=== PATIENT | male | born 1960 | race Caucasian/White ===

== ENCOUNTER 2017-01-24 17:46 | Emergency (ER) | payer MEDICARE, OTHER ==
[2017-01-24 17:51] VITALS: BP 146/81; PULSE 72; RESP 18; TEMP 97.9
[2017-01-24] MEDS ORDERED: CYCLOBENZAPRINE 10 MG TAB PO STA (17:56)
--- NOTE | 2017-01-24 18:05 | ED ---
Back Pain HPI - General Chief Complaint: Back Pain/Injury Stated Complaint: Back pain Time Seen by Provider: 01/24/17 17:47 Source: patient, EMS, RN notes reviewed Limitations: no limitations - History of Present Illness Initial Comments: 56-year-old male present emergency department with chief complaint of low back pain. Patient states that he's been having spasms on and off throughout the day. Patient states that he may have done more work than he usually does. Patient states that the pain is in his left low back and radiates down his leg slightly. Patient states he has a history of back pain and has seen Dr. Antonio in the past. Patient has a any bowel, bladder incontinence or retention denies any abdominal pain including nausea, vomiting, diarrhea, dysuria or hematuria. He has increased pain with range of motion better at rest current pain 6/10 pain. - Related Data Home Medications Medication Instructions Recorded Confirmed Albuterol Inhaler [Ventolin Hfa 1 - 2 puff INHALATION Q4-6H PRN 01/13/14 Inhaler] Mirtazapine [Remeron] 45 mg PO HS 01/13/14 04/17/15 Montelukast [Singulair] 10 mg PO HS 01/13/14 04/17/15 Venlafaxine HCl [Effexor XR] 300 mg PO DAILY 01/13/14 04/17/15 Rosuvastatin [Crestor] 10 mg PO HS 06/20/14 04/17/15 Levothyroxine Sodium [Synthroid] 50 mcg PO QAM 11/20/14 04/17/15 QUEtiapine [SEROquel] 50 mg PO HS 11/20/14 04/17/15 Allopurinol [Zyloprim] 100 mg PO 04/17/15 04/17/15 Previous Rx's Medication Instructions Recorded Aspirin EC [Ecotrin] 325 mg PO DAILY tablet. 11/23/14 Metoprolol Tartrate [Lopressor] 25 mg PO BID #60 tab 11/23/14 Nitroglycerin Sl Tabs [Nitrostat] 0.4 mg SUBLINGUAL Q5M PRN #25 tab 11/23/14 HYDROcodone/APAP 5-325MG [[place] 5] 1 each PO Q4HR PRN #20 tab 04/17/15 Naproxen [Naprosyn] 500 mg PO Q12HR PRN #20 tab 04/17/15 Tamsulosin [Flomax] 0.4 mg PO DAILY #5 cap 04/17/15 Acetaminophen-Codeine 300-30mg 1 tab PO Q4H PRN #20 tablet 01/24/17 [Tylenol #3] Cyclobenzaprine [Flexeril] 10 mg PO TID PRN #15 tab 01/24/17 Allergies Allergy/AdvReac Type Severity Reaction Status Date / Time ziprasidone HCl [From Geodon] Allergy Anaphylaxis Verified 04/17/15 02:08 ziprasidone mesylate Allergy Anaphylaxis Verified 04/17/15 02:08 [From Lucina] Review of Systems ROS Statement: Those systems with pertinent positive or pertinent negative responses have been documented in the HPI. ROS Other: All systems not noted in ROS Statement are negative. 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 2010,HX OF FALLS(MAY 2014 BROKE ARM AND CURRENTLY RT FIBULA FX).PT STATED HAD [facility]. History of Any Multi-Drug Resistant Organisms: None Reported Past Surgical History: Adenoidectomy, Orthopedic Surgery, Tonsillectomy Additional Past Surgical History / Comment(s): lithotripsy, bilateral shoulder fusions, right foot reconstruction, NECK FUSION -2013 Past Anesthesia/Blood Transfusion Reactions: No Reported Reaction Past Psychological History: Anxiety, Depression Smoking Status: Never smoker Past Alcohol Use History: Rare Past Drug Use History: None Reported - Past Family History Mother Family Medical History: Cancer Father Family Medical History: CVA/TIA Sister(s) Family Medical History: No Reported History General Exam Limitations: no limitations General appearance: alert, in no apparent distress Respiratory exam: Present: normal lung sounds bilaterally. Absent: respiratory distress, wheezes, rales, rhonchi, stridor Cardiovascular Exam: Present: regular rate, normal rhythm, normal heart sounds. Absent: systolic murmur, diastolic murmur, rubs, gallop, clicks GI/Abdominal exam: Present: soft, normal bowel sounds. Absent: distended, tenderness, guarding, rebound, rigid Extremities exam: Present: other (Lower extremity strength equal bilaterally 5/5 , neurovascular intact equal color Equal warmth) Back exam: Present: normal inspection, full ROM, tenderness (Mild tenderness to left SI joint region), muscle spasm, paraspinal tenderness. Absent: vertebral tenderness Neurological exam: Present: alert, oriented X3, CN II-XII intact, reflexes normal. Absent: motor sensory deficit Skin exam: Present: warm, dry, intact, normal color. Absent: rash Course Vital Signs 01/24/17 17:48 Temperature 97.9 F Pulse Rate 72 Respiratory 18 Rate Blood Pressure 146/81 O2 Sat by Pulse 100 Oximetry Medical Decision Making - Medical Decision Making 56-year-old male present emergency department for low back pain. Patient does have spasms at home. Patient x-ray does not show any acute abnormality. Patient has no neurological deficits or red flag symptoms. Patient be discharged with Flexeril and Tylenol with codeine return parameters were discussed. Disposition Clinical Impression: Lumbar back pain Disposition: HOME SELF-CARE Condition: Stable Instructions: Acute Low Back Pain (ED) Additional Instructions: Please return to the Emergency Department if symptoms worsen or any other concerns. Prescriptions: Acetaminophen-Codeine 300-30mg [Tylenol #3] 1 tab PO Q4H PRN #20 tablet PRN Reason: pain Cyclobenzaprine [Flexeril] 10 mg PO TID PRN #15 tab PRN Reason: Muscle Spasm Referrals: Armani Rendon DO [Primary Care Provider] - 1-2 days Time of Disposition: 18:30
--- NOTE | 2017-01-24 18:13 | XR ---
EXAMINATION TYPE: XR lumbosacral spine min 4V DATE OF EXAM: 01/24/2017 COMPARISON: NONE HISTORY: Back pain TECHNIQUE: 5 views FINDINGS: The vertebra have Fairly normal spacing and alignment. Posterior elements are intact. There is no com pression fracture. Sacroiliac joints are intact. IMPRESSION: Negative lumbar spine exam.
== END 2017-01-24 18:30 | disposition home or self-care (01) ==
LOC: EC 17:46
DX: M54.5 Low back pain (principal); J45.909 Unspecified asthma, uncomplicated; I10 Essential (primary) hypertension; E78.5 Hyperlipidemia, unspecified; E07.9 Disorder of thyroid, unspecified; F41.9 Anxiety disorder, unspecified; F32.9 Major depressive disorder, single episode, unspecified; Z98.1 Arthrodesis status; Z85.72 Personal history of non-Hodgkin lymphomas; Z88.8 Allergy status to other drugs, medicaments and biological substances; Z79.899 Other long term (current) drug therapy
CPT/HCPCS: 72110; 99283

== ENCOUNTER → 2018-04-29 | Outpatient (CLI) | payer MEDICARE, OTHER ==
[2018-04-29 16:48] LABS: Blood Urea Nitrogen 23 mg/dL (9-20)
--- NOTE | 2018-05-02 00:13 | MR ---
EXAMINATION TYPE: MR cervical spine wo/w con DATE OF EXAM: 04/29/2018 COMPARISON: None HISTORY: Neck Pain, Hodgkins, Gadavist 10ml TECHNIQUE: Multiplanar, multisequence images of the cervical spine were acquired utilizing 10 mL intravenous Reuben avist gadolinium contrast. Diffusion weighted imaging was performed. The cervical vertebra have normal alignment. There is metal artifact from anterior fusion surgery at C5-C6 and C7 levels. The cervical spinal cord shows no edema. There is a moderate spur posteriorly of the endplates at C6-7 with slight narrowing of the spinal canal. The canal measures 7 mm. There is n o evidence of compression fracture. Brainstem appears intact. I see no focal bony destructive process . Contrast images show no pathologic enhancement. IMPRESSION: Multilevel fusion surgery. Mild relative spinal stenosis at C6-7 with posterior spurring.
== END | disposition home or self-care (01) ==
LOC: RADMRIMAIN 16:07
PROVIDERS: ATTEND Orthopaedic Surgery Orthopaedic Surgery of the Spine
DX: M48.02 Spinal stenosis, cervical region (principal); Z98.1 Arthrodesis status
CPT/HCPCS: 82565; 84520; 72156; A9585

== ENCOUNTER → 2018-11-21 | Outpatient (CLI) | payer MEDICARE, OTHER ==
[2018-11-21 10:48] LABS: HCT 45.7 % (39.0-53.0); HGB 14.7 gm/dL (13.0-17.5); MCH 29.6 pg (25.0-35.0); MCHC 32.2 g/dL (31.0-37.0); MCV 91.7 fL (80.0-100.0); Mean Platelet Volume 7.9; Platelet Count 196 k/uL (150-450); RBC 4.98 m/uL (4.30-5.90); RDW 14.1 % (11.5-15.5)
[2018-11-21 16:05] LABS: Anion Gap 6.8 mmol/L (4.00-12.00); Calcium 9.3 mg/dL (8.7-10.3); Carbon Dioxide 26.2 mmol/L (21.6-31.8); Potassium 4.3 mmol/L (3.5-5.5)
[2018-11-21 16:14] LABS: T4, Free (Free Thyroxine) 1.3 ng/dL (0.80-1.80)
== END | disposition home or self-care (01) ==
LOC: LABWHC1 10:20
PROVIDERS: ATTEND Internal Medicine Interventional Cardiology
DX: I10 Essential (primary) hypertension (principal); R94.39 Abnormal result of other cardiovascular function study
CPT/HCPCS: 36415; 80048; 84439; 84443; 85027

== ENCOUNTER → 2019-02-03 | Outpatient (CLI) | payer MEDICARE, OTHER | END | disposition home or self-care (01) | LOC: LABWHC1 09:41 | PROVIDERS: ATTEND Orthopaedic Surgery | DX: M79.672 Pain in left foot (principal); M84.375A Stress fracture, left foot, initial encounter for fracture | CPT/HCPCS: 36415; 82306 ==

== ENCOUNTER → 2019-08-12 | Outpatient (CLI) | payer MEDICARE, OTHER ==
--- NOTE | 2019-08-12 17:34 | MR ---
EXAMINATION TYPE: MR lumbar spine wo con DATE OF EXAM: 08/12/2019 COMPARISON: None HISTORY: Low back pain Multiplanar multiecho imaging of the lumbar spine was performed with no contrast. Lumbar vertebra have normal alignment. Disc spaces are fairly normal. There is no compression fractur e. Lumbar nerve roots appear normal. Neural foramina are widely patent. There is no lumbar disc herni ation. Posterior elements are intact. Sacroiliac joints appear intact. There is no lumbar paraspinal mass. There is no spinal stenosis. There is no compression fracture. IMPRESSION: Lumbar spine appears normal for age.
== END | disposition home or self-care (01) ==
LOC: RADMRIMAIN 09:27
PROVIDERS: ATTEND Physical Medicine & Rehabilitation
DX: M54.5 Low back pain (principal); M51.37 Other intervertebral disc degeneration, lumbosacral region; M47.817 Spondylosis without myelopathy or radiculopathy, lumbosacral region; G56.03 Carpal tunnel syndrome, bilateral upper limbs; M50.121 Cervical disc disorder at C4-C5 level with radiculopathy; M47.812 Spondylosis without myelopathy or radiculopathy, cervical region
CPT/HCPCS: 72148

== ENCOUNTER → 2020-05-21 | Outpatient (CLI) | payer MEDICARE, OTHER | END | disposition home or self-care (01) | LOC: LABWHC1 16:18 | PROVIDERS: ATTEND Family Medicine | DX: Z20.828 Contact with and (suspected) exposure to other viral communicable diseases (principal) | CPT/HCPCS: U0003; C9803 ==

== ENCOUNTER → 2020-09-09 | Outpatient (CLI) | payer MEDICARE, OTHER ==
--- NOTE | 2020-09-09 16:24 | MR ---
MRI CERVICAL SPINE: CLINICAL HISTORY: Cervicalgia, muscle weakness, cervical region spondylolisthesis, status post ACDF C 5-C6 and C6-C7 levels August 09, 2013. Headache with neck pain for 20+ years causing pain or weakne ss into bilateral fingers. TECHNIQUE: Multiplanar, multisequence imaging of the cervical spine is performed without and with IV contrast, 10 cc of gadolinium was given intravenously. COMPARISON: MRI cervical spine April 29, 2018 FINDINGS: Coronal images redemonstrate levoconvex scoliosis centered in the upper thoracic spine. Sag ittal images of the cervical spine show the craniocervical junction to remain within normal limits. The cervical and upper thoracic spinal cord remains normal in caliber and signal. Persistent artifact from anterior fusion hardware C5-C7 levels, some ossific fusion C5-C6 level is suspected. The verteb ral body height are normal above and below surgical levels. Slight grade 1 retrolisthesis C2 on C3 an d C3 on C4 with grade 1 anterolisthesis C4 on C5 redemonstrated. Disc space heights fairly well maint ained. Bone marrow signal intensity preserved. No suspicious postcontrast enhancement. Axial images at C2-C3 level shows a central disc protrusion mildly facing anterior thecal sac with un covertebral facet degenerative changes, patent bilateral neural foramina. No significant change from prior. Axial images at C3-C4 level show uncovertebral facet degenerative changes bilaterally along with post erior spur disc complex, there is effacement of the anterior thecal sac along with mild right and mod erate left-sided neural foraminal narrowing. No significant change from prior. Axial images at L4-L5 level show spondylolisthesis with uncovertebral facet spurring, there is broad- based lobulated posterior disc protrusion. There is effacement of the anterior thecal sac with mild b ilateral neural foraminal narrowing. No significant change from prior. Axial images at C5-C6 level show bony ossific fusion with effacement anterior thecal sac due to poste rior bony projection axial image 26, this is similar finding to prior study, slight indentation of th e ventral surface spinal cord redemonstrated. Patent bilateral neural foramina. Axial images at C6 and C6-C7 level show posterior ossific projection right paracentral region effacin g anterior thecal sac, there is right paracentral/foraminal disc protrusion also facing anterolateral thecal sac and causing moderate right-sided neural foraminal narrowing. Patent left-sided neural for augustus. No significant change from prior. Axial images at C7-T1 levels artifact from surgical hardware, there is posterior spur disc complex ef facing the anterior thecal sac, there is asymmetric moderate right-sided neural foraminal narrowing. Patent left-sided neural foramina. No significant change from prior. IMPRESSION: Postsurgical changes C5-C7 level redemonstrated. Multilevel spondylolisthesis and degener ative changes as detailed above. No significant interval degenerative progression from 2018 MRI noted .
== END ==
LOC: RADMRIMAIN 07:42
PROVIDERS: ATTEND Orthopaedic Surgery Orthopaedic Surgery of the Spine
DX: M43.12 Spondylolisthesis, cervical region (principal); M47.812 Spondylosis without myelopathy or radiculopathy, cervical region; M99.71 Connective tissue and disc stenosis of intervertebral foramina of cervical region
CPT/HCPCS: 72156; A9585

== ENCOUNTER → 2020-10-07 | Outpatient (CLI) | payer MEDICARE, OTHER ==
[2020-10-07 10:23] LABS: Basophils # (A) 0.1 k/uL (0-0.2); Basophils % (A) 1 %; Eosinophils # (A) 0.2 k/uL (0-0.7); Eosinophils % (A) 2 %; HCT 45.3 % (39.0-53.0); HGB 14.4 gm/dL (13.0-17.5); Lymphocytes # (A) 1.3 k/uL (1.0-4.8); Lymphocytes % (A) 18 %; MCH 31.1 pg (25.0-35.0); MCHC 31.9 g/dL (31.0-37.0); MCV 97.6 fL (80.0-100.0); Mean Platelet Volume 7.1; Monocytes # (A) 0.4 k/uL (0-1.0); Monocytes % (A) 5 %; Neutrophils # (A) 5.3 k/uL (1.3-7.7); Neutrophils % (A) 70 %; Platelet Count 237 k/uL (150-450); RBC 4.64 m/uL (4.30-5.90); RDW 13.4 % (11.5-15.5); WBC 7.5 k/uL (3.8-10.6)
[2020-10-07 10:27] LABS: Appearance,Urine Clear (Clear); Bilirubin,Urine Negative (Negative); Blood,Urine Trace (Negative); Color,Urine Yellow; Glucose,Urine (UA) Negative (Negative); Hyaline Casts,Urine 1 /lpf (0-2); Ketones,Urine Negative (Negative); Leukocyte Esterase,Urine Negative (Negative); Mucus,Urine Rare /hpf; Nitrite,Urine Negative (Negative); PH, Urine 5.5 (5.0-8.0); Protein,Urine 1+ (Negative); RBC,Urine 1 /hpf (0-5); Urobilinogen,Urine <2.0 mg/dL (<2.0); WBC,Urine 1 /hpf (0-5)
[2020-10-07 10:28] LABS: INR 0.9 (<1.2); Prothrombin Time 9.4 sec (9.0-12.0)
[2020-10-07 10:39] LABS: African American GFR (CKD) >90 (>60 ml/min/1.73 sqM); Anion Gap 10 mmol/L; Blood Urea Nitrogen 18 mg/dL (9-20); Calcium 9.8 mg/dL (8.4-10.2); Carbon Dioxide 23 mmol/L (22-30); Chloride 108 mmol/L (98-107); Glucose 129 mg/dL (74-99); Non-African American GFR(CKD) >90 (>60 ml/min/1.73 sqM); Potassium 4.3 mmol/L (3.5-5.1); Sodium 141 mmol/L (137-145)
--- NOTE | 2020-10-07 12:08 | XR ---
EXAMINATION TYPE: XR chest 2V DATE OF EXAM: 10/07/2020 COMPARISON: Chest CT November 04, 2015. Chest x-ray October 28, 2015 HISTORY: Presurgical study. TECHNIQUE: Frontal and lateral views of the chest are obtained. FINDINGS: There is mild chronic parenchymal changes without suspicious new focal air space opacity, pleural effusion, or pneumothorax seen. The cardiac silhouette size remains within normal limits. Cruz rgical changes from cervical spine is partially imaged. Surgical change bilateral shoulders also part ially imaged similar to prior studies. IMPRESSION: No acute cardiopulmonary process. No significant change from prior studies.
== END | disposition home or self-care (01) ==
LOC: LABWHC1 09:15
PROVIDERS: ATTEND Orthopaedic Surgery Orthopaedic Surgery of the Spine
DX: Z01.818 Encounter for other preprocedural examination (principal); M48.02 Spinal stenosis, cervical region
CPT/HCPCS: 36415; 71046; 80048; 81001; 85025; 85610; 85730; 86850; 86900; 86901

== ENCOUNTER 2020-10-16 10:35 | Day surgery (SDC) | payer MEDICARE, OTHER ==
[2020-10-09 18:05] VITALS: BMI 28.6
[~2020-10-16 10:35] MED LIST: DEXAMETHASONE SOD PHOSPHATE 4 MG/ML 1 ML VIAL IV ONE; HYDROmorphone 0.5 MG/0.5 ML SYRINGE IVP PRN; LACTATED RINGERS 1,000 ML IV SCH; LIDOCAINE 1% (10MG/ML) FOR IV START INTRADERMA PRN; MIDAZOLAM 2 MG/2 ML VIAL IV PRN; ceFAZolin 1,000 MG in SODIUM CHLORIDE 0.9% IRRIGATIO 1,000 ML IRRIGATION PRN
[2020-10-16] MEDS ORDERED: ONDANSETRON 4 MG/2 ML VIAL ONE (11:13)
[2020-10-16 11:39] VITALS: RESP 16
[2020-10-16] MEDS ORDERED: MIDAZOLAM 2 MG/2 ML VIAL ONE (13:53)
[2020-10-16] MEDS ORDERED: fentaNYL (PF) 50 MCG/ML 2 ML AMP ONE (13:53)
[2020-10-16] MEDS ORDERED: SUCCINYLCHOLINE CHLORIDE VIAL 200 MG/10 ML VIAL IV ONE (13:53)
[2020-10-16] MEDS ORDERED: PROPOFOL 10 MG/ML 20 ML VIAL IV ONE (13:53)
[2020-10-16] MEDS ORDERED: ePHEDrine SULFATE/0.9% NACL/PF 50 MG/5 ML SYRINGE IV ONE (13:53)
[2020-10-16] MEDS ORDERED: LIDOCAINE 1% INJ 10MG/ML (20 ML MDV) ONE (13:53)
[2020-10-16] MEDS ORDERED: LIDOCAINE 0.5%-EPI 1:200,000 50 ML VIAL SQ ONE (13:58)
[2020-10-16] MEDS ORDERED: GELATIN SPONGE,ABSORB (LARGE) 1 EACH SPONGE TOPICAL ONE (13:58)
[2020-10-16] MEDS ORDERED: THROMBIN (BOVINE) 5,000 UNIT VIAL TOPICAL ONE (13:58)
--- NOTE | 2020-10-16 15:22 | XR ---
EXAMINATION TYPE: XR cervical spine 1V DATE OF EXAM: 10/16/2020 COMPARISON: Prior intraoperative x-ray August 09, 2013 HISTORY: Neck pain. TECHNIQUE: Single crosstable lateral view of cervical spine is obtained intraoperatively. FINDINGS: Exam is for surgical planning and upper diagnostic purposes. Partial visualization of anter ior fusion plate C5-C7 levels redemonstrated. Metallic pointer localized to C4-C5 disc space level. IMPRESSION: As above.
[2020-10-16] MEDS ORDERED: LACTATED RINGERS 1,000 ML IV ONE (15:26)
--- NOTE | 2020-10-16 15:32 | XR ---
EXAMINATION TYPE: XR cervical spine 1V DATE OF EXAM: 10/16/2020 COMPARISON: Intraoperative Cervical spine x-ray earlier today. HISTORY: Neck pain. Prior surgery. TECHNIQUE: Single crosstable lateral view of cervical spine is obtained intraoperatively. FINDINGS: There is new anterior fusion device and artificial disc material C4-C5 level. Alignment is stable with slight grade 1 anterolisthesis C4 on C5. IMPRESSION: As above.
[2020-10-16] MEDS ORDERED: HYDROmorphone 0.5 MG/0.5 ML SYRINGE IVP PRN (15:35)
[2020-10-16] MEDS ORDERED: MAGNESIUM HYDROXIDE 2,400 MG/10 ML CUP PO PRN (15:35)
[2020-10-16] MEDS ORDERED: HYDROcodone/APAP 5-325MG 1 EACH TAB PO PRN (15:35)
[2020-10-16] MEDS ORDERED: HYDROmorphone 1 MG/ML 1 ML SYRINGE IVP PRN (15:35)
[2020-10-16] MEDS ORDERED: ONDANSETRON 4 MG/2 ML VIAL IVP PRN (15:35)
[2020-10-16] MEDS ORDERED: CYCLOBENZAPRINE 10 MG TAB PO PRN (15:35)
[2020-10-16] MEDS ORDERED: BENZOCAINE/MENTHOL LOZENG 1 EACH LOZENGE MUCOUS MEM PRN (15:35)
[2020-10-16] MEDS ORDERED: ALBUTEROL INHALATION PRN (15:37)
[2020-10-16] MEDS ORDERED: ERGOCALCIFEROL 1,250 MCG (50,000 IU) CAPSULE PO SCH (15:45)
[2020-10-16] MEDS ORDERED: SODIUM CHLORIDE 0.9% 1,000 ML IV SCH (15:45)
--- NOTE | 2020-10-16 15:49 | P.OP ---
Date of Procedure: 10/16/20 Preoperative Diagnosis: Spondylolisthesis C4 5, spinal stenosis C4 5, disc herniation C4 5, neck pain, upper extremity radiculopathy, history of prior anterior cervical fusion C5 6 7, upper extremity chronic weakness, adjacent level degeneration C4 5, Postoperative Diagnosis: Same Anesthesia: GETA Pathology: none sent Condition: stable Disposition: PACU Description of Procedure: BRIEF OPERATIVE NOTE Preoperative Diagnosis:Spondylolisthesis C4 5, spinal stenosis C4 5, disc herniation C4 5, neck pain, upper extremity radiculopathy, history of prior an terior cervical fusion C5 6 7, upper extremity chronic weakness, adjacent level degeneration C4 5, Postoperative Diagnosis:Spondylolisthesis C4 5, spinal stenosis C4 5, disc herniation C4 5, neck pain, upper extremity radiculopathy, history of prior anterior cervical fusion C5 6 7, upper extremity chronic weakness, adjacent level degeneration C4 5, Procedure: Anterior cervical decompression and fusion C4 5 Placement of Peek interbody graft with incorporated anterior titanium cervical plate and screws C4 5 Local autogenous bone grafting Surgeon: Dr. Sim [employer] Outreach Specialist: Ronal Michael is present throughout the entire the case persistence during positioning, dissection, exposure, visualization, and all crucial elements of the case as well as closure. Anesthesia: General anesthesia per Dr. Roblero Estimated blood loss: Approximately 30 mL Complications: None apparent Components implanted: K2M standalone anterior cervical peek cage with incorpora rodolfo plate and screws size 8 at C4 5 with 10 mm screws Disposition: To recovery room in good stable condition. OPERATIVE INDICATIONS The patient has had long-standing issues in their neck and upper extremities. The patient has chronic weakness at his upper extremities. He has been through prior anterior cervical decompression and fusion at C5 6 and C6 7 with fusion and had good results with that. He had good relief of his symptoms. However over the past year he has been having worsening symptoms at his neck and his upper extremities. His found have a adjacent level degeneration at C4 5 above his stable fusion with spondylolisthesis and stenosis at C4 5. His symptoms correlated well with his progressive degeneration at C4 5. The patient has been through conservative treatment. He is not having any prolonged benefit despite aggressive conservative treatment. We discussed various treatment options including surgery, and the patient wishes to proceed with surgery We discussed the risk, patient's alternatives and benefits of surgery including but not limited to, risk of bleeding risk of infection, risk of need for further surgery, risk of decreased, loss of motion, muscle function, malunion nonunion, hardware failure, nerve damage, paralysis, heart attack, and . OPERATIVE SUMMARY After discussing all the risks, patient alternatives and benefits at length, the patient elected to proceed with surgical intervention, signed informed consent, and presented for their procedure. The patient was seen and examined in the preoperative holding area and the surgical site was marked. The patient was given antibiotics and brought to the operating room. The patient was positioned on the operating room table in a supine position being careful to pad any bony prominences and pressure points. The patient was sedated and intubated by anesthesia in standard fashion. Once the airway and C- spine were stabilized the patient's arms were padded and tucked at her side, with her shoulders gently taped. The head was placed in a donut pad with the neck in good neutral alignment and position. We were careful to maintain the patient's cervical spine and good neutral alignment and position throughout. The patient was prepped and draped in a normal standard fashion. An appropriate timeout and keystone protocol performed. We were able to proceed with the surgery. The local wound area was infiltrated with local anesthetic. An incision was made transversely approximately 2-1/2 cm over the appropriate levels above his prior incision at approximately C4 5. Dissection was taken down subcutaneously to the level of the platysma which was split in line with its fibers. Dissection was taken with a carotid approach, with the trachea and esophagus medial and the carotid sheath laterally. We dissected down to the anterior surface of the vertebral bodies. Intraoperative x-ray was taken which showed a marker at the appropriate level of C4 5 above his prior plate at C56 and 7. The plate appeared to be stable without any evidence of loosening. With the appropriate level positively confirmed, we were able to proceed with discectomy at the appropriate levels of C4 5. All of the operative levels were exposed appropriately. The patient had all their twitches back, and there was no evidence of recurrent laryngeal issue. The wound was copiously irrigated and bush ctioned dry as had been done periodically throughout the case. At the appropriate level of C4 5, I established an annulotomy with an 11 blade scalpel. I was able to remove some anterior osteophytes and some bony material which was saved and used later for local autogenous bone graft. A discectomy was performed with a combination of pituitary rongeurs, curettes, a high-speed bur, and Kerrison rongeurs. The posterior longitudinal ligament was taken down as were any posterior osteophytes. This gave good central and bilateral foraminal decompression. There is no evidence of any dural tear or leak. The endplates were prepared with a high-speed bur. With the endplates in good parallel position, I was able to size for the appropriate size interbody graft. The wound was irrigated and suctioned dry the graft was prepared and malleted into position. It had good alignment and position with the anterior surface flush with the anterior surface of the vertebral bodies of C4 5. The cage had been packed with local autogenous bone graft and bio4 graft. With the grafts intact within the cage I was able to measure and position for the appropriate screw placement. The plate is incorporated in the cage itself and I was able to use the guide to establish all holes and then placed screws 1 at C4 and C5. Screws were placed in good alignment good position with excellent bony purchase. They were seated into the plate and had good locking instability. The construct was checked and found to be stable. Intraoperative x-ray was taken which showed good alignment and position of the implants at the appropriate levels at C4 5. There was no evidence of any dural tear or leak. Good hemostasis was maintained. The wound was copiously irrigated and suctioned dry as had been done periodically throughout the case. The platysma was closed with absorbable suture. The subcutaneous tissue was closed. The subcuticular tissue was closed with absorbable suture. The wound was cleaned and dried and dressed appropriately. A soft cervical collar was placed appropriately. The patient was woken up by anesthesia, extubated, transferred back gently to their hospital bed and brought to the recovery room in good stable condition. The patient will be admitted to the hospital for appropriate postoperative care, medical management and monitoring. We will continue to follow them closely a bout the postoperative course.
[2020-10-16 15:50] VITALS: TEMP 97.1
[2020-10-16] MEDS ORDERED: GABAPENTIN 600 MG PO SCH (16:00)
[2020-10-16] MEDS ORDERED: diazePAM 5 MG TAB PO PRN ×2 (16:01→16:03)
[2020-10-16] MEDS ORDERED: HYDROcodone/APAP 5-325MG 1 EACH TAB PO ONE (17:05)
[2020-10-16 18:26] VITALS: BP 157/78; PULSE 68
[2020-10-16] MEDS ORDERED: NON FORMULARY DRUG (Rosuvastatin 10 MG Tablet) PO SCH (21:00)
[2020-10-16] MEDS ORDERED: MONTELUKAST 10 MG TAB PO SCH (21:00)
[2020-10-16] MEDS ORDERED: MIRTAZAPINE 45 MG TABLET PO SCH (21:00)
[2020-10-17] MEDS ORDERED: allopurinoL 100 MG TAB PO SCH (09:00)
[2020-10-17] MEDS ORDERED: ZINC PO SCH (09:00)
[2020-10-17] MEDS ORDERED: LEVOTHYROXINE 50 MCG TAB PO SCH (09:00)
[2020-10-17] MEDS ORDERED: VITC PO SCH (09:00)
[2020-10-17] MEDS ORDERED: VENLAFAXINE HCL ER 150 MG CAP PO SCH (09:00)
[2020-10-17] MEDS ORDERED: LUTEIN PO SCH (09:00)
[2020-10-17] MEDS ORDERED: TAMSULOSIN 0.4 MG CAP.ER.24H PO SCH (09:00)
[2020-10-17] MEDS ORDERED: ZEAX PO SCH (09:00)
[2020-10-17] MEDS ORDERED: METOPROLOL TARTRATE 25 MG TAB PO SCH (09:00)
[2020-10-17] MEDS ORDERED: COPPER PO SCH (09:00)
[2020-10-17] MEDS ORDERED: [UNRECOGNIZED DRUG - OTHER] PO SCH (09:00)
== END 2020-10-16 18:30 | disposition home or self-care (01) ==
LOC: OR 10:35
PROVIDERS: ATTEND Orthopaedic Surgery Orthopaedic Surgery of the Spine
DX: M48.02 Spinal stenosis, cervical region (principal); M50.121 Cervical disc disorder at C4-C5 level with radiculopathy; M43.12 Spondylolisthesis, cervical region; M25.78 Osteophyte, vertebrae; Z98.1 Arthrodesis status; Z20.822 Contact with and (suspected) exposure to COVID-19; I25.10 Atherosclerotic heart disease of native coronary artery without angina pectoris; E03.9 Hypothyroidism, unspecified; F32.9 Major depressive disorder, single episode, unspecified; J45.909 Unspecified asthma, uncomplicated; M19.011 Primary osteoarthritis, right shoulder; E78.5 Hyperlipidemia, unspecified; I10 Essential (primary) hypertension; M19.90 Unspecified osteoarthritis, unspecified site; F41.9 Anxiety disorder, unspecified; Z87.442 Personal history of urinary calculi; Z97.3 Presence of spectacles and contact lenses; Z79.890 Hormone replacement therapy; Z79.891 Long term (current) use of opiate analgesic; Z79.899 Other long term (current) drug therapy; Z98.890 Other specified postprocedural states; Z82.49 Family history of ischemic heart disease and other diseases of the circulatory system; Z85.9 Personal history of malignant neoplasm, unspecified; Z88.8 Allergy status to other drugs, medicaments and biological substances
CPT/HCPCS: 22551; 20938; 87635; 72020; C1713; C1762; J2250; J0330; J0690 ×2; J2405; J2001; J3010; J2704; 86850; 86900; 86901

== ENCOUNTER 2020-12-24 09:32 | Emergency (ER) | payer MEDICARE, OTHER ==
[2020-12-24 09:37] VITALS: RESP 18
[2020-12-24] MEDS ORDERED: SODIUM CHLORIDE 0.9% 1,000 ML IV STA (10:03)
[2020-12-24] MEDS ORDERED: KETOROLAC 15 MG/ML 1 ML VIAL IVP STA ×2 (10:03→11:18)
[2020-12-24 10:29] LABS: Appearance,Urine Clear (Clear); Bilirubin,Urine Negative (Negative); Blood,Urine Negative (Negative); Color,Urine Yellow; Glucose,Urine (UA) Negative (Negative); Ketones,Urine Negative (Negative); Leukocyte Esterase,Urine Negative (Negative); Nitrite,Urine Negative (Negative); Protein,Urine Trace (Negative); Specific Gravity,Urine 1.026 (1.001-1.035); Urobilinogen,Urine <2.0 mg/dL (<2.0)
[2020-12-24 10:30] LABS: Basophils # (A) 0.1 k/uL (0-0.2); Basophils % (A) 2 %; Eosinophils # (A) 0.2 k/uL (0-0.7); Eosinophils % (A) 3 %; HCT 43.4 % (39.0-53.0); HGB 14.5 gm/dL (13.0-17.5); Lymphocytes # (A) 1.1 k/uL (1.0-4.8); Lymphocytes % (A) 17 %; MCH 31.2 pg (25.0-35.0); MCHC 33.4 g/dL (31.0-37.0); MCV 93.6 fL (80.0-100.0); Mean Platelet Volume 7.2; Monocytes # (A) 0.4 k/uL (0-1.0); Monocytes % (A) 5 %; Neutrophils # (A) 4.6 k/uL (1.3-7.7); Neutrophils % (A) 70 %; Platelet Count 264 k/uL (150-450); RBC 4.63 m/uL (4.30-5.90); RDW 13.1 % (11.5-15.5); WBC 6.5 k/uL (3.8-10.6)
[2020-12-24 10:45] LABS: ALT 23 U/L (4-49); AST 33 U/L (17-59); African American GFR (CKD) >90 (>60 ml/min/1.73 sqM); Albumin 4.7 g/dL (3.5-5.0); Alkaline Phosphatase 91 U/L (38-126); Anion Gap 11 mmol/L; Blood Urea Nitrogen 18 mg/dL (9-20); Calcium 10.1 mg/dL (8.4-10.2); Carbon Dioxide 21 mmol/L (22-30); Chloride 110 mmol/L (98-107); Glucose 149 mg/dL (74-99); Non-African American GFR(CKD) >90 (>60 ml/min/1.73 sqM); Potassium 4.6 mmol/L (3.5-5.1); Sodium 142 mmol/L (137-145); Total Bilirubin 0.6 mg/dL (0.2-1.3); Total Protein 7.2 g/dL (6.3-8.2)
--- NOTE | 2020-12-24 10:59 | CT ---
EXAMINATION TYPE: CT abdomen pelvis wo con DATE OF EXAM: 12/24/2020 HISTORY: left flank pain CT DLP: 925.4 mGycm. Automated Exposure Control for Dose Reduction was Utilized. TECHNIQUE: CT scan of the abdomen and pelvis is performed without oral or IV contrast. COMPARISON: NONE FINDINGS: Within the limitations of a non-contrast study, the following observations are made. LUNG BASES: No significant abnormality is appreciated. LIVER/GB: No significant abnormality is appreciated. PANCREAS: Moderate generalized fat replaced atrophy. SPLEEN: No significant abnormality is seen. ADRENALS: There is 1.8 cm left adrenal mass, Hounsfield units average 2-4 consistent with benign lipi d rich adenoma. KIDNEYS: Multiple renal calculi are present bilaterally. Approximately 10-15 calculi in each kidney. Largest calculus upper pole right kidney measures 14 mm long axis axial image 44. Some vague scattere d small hypodense lesions favor benign thin-walled cysts greater in number in the left kidney. No hyd ronephrosis or obstructing ureteral calculi clearly seen bilaterally. No intraluminal calculus in the bladder. BOWEL: Appendix within normal limits for base of cecum. Small bowel feces sign and terminal ileum. No suspicious small or large bowel dilatation. Findings consistent with delayed passage of ingested mat erial to colonic level. GENITAL ORGANS: No gross abnormality seen. LYMPH NODES: No greater than 1cm abdominal or pelvic lymph nodes are appreciated. OSSEOUS STRUCTURES: Spine is straightened. Mild to moderate multilevel anterior and lateral spurring. Some facet arthropathy lower lumbar spine. Deformity to bilateral iliac crest may be product of prio r bone harvesting procedure. OTHER: Mild calcified plaque of the aorta extends into branch vessels. IMPRESSION: Multiple nonobstructing renal calculi bilaterally. No hydronephrosis or obstructing urete ral calculi. No acute findings evident.
[2020-12-24] MEDS ORDERED: ONDANSETRON 4 MG/2 ML VIAL IVP STA (11:18)
--- NOTE | 2020-12-24 12:36 | ED ---
General Adult HPI - General Chief complaint: Back Pain/Injury Stated complaint: Kidney Stones Time Seen by Provider: 12/24/20 09:41 Source: patient Mode of arrival: ambulatory Limitations: no limitations - History of Present Illness Initial comments: Patient is a 60-year-old male presenting to the emergency Department with complaints of left flank pain at an intermittent over the past 1-2 days. He states he has a history of kidney stones, he used to see Dr. Bertrand. He states his last kidney stone was approximately 3 years ago. He denies any fevers or chills. He describes the pain as of left flank, no radiation, no abdominal pain, no nausea or vomiting. He denies any dysuria or hematuria. He denies any falls or trauma to his back. He denies a chest pain or shortness of breath. He has no further complaints at this time. - Related Data Home Medications Medication Instructions Recorded Confirmed Mirtazapine [Remeron] 45 mg PO HS 01/13/14 12/24/20 Montelukast [Singulair] 10 mg PO HS 01/13/14 12/24/20 Venlafaxine HCl [Effexor XR] 150 mg PO BID 01/13/14 12/24/20 allopurinoL [Zyloprim] 100 mg PO DAILY 04/17/15 12/24/20 Ergocalciferol [Vitamin D2 (1250 1,250 mcg PO MO 10/09/20 12/24/20 Mcg = 79735 Iu)] Gabapentin [Neurontin] 600 mg PO TID PRN 10/09/20 12/24/20 Metoprolol Tartrate [Lopressor] 25 mg PO DAILY 10/09/20 12/24/20 Vitc/E/Zinc/Copper/Lutein/Zeax 1 tab PO DAILY 10/09/20 12/24/20 [Icaps Areds2 Tablet] Cetirizine HCl [Zyrtec] 10 mg PO HS 12/24/20 12/24/20 Cyclobenzaprine [Flexeril] 10 mg PO TID PRN 12/24/20 12/24/20 Levothyroxine Sodium [Synthroid] 112 mcg PO DAILY 12/24/20 12/24/20 Rosuvastatin [Crestor] 20 mg PO HS 12/24/20 12/24/20 Previous Rx's Medication Instructions Recorded Tamsulosin [Flomax] 0.4 mg PO DAILY #5 cap 04/17/15 HYDROcodone/APAP 5-325MG [[place] 5] 1 each PO Q6HR PRN #12 tab 12/24/20 Ondansetron Odt [Zofran Odt] 4 mg PO Q8HR PRN #10 tab 12/24/20 Allergies Allergy/AdvReac Type Severity Reaction Status Date / Time ziprasidone HCl [From Geodon] Allergy Anaphylaxis Verified 12/24/20 10:20 ziprasidone mesylate Allergy Anaphylaxis Verified 12/24/20 10:20 [From Lucina] Review of Systems ROS Statement: Those systems with pertinent positive or pertinent negative responses have been documented in the HPI. ROS Other: All systems not noted in ROS Statement are negative. 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 2010,HX OF FALLS(MAY 2014 BROKE ARM AND CURRENTLY RT FIBULA FX).PT STATED HAD TESTING DONE R/T GYNOMASTIA WAIT ON RESULTS. History of Any Multi-Drug Resistant Organisms: None Reported Past Surgical History: Adenoidectomy, Orthopedic Surgery, Tonsillectomy Additional Past Surgical History / Comment(s): lithotripsy, bilateral shoulder fusions, right foot reconstruction, NECK FUSION Past Anesthesia/Blood Transfusion Reactions: No Reported Reaction Past Psychological History: Anxiety, Depression Smoking Status: Former smoker Past Alcohol Use History: Rare Past Drug Use History: None Reported - Past Family History Mother Family Medical History: Cancer Father Family Medical History: CVA/TIA Sister(s) Family Medical History: No Reported History General Exam - General Exam Comments Initial Comments: GENERAL: Patient is well-developed and well-nourished. Patient is nontoxic and in no acute distress. HEAD: Atraumatic, normocephalic. EYES: Pupils equal round and reactive to light, extraocular movements intact, sclera anicteric, conjunctiva are normal. Eyelids were unremarkable. ENT: TMs normal, nares patent, oropharynx clear without exudates. Moist mucous membranes. NECK: Normal range of motion, supple without lymphadenopathy or JVD. LUNGS: Unlabored respirations. Breath sounds clear to auscultation bilaterally and equal. No wheezes rales or rhonchi. HEART: Regular rate and rhythm without murmurs, rubs or gallops. ABDOMEN: Soft, nontender, normoactive bowel sounds. No guarding, no rebound. No masses appreciated. Mild left flank pain. : Deferred MUSCULOSKELETAL: Normal extremities with adequate strength and normal range of motion, no pitting or edema. No clubbing or cyanosis. NEUROLOGICAL: Patient is alert and oriented x 3. Motor and sensory are also intact. Cranial nerves II through XII grossly intact. Symmetrical smile. Normal speech, normal gait. PSYCH: Normal mood, normal affect. SKIN: Warm, Dry, normal turgor, no rashes or lesions noted. Limitations: no limitations Course Vital Signs 12/24/20 09:32 Temperature 97.9 F Pulse Rate 74 Respiratory 18 Rate Blood Pressure 141/89 O2 Sat by Pulse 97 Oximetry Medical Decision Making - Medical Decision Making Patient is a 60-year-old male presenting with left flank pain on and off for the last 1-2 days. No fevers, no nausea or vomiting, no other abdominal pain. He does have long history of multiple kidney stones. He follows with Dr. Bertrand. Patient's labs show normal white count, normal hemoglobin, and kidney function is stable, urine shows no evidence of blood or infection. CT of the abdomen shows multiple nonobstructing renal cockeyed bilaterally, no hydronephrosis or obstructing calculi. No other acute findings. Patient was given fluids, pain control, ice and resting currently in the room. I discussed these findings with him. I will send him home with some pain medicine as well as [place], patient already takes Flomax. I recommend following up with urology. He is in [facility] ent with this plan of care and is stable for discharge. Case discussed with Dr. Carvalho. - Lab Data Result diagrams: 12/24/20 10:08 12/24/20 10:08 Lab Results 12/24/20 12/24/20 12/24/20 Range/Units 10:08 10:08 10:08 WBC 6.5 (3.8-10.6) k/uL RBC 4.63 (4.30-5.90) m/uL Hgb 14.5 (13.0-17.5) gm/dL Hct 43.4 (39.0-53.0) % MCV 93.6 (80.0-100.0) fL MCH 31.2 (25.0-35.0) pg MCHC 33.4 (31.0-37.0) g/dL RDW 13.1 (11.5-15.5) % Plt Count 264 (150-450) k/uL MPV 7.2 Neutrophils % 70 % Lymphocytes % 17 % Monocytes % 5 % Eosinophils % 3 % Basophils % 2 % Neutrophils # 4.6 (1.3-7.7) k/uL Lymphocytes # 1.1 (1.0-4.8) k/uL Monocytes # 0.4 (0-1.0) k/uL Eosinophils # 0.2 (0-0.7) k/uL Basophils # 0.1 (0-0.2) k/uL Sodium 142 (137-145) mmol/L Potassium 4.6 (3.5-5.1) mmol/L Chloride 110 H (98-107) mmol/L Carbon Dioxide 21 L (22-30) mmol/L Anion Gap 11 mmol/L BUN 18 (9-20) mg/dL Creatinine 0.78 (0.66-1.25) mg/dL Est GFR (CKD-EPI)AfAm >90 (>60 ml/min/1.73 sqM) Est GFR (CKD-EPI)NonAf >90 (>60 ml/min/1.73 sqM) Glucose 149 H (74-99) mg/dL Calcium 10.1 (8.4-10.2) mg/dL Total Bilirubin 0.6 (0.2-1.3) mg/dL AST 33 (17-59) U/L ALT 23 (4-49) U/L Alkaline Phosphatase 91 (38-126) U/L Total Protein 7.2 (6.3-8.2) g/dL Albumin 4.7 (3.5-5.0) g/dL Urine Color Yellow Urine Appearance Clear (Clear) Urine pH 5.0 (5.0-8.0) Ur Specific [place] 1.026 (1.001-1.035) Urine Protein Trace H (Negative) Urine Glucose (UA) Negative (Negative) Urine Ketones Negative (Negative) Urine Blood Negative (Negative) Urine Nitrite Negative (Negative) Urine Bilirubin Negative (Negative) Urine Urobilinogen <2.0 (<2.0) mg/dL Ur Leukocyte Esterase Negative (Negative) Disposition Clinical Impression: Kidney stones, Flank pain Disposition: HOME SELF-CARE Condition: Stable Instructions (If sedation given, give patient instructions): Kidney Stones (ED) Additional Instructions: Please return to the Emergency Department if symptoms worsen or any other concerns. Recommend continuing with your already prescribed Flomax, may take [place] for severe pain. Increase your fluid intake, may take Zofran for any nausea. Follow-up with urology as discussed. Prescriptions: HYDROcodone/APAP 5-325MG [[place] 5] 1 each PO Q6HR PRN #12 tab PRN Reason: Pain Ondansetron Odt [Zofran Odt] 4 mg PO Q8HR PRN #10 tab PRN Reason: Nausea Is patient prescribed a controlled substance at d/c from ED?: Yes When asked, does pt state using other controlled substances?: No If prescribed controlled substance>3 days was MAPS reviewed?: Prescribed <3 Days If opioid is for acute pain is fill amount 7 days or less?: Yes If Rx opioid, was Start Talking consent form obtained?: Yes Referrals: Armani Rendon DO [Primary Care Provider] - 1-2 days Aries Bertrand MD [STAFF PHYSICIAN] - 1-2 days Time of Disposition: 12:36
[2020-12-24 12:52] VITALS: BP 120/89; PULSE 67; TEMP 97.2
== END 2020-12-24 12:52 | disposition home or self-care (01) ==
LOC: EC 09:32
DX: N20.0 Calculus of kidney (principal); J45.909 Unspecified asthma, uncomplicated; E78.5 Hyperlipidemia, unspecified; I10 Essential (primary) hypertension; M19.90 Unspecified osteoarthritis, unspecified site; F32.9 Major depressive disorder, single episode, unspecified; Z90.09 Acquired absence of other part of head and neck; Z87.891 Personal history of nicotine dependence
CPT/HCPCS: 36415; 80053; 85025; 81003; 74176; 99284; 96374; 96375 ×2; 96361 ×3; J2405; J1885

== ENCOUNTER → 2021-01-10 | Day surgery (SDC) | payer MEDICARE, OTHER ==
--- NOTE | 2021-01-08 06:16 | P.GSHP ---
History of Present Illness H&P Date: 01/08/21 Chief Complaint: Flank pain The patient is a 60-year-old white male with a history of kidney stones, for which he has undergone endoscopic surgery. He has experienced left flank pain since early December. He also reports mild right flank discomfort. CT scan shows multiple left renal calculi, the largest a 6 mm left lower pole calculus. On the right side there are multiple calculi measuring up to 14 mm. 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 2010,HX OF FALLS(MAY 2014 BROKE ARM AND CURRENTLY RT FIBULA FX).PT STATED HAD TESTING DONE R/T GYNOMASTIA WAITNG ON RESULTS. History of Any Multi-Drug Resistant Organisms: None Reported Past Surgical History: Adenoidectomy, Orthopedic Surgery, Tonsillectomy Additional Past Surgical History / Comment(s): lithotripsy, bilateral shoulder fusions, right foot reconstruction, NECK FUSION Past Anesthesia/Blood Transfusion Reactions: No Reported Reaction Past Psychological History: Anxiety, Depression Smoking Status: Former smoker Past Alcohol Use History: Rare Past Drug Use History: None Reported - Past Family History Mother Family Medical History: Cancer Father Family Medical History: CVA/TIA Sister(s) Family Medical History: No Reported History Medications and Allergies Home Medications Medication Instructions Recorded Confirmed Type Mirtazapine [Remeron] 45 mg PO HS 01/13/14 12/24/20 History Montelukast [Singulair] 10 mg PO HS 01/13/14 12/24/20 History Venlafaxine HCl [Effexor XR] 150 mg PO BID 01/13/14 12/24/20 History Tamsulosin [Flomax] 0.4 mg PO DAILY #5 cap 04/17/15 12/24/20 Rx allopurinoL [Zyloprim] 100 mg PO DAILY 04/17/15 12/24/20 History Ergocalciferol [Vitamin D2 (1250 1,250 mcg PO MO 10/09/20 12/24/20 History Mcg = 94105 Iu)] Gabapentin [Neurontin] 600 mg PO TID PRN 10/09/20 12/24/20 History Metoprolol Tartrate [Lopressor] 25 mg PO DAILY 10/09/20 12/24/20 History Vitc/E/Zinc/Copper/Lutein/Zeax 1 tab PO DAILY 10/09/20 12/24/20 History [Icaps Areds2 Tablet] Cetirizine HCl [Zyrtec] 10 mg PO HS 12/24/20 12/24/20 History Cyclobenzaprine [Flexeril] 10 mg PO TID PRN 12/24/20 12/24/20 History HYDROcodone/APAP 5-325MG [[place] 5] 1 each PO Q6HR PRN #12 tab 12/24/20 Rx Levothyroxine Sodium [Synthroid] 112 mcg PO DAILY 12/24/20 12/24/20 History Ondansetron Odt [Zofran Odt] 4 mg PO Q8HR PRN #10 tab 12/24/20 Rx Rosuvastatin [Crestor] 20 mg PO HS 12/24/20 12/24/20 History Allergies Allergy/AdvReac Type Severity Reaction Status Date / Time ziprasidone HCl [From Geodon] Allergy Anaphylaxis Verified 12/24/20 10:20 ziprasidone mesylate Allergy Anaphylaxis Verified 12/24/20 10:20 [From Vjdon] Surgical - Exam - General well developed, well nourished, no distress - Respiratory normal respiratory effort - Abdomen Abdomen: soft, non tender, no guarding, no rigid, no rebound - Genitourinary normal penis with no external lesions, testicles non-tender - Psychiatric oriented to time, oriented to person, oriented to place, speech is normal, memory intact Results - Imaging CT scan - abdomen: report reviewed, image reviewed Assessment and Plan (1) Kidney stones Status: Acute Code(s): N20.0 - CALCULUS OF KIDNEY SNOMED Code(s): 68858050 Plan: Cystoscopy, bilateral retrograde pyelograms. If a ureteral calculus is not seen on the right side, left ureteroscopy with Holmium laser lithotripsy and stent placement will be performed. Conversely, if there is a right ureteral calculus, the right side will be treated instead. However, the patient has been made aware of the fact that his stone burden on the right is greater than the left and may require 2 procedures. It is my feeling that the right renal calculi would be better treated via a percutaneous nephrolithotomy. The rationale for this approach has been reviewed, along with potential surgical risks which include anesthesia, bleeding, infection, and ureteral injury.
[2021-01-08 15:19] VITALS: BMI 28.0
[~2021-01-10] MED LIST changes: +HYDROmorphone (PF) 1 MG/ML ONE; +IOPAMIDOL-370 50ML BTL MISCELLANE ONE; +KETOROLAC 15 MG/ML 1 ML VIAL IVP ONE; +KETOROLAC 15 MG/ML 1 ML VIAL ONE; +LACTATED RINGERS 1,000 ML IV ONE; +LIDOCAINE 1% (10MG/ML) FOR IV START INTRADERMA ONE; -LIDOCAINE 1% (10MG/ML) FOR IV START INTRADERMA PRN; +LIDOCAINE 1% INJ 10MG/ML (20 ML MDV) ONE; +MIDAZOLAM 2 MG/2 ML VIAL ONE; +ONDANSETRON 4 MG/2 ML VIAL ONE; +PHENYLEPHRINE-0.9% NACL SYG 1,000 MCG/10 ML SYRINGE ONE; +PROPOFOL 10 MG/ML 20 ML VIAL IV ONE; +ROCURONIUM 10 MG/ML (5 ML VIAL) IV ONE; +SCOPOLAMINE 1.5MG/72HR PATCH TRANSDERM ONE; +SUCCINYLCHOLINE CHLORIDE 100 MG/5 ML SYR IV ONE; -ceFAZolin 1,000 MG in SODIUM CHLORIDE 0.9% IRRIGATIO 1,000 ML IRRIGATION PRN; +fentaNYL (PF) 50 MCG/ML 2 ML AMP ONE
--- NOTE | 2021-01-10 10:18 | XR ---
EXAMINATION TYPE: XR KUB DATE OF EXAM: 01/10/2021 COMPARISON: 04/17/2015 HISTORY: Renal stones TECHNIQUE: Supine abdomen FINDINGS: There are multiple bilateral renal stones more evident on the right than left. The largest stone appears to lie at the superior pole right kidney and measures 1.2 cm. Additional smaller renal stones in the range of 0.5 cm and less are present. Organomegaly is not evident. Psoas margins are normal. Normal bowel gas is present. IMPRESSION: 1. Multiple bilateral renal stones, largest at the superior region right kidney.
[2021-01-10 11:21] LABS: Glucose,Whole Blood 130 mg/dL (75-99)
[2021-01-10] MEDS: ONDANSETRON 4 MG/2 ML VIAL IVP ONE ×2 (11:28→17:34)
--- NOTE | 2021-01-10 17:20 | P.OP ---
Date of Procedure: 01/10/21 Preoperative Diagnosis: Bilateral renal calculi Postoperative Diagnosis: Same Procedure(s) Performed: Cystoscopy, bilateral retrograde pyelograms, bilateral ureteroscopy with Holmium laser lithotripsy and stone basketing, bilateral ureteral stent insertion Anesthesia: HESHAM Surgeon: Navdeep Grewal Estimated Blood Loss (ml): 10 IV fluids (ml): 900 Pathology: other (Calculus fragments, sent for chemical analysis) Condition: stable Disposition: PACU Indications for Procedure: The patient is a 60-year-old white male with a history of kidney stones, for which he has undergone endoscopic surgery. He has experienced left flank pain since early December. He also reports mild right flank discomfort. CT scan shows multiple left renal calculi, the largest a 6 mm left lower pole calculus. On the right side there are multiple calculi measuring up to 14 mm. Operative Findings: Bilateral renal calculi, the largest being located within an right upper pole calyx. Bilateral bifid renal pelvis. No ureteral calculi seen. Description of Procedure: The patient was taken to the operating room and placed in the dorsolithotomy position, with legs supported in Yan stirrups. The external genitalia was prepped and draped sterilely. The 30 lens was used to introduce the 21-Cuban Mantilla cystoscopic sheath through the urethra and into the bladder under direct vision. The prostatic urethra showed evidence of mild lateral lobe enlargement. The bladder was examined in its entirety. Both ureteral orifices were normal anatomic location and configuration, and clear urine effluxed from both. No tumors or foreign bodies were seen. Using a 10-Cuban cone-tipped catheter, bilateral retrograde pyelograms were performed. The course of each ureter appeared normal. There were no ureteral calculi. Bifid renal pelvis was noted bilaterally. The largest calculus was seen within a right upper pole calyx. A 0.038 inch Glidewire was passed through the cystoscope. The left ureteral orifice was cannulated, and the Glidewire was advanced up to the renal pelvis. The cystoscope was removed, and an 11/13-Cuban ureteral access catheter was passed over the wire, up to the proximal ureter. The flexible ureteroscope was then passed through the ureteral access catheter sheath, and advanced up to the left renal pelvis under direct vision. Each calyx was examined. Multiple calculi were seen. The 272 micron Holmium laser probe was passed through the ureteroscope, and lithotripsy was performed. The larger fragments were removed using a 1.9-Cuban nitinol basket. The remaining fragments were fragmented to the point that there were no residual calculus fragments exceeding 1 mm. The calculi were dense, likely composed of calcium oxalate monohydrate. The same was repeated on the right side. There was no evidence of ureteral trauma on either side. The cystoscope was replaced into the bladder. The Glidewire was advanced up to the right renal pelvis. A 28 cm, 4.8-Cuban double-J ureteral stent was placed over the wire. Proper stent positioning was verified fluoroscopically and endoscopically. The same was performed on the contralateral side. The bladder was emptied and the cystoscope removed. The patient tolerated the procedure well and was taken to the recovery room in stable condition. [facility] [place] Report: Procedure Acuity: Elective Stone Size and Location: Multiple bilateral renal calculi. The largest was a 14 mm right upper pole calculus. Ureteral Dilation: No Ureteral Access Sheath Used: Yes Stone Sent for Analysis: Yes All Stones/Fragments Were Removed with a Basket: No Complications: No Preoperative Antibiotics Given: Yes Stent Placed: Yes If Stent Placed, Was String Left Attached: No If Stent Placed, When is it to be Removed: 1 week Discharge Medications: Tamsulosin, Toradol
[2021-01-10 17:22] VITALS: TEMP 98.3
[2021-01-10 18:12] VITALS: RESP 17
[2021-01-10 18:26] VITALS: BP 152/89; PULSE 85
--- NOTE | 2021-01-12 09:03 | FL ---
Fluoroscopy History: RENAL CALCULI 1 MIN 22 SEC FLUORO TIME. 5 IMAGES. RENAL CALCULI.
== END | disposition home or self-care (01) ==
LOC: OR 09:53
PROVIDERS: ATTEND Urology
DX: N20.0 Calculus of kidney (principal); J45.909 Unspecified asthma, uncomplicated; E78.5 Hyperlipidemia, unspecified; I10 Essential (primary) hypertension; M19.90 Unspecified osteoarthritis, unspecified site; Z85.79 Personal history of other malignant neoplasms of lymphoid, hematopoietic and related tissues; S82.401D Unspecified fracture of shaft of right fibula, subsequent encounter for closed fracture with routine healing; F41.9 Anxiety disorder, unspecified; F32.9 Major depressive disorder, single episode, unspecified; Z87.891 Personal history of nicotine dependence; Z87.442 Personal history of urinary calculi; Z92.21 Personal history of antineoplastic chemotherapy; Z92.3 Personal history of irradiation; Z87.81 Personal history of (healed) traumatic fracture; Z85.71 Personal history of Hodgkin lymphoma; Z98.1 Arthrodesis status; Z90.89 Acquired absence of other organs; Z98.890 Other specified postprocedural states; Z79.890 Hormone replacement therapy; Z79.899 Other long term (current) drug therapy; Z88.8 Allergy status to other drugs, medicaments and biological substances
CPT/HCPCS: 82365; 74018; 52332; C2625; C1758; C1769; J2250; J1100; J0690; J2405; J2001; J3010; J1170 ×2; J1885; J2370; J0330; J2704; Q9967

== ENCOUNTER → 2021-02-27 | Outpatient (CLI) | payer MEDICARE, OTHER ==
--- NOTE | 2021-02-27 12:04 | XR ---
EXAMINATION TYPE: XR KUB DATE OF EXAM: 02/27/2021 11:50 AM CLINICAL HISTORY: Right-sided kidney stones. TECHNIQUE: Two supine KUB images of the abdomen are obtained. COMPARISON: CT abdomen and pelvis December 24, 2020 and abdominal x-ray January 10, 2021 FINDINGS: Multiple right-sided renal calculi redemonstrated, largest calculus upper pole level right kidney at 12 mm on prior studies has been successfully treated in the interval. There are smaller and less numerous left-sided renal calculi redemonstrated. Overall nonobstructive bowel gas pattern. Chronic deformity right iliac crest. IMPRESSION: As above.
--- NOTE | 2021-02-27 15:52 | US ---
EXAMINATION TYPE: US kidneys/renal and bladder DATE OF EXAM: 02/27/2021 COMPARISON: NONE CLINICAL HISTORY: 60-year-old male N20.0 Calculus of Kidney. No renal stones, lithotripsy this past s ummer, right flank discomfort TECHNIQUE: Multiple sonographic images of the kidneys and bladder are obtained. FINDINGS: EXAM MEASUREMENTS: Right Kidney: 12.4 x 5.5 x 5.7 cm Left Kidney: 11.8 x 5.8 x 5.6 cm Right Kidney: Multiple echogenic areas. Some of this likely relates to parapelvic fat and other likel y relates to stones but it is difficult to differentiate. No evident hydronephrosis. Left Kidney: Numerous punctate echogenic foci, largest appears 6 mm at the lower pole. Bladder: No gross abnormality of the partially distended bladder. IMPRESSION: 1. Multiple areas of echogenicity in the right kidney likely represents a combination of parapelvic f at and calculi. No evidence hydronephrosis. 2. Numerous punctate calculi in the left kidney, largest measuring 6 mm. No evident hydronephrosis.
== END | disposition home or self-care (01) ==
LOC: RADUSWWP 10:58
PROVIDERS: ATTEND Urology
DX: N20.0 Calculus of kidney (principal)
CPT/HCPCS: 74018; 76770

== ENCOUNTER 2022-09-18 07:25 | Emergency (ER) | payer MEDICARE, OTHER ==
[2022-09-18 07:31] VITALS: BP 124/70; PULSE 106; RESP 18; TEMP 98.1
--- NOTE | 2022-09-18 08:00 | ED ---
General Adult HPI - General Chief complaint: Dental/Oral Stated complaint: rt sided ear/jaw pain Time Seen by Provider: 09/18/22 07:31 Source: patient Mode of arrival: ambulatory - History of Present Illness Initial comments: Dictation was produced using [employer] dictation software. please excuse any grammatical, word or spelling errors. Chief Complaint: 62-year-old male presents emergency department for painful right facial swelling History of Present Illness: 62-year-old male states that he is been suffering from right TMJ pain and mass for the last 8 months. The last 10-14 days she states that the mass has been painful. He went to go see his primary care doctor put him on stretcher her clindamycin. He was instructed to the emergency department if felt like the symptoms were not improving. Patient does have history of poor dentition. He does chew tobacco. Denies any fever or chills or constitutional symptoms. The ROS documented in this emergency department record has been reviewed and confirmed by me. Those systems with pertinent positive or negative responses have been documented in the HPI. All other systems are other negative and/or noncontributory. PHYSICAL EXAM: General Impression: Alert and oriented x3, not in acute distress HEENT: Normocephalic atraumatic, extra-ocular movements intact, pupils equal and reactive to light bilaterally, mucous membranes moist, right mandibular swelling. Non-erythematous, nonfluctuant, oral exam does not reveal any focal discharge. There does appear to be several missing teeth. Cardiovascular: Heart regular rate and rhythm Chest: Able to complete full sentences, no retractions, no tachypnea Musculoskeletal: no peripheral edema Motor: no focal deficits noted Neurological: CN II-XII grossly intact, no focal motor or sensory deficits noted Skin: Intact with no visualized rashes Psych: Normal affect and mood ED course: 62-year-old male presents emergency Department with painful swelling of right mandibular area that has been ongoing for the last 4 weeks. He has had several months of right mandibular mass. Vital signs upon arrival except limits. Nursing notes and chart review was performed Was pt. sent in by a medical professional or institution (, DINO, INFORMATION SYSTEMS SECURITY OFFICER, urgent care, hospital, or [place] [facility] [place]...) When possible be specific @ -No Did you speak to anyone other than the patient for history (EMS, parent, family, police, friend...)? What history was obtained from this source @ -No Did you review nursing and triage notes (agree or disagree)? Why? @ -I reviewed and agree with nursing and triage notes Were old charts reviewed (outside hosp., previous admission, EMS record, old EKG, old radiological studies, urgent care reports/EKG's, [place] [facility] [place] records)? Report findings @ -No old charts were reviewed Differential Diagnosis (chest pain, altered mental status, abdominal pain women, abdominal pain men, vaginal bleeding, musculoskeletal, weakness, fever, dyspnea, syncope, headache, dizziness, GI bleed, back pain, seizure, CVA, palpatations, mental health)? @ -Dental infection, Deonte's angina, parotitis, possible myelitis EKG interpreted by me (3pts min.). @ -None done X-rays interpreted by me (1pt min.). @ -None done CT interpreted by me (1pt min.). @ -Near-complete distraction of the right mandible U/S interpreted by me (1pt. min.). @ -None done What testing was considered but not performed or refused? (CT, X-rays, U/S, labs)? Why? @ -None What meds were considered but not given or refused? Why? @ -None Did you discuss the management of the patient with other professionals (professionals i.e. , PA, INFORMATION SYSTEMS SECURITY OFFICER, lab, RT, psych nurse, social media marketing analyst, manager child, teacher, legal officer, case assembler)? Give summary @ -Discussed with Dr. Lobato for ER to ER transfer. An attempt was made to contact oncology and ENT however they did not call back within a reasonable time. Was smoking cessation discussed for >3mins.? @ -No Was critical care preformed (if so, how long)? @ -No Were there social determinants of health that impacted care today? How? (Homelessness, low income, unemployed, alcoholism, drug addiction, transportation, low edu. Level, literacy, decrease access to med. care, [place] [facility], rehab)? @ -No Was there de-escalation of care discussed even if they declined (Discuss DNR or withdrawal of care, Hospice)? DNR status @ -No What co-morbidities impacted this encounter? (DM, HTN, Smoking, COPD, CAD, Cancer, CVA, ARF, Chemo, Hep., AIDS, mental health diagnosis, sleep apnea, morbid obesity)? @ -None Was patient admitted / discharged? Hospital course, mention meds given and route , prescriptions, significant lab abnormalities, going to OR and other pertinent info. @ -To 2-year-old male presents emergency department for acute on chronic right mandibular pain. Computed tomography scan of the soft tissues of the neck shows findings concerning for malignant lesion distracting the right mandible. Patient was notified of the CT findings. Patient is beyond the care that is able to be provided at our facility. Patient transferred to [facility] for further care. There is suspicion of perhaps a superimposed infection. Patient given dose of Zosyn. 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 @ -No Were any procedures done? @ -No Diagnosis/symptom? Acute, or Chronic, or Acute on Chronic? Uncomplicated (without systemic symptoms) or Complicated (systemic symptoms)? @ -1. 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 @ -No Exacerbation, Progression, or Severe Exacerbation? @ -No Poses a threat to life or bodily function? How? (Chest pain, [place], [place], pneumonia, PE, COPD, DKA, ARF, appy, cholecystitis, CVA, Diverticulitis, Homicidal, Suicidal, threat to staff... and all critical care pts) @ -yes - Related Data Home Medications Medication Instructions Recorded Confirmed Mirtazapine [Remeron] 45 mg PO HS 01/13/14 01/10/21 Montelukast [Singulair] 10 mg PO HS 01/13/14 01/10/21 Venlafaxine HCl [Effexor XR] 300 mg PO QAM 01/13/14 01/10/21 allopurinoL [Zyloprim] 100 mg PO DAILY 04/17/15 01/10/21 Ergocalciferol [Vitamin D2 (1250 1,250 mcg PO MO 10/09/20 01/10/21 Mcg = 80286 Iu)] Gabapentin [Neurontin] 600 mg PO TID 10/09/20 01/10/21 Metoprolol Tartrate [Lopressor] 25 mg PO DAILY 10/09/20 01/10/21 Vitc/E/Zinc/Copper/Lutein/Zeax 1 tab PO DAILY 10/09/20 01/08/21 [Icaps Areds2 Tablet] Cetirizine HCl [Zyrtec] 10 mg PO HS 12/24/20 01/10/21 Levothyroxine Sodium [Synthroid] 112 mcg PO DAILY 12/24/20 01/10/21 Rosuvastatin [Crestor] 20 mg PO HS 12/24/20 01/10/21 Acetaminophen [Tylenol Extra 1,000 mg PO DIRECTED PRN 01/08/21 01/10/21 Strength] Albuterol Inhaler [Ventolin Hfa 1 puff INHALATION DIRECTED PRN 01/08/21 01/10/21 Inhaler] Previous Rx's Medication Instructions Recorded Tamsulosin [Flomax] 0.4 mg PO DAILY #5 cap 04/17/15 Ondansetron Odt [Zofran Odt] 4 mg PO Q8HR PRN #10 tab 12/24/20 Ketorolac [Toradol] 10 mg PO Q6HR PRN #10 tab 01/10/21 Allergies Allergy/AdvReac Type Severity Reaction Status Date / Time ziprasidone HCl [From [facility]] Allergy Severe Anaphylaxis Verified 09/18/22 07:31 ziprasidone mesylate Allergy Severe Anaphylaxis Verified 09/18/22 07:31 [From [facility]] Review of Systems ROS Statement: Those systems with pertinent positive or pertinent negative responses have been documented in the HPI. ROS Other: All systems not noted in ROS Statement are negative. 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.RECEIVED RADAITION/CHEMO, hx ULCER, SHINGLES, HX OF FALLS due to dizziness, hx GYNOMASTIA-resolved, diet control diabetic History of Any Multi-Drug Resistant Organisms: None Reported Past Surgical History: Adenoidectomy, Heart Catheterization, Hernia Repair, Orthopedic Surgery, Tonsillectomy Additional Past Surgical History / Comment(s): lithotripsy, bilateral shoulder fusions/later hardware removed from left shoulder, rt foot ORIF, NECK FUSION x 2( 2013,09/2020), cystoscopy Past Anesthesia/Blood Transfusion Reactions: No Reported Reaction Past Psychological History: Depression Smoking Status: Former smoker - Past Family History Mother Family Medical History: Cancer Additional Family Medical History / Comment(s): lung Father Family Medical History: CVA/TIA Sister(s) Family Medical History: No Reported History Course Vital Signs 09/18/22 07:28 Temperature 98.1 F Pulse Rate 106 H Respiratory 18 Rate Blood Pressure 124/70 O2 Sat by Pulse 99 Oximetry Medical Decision Making - Lab Data Result diagrams: 09/18/22 08:10 09/18/22 08:10 Lab Results 09/18/22 09/18/22 Range/Units 08:10 08:10 WBC 9.6 (3.8-10.6) k/uL RBC 3.74 L (4.30-5.90) m/uL Hgb 10.6 L (13.0-17.5) gm/dL Hct 33.7 L (39.0-53.0) % MCV 90.2 (80.0-100.0) fL MCH 28.3 (25.0-35.0) pg MCHC 31.4 (31.0-37.0) g/dL RDW 14.1 (11.5-15.5) % Plt Count 508 H (150-450) k/uL MPV 7.8 Neutrophils % 79 % Lymphocytes % 9 % Monocytes % 5 % Eosinophils % 2 % Basophils % 0 % Neutrophils # 7.6 (1.3-7.7) k/uL Lymphocytes # 0.9 L (1.0-4.8) k/uL Monocytes # 0.5 (0-1.0) k/uL Eosinophils # 0.2 (0-0.7) k/uL Basophils # 0.0 (0-0.2) k/uL Sodium 140 (137-145) mmol/L Potassium 4.4 (3.5-5.1) mmol/L Chloride 107 (98-107) mmol/L Carbon Dioxide 19 L (22-30) mmol/L Anion Gap 14 mmol/L BUN 20 (9-20) mg/dL Creatinine 0.98 (0.66-1.25) mg/dL Est GFR (CKD-EPI)AfAm >90 (>60 ml/min/1.73 sqM) Est GFR (CKD-EPI)NonAf 82 (>60 ml/min/1.73 sqM) Glucose 203 H (74-99) mg/dL Calcium 9.1 (8.4-10.2) mg/dL Disposition Clinical Impression: Cancer of mandible Disposition: OTHER INSTITUTION NOT DEFINED Condition: Serious Referrals: Armani Rendon DO [Primary Care Provider] - 1-2 days Time of Disposition: 09:50 - Out of Hospital Transfer - Req. Specs Out of Hospital Transfer - Requested Specifics: Other Emergency Center ([facility])
[2022-09-18 08:20] LABS: Basophils % (A) 0 %; Eosinophils # (A) 0.2 k/uL (0-0.7); Eosinophils % (A) 2 %; HCT 33.7 % (39.0-53.0); HGB 10.6 gm/dL (13.0-17.5); Lymphocytes # (A) 0.9 k/uL (1.0-4.8); Lymphocytes % (A) 9 %; MCH 28.3 pg (25.0-35.0); MCHC 31.4 g/dL (31.0-37.0); MCV 90.2 fL (80.0-100.0); Mean Platelet Volume 7.8; Monocytes # (A) 0.5 k/uL (0-1.0); Monocytes % (A) 5 %; Neutrophils # (A) 7.6 k/uL (1.3-7.7); Neutrophils % (A) 79 %; Platelet Count 508 k/uL (150-450); RBC 3.74 m/uL (4.30-5.90); RDW 14.1 % (11.5-15.5); WBC 9.6 k/uL (3.8-10.6)
[2022-09-18 08:39] LABS: African American GFR (CKD) >90 (>60 ml/min/1.73 sqM); Anion Gap 14 mmol/L; Blood Urea Nitrogen 20 mg/dL (9-20); Calcium 9.1 mg/dL (8.4-10.2); Carbon Dioxide 19 mmol/L (22-30); Chloride 107 mmol/L (98-107); Glucose 203 mg/dL (74-99); Non-African American GFR(CKD) 82 (>60 ml/min/1.73 sqM); Potassium 4.4 mmol/L (3.5-5.1); Sodium 140 mmol/L (137-145)
--- NOTE | 2022-09-18 09:17 | CT ---
EXAMINATION TYPE: CT soft tissue neck w con DATE OF EXAM: 09/18/2022 HISTORY: right sided lump for 8 months. COMPARISON: NONE CT DLP: 253.6 mGycm. Automated Exposure Control for Dose Reduction was Utilized. TECHNIQUE: CT scan of the neck is performed with IV Contrast, patient injected with 100 mL of Isovue 300, axial images are obtained, coronal and sagittal reformatted images are reviewed. FINDINGS: Airway: Small sized thyroid. Correlate clinically for hypothyroidism. Airway otherwise patent. Parotid/submandibular glands: No gross abnormality seen. Carotid/Vascular Structures: The vertebral arteries are patent to basilar junction. Right vertebral a rtery incidentally noted dominant. Osseous Structures: Anterior fusion plate C4-C7 levels with artificial disc material. Slight grade 1 anterolisthesis C4 on C5. Posterior bony projection is effaced anterior thecal sac at the surgical le vels greatest inferior C6 level sagittal image 40. Other: Corresponding to history there is expansile lytic destructive mass involving significant porti on of the right mandible beginning near the temporomandibular joint extending through the central sym physis. Expansile soft tissue is present at this level difficult to differentiate from the adjacent m asseter muscles. No destruction of the maxillary sinus or right orbital wall or the zygomatic arch. S ome adjacent prominent lymph nodes. Largest is seen inferiorly measuring 1.6 x 0.9 cm axial image 51. Dentition is absent at this level. There is extension to the slight left aspect at the root of the i ncisors and the first canine tooth axial image 49 for reference. IMPRESSION: Expansile destructive lytic mass or neoplasm involving nearly entire right mandible. Diff erential would include osseous metastatic lesion but a primary malignant osseous lesion such as osteo sarcoma would be favored. Advise specialist referral for further workup and/or treatment.
[2022-09-18] MEDS ORDERED: PIPERACILLIN-TAZOBACTAM 3.375 GM in SODIUM CHLORIDE 0.9% 100 ML IVPB STA (09:52)
[2022-09-18] MEDS ORDERED: MORPHINE SULFATE 4 MG/ML SYRINGE IVP STA (10:27)
[2022-09-18] MEDS ORDERED: MORPHINE SULFATE 4 MG/ML SYRINGE IV STA (13:18)
== END 2022-09-18 13:29 | disposition other institution (70) ==
LOC: EC 07:25
DX: C41.1 Malignant neoplasm of mandible (principal); J45.909 Unspecified asthma, uncomplicated; E78.5 Hyperlipidemia, unspecified; I10 Essential (primary) hypertension; M19.90 Unspecified osteoarthritis, unspecified site; E07.9 Disorder of thyroid, unspecified; F32.A Depression, unspecified; Z87.891 Personal history of nicotine dependence; Z88.8 Allergy status to other drugs, medicaments and biological substances; Z79.890 Hormone replacement therapy; Z79.899 Other long term (current) drug therapy
CPT/HCPCS: 36415; 80048; 85025; 70491; 99284; 96365; 96375; 96376; J2543; J2270; Q9967

== ENCOUNTER 2022-12-10 20:31 | Emergency (ER) | payer MEDICARE, OTHER ==
[2022-12-10 21:17] VITALS: RESP 18; TEMP 98.3
--- NOTE | 2022-12-10 22:48 | ED ---
ENT HPI - General Chief complaint: ENT Stated complaint: Feeding Tube Replacement Time Seen by Provider: 12/10/22 21:15 Source: patient Mode of arrival: wheelchair Limitations: no limitations - History of Present Illness Initial comments: 62-year-old male with past medical history of head and neck cancer presents emergency Department with a clotted Dobbhoff. And had extensive facial surgery on the fourth at [facility]. Patient had Dobbhoff placed by surgeon. He is now residing at [facility] in [place]. Daughter states that they are not breaking up the patient's medications and off before flushing them through his Dobbhoff. His tube has gotten clogged several times. Tonight they could not unclog the patient's tube and therefore sent the patient to the hospital. Requesting larger size tube. The patient has no complaints of pain. No other alleviating, measuring machine tender modifying factors - Related Data Home Medications Medication Instructions Recorded Confirmed Mirtazapine [Remeron] 45 mg PO HS 01/13/14 09/24/22 Montelukast [Singulair] 10 mg PO HS 01/13/14 09/24/22 Venlafaxine HCl [Effexor XR] 300 mg PO QAM 01/13/14 09/24/22 allopurinoL [Zyloprim] 100 mg PO DAILY 04/17/15 09/24/22 Ergocalciferol [Vitamin D2 (1250 1,250 mcg PO MO 10/09/20 09/24/22 Mcg = 96469 Iu)] Gabapentin [Neurontin] 600 mg PO TID 10/09/20 09/24/22 Metoprolol Tartrate [Lopressor] 25 mg PO DAILY 10/09/20 09/24/22 Vitc/E/Zinc/Copper/Lutein/Zeax 1 tab PO DAILY 10/09/20 09/24/22 [Icaps Areds2 Tablet] Cetirizine HCl [Zyrtec] 10 mg PO HS 12/24/20 09/24/22 Levothyroxine Sodium [Synthroid] 112 mcg PO DAILY 12/24/20 09/24/22 Rosuvastatin [Crestor] 20 mg PO HS 12/24/20 09/24/22 Acetaminophen [Tylenol Extra 1,000 mg PO DIRECTED PRN 01/08/21 09/24/22 Strength] Albuterol Inhaler [Ventolin Hfa 1 puff INHALATION DIRECTED PRN 01/08/21 09/24/22 Inhaler] Potassium Citrate [Potassium 10 meq PO DAILY 09/24/22 09/24/22 Citrate ER] clindamycin HCL 300 mg PO BID 09/24/22 09/24/22 Previous Rx's Medication Instructions Recorded Tamsulosin [Flomax] 0.4 mg PO DAILY #5 cap 04/17/15 Allergies Allergy/AdvReac Type Severity Reaction Status Date / Time ziprasidone HCl [From [facility]] Allergy Severe Anaphylaxis Verified 12/10/22 21:17 ziprasidone mesylate Allergy Severe Anaphylaxis Verified 12/10/22 21:17 [facility] Review of Systems ROS Statement: Those systems with pertinent positive or pertinent negative responses have been documented in the HPI. ROS Other: All systems not noted in ROS Statement are negative. 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.RECEIVED RADAITION/CHEMO, hx ULCER, SHINGLES, HX OF FALLS due to dizziness, hx GYNOMASTIA-resolved, diet control diabetic History of Any Multi-Drug Resistant Organisms: None Reported Past Surgical History: Adenoidectomy, Heart Catheterization, Hernia Repair, Orthopedic Surgery, Tonsillectomy Additional Past Surgical History / Comment(s): lithotripsy 2020, bilateral shoulder fusions/later hardware removed from left shoulder, rt foot ORIF, NECK FUSION x 2( 2013,09/2020), cystoscopy, biopsy mouth 2022 Past Anesthesia/Blood Transfusion Reactions: No Reported Reaction Past Psychological History: Depression Smoking Status: Former smoker Past Alcohol Use History: Rare Past Drug Use History: None Reported - Past Family History Mother Family Medical History: Cancer Additional Family Medical History / Comment(s): lung Father Family Medical History: CVA/TIA Sister(s) Family Medical History: No Reported History General Exam Limitations: physical limitation General appearance: alert, in no apparent distress Head exam: Present: atraumatic, other (skin flap right face - healing, no drainage or redness) Eye exam: Present: normal appearance, PERRL, EOMI. Absent: scleral icterus, conjunctival injection, periorbital swelling ENT exam: Present: mucous membranes moist, other (significant reconstructive changes to right side of face. dobhoff in place) Neck exam: Present: normal inspection. Absent: tenderness, meningismus, lymphadenopathy Respiratory exam: Present: normal lung sounds bilaterally. Absent: respiratory distress, wheezes, rales, rhonchi, stridor Cardiovascular Exam: Present: regular rate, normal rhythm, normal heart sounds. Absent: systolic murmur, diastolic murmur, rubs, gallop, clicks GI/Abdominal exam: Present: soft, normal bowel sounds. Absent: distended, tenderness, guarding, rebound, rigid Extremities exam: Present: normal inspection, full ROM, normal capillary refill. Absent: tenderness, pedal edema, joint swelling, calf tenderness Back exam: Present: normal inspection Neurological exam: Present: alert, oriented X3, CN II-XII intact Psychiatric exam: Present: normal affect, normal mood Skin exam: Present: warm, dry, intact, normal color. Absent: rash Course Vital Signs 12/10/22 12/10/22 12/10/22 21:14 21:22 23:14 Temperature 98.3 F Pulse Rate 89 90 Respiratory 18 18 Rate Blood Pressure 128/83 138/83 129/74 O2 Sat by Pulse 99 99 97 Oximetry Medical Decision Making - Medical Decision Making Was pt. sent in by a medical professional or institution (DINO Mora, REEL CART OPERATOR, urgent care, hospital, or [facility]...) When possible be specific @ -ECF Did you speak to anyone other than the patient for history (EMS, parent, family, police, friend...)? What history was obtained from this source @ -daughter, e[facility] nurse Did you review nursing and triage notes (agree or disagree)? Why? @ -I reviewed and agree with nursing and triage notes Were old charts reviewed (outside hosp., previous admission, EMS record, old EKG, old radiological studies, urgent care reports/EKG's, [facility] records)? Report findings @ -No old charts were reviewed Differential Diagnosis (chest pain, altered mental status, abdominal pain women, abdominal pain men, vaginal bleeding, weakness, fever, dyspnea, syncope, headache, dizziness, GI bleed, back pain, seizure, CVA, palpatations, mental health, musculoskeletal)? @ -clotted dobhoff, broken dobhoff, bowel obstruction, malpositioned feeding tube EKG interpreted by me (3pts min.). @ -Not done X-rays interpreted by me (1pt min.). @ -Not done CT interpreted by me (1pt min.). @ -not done U/S interpreted by me (1pt. min.). @ -None done What testing was considered but not performed or refused? (CT, X-rays, U/S, labs)? Why? @ -None What meds were considered but not given or refused? Why? @ -None Did you discuss the management of the patient with other professionals (professionals i.e. DrMustapha, PA, REEL CART OPERATOR, lab, RT, psych nurse, social services, orthophotography technician, teacher, electorate officer, onsite case manager)? Give summary @ -yes, dr chaidez and [facility] nurse Was smoking cessation discussed for >3mins.? @ -no Was critical care preformed (if so, how long)? @ -No Were there social determinants of health that impacted care today? How? (Homelessness, low income, unemployed, alcoholism, drug addiction, transportation, low edu. Level, literacy, decrease access to med. care, group home, rehab)? @ -No Was there de-escalation of care discussed even if they declined (Discuss DNR or withdrawal of care, Hospice)? DNR status @ -No What co-morbidities impacted this encounter? (DM, HTN, Smoking, COPD, CAD, Cancer, CVA, ARF, Chemo, Hep., AIDS, mental health diagnosis, sleep apnea, morbi d obesity)? @ -head and neck cancer Was patient admitted / discharged? Hospital course, mention meds given and route, prescriptions, significant lab abnormalities, going to OR and other pertinent info. @ -Upon arrival patient is placed into room 16. Thorough history and physical exam was performed. I do flushed the patient's tube with a copious amount of Pepsi and sterile water. I am able to unclog the tube. I called and spoke with Dr. Dubose in regards to changing out the size of the patient's Dobbhoff. States that this should be performed by his surgeon. This is discussed with the patient and his daughter. They do understand that his surgeon should be making the decision whether he has a larger tube placed. They're to call in the morning to make an appointment. Return for any new or worsening symptoms. Patient discharged in stable condition Undiagnosed new problem with uncertain prognosis? @ -yes Drug Therapy requiring intensive monitoring for toxicity (Heparin, Nitro, Insulin, Cardizem)? @ -No Were any procedures done? @ -No Diagnosis/symptom? @ -acute clogged dobhoff Acute, or Chronic, or Acute on Chronic? @ -acute Uncomplicated (without systemic symptoms) or Complicated (systemic symptoms)? @ -uncomplicated Side effects of treatment? @ -none Exacerbation, Progression, or Severe Exacerbation? @ -no Poses a threat to life or bodily function? How? (Chest pain, [place], [place], pneumonia, PE, COPD, DKA, ARF, appy, cholecystitis, CVA, Diverticulitis, Homicidal, Suicidal, threat to staff... and all critical care pts) @ -No Disposition Clinical Impression: Feeding tube dysfunction Disposition: HOME SELF-CARE Condition: Stable Instructions (If sedation given, give patient instructions): Nasogastric Tube (DC) Additional Instructions: Call your surgeon in the morning and have them evaluate whether you should have a larger feeding tube. Recommend liquid medications only. Return for any new or worsening symptoms Is patient prescribed a controlled substance at d/c from ED?: No Referrals: Armani Rendon DO [Primary Care Provider] - 1-2 days Time of Disposition: 22:48
[2022-12-10 23:15] VITALS: BP 129/74; PULSE 90
== END 2022-12-10 23:15 | disposition home or self-care (01) ==
LOC: EC 20:31
DX: K94.23 Gastrostomy malfunction (principal); J45.909 Unspecified asthma, uncomplicated; E78.5 Hyperlipidemia, unspecified; I10 Essential (primary) hypertension; M19.90 Unspecified osteoarthritis, unspecified site; E07.9 Disorder of thyroid, unspecified; F32.A Depression, unspecified; Z87.891 Personal history of nicotine dependence; Z79.890 Hormone replacement therapy; Z79.1 Long term (current) use of non-steroidal anti-inflammatories (NSAID); Z79.899 Other long term (current) drug therapy; Z88.8 Allergy status to other drugs, medicaments and biological substances
CPT/HCPCS: 99283

== ENCOUNTER 2023-03-24 03:40 | Emergency (ER) | payer MEDICARE, OTHER ==
[2023-03-24 03:53] VITALS: RESP 18; TEMP 98
--- NOTE | 2023-03-24 04:12 | ED ---
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 Patient reports that today he was given that he got lightheaded and tripped this is typical for him. However when he tripped today his toe caught on something and he noticed it was pointing in the wrong direction and bleeding. EMS was called to transport the patient to the hospital for further evaluation. - Related Data Home Medications Medication Instructions Recorded Confirmed Mirtazapine [Remeron] 45 mg PO HS 01/13/14 03/08/23 Montelukast [Singulair] 10 mg PO HS 01/13/14 03/08/23 Venlafaxine HCl [Effexor XR] 300 mg PO QAM 01/13/14 03/08/23 allopurinoL [Zyloprim] 100 mg PO DAILY 04/17/15 03/08/23 Ergocalciferol [Vitamin D2 (1250 1,250 mcg PO MO 10/09/20 03/08/23 Mcg = 29393 Iu)] Gabapentin [Neurontin] 600 mg PO TID 10/09/20 03/08/23 Metoprolol Tartrate [Lopressor] 25 mg PO DAILY 10/09/20 03/08/23 Vitc/E/Zinc/Copper/Lutein/Zeax 1 tab PO DAILY 10/09/20 03/08/23 [Icaps Areds2 Tablet] Cetirizine HCl [Zyrtec] 10 mg PO HS 12/24/20 03/08/23 Levothyroxine Sodium [Synthroid] 112 mcg PO DAILY 12/24/20 03/08/23 Rosuvastatin [Crestor] 20 mg PO HS 12/24/20 03/08/23 Acetaminophen [Tylenol Extra 1,000 mg PO DIRECTED PRN 01/08/21 03/08/23 Strength] Albuterol Inhaler [Ventolin Hfa 1 puff INHALATION DIRECTED PRN 01/08/21 03/08/23 Inhaler] Potassium Citrate [Potassium 10 meq PO DAILY 09/24/22 03/08/23 Citrate ER] clindamycin HCL 300 mg PO BID 09/24/22 03/08/23 OLANZapine [ZyPREXA] 2.5 mg PO DIRECTED PRN 02/01/23 03/08/23 Ondansetron [Zofran] 4 mg PO Q8HR PRN 02/01/23 03/08/23 Ciprofloxacin-Hc Otic Susp [Cipro 4 drops RIGHT EAR BID 03/01/23 03/08/23 Hc Otic Suspension] oxyCODONE HCL [oxyCODONE HCL (IR)] 10 mg PO Q4H PRN 03/08/23 03/08/23 Previous Rx's Medication Instructions Recorded Tamsulosin [Flomax] 0.4 mg PO DAILY #5 cap 04/17/15 Cephalexin [Keflex] 500 mg PO Q6HR 1 Days #4 cap 03/24/23 Allergies Allergy/AdvReac Type Severity Reaction Status Date / Time ziprasidone HCl [From [facility]] Allergy Severe Anaphylaxis Verified 03/08/23 08:36 ziprasidone mesylate Allergy Severe Anaphylaxis Verified 03/08/23 08:36 [From [facility]] Review of Systems ROS Statement: Those systems with pertinent positive or pertinent negative responses have been documented in the HPI. ROS Other: All systems not noted in ROS Statement are negative. 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.RECEIVED RADAITION/CHEMO, hx ULCER, SHINGLES, HX OF FALLS due to dizziness, hx GYNOMASTIA-resolved, diet control diabetic History of Any Multi-Drug Resistant Organisms: None Reported Past Surgical History: Adenoidectomy, Heart Catheterization, Hernia Repair, Orthopedic Surgery, Tonsillectomy Additional Past Surgical History / Comment(s): lithotripsy 2020, bilateral shoulder fusions/later hardware removed from left shoulder, rt foot ORIF, NECK FUSION x 2( 2013,09/2020), cystoscopy, biopsy mouth 2022 JAW BONE REMOVAL WITH RECONSTRUCTION WITH LEFT OUTER LEG BONE - NOVEMBER 2022 Past Anesthesia/Blood Transfusion Reactions: No Reported Reaction Past Psychological History: Depression Smoking Status: Former smoker Past Alcohol Use History: Rare Past Drug Use History: None Reported - Past Family History Mother Family Medical History: Cancer Additional Family Medical History / Comment(s): lung Father Family Medical History: CVA/TIA Sister(s) Family Medical History: No Reported History General Exam Limitations: no limitations Course Vital Signs 03/24/23 03:44 Temperature 98 F Pulse Rate 87 Respiratory 18 Rate Blood Pressure 105/62 O2 Sat by Pulse 96 Oximetry Medical Decision Making - Medical Decision Making Was pt. sent in by a medical professional or institution (DINO Mora, [employer], urgent care, hospital, or long term...) When possible be specific @ -No Did you speak to anyone other than the patient for history (EMS, parent, family, police, friend...)? What history was obtained from this source @ -EMS Did you review nursing and triage notes (agree or disagree)? Why? @ -I reviewed and agree with nursing and triage notes Were old charts reviewed (outside hosp., previous admission, EMS record, old EKG, old radiological studies, urgent care reports/EKG's, long term records)? Report findings @ -Previous labs reviewed Differential Diagnosis (chest pain, altered mental status, abdominal pain women, abdominal pain men, vaginal bleeding, weakness, fever, dyspnea, syncope, headache, dizziness, GI bleed, back pain, seizure, CVA, palpatations, mental health, musculoskeletal)? @ -Fracture, dislocation, open fracture or dislocation EKG interpreted by me (3pts min.). @ -As above X-rays interpreted by me (1pt min.). @ -Obvious dislocation, no obvious fractures CT interpreted by me (1pt min.). @ -None done U/S interpreted by me (1pt. min.). @ -None done What testing was considered but not performed or refused? (CT, X-rays, U/S, labs)? Why? @ -None What meds were considered but not given or refused? Why? @ -None Did you discuss the management of the patient with other professionals (professionals i.e. DINO Mora, HEAT TREATER [employer], lab, RT, psych nurse, social media developer, picker and sorter load and unload, teacher, traffic police officer, behavioral health case manager)? Give summary @ -Discussed with Dr Velasquez who recommends abx, wound dressing, follow up in office today at 8am - possible OR today at surgical center Was smoking cessation discussed for >3mins.? @ -No Was critical care preformed (if so, how long)? @ -No Were there social determinants of health that impacted care today? How? (Homelessness, low income, unemployed, alcoholism, drug addiction, transportation, low edu. Level, literacy, decrease access to med. care, skilled nursing, rehab)? @ -No Was there de-escalation of care discussed even if they declined (Discuss DNR or withdrawal of care, Hospice)? DNR status @ -No What co-morbidities impacted this encounter? (DM, HTN, Smoking, COPD, CAD, Cancer, CVA, ARF, Chemo, Hep., AIDS, mental health diagnosis, sleep apnea, morbid obesity)? @ -None Was patient admitted / discharged? Hospital course, mention meds given and route, prescriptions, significant lab abnormalities, going to OR and other pertinent info. @ -Discharged to out patient follow up Undiagnosed new problem with uncertain prognosis? @ -No Drug Therapy requiring intensive monitoring for toxicity (Heparin, Nitro, Insulin, Cardizem)? @ -No Were any procedures done? @ -No Diagnosis/symptom? @ -Open dislocation of left toe Acute, or Chronic, or Acute on Chronic? @ -default Uncomplicated (without systemic symptoms) or Complicated (systemic symptoms)? @ -default Side effects of treatment? @ -No Exacerbation, Progression, or Severe Exacerbation? @ -No Poses a threat to life or bodily function? How? (Chest pain, [place], [place], pneumonia, PE, COPD, DKA, ARF, appy, cholecystitis, CVA, Diverticulitis, Homicidal, Suicidal, threat to staff... and all critical care pts) @ -No - Lab Data Result diagrams: 03/24/23 04:11 03/24/23 04:11 Lab Results 03/24/23 03/24/23 Range/Units 04:11 04:11 WBC 2.3 L (3.8-10.6) k/uL RBC 3.18 L (4.30-5.90) m/uL Hgb 9.6 L D (13.0-17.5) gm/dL Hct 27.9 L (39.0-53.0) % MCV 87.7 (80.0-100.0) fL MCH 30.2 (25.0-35.0) pg MCHC 34.4 (31.0-37.0) g/dL RDW 20.0 H (11.5-15.5) % Plt Count 136 L (150-450) k/uL MPV 7.5 Anisocytosis Moderate Sodium 136 L (137-145) mmol/L Potassium 4.6 (3.5-5.1) mmol/L Chloride 98 (98-107) mmol/L Carbon Dioxide 26 (22-30) mmol/L Anion Gap 12 mmol/L BUN 30 H (9-20) mg/dL Creatinine 0.77 (0.66-1.25) mg/dL Est GFR (CKD-EPI)AfAm >90 (>60 ml/min/1.73 sqM) Est GFR (CKD-EPI)NonAf >90 (>60 ml/min/1.73 sqM) Glucose 105 H (74-99) mg/dL Calcium 9.1 (8.4-10.2) mg/dL Total Bilirubin 0.2 (0.2-1.3) mg/dL AST 19 (17-59) U/L ALT 12 (4-49) U/L Alkaline Phosphatase 128 H (38-126) U/L Total Protein 6.1 L (6.3-8.2) g/dL Albumin 3.7 (3.5-5.0) g/dL Disposition Clinical Impression: Open dislocation of toe of left foot Disposition: HOME SELF-CARE Condition: Stable Additional Instructions: Call Dr Velasquez's office at 8am today for follow up - do not eat or drink until you are seen by them as you may need surgery Prescriptions: Cephalexin [Keflex] 500 mg PO Q6HR 1 Days #4 cap Is patient prescribed a controlled substance at d/c from ED?: No Referrals: Armani Rendon DO [Primary Care Provider] - 1-2 days Wilberto Velasquez MD [STAFF PHYSICIAN] - 1-2 days
[2023-03-24] MEDS ORDERED: LIDOCAINE 1% INJ 10MG/ML (20 ML MDV) SQ ONE (04:36)
[2023-03-24 04:37] LABS: Anisocytosis Moderate; HCT 27.9 % (39.0-53.0); MCH 30.2 pg (25.0-35.0); MCHC 34.4 g/dL (31.0-37.0); MCV 87.7 fL (80.0-100.0); Mean Platelet Volume 7.5; Platelet Count 136 k/uL (150-450); RBC 3.18 m/uL (4.30-5.90); WBC 2.3 k/uL (3.8-10.6)
[2023-03-24 04:49] LABS: HGB 9.6 gm/dL (13.0-17.5)
[2023-03-24 04:52] LABS: ALT 12 U/L (4-49); AST 19 U/L (17-59); African American GFR (CKD) >90 (>60 ml/min/1.73 sqM); Albumin 3.7 g/dL (3.5-5.0); Alkaline Phosphatase 128 U/L (38-126); Anion Gap 12 mmol/L; Blood Urea Nitrogen 30 mg/dL (9-20); Calcium 9.1 mg/dL (8.4-10.2); Carbon Dioxide 26 mmol/L (22-30); Chloride 98 mmol/L (98-107); Glucose 105 mg/dL (74-99); Non-African American GFR(CKD) >90 (>60 ml/min/1.73 sqM); Potassium 4.6 mmol/L (3.5-5.1); Sodium 136 mmol/L (137-145); Total Bilirubin 0.2 mg/dL (0.2-1.3); Total Protein 6.1 g/dL (6.3-8.2)
[2023-03-24] MEDS ORDERED: MORPHINE SULFATE 4 MG/ML SYRINGE IVP STA (05:12)
[2023-03-24 05:29] VITALS: BP 124/71; PULSE 71
--- NOTE | 2023-03-24 06:46 | XR ---
EXAMINATION TYPE: XR toes LT DATE OF EXAM: 03/24/2023 4:03 AM INDICATION: Patient age:Male; 62 years old; Reason for study: injury; [facility]. COMPARISON: None TECHNIQUE: The fourth digit of the left foot was examined in the AP, oblique, and lateral projections . FINDINGS: No acute fracture. There is a dislocation of the fourth digit at the PIP joint. Mild surrounding soft tissue swelling. No radiopaque foreign body. IMPRESSION: Acute dislocation of the fourth digit at the PIP joint. No acute fracture.
--- NOTE | 2023-03-24 06:48 | XR ---
EXAMINATION TYPE: XR toes LT DATE OF EXAM: 03/24/2023 4:22 AM INDICATION: Patient age:Male; 62 years old; Reason for study: post reduction; [facility]. COMPARISON: Left toe radiograph of the same date TECHNIQUE: The fourth digit of the left foot was examined in frontal projection. FINDINGS/IMPRESSION: No acute fracture. Post reduction of previously seen dislocation of the fourth digit at the PIP joint . There appears to be appropriate alignment however there is only a single frontal projection provide d.
[2023-03-24 06:56] LABS: Anisocytosis (M) Present; Band Neutrophils % 3 %; Eosinophils # (M) 0.05 k/uL (0-0.7); Lymphocytes # (M) 0.62 k/uL (1.0-4.8); Monocytes # (M) 0.14 k/uL (0-1.0); Neutrophils % (M) 62 %; Nucleated Red Blood Cells 0 /100 WBC (0-0); Poikilocytosis (M) Present; Total Cells Counted 100
== END 2023-03-24 05:27 | disposition home or self-care (01) ==
LOC: EC 03:40
DX: S93.105A Unspecified dislocation of left toe(s), initial encounter (principal); E11.9 Type 2 diabetes mellitus without complications; I10 Essential (primary) hypertension; J45.909 Unspecified asthma, uncomplicated; E78.5 Hyperlipidemia, unspecified; M19.90 Unspecified osteoarthritis, unspecified site; E07.9 Disorder of thyroid, unspecified; F32.A Depression, unspecified; Z79.890 Hormone replacement therapy; Z79.899 Other long term (current) drug therapy; Z88.8 Allergy status to other drugs, medicaments and biological substances; Z87.891 Personal history of nicotine dependence; Z85.830 Personal history of malignant neoplasm of bone; W22.8XXA Striking against or struck by other objects, initial encounter
CPT/HCPCS: 36415; 80053; 85025; 73660; 99284; 96374; 96375; J2270; J0690; J2001

== ENCOUNTER 2023-03-25 15:26 | Emergency (ER) | payer MEDICARE, OTHER ==
[2023-03-25 16:01] VITALS: RESP 18
[2023-03-25] MEDS ORDERED: LIDOCAINE 1% INJ 10MG/ML (20 ML MDV) SQ ONE (16:17)
[2023-03-25] MEDS ORDERED: DIPH,PERTUS(ACELL)TETVAC-LF 0.5 ML VIAL IM ONE (16:17)
--- NOTE | 2023-03-25 16:37 | ED ---
General Adult HPI - General Chief complaint: Wound/Laceration Stated complaint: cut on left hand Time Seen by Provider: 03/25/23 16:08 Source: patient, family Mode of arrival: wheelchair Limitations: physical limitation - History of Present Illness Initial comments: 62-year-old male with past medical history significant for cancer of the jaw on chemo and radiation presents to the ED with a chief complaint of laceration. Per patient and family, is normally unsteady on his feet. Patient's family note that they have multiple pieces of furniture scattered around the house that he has available to him to help him catch if he does stumble. Patient states today that he stumbled and while trying to grab something to stabilize himself, states he accidentally grabbed a sharp ruler and now has a laceration to his left hand. Tetanus status unknown. No other injuries at this time. No chest pain or shortness of breath. No other complaints. - Related Data Home Medications Medication Instructions Recorded Confirmed Mirtazapine [Remeron] 45 mg PO HS 01/13/14 03/08/23 Montelukast [Singulair] 10 mg PO HS 01/13/14 03/08/23 Venlafaxine HCl [Effexor XR] 300 mg PO QAM 01/13/14 03/08/23 allopurinoL [Zyloprim] 100 mg PO DAILY 04/17/15 03/08/23 Ergocalciferol [Vitamin D2 (1250 1,250 mcg PO MO 10/09/20 03/08/23 Mcg = 82411 Iu)] Gabapentin [Neurontin] 600 mg PO TID 10/09/20 03/08/23 Metoprolol Tartrate [Lopressor] 25 mg PO DAILY 10/09/20 03/08/23 Vitc/E/Zinc/Copper/Lutein/Zeax 1 tab PO DAILY 10/09/20 03/08/23 [Icaps Areds2 Tablet] Cetirizine HCl [Zyrtec] 10 mg PO HS 12/24/20 03/08/23 Levothyroxine Sodium [Synthroid] 112 mcg PO DAILY 12/24/20 03/08/23 Rosuvastatin [Crestor] 20 mg PO HS 12/24/20 03/08/23 Acetaminophen [Tylenol Extra 1,000 mg PO DIRECTED PRN 01/08/21 03/08/23 Strength] Albuterol Inhaler [Ventolin Hfa 1 puff INHALATION DIRECTED PRN 01/08/21 03/08/23 Inhaler] Potassium Citrate [Potassium 10 meq PO DAILY 09/24/22 03/08/23 Citrate ER] clindamycin HCL 300 mg PO BID 09/24/22 03/08/23 OLANZapine [ZyPREXA] 2.5 mg PO DIRECTED PRN 02/01/23 03/08/23 Ondansetron [Zofran] 4 mg PO Q8HR PRN 02/01/23 03/08/23 Ciprofloxacin-Hc Otic Susp [Cipro 4 drops RIGHT EAR BID 03/01/23 03/08/23 Hc Otic Suspension] oxyCODONE HCL [oxyCODONE HCL (IR)] 10 mg PO Q4H PRN 03/08/23 03/08/23 Previous Rx's Medication Instructions Recorded Tamsulosin [Flomax] 0.4 mg PO DAILY #5 cap 04/17/15 Cephalexin [Keflex] 500 mg PO Q6HR 1 Days #4 cap 03/24/23 Cephalexin [Keflex] 500 mg PO Q6HR 5 Days #20 cap 03/25/23 Allergies Allergy/AdvReac Type Severity Reaction Status Date / Time ziprasidone HCl [From [facility]] Allergy Severe Anaphylaxis Verified 03/25/23 15:51 ziprasidone mesylate Allergy Severe Anaphylaxis Verified 03/25/23 15:51 [facility] Review of Systems ROS Statement: Those systems with pertinent positive or pertinent negative responses have been documented in the HPI. ROS Other: All systems not noted in ROS Statement are negative. 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.RECEIVED RADAITION/CHEMO, hx ULCER, SHINGLES, HX OF FALLS due to dizziness, hx GYNOMASTIA-resolved, diet control diabetic History of Any Multi-Drug Resistant Organisms: None Reported Past Surgical History: Adenoidectomy, Heart Catheterization, Hernia Repair, Orthopedic Surgery, Tonsillectomy Additional Past Surgical History / Comment(s): lithotripsy 2020, bilateral shoulder fusions/later hardware removed from left shoulder, rt foot ORIF, NECK FUSION x 2( 2013,09/2020), cystoscopy, biopsy mouth 2022 JAW BONE REMOVAL WITH RECONSTRUCTION WITH LEFT OUTER LEG BONE - NOVEMBER 2022 Past Anesthesia/Blood Transfusion Reactions: No Reported Reaction Past Psychological History: Depression Smoking Status: Former smoker Past Alcohol Use History: Rare Past Drug Use History: None Reported - Past Family History Mother Family Medical History: Cancer Additional Family Medical History / Comment(s): lung Father Family Medical History: CVA/TIA Sister(s) Family Medical History: No Reported History General Exam Limitations: physical limitation General appearance: alert, in no apparent distress Respiratory exam: Present: normal lung sounds bilaterally Cardiovascular Exam: Present: regular rate, normal rhythm GI/Abdominal exam: Present: soft Extremities exam: Present: other (Strength and sensation equal and symmetric in bilateral upper extremities. Patient does have a semicircular laceration to the palmar surface of the left hand near the first MCP joint.) Neurological exam: Present: alert, oriented X3 Skin exam: Present: warm, dry Course Vital Signs 03/25/23 03/25/23 15:51 17:44 Temperature 97.3 F L 97.6 F Pulse Rate 86 79 Respiratory 18 18 Rate Blood Pressure 95/60 105/72 O2 Sat by Pulse 100 100 Oximetry Procedures - Laceration Laceration #1 Indication: laceration Size (cm): 5 Description: irregular Depth: simple, single layer Sedation/Analgesia: none Anesthetic Used: lidocaine 1%, without epi Anesthesia Technique: local infiltration Amount (mls): 5 Pre-repair: wound explored, irrigated extensively, deep structures intact Type of Sutures: nylon Size of Sutures: 4-0 Number of Sutures: 8 Technique: simple, interrupted Patient Tolerated Procedure: well, no complications Medical Decision Making - Medical Decision Making Was pt. sent in by a medical professional or institution (, PA, DISEASE INTERVENTION SPECIALIST, urgent care, hospital, or senior care...) When possible be specific @ -No Did you speak to anyone other than the patient for history (EMS, parent, family, police, friend...)? What history was obtained from this source @ -No Did you review nursing and triage notes (agree or disagree)? Why? @ -I reviewed and agree with nursing and triage notes Were old charts reviewed (outside hosp., previous admission, EMS record, old EKG, old radiological studies, urgent care reports/EKG's, senior care records)? Report findings @ -No old charts were reviewed Differential Diagnosis (chest pain, altered mental status, abdominal pain women, abdominal pain men, vaginal bleeding, weakness, fever, dyspnea, syncope, headache, dizziness, GI bleed, back pain, seizure, CVA, palpatations, mental health, musculoskeletal)? @ -Differential Musculoskeletal Muscular strain, contusion, ligament sprain, fracture, arthritis, septic arthritis, bursitis, cellulitis, muscle spasm, nerve compression, DVT, arterial occlusion, herpes zoster, electrolyte abnormality, tumor.... This is not meant to be in all inclusive list EKG interpreted by me (3pts min.). @ -As above X-rays interpreted by me (1pt min.). @ -None done CT interpreted by me (1pt min.). @ -None done U/S interpreted by me (1pt. min.). @ -None done What testing was considered but not performed or refused? (CT, X-rays, U/S, labs)? Why? @ -None What meds were considered but not given or refused? Why? @ -None Did you discuss the management of the patient with other professionals (professionals i.e. , PA, DISEASE INTERVENTION SPECIALIST, lab, RT, psych nurse, social service coordinator, furniture cleaner, teacher, parachute officer, adult protective caseworker)? Give summary @ -No Was smoking cessation discussed for >3mins.? @ -No Was critical care preformed (if so, how long)? @ -No Were there social determinants of health that impacted care today? How? (Homelessness, low income, unemployed, alcoholism, drug addiction, transportation, low edu. Level, literacy, decrease access to med. care, group home, rehab)? @ -No Was there de-escalation of care discussed even if they declined (Discuss DNR or withdrawal of care, Hospice)? DNR status @ -No What co-morbidities impacted this encounter? (DM, HTN, Smoking, COPD, CAD, Cancer, CVA, ARF, Chemo, Hep., AIDS, mental health diagnosis, sleep apnea, morbid obesity)? @ -None Was patient admitted / discharged? Hospital course, mention meds given and route , prescriptions, significant lab abnormalities, going to OR and other pertinent info. @ -Discharge 62-year-old male who is normally unsteady on his feet presenting today with a la ceration to his left hand that occurred after he became unsteady today and actually grabbed the sharp part of a ruler for support. No other injuries. At this time. Laceration repaired. Further details please see procedure note. Bacitracin applied. Discharged home in stable condition. Due to high risk infection. Patient on chemo/radiation patient provided prescription for Keflex. Discussed return precautions with patient and family who verbalizes agreement. Undiagnosed new problem with uncertain prognosis? @ -No Drug Therapy requiring intensive monitoring for toxicity (Heparin, Nitro, Insulin, Cardizem)? @ -No Were any procedures done? @ -No Diagnosis/symptom? @ -Laceration, left hand Acute, or Chronic, or Acute on Chronic? @ -Acute Uncomplicated (without systemic symptoms) or Complicated (systemic symptoms)? @ -Uncomplicated Side effects of treatment? @ -No Exacerbation, Progression, or Severe Exacerbation? @ -No Poses a threat to life or bodily function? How? (Chest pain, [place], [place], pneumonia, PE, COPD, DKA, ARF, appy, cholecystitis, CVA, Diverticulitis, Homicidal, Suicidal, threat to staff... and all critical care pts) @ -No Disposition Clinical Impression: Laceration Disposition: HOME SELF-CARE Condition: Good Instructions (If sedation given, give patient instructions): Care For Your Stitches (ED) Additional Instructions: Please return to the Emergency Department if symptoms worsen or any other concerns. Please return in 10-14 days for suture removal. Monitor for signs of infection. Prescriptions: Cephalexin [Keflex] 500 mg PO Q6HR 5 Days #20 cap Is patient prescribed a controlled substance at d/c from ED?: No Referrals: Armani Rendon DO [Primary Care Provider] - 1-2 days Time of Disposition: 17:47
[2023-03-25] MEDS ORDERED: BACITRACIN OINT 1 EACH PACKET TOPICAL ONE (17:48)
[2023-03-25 17:52] VITALS: BP 105/72; PULSE 79; TEMP 97.6
== END 2023-03-25 18:17 | disposition home or self-care (01) ==
LOC: EC 15:26
DX: S61.412A Laceration without foreign body of left hand, initial encounter (principal); J45.909 Unspecified asthma, uncomplicated; E11.9 Type 2 diabetes mellitus without complications; E78.5 Hyperlipidemia, unspecified; E07.9 Disorder of thyroid, unspecified; F32.A Depression, unspecified; I10 Essential (primary) hypertension; Z79.890 Hormone replacement therapy; Z79.899 Other long term (current) drug therapy; Z23 Encounter for immunization; Z87.891 Personal history of nicotine dependence; W26.8XXA Contact with other sharp object(s), not elsewhere classified, initial encounter; Z88.8 Allergy status to other drugs, medicaments and biological substances
CPT/HCPCS: 90715; 12002; 99282; 90471; J2001

== ENCOUNTER → 2023-06-11 | Outpatient (CLI) | payer MEDICARE, OTHER ==
[2023-06-11 11:12] LABS: African American GFR (CKD) >90 (>60 ml/min/1.73 sqM); Blood Urea Nitrogen 36 mg/dL (9-20); Non-African American GFR(CKD) >90 (>60 ml/min/1.73 sqM)
--- NOTE | 2023-06-15 08:21 | CT ---
EXAMINATION TYPE: CT facial bones wo/w con, CT soft tissue neck wo/w con CT DLP: 1242.4 (accession [id number]), 805.2 (accession [id number]) mGycm, Automated exposure control for dose reduction was used. DATE OF EXAM: 06/11/2023 12:10 PM COMPARISON: Pet/CT 10/21/2022, MRI Neck 10/21/2022.. CLINICAL INDICATION:Male, 63 years old with history of C03.9, F17.220 nicotine dependence;, h/o Hodgk in's lymphoma, right jaw reconstruction, follow up TECHNIQUE: Multiple unenhanced axial CT images were obtained of the facial bones soft tissue and bone windows. Coronal, axial and sagittal reformatted images were also provided in soft tissue and bone windows and submitted for interpretation. Additional 3-D reformatted images were obtained on a [employer] workstation. . Contrast used:100 mL of Isovue 300 with IV Contrast, (none if empty) Oral contrast used: (none if empty) FINDINGS: Interval postsurgical changes to the mandible predominantly on the right with metallic hardware in pl naomi. There is partial osseous fusion/calculus formation of the right and left mandibles anteriorly ne ar the bone grafts. The angle of the mandible on the right demonstrates no significant osseous fusion . The hardware involving the mandible appears intact. There is multiple surgical clips in the surgica l bed with extensive subcutaneous changes edema worse on the right. The remainder of the mandible is without evidence of fracture. The remainder of the osseous structures appear grossly unremarkable. Th ere is absence of the teeth in the maxilla and remainder of the mandible. No enlarged lymph nodes gissel ntified. The globes and orbits appear symmetrical. Visualized portions of the intracranial structures are unremarkable. The right mastoid air cells demonstrate opacification. No lymphadenopathy identifi ed. IMPRESSION: 1. Postsurgical changes with mandible reconstructive surgery. Scattered surgical bed subcutaneous ch anges edema. Partial calcification of the reconstructive bone joints. Hardware appears intact. 2. No enlarged lymph nodes are identified surveillance with PET/CTs recommended to evaluate metaboli c activity. 3. Right mastoid air cell effusion.
== END | disposition home or self-care (01) ==
LOC: RADCTMAIN 10:22
PROVIDERS: ATTEND Radiology Radiation Oncology
DX: C03.9 Malignant neoplasm of gum, unspecified (principal); H74.8X1 Other specified disorders of right middle ear and mastoid; R60.0 Localized edema; F17.220 Nicotine dependence, chewing tobacco, uncomplicated; Z98.890 Other specified postprocedural states
CPT/HCPCS: 82565; 84520; 70488; 70492; 36415; Q9967

== ENCOUNTER 2023-07-08 15:05 | Emergency (ER) | payer MEDICARE, OTHER ==
[2023-07-08 15:26] VITALS: TEMP 98.9
[2023-07-08] MEDS ORDERED: VANCOMYCIN IV PER PHARMACY 1 EACH MISC MISCELLANE PRN (15:45)
[2023-07-08] MEDS ORDERED: SODIUM CHLORIDE 0.9% 1,000 ML IV ONE (15:45)
[2023-07-08] MEDS ORDERED: HYDROmorphone 0.5 MG/0.5 ML SYRINGE IVP STA (15:45)
[2023-07-08] MEDS ORDERED: VANCOMYCIN 1,500 MG in SODIUM CHLORIDE 0.9% 500 ML 500 ML IVPB STA (15:48)
--- NOTE | 2023-07-08 15:54 | ED ---
General Adult HPI - General Chief complaint: Head Injury Stated complaint: fall Time Seen by Provider: 07/08/23 15:36 Source: patient, RN notes reviewed, old records reviewed Mode of arrival: EMS Limitations: no limitations - History of Present Illness Initial comments: 53-year-old male presenting for evaluation of fall with head trauma. Patient states he felt dizzy and fell striking the left side of his head. He has history of head and neck cancer status post reconstructive surgery. He states over the past several weeks he's had pain and swelling in the face and right ear and was placed on initially Augmentin followed by clindamycin. He said purulent drainage from his right ear. He does have increasing pain at the site. No reported fever. - Related Data Home Medications Medication Instructions Recorded Confirmed Mirtazapine [Remeron] 45 mg PO HS 01/13/14 03/08/23 Montelukast [Singulair] 10 mg PO HS 01/13/14 03/08/23 Venlafaxine HCl [Effexor XR] 300 mg PO QAM 01/13/14 03/08/23 allopurinoL [Zyloprim] 100 mg PO DAILY 04/17/15 03/08/23 Ergocalciferol [Vitamin D2 (1250 1,250 mcg PO MO 10/09/20 03/08/23 Mcg = 47155 Iu)] Gabapentin [Neurontin] 600 mg PO TID 10/09/20 03/08/23 Metoprolol Tartrate [Lopressor] 25 mg PO DAILY 10/09/20 03/08/23 Vitc/E/Zinc/Copper/Lutein/Zeax 1 tab PO DAILY 10/09/20 03/08/23 [Icaps Areds2 Tablet] Cetirizine HCl [Zyrtec] 10 mg PO HS 12/24/20 03/08/23 Levothyroxine Sodium [Synthroid] 112 mcg PO DAILY 12/24/20 03/08/23 Rosuvastatin [Crestor] 20 mg PO HS 12/24/20 03/08/23 Acetaminophen [Tylenol Extra 1,000 mg PO DIRECTED PRN 01/08/21 03/08/23 Strength] Albuterol Inhaler [Ventolin Hfa 1 puff INHALATION DIRECTED PRN 01/08/21 Inhaler] Potassium Citrate [Potassium 10 meq PO DAILY 09/24/22 03/08/23 Citrate ER] clindamycin HCL 300 mg PO BID 09/24/22 03/08/23 OLANZapine [ZyPREXA] 2.5 mg PO DIRECTED PRN 02/01/23 03/08/23 Ondansetron [Zofran] 4 mg PO Q8HR PRN 02/01/23 03/08/23 Ciprofloxacin-Hc Otic Susp [Cipro 4 drops RIGHT EAR BID 03/01/23 03/08/23 Hc Otic Suspension] oxyCODONE HCL [oxyCODONE HCL (IR)] 10 mg PO Q4H PRN 03/08/23 03/08/23 Previous Rx's Medication Instructions Recorded Tamsulosin [Flomax] 0.4 mg PO DAILY #5 cap 04/17/15 Cephalexin [Keflex] 500 mg PO Q6HR 1 Days #4 cap 03/24/23 Cephalexin [Keflex] 500 mg PO Q6HR 5 Days #20 cap 03/25/23 Allergies Allergy/AdvReac Type Severity Reaction Status Date / Time ziprasidone HCl [From Geodon] Allergy Severe Anaphylaxis Verified 03/25/23 15:51 ziprasidone mesylate Allergy Severe Anaphylaxis Verified 03/25/23 15:51 [From [employer] Energy[employer]] Review of Systems ROS Statement: Those systems with pertinent positive or pertinent negative responses have been documented in the HPI. ROS Other: All systems not noted in ROS Statement are negative. 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.RECEIVED RADAITION/CHEMO, hx ULCER, SHINGLES, HX OF FALLS due to dizziness, hx GYNOMASTIA-resolved, diet control diabetic History of Any Multi-Drug Resistant Organisms: None Reported Past Surgical History: Adenoidectomy, Heart Catheterization, Hernia Repair, Orth opedic Surgery, Tonsillectomy Additional Past Surgical History / Comment(s): lithotripsy 2020, bilateral shoulder fusions/later hardware removed from left shoulder, rt foot ORIF, NECK FUSION x 2( 2013,09/2020), cystoscopy, biopsy mouth 2022 JAW BONE REMOVAL WITH RECONSTRUCTION WITH LEFT OUTER LEG BONE - NOVEMBER 2022 Past Anesthesia/Blood Transfusion Reactions: No Reported Reaction Past Psychological History: Depression Smoking Status: Former smoker Past Alcohol Use History: Rare Past Drug Use History: None Reported - Past Family History Mother Family Medical History: Cancer Additional Family Medical History / Comment(s): lung Father Family Medical History: CVA/TIA Sister(s) Family Medical History: No Reported History General Exam Limitations: no limitations General appearance: alert, in no apparent distress Head exam: Present: other (2 cm laceration right orbital ridge, swelling and erythema to the right face and right neck with purulent drainage from the right ear) Neck exam: Absent: tenderness, meningismus Respiratory exam: Present: normal lung sounds bilaterally, respiratory distress Cardiovascular Exam: Present: regular rate, normal rhythm GI/Abdominal exam: Absent: distended, tenderness Course Vital Signs 07/08/23 07/08/23 07/08/23 15:13 16:04 17:00 Temperature 98.9 F Pulse Rate 8 L 72 73 Respiratory 20 20 16 Rate Blood Pressure 107/72 103/59 112/69 O2 Sat by Pulse 99 98 98 Oximetry Medical Decision Making - Medical Decision Making Was pt. sent in by a medical professional or institution (, PA, DIRECTOR OF PUBLIC HEALTH, urgent care, hospital, or half-way...) When possible be specific @ -No Did you speak to anyone other than the patient for history (EMS, parent, family, police, friend...)? What history was obtained from this source @ -No Did you review nursing and triage notes (agree or disagree)? Why? @ -I reviewed and agree with nursing and triage notes Were old charts reviewed (outside hosp., previous admission, EMS record, old EKG, old radiological studies, urgent care reports/EKG's, half-way records)? Report findings @ -No old charts were reviewed Differential Diagnosis (chest pain, altered mental status, abdominal pain women, abdominal pain men, vaginal bleeding, weakness, fever, dyspnea, syncope, headache, dizziness, GI bleed, back pain, seizure, CVA, palpatations, mental health, musculoskeletal)? @ -Differential Syncope: Valvular disease, hypertrophic cardiomyopathy, pulmonary embolism, tamponade, tachycardia, bradycardia, CA, hypovolemia, hemorrhage, dissection, anemia, intracranial hemorrhage, seizure, hypoglycemia, carbon monoxide poisoning, this is not meant to be an all-inclusive list. EKG interpreted by me (3pts min.). @ -EKG: Sinus rhythm rate of 78, MS interval 153, QRS duration 86, QTC 398, no ST segment elevation. X-rays interpreted by me (1pt min.). @ -None done CT interpreted by me (1pt min.). @CT brain negative for intracranial hemorrhage, CT facial bones with contrast negative for fluid collection or drainable abscess, CT cervical spine negative for fracture subluxation. U/S interpreted by me (1pt. min.). @ -None done What testing was considered but not performed or refused? (CT, X-rays, U/S, labs)? Why? @ -None What meds were considered but not given or refused? Why? @ -None Did you discuss the management of the patient with other professionals (professionals i.e. , PA, DIRECTOR OF PUBLIC HEALTH, lab, RT, psych nurse, social media sr strategy manager, vamp strap ironer, teacher, anti air warfare operations officer, heel caser)? Give summary @ -No Was smoking cessation discussed for >3mins.? @ -No Was critical care preformed (if so, how long)? @ -No Were there social determinants of health that impacted care today? How? (Homel essness, low income, unemployed, alcoholism, drug addiction, transportation, low edu. Level, literacy, decrease access to med. care, correction, rehab)? @ -No Was there de-escalation of care discussed even if they declined (Discuss DNR or withdrawal of care, Hospice)? DNR status @ -No What co-morbidities impacted this encounter? (DM, HTN, Smoking, COPD, CAD, Cancer, CVA, ARF, Chemo, Hep., AIDS, mental health diagnosis, sleep apnea, morbid obesity)? @ -Previous head and neck cancer, cellulitis of the face Was patient admitted / discharged? Hospital course, mention meds given and route, prescriptions, significant lab abnormalities, going to OR and other pertinent info. @ -[63-year-old male with fall, head trauma. Patient had 2 cm laceration above the left eye which was repaired with skin adhesive. Patient had significant skin changes to the right side of his face from previous head neck cancer status post reconstruction. He states that he was seen by his surgeon yesterday and was prescribed clindamycin which is been taking for 24 hours. His brother who i s at bedside states that overall his face does look significantly improved from baseline. He is also on ciprofloxacin eardrops. Patient afebrile. He is in sinus rhythm. He has a normal white blood cell count. Normal laboratory testing per patient eager for discharge. He was given a dose of IV antibiotics and pain medication the emergency department. Undiagnosed new problem with uncertain prognosis? @ -No Drug Therapy requiring intensive monitoring for toxicity (Heparin, Nitro, Insulin, Cardizem)? @ -No Were any procedures done? @Yes, laceration repaired with skin adhesive Diagnosis/symptom? @ -[Fall, concussion, facial laceration Acute, or Chronic, or Acute on Chronic? @ -Acute Uncomplicated (without systemic symptoms) or Complicated (systemic symptoms)? @ -default Side effects of treatment? @ -No Exacerbation, Progression, or Severe Exacerbation? @ -No Poses a threat to life or bodily function? How? (Chest pain, USA, CA, pneumonia, PE, COPD, DKA, ARF, appy, cholecystitis, CVA, Diverticulitis, Homicidal, Suicidal, threat to staff... and all critical care pts) @ -[Moderate risk at this time - Lab Data Result diagrams: 07/08/23 15:45 07/08/23 15:45 Lab Results 07/08/23 07/08/23 07/08/23 Range/Units 15:45 15:45 15:45 WBC 5.8 (3.8-10.6) k/uL RBC 3.51 L (4.30-5.90) m/uL Hgb 10.4 L (13.0-17.5) gm/dL Hct 31.9 L (39.0-53.0) % MCV 90.9 (80.0-100.0) fL MCH 29.7 (25.0-35.0) pg MCHC 32.7 (31.0-37.0) g/dL RDW 14.6 (11.5-15.5) % Plt Count 157 (150-450) k/uL MPV 9.4 Neutrophils % 77 % Lymphocytes % 12 % Monocytes % 6 % Eosinophils % 2 % Basophils % 0 % Neutrophils # 4.5 (1.3-7.7) k/uL Lymphocytes # 0.7 L (1.0-4.8) k/uL Monocytes # 0.3 (0-1.0) k/uL Eosinophils # 0.1 (0-0.7) k/uL Basophils # 0.0 (0-0.2) k/uL PT 10.1 (10.0-12.5) sec INR 0.9 (<1.2) APTT 24.9 (22.0-30.0) sec Sodium 137 (137-145) mmol/L Potassium 3.9 (3.5-5.1) mmol/L Chloride 99 (98-107) mmol/L Carbon Dioxide 30 (22-30) mmol/L Anion Gap 8 mmol/L BUN 25 H (9-20) mg/dL Creatinine 0.72 (0.66-1.25) mg/dL Est GFR (CKD-EPI)AfAm >90 (>60 ml/min/1.73 sqM) Est GFR (CKD-EPI)NonAf >90 (>60 ml/min/1.73 sqM) Glucose 103 H (74-99) mg/dL Plasma Lactic Acid Abdias (0.7-2.0) mmol/L Calcium 9.7 (8.4-10.2) mg/dL Magnesium 2.0 (1.6-2.3) mg/dL Total Bilirubin 0.4 (0.2-1.3) mg/dL AST 23 (17-59) U/L ALT 22 (4-49) U/L Alkaline Phosphatase 124 (38-126) U/L Total Protein 7.0 (6.3-8.2) g/dL Albumin 4.0 (3.5-5.0) g/dL 07/08/23 Range/Units 15:45 WBC (3.8-10.6) k/uL RBC (4.30-5.90) m/uL Hgb (13.0-17.5) gm/dL Hct (39.0-53.0) % MCV (80.0-100.0) fL MCH (25.0-35.0) pg MCHC (31.0-37.0) g/dL RDW (11.5-15.5) % Plt Count (150-450) k/uL MPV Neutrophils % % Lymphocytes % % Monocytes % % Eosinophils % % Basophils % % Neutrophils # (1.3-7.7) k/uL Lymphocytes # (1.0-4.8) k/uL Monocytes # (0-1.0) k/uL Eosinophils # (0-0.7) k/uL Basophils # (0-0.2) k/uL PT (10.0-12.5) sec INR (<1.2) APTT (22.0-30.0) sec Sodium (137-145) mmol/L Potassium (3.5-5.1) mmol/L Chloride (98-107) mmol/L Carbon Dioxide (22-30) mmol/L Anion Gap mmol/L BUN (9-20) mg/dL Creatinine (0.66-1.25) mg/dL Est GFR (CKD-EPI)AfAm (>60 ml/min/1.73 sqM) Est GFR (CKD-EPI)NonAf (>60 ml/min/1.73 sqM) Glucose (74-99) mg/dL Plasma Lactic Acid Abdias 1.1 (0.7-2.0) mmol/L Calcium (8.4-10.2) mg/dL Magnesium (1.6-2.3) mg/dL Total Bilirubin (0.2-1.3) mg/dL AST (17-59) U/L ALT (4-49) U/L Alkaline Phosphatase (38-126) U/L Total Protein (6.3-8.2) g/dL Albumin (3.5-5.0) g/dL Disposition Clinical Impression: Concussion without loss of consciousness Disposition: HOME SELF-CARE Condition: Fair Instructions (If sedation given, give patient instructions): Concussion (ED) Is patient prescribed a controlled substance at d/c from ED?: No Referrals: Armani Rendon DO [Primary Care Provider] - 1-2 days Time of Disposition: 18:12
[2023-07-08 16:23] LABS: Basophils % (A) 0 %; Eosinophils # (A) 0.1 k/uL (0-0.7); Eosinophils % (A) 2 %; HCT 31.9 % (39.0-53.0); HGB 10.4 gm/dL (13.0-17.5); Lymphocytes # (A) 0.7 k/uL (1.0-4.8); Lymphocytes % (A) 12 %; MCH 29.7 pg (25.0-35.0); MCHC 32.7 g/dL (31.0-37.0); MCV 90.9 fL (80.0-100.0); Mean Platelet Volume 9.4; Monocytes # (A) 0.3 k/uL (0-1.0); Monocytes % (A) 6 %; Neutrophils # (A) 4.5 k/uL (1.3-7.7); Neutrophils % (A) 77 %; Platelet Count 157 k/uL (150-450); RBC 3.51 m/uL (4.30-5.90); RDW 14.6 % (11.5-15.5); WBC 5.8 k/uL (3.8-10.6)
[2023-07-08 16:32] LABS: INR 0.9 (<1.2); Partial Thromboplastin Time 24.9 sec (22.0-30.0); Prothrombin Time 10.1 sec (10.0-12.5)
[2023-07-08 16:43] LABS: ALT 22 U/L (4-49); AST 23 U/L (17-59); African American GFR (CKD) >90 (>60 ml/min/1.73 sqM); Alkaline Phosphatase 124 U/L (38-126); Anion Gap 8 mmol/L; Blood Urea Nitrogen 25 mg/dL (9-20); Calcium 9.7 mg/dL (8.4-10.2); Carbon Dioxide 30 mmol/L (22-30); Chloride 99 mmol/L (98-107); Glucose 103 mg/dL (74-99); Non-African American GFR(CKD) >90 (>60 ml/min/1.73 sqM); Potassium 3.9 mmol/L (3.5-5.1); Sodium 137 mmol/L (137-145); Total Bilirubin 0.4 mg/dL (0.2-1.3)
--- NOTE | 2023-07-08 17:38 | CT ---
EXAMINATION TYPE: CT brain di horan con DATE OF EXAM: 07/08/2023 COMPARISON: 06/20/2014 HISTORY: fall CT DLP: 1391.6 mGycm Automated exposure control for dose reduction was used. TECHNIQUE: CT scan of the head and cervical spine are performed without contrast. FINDINGS Head CT: Ventricles, basal cisterns and sulci over the convexities within normal limits and there is no mass e ffect or shift of midline structures. No abnormal density is seen throughout the brain parenchyma and there is no acute intra or extra-axia l hemorrhage. The posterior fossa including the brainstem, fourth ventricle and cerebellar pontine angles appear gr ossly normal. Intraorbital contents appear normal and symmetric. Paranasal sinuses are well aerated. There is marked fluid in the right mastoid air cells and middle e ar cavities. The left mastoid air cells are well aerated. CT cervical spine: The craniovertebral junction relationships and prevertebral soft tissues are normal. There is anterior cervical fusion from C3 through C7. C2-3 and C3-4 disc spaces are well-maintained. There is no malalignment of the cervical vertebral segments. There is no bony encroachment on the cervical canal. There is severe bony neural foraminal encroachme nt at C3-4 on the left. Impression 1. No acute bleed or mass effect intracranially. Marked fluid in the right mastoid air cells and midd le ear cavity. 2. Calvarium intact. 3. Anterior cervical fusion C3-C7. 4. No acute cervical spine trauma.
[2023-07-08 17:42] VITALS: RESP 16
--- NOTE | 2023-07-08 17:46 | CT ---
EXAMINATION TYPE: CT facial bones w con DATE OF EXAM: 07/08/2023 COMPARISON: 06/11/2023 HISTORY: infection CT DLP: 509.8 mGycm Automated exposure control for dose reduction was used. CONTRAST: CT scan of the facial bones is performed with IV Contrast, patient injected with 100ml mL of Isovue 3 00. TECHNIQUE: CT scan of the sinuses is performed without contrast, axial images are obtained, coronal r eformatted images are also reviewed. FINDINGS: There is been fixation of an extensive mandibular fracture with metallic plate and screws. There is m arked deformity of the right temporal mandibular joint is likely chronic. The paranasal sinuses are well aerated. The intraorbital contents appear normal and symmetric. There is marked fluid within the right mastoid air cells and middle ear cavity. The left mastoid air cells are well aerated. IMPRESSION: 1. No acute facial bone fracture. 2. Extensive postsurgical changes of fixation of a prior extensive mandibular fracture with metallic plate and screws of the right mandible and mid mandible. 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 3. Marked fluid within the right mastoid air cells and middle ear cavity.
[2023-07-08] MEDS ORDERED: TOPICAL SKIN ADHESIVE 1 EACH AMP TOPICAL ONE (18:11)
[2023-07-08 18:46] VITALS: BP 135/78; PULSE 78
[2023-07-09] MEDS ORDERED: VANCOMYCIN 1,500 MG in SODIUM CHLORIDE 0.9% 500 ML 500 ML IVPB SCH ×2
== END 2023-07-08 18:43 | disposition home or self-care (01) ==
LOC: EC 15:05
DX: S06.0X0A Concussion without loss of consciousness, initial encounter (principal); S05.41XA Penetrating wound of orbit with or without foreign body, right eye, initial encounter; H60.11 Cellulitis of right external ear; E11.9 Type 2 diabetes mellitus without complications; I10 Essential (primary) hypertension; J45.909 Unspecified asthma, uncomplicated; E78.5 Hyperlipidemia, unspecified; M19.90 Unspecified osteoarthritis, unspecified site; F32.A Depression, unspecified; E07.9 Disorder of thyroid, unspecified; Z79.890 Hormone replacement therapy; Z79.899 Other long term (current) drug therapy; Z88.8 Allergy status to other drugs, medicaments and biological substances; Z87.891 Personal history of nicotine dependence; W18.30XA Fall on same level, unspecified, initial encounter
CPT/HCPCS: 36415; 93005; 80053; 83605; 83735; 85025; 85610; 85730; 87040; 72125; 70487; 70450; 12011; 99284; 96365; 96366 ×2; 96375; J3370; J1170; Q9967

== ENCOUNTER → 2023-07-08 | Outpatient (CLI) | payer MEDICARE, OTHER ==
--- NOTE | 2023-07-08 12:38 | FL ---
COMPARISON: NONE DATE OF EXAM: 07/08/2023 HISTORY: Dysphagia A number of thin and thick substances were ingested under the care of the department of speech pathol ogy. There is no evidence of aspiration. There is transient penetration upon ingestion of large volu me of thin liquid. There is no evidence of obstruction. IMPRESSION: 1. No evidence of aspiration.
== END | disposition home or self-care (01) ==
LOC: RADFLMAIN 10:48
PROVIDERS: ATTEND Radiology Radiation Oncology
DX: C41.1 Malignant neoplasm of mandible (principal); R13.10 Dysphagia, unspecified; F17.220 Nicotine dependence, chewing tobacco, uncomplicated
CPT/HCPCS: 74230

== ENCOUNTER 2023-08-02 05:33 | Inpatient (IN) | payer MEDICARE, OTHER ==
--- NOTE | 2023-08-02 06:31 | ED ---
Dizziness HPI - General Chief Complaint: Dizziness Stated Complaint: Fall,Dizziness Time Seen by Provider: 08/02/23 05:58 Source: patient, EMS, RN notes reviewed Mode of arrival: EMS Limitations: no limitations - History of Present Illness Initial Comments: This is a 63-year-old male who presents to the emergency department for dizziness and frequent falls. Patient reports problems with dizziness and frequent falls, which have been worsening recently. Patient does live alone. He was evaluated here about a month ago for a fall related to the dizziness. Unsure if he would describe this as a room spinning sensation or if this is positional in nature. States that last night he fell 4 times. One of these times he felt his right ankle pop. He has minor pain associated with this. He did not hit his head or lose consciousness, however he did hit his head during a fall a couple of days ago. Not taking any blood thinners. Patient is noted to be t witching in the examination room. States that this has been going on for the last 1-2 months and these sometimes trigger the falls as well. He also notes that his blood pressure has been in the 90s systolically over the last week. He denies any chest pain but does report shortness of breath. He has a hx of head and neck cancer, but states that he is inbetween treatment stages right now. MD Complaint: dizziness - Related Data Home Medications Medication Instructions Recorded Confirmed Mirtazapine [Remeron] 45 mg PO HS 01/13/14 08/02/23 Montelukast [Singulair] 10 mg PO HS 01/13/14 08/02/23 Venlafaxine HCl [Effexor XR] 300 mg PO DAILY 01/13/14 08/02/23 allopurinoL [Zyloprim] 100 mg PO DAILY 04/17/15 08/02/23 Ergocalciferol [Vitamin D2 (1250 1,250 mcg PO MO 10/09/20 08/02/23 Mcg = 78125 Iu)] Gabapentin [Neurontin] 600 mg PO TID 10/09/20 08/02/23 Rosuvastatin [Crestor] 20 mg PO HS 12/24/20 08/02/23 Albuterol Inhaler [Ventolin Hfa 1 puff INHALATION RT-QID PRN 01/08/21 08/02/23 Inhaler] Potassium Citrate [Potassium 10 meq PO TID 09/24/22 08/02/23 Citrate ER] oxyCODONE HCL [oxyCODONE HCL (IR)] 10 mg PO Q4H PRN 03/08/23 08/02/23 Acetaminophen [Tylenol 8 Hour] 650 mg PO TID 08/02/23 08/02/23 Artificial Tears-Hypromellose 1 drops BOTH EYES TID PRN 08/02/23 08/02/23 [Artificial Tear Drops] Cevimeline [Evoxac] 30 mg PO TID 08/02/23 08/02/23 Chlorhexidine Gluconate [Peridex] 15 ml PO TID PRN 08/02/23 08/02/23 Cyclobenzaprine [Flexeril] 10 mg PO TID PRN 08/02/23 08/02/23 HYDROcodone/APAP 10-325MG [[place] 1 tab PO Q6HR PRN 08/02/23 08/02/23 10-325] Ibuprofen [Motrin] 800 mg PO Q8H PRN 08/02/23 08/02/23 Levothyroxine Sodium [Synthroid] 125 mcg PO DAILY 08/02/23 08/02/23 Mv-Mn/Om3/Dha/Epa/Fish/Lut/[place] 1 cap PO DAILY 08/02/23 08/02/23 [Ocuvite Adult 50 Plus Softgel] Previous Rx's Medication Instructions Recorded Tamsulosin [Flomax] 0.4 mg PO DAILY #5 cap 04/17/15 Cephalexin [Keflex] 500 mg PO Q6HR 1 Days #4 cap 03/24/23 Allergies Allergy/AdvReac Type Severity Reaction Status Date / Time ziprasidone HCl [From Geodon] Allergy Severe Anaphylaxis Verified 08/02/23 12:21 ziprasidone mesylate Allergy Severe Anaphylaxis Verified 08/02/23 12:21 [From Geodon] Review of Systems ROS Statement: Those systems with pertinent positive or pertinent negative responses have been documented in the HPI. ROS Other: All systems not noted in ROS Statement are negative. 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.RECEIVED RADAITION/CHEMO, hx ULCER, SHINGLES, HX OF FALLS due to dizziness, hx GYNOMASTIA-resolved, diet control diabetic History of Any Multi-Drug Resistant Organisms: None Reported Past Surgical History: Adenoidectomy, Heart Catheterization, Hernia Repair, Orthopedic Surgery, Tonsillectomy Additional Past Surgical History / Comment(s): lithotripsy 2020, bilateral shoulder fusions/later hardware removed from left shoulder, rt foot ORIF, NECK FUSION x 2( 2013,09/2020), cystoscopy, biopsy mouth 2022 JAW BONE REMOVAL WITH RECONSTRUCTION WITH LEFT OUTER LEG BONE - NOVEMBER 2022 Past Anesthesia/Blood Transfusion Reactions: No Reported Reaction Past Psychological History: Depression Smoking Status: Former smoker Past Alcohol Use History: Rare Past Drug Use History: None Reported - Past Family History Mother Family Medical History: Cancer Additional Family Medical History / Comment(s): lung Father Family Medical History: CVA/TIA Sister(s) Family Medical History: No Reported History General Exam Limitations: no limitations General appearance: alert, in no apparent distress Eye exam: Present: normal appearance, PERRL, EOMI. Absent: scleral icterus, conjunctival injection, periorbital swelling Respiratory exam: Present: normal lung sounds bilaterally. Absent: respiratory distress, wheezes, rales, rhonchi, stridor Cardiovascular Exam: Present: regular rate, normal rhythm, normal heart sounds. Absent: systolic murmur, diastolic murmur, rubs, gallop, clicks Neurological exam: Present: alert, oriented X3, CN II-XII intact Psychiatric exam: Present: normal affect, normal mood Course Vital Signs 08/02/23 08/02/23 08/02/23 05:38 09:22 09:25 Temperature 98.4 F 98.7 F Pulse Rate 98 93 85 Pulse Rate [ [employer] ] Respiratory 18 14 14 Rate Blood Pressure 103/58 116/68 116/68 Blood Pressure [Right Arm] O2 Sat by Pulse 96 94 L 94 L Oximetry 08/02/23 08/02/23 08/02/23 10:00 10:28 10:30 Temperature Pulse Rate 81 76 76 Pulse Rate [ [employer] ] Respiratory 14 18 14 Rate Blood Pressure 97/52 80/46 92/58 Blood Pressure [Right Arm] O2 Sat by Pulse 93 L 96 97 Oximetry 08/02/23 08/02/23 08/02/23 10:45 11:00 11:15 Temperature Pulse Rate 84 89 92 Pulse Rate [ [employer] ] Respiratory 14 14 14 Rate Blood Pressure 103/59 113/64 128/85 Blood Pressure [Right Arm] O2 Sat by Pulse 98 97 100 Oximetry 08/02/23 08/02/23 08/02/23 11:19 12:00 14:00 Temperature Pulse Rate 105 H 80 Pulse Rate [ [employer] ] Respiratory 16 16 16 Rate Blood Pressure 124/73 108/63 Blood Pressure [Right Arm] O2 Sat by Pulse 97 97 Oximetry 08/02/23 08/02/23 08/02/23 15:00 16:00 17:00 Temperature Pulse Rate 83 82 76 Pulse Rate [ [employer] ] Respiratory 16 16 16 Rate Blood Pressure 109/56 113/75 117/63 Blood Pressure [Right Arm] O2 Sat by Pulse 98 97 98 Oximetry 08/02/23 08/02/23 08/02/23 18:00 20:08 22:04 Temperature 98.6 F Pulse Rate 83 92 82 Pulse Rate [ [employer] ] Respiratory 16 16 17 Rate Blood Pressure 117/75 120/73 134/71 Blood Pressure [Right Arm] O2 Sat by Pulse 98 100 98 Oximetry 08/02/23 08/03/23 08/03/23 23:55 01:23 03:31 Temperature Pulse Rate 81 80 76 Pulse Rate [ [employer] ] Respiratory 17 17 17 Rate Blood Pressure 92/52 106/74 130/75 Blood Pressure [Right Arm] O2 Sat by Pulse 95 100 Oximetry 08/03/23 08/03/23 08/03/23 04:44 06:31 08:00 Temperature Pulse Rate 81 87 Pulse Rate [ 91 [employer] ] Respiratory 17 18 18 Rate Blood Pressure 112/74 145/91 Blood Pressure 138/91 [Right Arm] O2 Sat by Pulse 100 99 Oximetry 08/03/23 08:38 Temperature Pulse Rate Pulse Rate [ [employer] ] Respiratory Rate Blood Pressure Blood Pressure [Right Arm] O2 Sat by Pulse 100 Oximetry Medical Decision Making - Medical Decision Making This is a 63 year old male who presents to the emergency department for dizziness. Was pt. sent in by a medical professional or institution? @ -No Did you speak to anyone other than the patient for history? @ -No Did you review nursing and triage notes? @ -Yes, and I agree, it is accurate with regards to the patient's symptoms. Were old charts reviewed? @ -No Differential Diagnosis? @ -Differential Dizziness: Benign paroxysmal positional Vertigo, Menieres disease, otitis media, acoustic neuroma, vertebrobasilar insufficiency, cerebellar stroke, encephalitis, hypovolemic, arrhythmia, coronary artery syndrome, anemia, this is not meant to be an all-inclusive list EKG interpreted by me (3pts min.)? @ -EKG interpreted by me demonstrating the following: Sinus rhythm. Ventricular rate 77 bpm, WV interval 157 ms, QRS duration 95 ms, QTC 431 ms. X-rays interpreted by me (1pt min.)? @ -X-ray of the right foot and ankle obtained. My interpretation identifies a distal phalanx and distal fibula fracture. Chest x-ray obtained. My interpretation identifies possible right lower lobe opacity. CT interpreted by me (1pt min.)? @ -Computed tomography scan of the brain, facial bones, and c-spine obtained. My interpretation identifies no evidence of an acute intracranial hemorrhage, skull fracture, facial fracture, or cervical spine fracture. CTA of the chest obtained. My interpretation identifies no evidence of a pulmonary embolus. U/S interpreted by me (1pt. min.)? @ -Not obtained What testing was considered but not performed? (CT, X-rays, U/S, labs)? Why? @ -None What meds were considered but not given? Why? @ -None Did you discuss the management of the patient with other professionals? @ -Yes, Dr. Hagen, who accepts the patient for admission. Did you reconcile home meds? @ -No Was smoking cessation discussed for >3mins.? @ -No Was critical care preformed (if so, how long)? @ -No Were there social determinants of health that impacted care today? How? (Homelessness, low income, unemployed, alcoholism, drug addiction, transportation, low edu. Level, literacy, decrease access to med. care, long-term, rehab)? @ -No Was there de-escalation of care discussed even if they declined? (Discuss DNR or withdrawal of care, Hospice)? @ -No What co-morbidities impacted this encounter? (DM, HTN, Smoking, COPD, CAD, Cancer, CVA, Hep., AIDS, mental health diagnosis, sleep apnea, morbid obesity)? @ -Asthma, cancer, HLD, HTN Was patient admitted / discharged? @ -Admitted. Lab work obtained demonstrating an elevated lactic acid of 2.1 and elevated troponin of 0.146. Patient expresses shortness of breath but denies any chest pain. X-ray of the right foot and ankle obtained demonstrating a refracture of the distal metaphyseal fibula and an oblique fracture of the proximal portion of the distal phalanx with intra-articular extension. Chest x- ray was limited by patient's positioning, but did identify patchy atelectasis versus airspace disease at the right lower lung. CT scan of the brain/c-spine and facial bones obtained demonstrating no acute process. CTA of the chest obtained as well demonstrating mild scattered areas of pneumonitis change in the infiltrates bilaterally greater on the right. No evidence of a pulmonary embolus was identified. Patient did have several episodes of hypotension in the emergency department, with BPs dropping as low as 80/46. He did seem to respond well to IV fluids. He also had several episodes of oxygen desaturation when his oxygen would drop into the low 80s. He was put on a nasal cannula at 3L and seemed to improve. Patient admitted to medicine for dizziness, hypotension, hypoxia, and fibular fracture. Consult placed for orthopedics. Consult placed for cardiology and pulmonology as well per the admitting team's request due to elevated troponin and pneumonitis vs atypical pneumonia. Procalcitonin and CRP ordered with results pending at the time of admission. Will start the patient on antibiotics per the pneumonia protocol for possible atypical pneumonia. Blood cultures obtained as well. Undiagnosed new problem with uncertain prognosis? @ -None Drug Therapy requiring intensive monitoring for toxicity (Heparin, Nitro, Insulin, Cardizem)? @ -None Were any procedures done? @ -None Diagnosis/symptom? @ -Dizziness, hypotension, hypoxia, fibular fracture Acute, or Chronic, or Acute on Chronic? @ -Acute Uncomplicated (without systemic symptoms) or Complicated (systemic symptoms)? @ -Complicated Side effects of treatment? @ -None Exacerbation, Progression, or Severe Exacerbation] @ -Not applicable Poses a threat to life or bodily function? @ -Yes This case was discussed in detail with the attending ED physician, Dr. Melara. Presentation, findings, and treatment plan discussed in detail as well. - Lab Data Result diagrams: 08/03/23 07:49 08/03/23 07:49 Lab Results 08/02/23 08/02/23 08/02/23 Range/Units 06:40 06:40 06:40 WBC 8.4 (3.8-10.6) k/uL RBC 3.15 L (4.30-5.90) m/uL Hgb 9.3 L (13.0-17.5) gm/dL Hct 28.8 L (39.0-53.0) % MCV 91.3 (80.0-100.0) fL MCH 29.5 (25.0-35.0) pg MCHC 32.3 (31.0-37.0) g/dL RDW 15.5 (11.5-15.5) % Plt Count 114 L (150-450) k/uL MPV 8.5 Neutrophils % 90 % Lymphocytes % 3 % Monocytes % 5 % Eosinophils % 1 % Basophils % 0 % Neutrophils # 7.6 (1.3-7.7) k/uL Lymphocytes # 0.3 L (1.0-4.8) k/uL Monocytes # 0.4 (0-1.0) k/uL Eosinophils # 0.0 (0-0.7) k/uL Basophils # 0.0 (0-0.2) k/uL PT 10.1 (10.0-12.5) sec INR 0.9 (<1.2) Sodium 137 (137-145) mmol/L Potassium 4.1 (3.5-5.1) mmol/L Chloride 101 (98-107) mmol/L Carbon Dioxide 30 (22-30) mmol/L Anion Gap 6 mmol/L BUN 28 H (9-20) mg/dL Creatinine 0.90 (0.66-1.25) mg/dL Est GFR (CKD-EPI)AfAm >90 (>60 ml/min/1.73 sqM) Est GFR (CKD-EPI)NonAf 89 (>60 ml/min/1.73 sqM) Glucose 144 H (74-99) mg/dL Lactic Ac Sepsis Rflx Plasma Lactic Acid Abdias (0.7-2.0) mmol/L Calcium 9.1 (8.4-10.2) mg/dL Magnesium 1.9 (1.6-2.3) mg/dL Total Bilirubin 0.5 (0.2-1.3) mg/dL AST 22 (17-59) U/L ALT 15 (4-49) U/L Alkaline Phosphatase 104 (38-126) U/L Troponin I (0.000-0.034) ng/mL C-Reactive Protein (<1.0) mg/dL Total Protein 6.2 L (6.3-8.2) g/dL Albumin 3.5 (3.5-5.0) g/dL Procalcitonin (0.02-0.09) ng/mL Urine Color Urine Appearance (Clear) Urine pH (5.0-8.0) Ur Specific [place] (1.001-1.035) Urine Protein (Negative) Urine Glucose (UA) (Negative) Urine Ketones (Negative) Urine Blood (Negative) Urine Nitrite (Negative) Urine Bilirubin (Negative) Urine Urobilinogen (<2.0) mg/dL Ur Leukocyte Esterase (Negative) Influenza Type A (PCR) (Not Detectd) Influenza Type B (PCR) (Not Detectd) RSV (PCR) (Not Detectd) SARS-CoV-2 (PCR) (Not Detectd) 08/02/23 08/02/23 08/02/23 Range/Units 06:40 06:40 06:40 WBC (3.8-10.6) k/uL RBC (4.30-5.90) m/uL Hgb (13.0-17.5) gm/dL Hct (39.0-53.0) % MCV (80.0-100.0) fL MCH (25.0-35.0) pg MCHC (31.0-37.0) g/dL RDW (11.5-15.5) % Plt Count (150-450) k/uL MPV Neutrophils % % Lymphocytes % % Monocytes % % Eosinophils % % Basophils % % Neutrophils # (1.3-7.7) k/uL Lymphocytes # (1.0-4.8) k/uL Monocytes # (0-1.0) k/uL Eosinophils # (0-0.7) k/uL Basophils # (0-0.2) k/uL PT (10.0-12.5) sec INR (<1.2) Sodium (137-145) mmol/L Potassium (3.5-5.1) mmol/L Chloride (98-107) mmol/L Carbon Dioxide (22-30) mmol/L Anion Gap mmol/L BUN (9-20) mg/dL Creatinine (0.66-1.25) mg/dL Est GFR (CKD-EPI)AfAm (>60 ml/min/1.73 sqM) Est GFR (CKD-EPI)NonAf (>60 ml/min/1.73 sqM) Glucose (74-99) mg/dL Lactic Ac Sepsis Rflx Plasma Lactic Acid Abdias 2.1 H* (0.7-2.0) mmol/L Calcium (8.4-10.2) mg/dL Magnesium (1.6-2.3) mg/dL Total Bilirubin (0.2-1.3) mg/dL AST (17-59) U/L ALT (4-49) U/L Alkaline Phosphatase (38-126) U/L Troponin I 0.146 H* (0.000-0.034) ng/mL C-Reactive Protein 6.0 H (<1.0) mg/dL Total Protein (6.3-8.2) g/dL Albumin (3.5-5.0) g/dL Procalcitonin (0.02-0.09) ng/mL Urine Color Urine Appearance (Clear) Urine pH (5.0-8.0) Ur Specific [place] (1.001-1.035) Urine Protein (Negative) Urine Glucose (UA) (Negative) Urine Ketones (Negative) Urine Blood (Negative) Urine Nitrite (Negative) Urine Bilirubin (Negative) Urine Urobilinogen (<2.0) mg/dL Ur Leukocyte Esterase (Negative) Influenza Type A (PCR) (Not Detectd) Influenza Type B (PCR) (Not Detectd) RSV (PCR) (Not Detectd) SARS-CoV-2 (PCR) (Not Detectd) 08/02/23 08/02/23 08/02/23 Range/Units 06:40 07:13 09:13 WBC (3.8-10.6) k/uL RBC (4.30-5.90) m/uL Hgb (13.0-17.5) gm/dL Hct (39.0-53.0) % MCV (80.0-100.0) fL MCH (25.0-35.0) pg MCHC (31.0-37.0) g/dL RDW (11.5-15.5) % Plt Count (150-450) k/uL MPV Neutrophils % % Lymphocytes % % Monocytes % % Eosinophils % % Basophils % % Neutrophils # (1.3-7.7) k/uL Lymphocytes # (1.0-4.8) k/uL Monocytes # (0-1.0) k/uL Eosinophils # (0-0.7) k/uL Basophils # (0-0.2) k/uL PT (10.0-12.5) sec INR (<1.2) Sodium (137-145) mmol/L Potassium (3.5-5.1) mmol/L Chloride (98-107) mmol/L Carbon Dioxide (22-30) mmol/L Anion Gap mmol/L BUN (9-20) mg/dL Creatinine (0.66-1.25) mg/dL Est GFR (CKD-EPI)AfAm (>60 ml/min/1.73 sqM) Est GFR (CKD-EPI)NonAf (>60 ml/min/1.73 sqM) Glucose (74-99) mg/dL Lactic Ac Sepsis Rflx Y Plasma Lactic Acid Abdias (0.7-2.0) mmol/L Calcium (8.4-10.2) mg/dL Magnesium (1.6-2.3) mg/dL Total Bilirubin (0.2-1.3) mg/dL AST (17-59) U/L ALT (4-49) U/L Alkaline Phosphatase (38-126) U/L Troponin I (0.000-0.034) ng/mL C-Reactive Protein (<1.0) mg/dL Total Protein (6.3-8.2) g/dL Albumin (3.5-5.0) g/dL Procalcitonin 0.49 H (0.02-0.09) ng/mL Urine Color Colorless Urine Appearance Clear (Clear) Urine pH 6.0 (5.0-8.0) Ur Specific [place] 1.009 (1.001-1.035) Urine Protein Negative (Negative) Urine Glucose (UA) Negative (Negative) Urine Ketones Negative (Negative) Urine Blood Negative (Negative) Urine Nitrite Negative (Negative) Urine Bilirubin Negative (Negative) Urine Urobilinogen <2.0 (<2.0) mg/dL Ur Leukocyte Esterase Negative (Negative) Influenza Type A (PCR) (Not Detectd) Influenza Type B (PCR) (Not Detectd) RSV (PCR) (Not Detectd) SARS-CoV-2 (PCR) (Not Detectd) 08/02/23 08/02/23 08/02/23 Range/Units 09:29 09:29 10:36 WBC (3.8-10.6) k/uL RBC (4.30-5.90) m/uL Hgb (13.0-17.5) gm/dL Hct (39.0-53.0) % MCV (80.0-100.0) fL MCH (25.0-35.0) pg MCHC (31.0-37.0) g/dL RDW (11.5-15.5) % Plt Count (150-450) k/uL MPV Neutrophils % % Lymphocytes % % Monocytes % % Eosinophils % % Basophils % % Neutrophils # (1.3-7.7) k/uL Lymphocytes # (1.0-4.8) k/uL Monocytes # (0-1.0) k/uL Eosinophils # (0-0.7) k/uL Basophils # (0-0.2) k/uL PT (10.0-12.5) sec INR (<1.2) Sodium (137-145) mmol/L Potassium (3.5-5.1) mmol/L Chloride (98-107) mmol/L Carbon Dioxide (22-30) mmol/L Anion Gap mmol/L BUN (9-20) mg/dL Creatinine (0.66-1.25) mg/dL Est GFR (CKD-EPI)AfAm (>60 ml/min/1.73 sqM) Est GFR (CKD-EPI)NonAf (>60 ml/min/1.73 sqM) Glucose (74-99) mg/dL Lactic Ac Sepsis Rflx Plasma Lactic Acid Abdias 1.3 (0.7-2.0) mmol/L Calcium (8.4-10.2) mg/dL Magnesium (1.6-2.3) mg/dL Total Bilirubin (0.2-1.3) mg/dL AST (17-59) U/L ALT (4-49) U/L Alkaline Phosphatase (38-126) U/L Troponin I 0.108 H* (0.000-0.034) ng/mL C-Reactive Protein (<1.0) mg/dL Total Protein (6.3-8.2) g/dL Albumin (3.5-5.0) g/dL Procalcitonin (0.02-0.09) ng/mL Urine Color Urine Appearance (Clear) Urine pH (5.0-8.0) Ur Specific [place] (1.001-1.035) Urine Protein (Negative) Urine Glucose (UA) (Negative) Urine Ketones (Negative) Urine Blood (Negative) Urine Nitrite (Negative) Urine Bilirubin (Negative) Urine Urobilinogen (<2.0) mg/dL Ur Leukocyte Esterase (Negative) Influenza Type A (PCR) Not Detected (Not Detectd) Influenza Type B (PCR) Not Detected (Not Detectd) RSV (PCR) Not Detected (Not Detectd) SARS-CoV-2 (PCR) Not Detected (Not Detectd) - Radiology Data Radiology results: report reviewed, image reviewed Disposition Clinical Impression: Dizziness, Hypotension, Atypical pneumonia, Fibula fracture Disposition: ADMITTED IP TO THIS [facility] Time of Disposition: 12:44
[2023-08-02 06:46] LABS: Basophils % (A) 0 %; Eosinophils % (A) 1 %; HCT 28.8 % (39.0-53.0); HGB 9.3 gm/dL (13.0-17.5); Lymphocytes # (A) 0.3 k/uL (1.0-4.8); Lymphocytes % (A) 3 %; MCH 29.5 pg (25.0-35.0); MCHC 32.3 g/dL (31.0-37.0); MCV 91.3 fL (80.0-100.0); Mean Platelet Volume 8.5; Monocytes # (A) 0.4 k/uL (0-1.0); Monocytes % (A) 5 %; Neutrophils # (A) 7.6 k/uL (1.3-7.7); Neutrophils % (A) 90 %; Platelet Count 114 k/uL (150-450); RBC 3.15 m/uL (4.30-5.90); RDW 15.5 % (11.5-15.5); WBC 8.4 k/uL (3.8-10.6)
[2023-08-02 06:59] LABS: INR 0.9 (<1.2); Prothrombin Time 10.1 sec (10.0-12.5)
[2023-08-02 07:12] LABS: ALT 15 U/L (4-49); AST 22 U/L (17-59); African American GFR (CKD) >90 (>60 ml/min/1.73 sqM); Albumin 3.5 g/dL (3.5-5.0); Alkaline Phosphatase 104 U/L (38-126); Anion Gap 6 mmol/L; Blood Urea Nitrogen 28 mg/dL (9-20); Calcium 9.1 mg/dL (8.4-10.2); Carbon Dioxide 30 mmol/L (22-30); Chloride 101 mmol/L (98-107); Glucose 144 mg/dL (74-99); Magnesium 1.9 mg/dL (1.6-2.3); Non-African American GFR(CKD) 89 (>60 ml/min/1.73 sqM); Potassium 4.1 mmol/L (3.5-5.1); Sodium 137 mmol/L (137-145); Total Bilirubin 0.5 mg/dL (0.2-1.3); Total Protein 6.2 g/dL (6.3-8.2)
[2023-08-02] MEDS: SODIUM CHLORIDE 0.9% 1,000 ML IV STA ×3 (07:12→11:22)
--- NOTE | 2023-08-02 08:02 | XR ---
EXAMINATION TYPE: XR chest 2V DATE OF EXAM: 08/02/2023 COMPARISON: None HISTORY: 63-year-old male with dizziness TECHNIQUE: AP and lateral views FINDINGS: Partially visualized ACDF hardware. Surgical damián and fixation screws at both shoulders redemonstr ated. Rightward patient rotation alters the normal cardiomediastinal contours. Heart appears borderli ne in size. There is patchy opacity within the right lower lung. No pleural effusion seen. IMPRESSION: Limited by patient positioning. Borderline heart size. Patchy atelectasis versus airspace disease at the right lower lung.
--- NOTE | 2023-08-02 08:09 | XR ---
EXAMINATION TYPE: XR ankle complete RT DATE OF EXAM: 08/02/2023 COMPARISON: 11/20/2014 HISTORY: Pain following fall TECHNIQUE: 3 view right ankle FINDINGS: Calcaneal heel spurs are present. Joint spaces are preserved. There is an old fracture of the distal fibula. On the lateral projection Lucencies appear to be present extending to the cortex. Refracture of the distal metaphyseal fibula s hould be suspected. Correlate with location of patient's pain Mild soft tissue swelling is over the lateral malleolus. Ankle mortise appears intact IMPRESSION: 1. Suspected refracture of the distal metaphyseal fibula with mild overlying soft tissue swelling.
--- NOTE | 2023-08-02 08:11 | XR ---
EXAMINATION TYPE: XR foot complete RT DATE OF EXAM: 08/02/2023 COMPARISON: None HISTORY: Fall, pain TECHNIQUE: 3 view right foot FINDINGS: There is an oblique fracture of the proximal portion distal phalanx first digit. No additio nal fractures within the [id number] are evident. There is a fractured screw fragment within the fi rst cuneiform. This appears old. IMPRESSION: 1. Oblique fracture of the proximal portion distal phalanx with intra-articular extension
--- NOTE | 2023-08-02 08:52 | CT ---
EXAMINATION TYPE: CT brain [place] wo con DATE OF EXAM: 08/02/2023 COMPARISON: 07/08/2023 HISTORY: Fall, Dizziness, head injury CT DLP: 1076 mGycm, Automated exposure control for dose reduction was used. CONTRAST: Patient injected with 0 mL of Isovue 300. CT of the brain is performed utilizing 3 mm thick sections through the posterior fossa and 3 mm thick sections through the remaining calvarium. Study is performed within 24 hours of arrival to the hospital. No abnormal hyperdensity is present to suggest an acute intracranial hemorrhage. No mass lesion is evident. No acute infarcts are evident. Ventricles and sulci are appropriate for the patient age. There is some mild prominence of the extra -axial spaces greater along the frontal lobes. Paranasal sinuses within the [id number] are clear. Fluid remains within the right mastoid air cell s. Left mastoid air cells clear. IMPRESSIONS: 1. Mild atrophy, stable from comparison. 2. No acute intracranial process. Follow up MRI can be performed as clinically indicated. CT cervical spine. COMPARISON: None CT of the cervical spine is performed in the axial plane at 2 mm thick sections. Reconstructed image s in the coronal, and sagittal plane are reviewed on the computer. There is an anterior cervical fusion C4-C7. Prevertebral space is unremarkable. No acute fractures are evident. Vertebral body alignment is normal. There is narrowing of the disc heights through the fusion levels. C7-T1 disc space is narrowed Vertebral body heights are preserved. No spinal canal stenosis is evident. Foraminal narrowing is present greatest at C3-4. IMPRESSION: 1. Mild to moderate foraminal narrowing throughout the cervical spine. 2. No acute osseous abnormality. 3. Follow-up can be performed as clinically indicated.
--- NOTE | 2023-08-02 09:03 | CT ---
EXAMINATION TYPE: CT facial bones wo con DATE OF EXAM: 08/02/2023 COMPARISON: 07/08/2023 HISTORY: Frequent falls, Dizziness, Head injury CT DLP: 1076 mGycm CONTRAST: 0 mL of Isovue 300 The paranasal sinuses are examined in the axial plane at 2 mm thick sections. Reconstructed images i n the coronal plane were obtained. The prior mandibular surgery and repair. No acute fractures are evident. Maxillary spine is intact. The maxillary sinuses are clear. The ethmoid air cells are clear. The sphenoid sinuses are clear. The frontal sinuses are clear. The septum is evaluated. There is septal deviation to the right. The ostiomeatal units are patent. IMPRESSION: 1. No acute posttraumatic change is identified. Follow-up can be performed as clinically indicated.
[2023-08-02 09:21] LABS: Appearance,Urine Clear (Clear); Bilirubin,Urine Negative (Negative); Blood,Urine Negative (Negative); Color,Urine Colorless; Glucose,Urine (UA) Negative (Negative); Ketones,Urine Negative (Negative); Leukocyte Esterase,Urine Negative (Negative); Nitrite,Urine Negative (Negative); Protein,Urine Negative (Negative); Specific Gravity,Urine 1.009 (1.001-1.035); Urobilinogen,Urine <2.0 mg/dL (<2.0)
[2023-08-02] MEDS: KETOROLAC 15 MG/ML 1 ML VIAL IVP STA (10:21)
--- NOTE | 2023-08-02 10:21 | CT ---
CTA CHEST EXAMINATION TYPE: CT chest angio for PE DATE OF EXAM: 08/02/2023 INDICATION: hypoxia CT DLP: 397.4 mGycm, Automated exposure control for dose reduction was used. CONTRAST: Patient injected with 100 ml mL of Isovue 300. COMPARISON: CT soft tissue neck 06/11/2023 TECHNIQUE: CT of the chest is performed on a spiral scan at 2 mm thick sections. Study is performed with intravenous contrast timed for evaluation for pulmonary embolism. This will limit additional po rtions of the evaluation. 3-D MIP images reconstructed by the technologist are reviewed on the compu ter in the coronal and sagittal planes. FINDINGS: No persistent filling defects are evident to suggest an acute pulmonary embolism. There is a 1.0 cm right suprahilar lymph node. Additional enlarged lymphadenopathy is not identified. The ascending aorta diameter at the level of the main pulmonary artery is 3.4 cm. The main pulmonary artery diameter at the bifurcation is 3.0 cm. Right there is some minimal infiltrate at the left lung base, example image series 406 image 122. Son e infiltrate or thickening may be along the right middle lobe. Example on Series 406 image 108. Addit ional nonspecific increased lung opacities are present, example series 406 image 89, 406 image 76, 40 6 image 62. Findings are nonspecific. Infectious etiology should be considered. Other may be a small spiculated nodule within the right upper lung field measuring 0.8 cm. Series 406 image 54. Neoplasm is not excluded. Limited CT sections were through the upper abdomen. Upper abdomen appears unremarkable. COMPARISON: The limited lung apices included on the soft tissue neck study some mild infiltrate may h ave been present previously. Findings appear to be worsening within the [id number]. Nodule may be new. IMPRESSION: 1. Scattered mild areas of pneumonitis change in infiltrates bilaterally greater on the right. There may be a small spiculated nodule in the right upper lung field. Differential diagnoses would include infectious etiologies or neoplasm. Consider atypical pneumonia within the differential. Follow-up is recommended.
[2023-08-02] MEDS: NALOXONE 0.4 MG/ML 1 ML VIAL IVP STA (11:19)
[2023-08-02] MEDS ORDERED: PNEUMONIA PROTOCOL UTILIZED 1 EACH MISC PO PRN (12:28)
[2023-08-02] MEDS ORDERED: CYCLOBENZAPRINE 10 MG TAB PO PRN (12:37)
[2023-08-02] MEDS ORDERED: ALBUTEROL NEBULIZED 2.5 MG/3 ML INHALATION PRN (12:37)
[2023-08-02] MEDS ORDERED: NALOXONE 0.4 MG/ML 1 ML VIAL IV PRN (12:42)
[2023-08-02] MEDS ORDERED: ACETAMINOPHEN TAB 325 MG TAB PO PRN (12:42)
[2023-08-02] MEDS ORDERED: ONDANSETRON 4 MG/2 ML VIAL IVP PRN (12:42)
[2023-08-02] MEDS ORDERED: guaiFENesin-Coden 100-10MG/5ML 10 ML CUP PO PRN (12:43)
[2023-08-02] MEDS ORDERED: IPRATROPIUM-ALBUTEROL 3 ML NEB INHALATION PRN (12:43)
[2023-08-02] MEDS ORDERED: BENZONATATE 100 MG CAP PO PRN (12:43)
[2023-08-02] MEDS ORDERED: MECLIZINE 25 MG TAB PO PRN (12:45)
--- NOTE | 2023-08-02 13:12 | P.HPIM ---
History of Present Illness H&P Date: 08/02/23 Chief Complaint: Recurrent falls dizziness * 63-year-old patient with past medical history significant for hyperlipidemia, osteoarthritis, hypertension, history of Hodgkin lymphoma 1983 s/p chemo and radiation, history of dizziness and recurrent falls, history of asthma, thyr oid disorder degenerative disease of spine, per patient hx of oral cancer presents to the emergency department after episode of dizziness and recurrent falls. Patient states he has been living by herself and for the last 4 weeks has been having multiple episodes of dizziness. * patient unable to differentiate between the room spinning around or dizziness once this changes exposure. Patient states that 1 day prior he fell about 4 times. Patient states he felt as if the right ankle popped. He has been complaining of pain as well he denies hitting his head. * At the time of presentation in ER patient was noted to be hypotensive with elevated lactate levels, serum chemistry obtained showed WBC 8.4 hemoglobin 9.8 platelet 240 * INR obtained within normal limits, serum chemistry sodium 137 potassium 4.1 BUN 28 creatinine 0.9 lactate of 2.1, patient given fluid bolus follow-up lactate 1.3 * Patient was noted to have troponin of 0.146, followed by 0.10 with, CRP of 6 * Workup in the ER included CT head, cervical spine CT face CT angio chest * CT head and cervical spine negative for acute intracranial process, CT cervical spine does show anterior cervical fusion C4-C7, disc space narrowing noted at C7-T1 * CT chest does show scattered pneumonitis changes more on the right as compared to left multiple small spiculated nodule noted atypical infection suspected * CT of the face negative for posttraumatic changes, no fracture noted * Urinalysis negative, patient tested negative for influenza RSV and COVID REVIEW OF SYSTEMS: Dizziness, recurrent falls, right ankle pain CONSTITUTIONAL: No fever, no malaise, no fatigue. HEENT: No recent visual problems or hearing problems. Denied any sore throat. CARDIOVASCULAR: No chest pain, orthopnea, PND, no palpitations, no syncope. PULMONARY: No shortness of breath, no cough, no hemoptysis. GASTROINTESTINAL: No diarrhea, no nausea, no vomiting, no abdominal pain. NEUROLOGICAL: No headaches, no weakness, no numbness. HEMATOLOGICAL: Denies any bleeding or petechiae. GENITOURINARY: Denies any burning micturition, frequency, or urgency. MUSCULOSKELETAL/RHEUMATOLOGICAL: Denies any joint pain, swelling, or any muscle pain. ENDOCRINE: Denies any polyuria or polydipsia. PHYSICAL EXAMINATION: GENERAL: The patient is alert and oriented x3, nasal cannula in place HEENT: Pupils are round and equally reacting to light stitches noted right periauricular area, abrasion noted on chin CARDIOVASCULAR: S1 and S2 present. No murmurs, rubs, or gallops. PULMONARY: Decreased breath sounds bilaterally ABDOMEN: Soft, nontender, nondistended, normoactive bowel sounds. No palpable organomegaly. MUSCULOSKELETAL: Point tenderness right lower extremity EXTREMITIES: No cyanosis, clubbing, or pedal edema. NEUROLOGICAL: Gross neurological examination did not reveal any focal deficits. 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.RECEIVED RADAITION/CHEMO, hx ULCER, SHINGLES, HX OF FALLS due to dizziness, hx GYNOMASTIA-resolved, diet control diabetic History of Any Multi-Drug Resistant Organisms: None Reported Past Surgical History: Adenoidectomy, Heart Catheterization, Hernia Repair, Orthopedic Surgery, Tonsillectomy Additional Past Surgical History / Comment(s): lithotripsy 2020, bilateral shoulder fusions/later hardware removed from left shoulder, rt foot ORIF, NECK FUSION x 2( 2013,09/2020), cystoscopy, biopsy mouth 2022 JAW BONE REMOVAL WITH RECONSTRUCTION WITH LEFT OUTER LEG BONE - NOVEMBER 2022 Past Anesthesia/Blood Transfusion Reactions: No Reported Reaction Past Psychological History: Depression Smoking Status: Former smoker Past Alcohol Use History: Rare Past Drug Use History: None Reported - Past Family History Mother Family Medical History: Cancer Additional Family Medical History / Comment(s): lung Father Family Medical History: CVA/TIA Sister(s) Family Medical History: No Reported History Medications and Allergies Home Medications Medication Instructions Recorded Confirmed Type Mirtazapine [Remeron] 45 mg PO HS 01/13/14 08/02/23 History Montelukast [Singulair] 10 mg PO HS 01/13/14 08/02/23 History Venlafaxine HCl [Effexor XR] 300 mg PO DAILY 01/13/14 08/02/23 History Tamsulosin [Flomax] 0.4 mg PO DAILY #5 cap 04/17/15 08/02/23 Rx allopurinoL [Zyloprim] 100 mg PO DAILY 04/17/15 08/02/23 History Ergocalciferol [Vitamin D2 (1250 1,250 mcg PO MO 10/09/20 08/02/23 History Mcg = 87024 Iu)] Gabapentin [Neurontin] 600 mg PO TID 10/09/20 08/02/23 History Rosuvastatin [Crestor] 20 mg PO HS 12/24/20 08/02/23 History Albuterol Inhaler [Ventolin Hfa 1 puff INHALATION RT-QID PRN 01/08/21 08/02/23 History Inhaler] Potassium Citrate [Potassium 10 meq PO TID 09/24/22 08/02/23 History Citrate ER] oxyCODONE HCL [oxyCODONE HCL (IR)] 10 mg PO Q4H PRN 03/08/23 08/02/23 History Cephalexin [Keflex] 500 mg PO Q6HR 1 Days #4 cap 03/24/23 08/02/23 Rx Acetaminophen [Tylenol 8 Hour] 650 mg PO TID 08/02/23 08/02/23 History Artificial Tears-Hypromellose 1 drops BOTH EYES TID PRN 08/02/23 08/02/23 History [Artificial Tear Drops] Cevimeline [Evoxac] 30 mg PO TID 08/02/23 08/02/23 History Chlorhexidine Gluconate [Peridex] 15 ml PO TID PRN 08/02/23 08/02/23 History Cyclobenzaprine [Flexeril] 10 mg PO TID PRN 08/02/23 08/02/23 History HYDROcodone/APAP 10-325MG [[place] 1 tab PO Q6HR PRN 08/02/23 08/02/23 History 10-325] Ibuprofen [Motrin] 800 mg PO Q8H PRN 08/02/23 08/02/23 History Levothyroxine Sodium [Synthroid] 125 mcg PO DAILY 08/02/23 08/02/23 History Mv-Mn/Om3/Dha/Epa/Fish/Lut/[place] 1 cap PO DAILY 08/02/23 08/02/23 History [Ocuvite Adult 50 Plus Softgel] Allergies Allergy/AdvReac Type Severity Reaction Status Date / Time ziprasidone HCl [From [facility]] Allergy Severe Anaphylaxis Verified 08/02/23 12:21 ziprasidone mesylate Allergy Severe Anaphylaxis Verified 08/02/23 12:21 [From [facility]] Physical Exam Vitals: Vital Signs Temp Pulse Resp BP Pulse Ox 08/02/23 11:19 16 08/02/23 11:15 92 14 128/85 100 08/02/23 11:00 89 14 113/64 97 08/02/23 10:45 84 14 103/59 98 08/02/23 10:30 76 14 92/58 97 08/02/23 10:28 76 18 80/46 96 08/02/23 10:00 81 14 97/52 93 L 08/02/23 09:25 85 14 116/68 94 L 08/02/23 09:22 98.7 F 93 14 116/68 94 L 08/02/23 05:38 98.4 F 98 18 103/58 96 Intake and Output 08/01/23 08/02/23 08/02/23 22:59 06:59 14:59 Other: Weight 79.379 kg Results CBC & Chem 7: 08/02/23 06:40 08/02/23 06:40 Labs: Abnormal Lab Results - Last 24 Hours (Table) 08/02/23 08/02/23 08/02/23 Range/Units 06:40 06:40 06:40 RBC 3.15 L (4.30-5.90) m/uL Hgb 9.3 L (13.0-17.5) gm/dL Hct 28.8 L (39.0-53.0) % Plt Count 114 L (150-450) k/uL Lymphocytes # 0.3 L (1.0-4.8) k/uL BUN 28 H (9-20) mg/dL Glucose 144 H (74-99) mg/dL Plasma Lactic Acid Abdias 2.1 H* (0.7-2.0) mmol/L Troponin I (0.000-0.034) ng/mL C-Reactive Protein (<1.0) mg/dL Total Protein 6.2 L (6.3-8.2) g/dL 08/02/23 08/02/23 08/02/23 Range/Units 06:40 06:40 09:29 RBC (4.30-5.90) m/uL Hgb (13.0-17.5) gm/dL Hct (39.0-53.0) % Plt Count (150-450) k/uL Lymphocytes # (1.0-4.8) k/uL BUN (9-20) mg/dL Glucose (74-99) mg/dL Plasma Lactic Acid Abdias (0.7-2.0) mmol/L Troponin I 0.146 H* 0.108 H* (0.000-0.034) ng/mL C-Reactive Protein 6.0 H (<1.0) mg/dL Total Protein (6.3-8.2) g/dL Assessment and Plan Assessment: Assessment and plan * Acute hypoxic respiratory failure with asthma exacerbation * Multifocal pneumonia * Sepsis secondary to underlying pneumonia * Elevated troponin rule out ACS * Dizziness with recurrent falls, history of recurrent syncope and orthostatic hypotension * Acute right distal fibula fracture * Oblique fracture of distal phalanx proximal first digit * Hypothyroid * Major depressive disorder * In regards to acute hypoxia, CTA chest negative for pulm embolism, multifocal pneumonia noted. In regards to asthma exacerbation continue patient on breathing treatment, IV Solu-Medrol, pulmonary medicine consulted * In regards to elevated troponin, cardiology consulted, serial troponins ordered, * Regards to sepsis continue patient on fluid resuscitation lactate levels normalized, blood cultures ordered * In regards to dizziness as needed meclizine ordered orthostatic vitals ordered * In regards to oblique fracture of the distal phalanx and fibula fracture Ortho consulted * CODE STATUS is full code * Physical therapy Occupational Therapy consulted
[2023-08-02] MEDS: methylPREDNISolone SOD SUCCI 125 MG/2 ML VIAL IV SCH (14:05)
[2023-08-02] MEDS: AZITHROMYCIN 500 MG in SODIUM CHLORIDE 0.9% 250 ML IVPB STA (14:09)
[2023-08-02 14:28] LABS: VBG PH 7.34 (7.31-7.41)
--- NOTE | 2023-08-02 16:29 | P.CNPUL ---
History of Present Illness Consult date: 08/02/23 Requesting physician: Harini Hagen Reason for consult: abnormal CXR/CT Chief complaint: Dizziness, frequent falls History of present illness: This is a pleasant 63-year-old male patient with a known history of Hodgkin's lymphoma treated back in 1982, hyperlipidemia, hypertension, hypothyroidism, former smoker and previous chewing tobacco. In November of last year he was diagnosed with oral cancer. He had gone on to have radical surgery requiring bone grafting from his left tibial/fibula, chemotherapy and radiation therapy completed in February 2023. He had some reconstruction last week around his right ear from the previous grafting. The past several days he has been having increased dizziness and lightheadedness and has been falling down. He is also finding himself with jerking motions prior to the falls. He denies any history of seizures. He does have a PEG tube in place for feedings. Denies any aspiration. Chest x-ray revealed patchy atelectasis versus airspace disease in the right lower lung. CT scanning of the chest revealed scattered mild areas of pneumonitis and infiltrates bilaterally greater on the right. There may be a small spiculated nodule in the right upper lung field. He was found to have an oblique fracture of the proximal portion of the distal flanks with intra articular extension of the right foot which he hurt during his fall. CT scan of the brain and C-spine revealed no acute intracranial process. No cervical spine fractures. Face CT revealed no acute posttraumatic changes. Evidence of prior mandibular surgery and repair. He is seen today in consultation in the emergency department. He is awake and alert in no acute distress. He has no pulmonary complaints. No shortness of breath, cough or congestion. No fever or chills. He is maintaining O2 saturations up to 100% on 3 L/min per nasal cannula. White count 8.4. Hemoglobin 9.3. Platelets 114. Sodium 137. Potassium 4.7. Bicarb 30. BUN 28. Creatinine 0.90. Glucose 144. Troponin 0.066. Procalcitonin 0.49. C-reactive protein 6.0. Urinalysis clean. Viral screen negative. Review of Systems REVIEW OF SYSTEMS: CONSTITUTIONAL: Positive for dizziness, lightheadedness, falls. Denies any recent significant weight loss or weight gain. EYES: Denies change in vision. EARS, NOSE, MOUTH, THROAT: Recent surgery from reconstruction near right ear. Denies headaches, denies sore throat. CARDIOVASCULAR: Denies chest pain, palpitations or syncopal episodes. RESPIRATORY: Denies shortness of breath, cough, congestion or hemoptysis. GASTROINTESTINAL: Denies change in appetite, denies abdominal pain GENITOURINARY: Denies hematuria, denies infections. MUSKULOSKELETAL: Denies pain, denies swelling. INTEGUMENTARY: Denies rash, denies eczema. NEUROLOGICAL: Denies recent memory loss, no recent seizure activity. PSYCHIATRIC: Denies anxiety, denies depression. HEMATOLOGIC/LYMPHATIC: Denies anemia, denies enlarged lymph nodes. 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.RECEIVED RADAITION/CHEMO, hx ULCER, SHINGLES, HX OF FALLS due to dizziness, hx GYNOMASTIA-resolved, diet control diabetic History of Any Multi-Drug Resistant Organisms: None Reported Past Surgical History: Adenoidectomy, Heart Catheterization, Hernia Repair, Orthopedic Surgery, Tonsillectomy Additional Past Surgical History / Comment(s): lithotripsy 2020, bilateral shoulder fusions/later hardware removed from left shoulder, rt foot ORIF, NECK FUSION x 2( 2013,09/2020), cystoscopy, biopsy mouth 2022 JAW BONE REMOVAL WITH RECONSTRUCTION WITH LEFT OUTER LEG BONE - NOVEMBER 2022 Past Anesthesia/Blood Transfusion Reactions: No Reported Reaction Past Psychological History: Depression Smoking Status: Former smoker Past Alcohol Use History: Rare Past Drug Use History: None Reported - Past Family History Mother Family Medical History: Cancer Additional Family Medical History / Comment(s): lung Father Family Medical History: CVA/TIA Sister(s) Family Medical History: No Reported History Medications and Allergies Home Medications Medication Instructions Recorded Confirmed Type Mirtazapine [Remeron] 45 mg PO HS 01/13/14 08/02/23 History Montelukast [Singulair] 10 mg PO HS 01/13/14 08/02/23 History Venlafaxine HCl [Effexor XR] 300 mg PO DAILY 01/13/14 08/02/23 History Tamsulosin [Flomax] 0.4 mg PO DAILY #5 cap 04/17/15 08/02/23 Rx allopurinoL [Zyloprim] 100 mg PO DAILY 04/17/15 08/02/23 History Ergocalciferol [Vitamin D2 (1250 1,250 mcg PO MO 10/09/20 08/02/23 History Mcg = 52948 Iu)] Gabapentin [Neurontin] 600 mg PO TID 10/09/20 08/02/23 History Rosuvastatin [Crestor] 20 mg PO HS 12/24/20 08/02/23 History Albuterol Inhaler [Ventolin Hfa 1 puff INHALATION RT-QID PRN 01/08/21 08/02/23 History Inhaler] Potassium Citrate [Potassium 10 meq PO TID 09/24/22 08/02/23 History Citrate ER] oxyCODONE HCL [oxyCODONE HCL (IR)] 10 mg PO Q4H PRN 03/08/23 08/02/23 History Cephalexin [Keflex] 500 mg PO Q6HR 1 Days #4 cap 03/24/23 08/02/23 Rx Acetaminophen [Tylenol 8 Hour] 650 mg PO TID 08/02/23 08/02/23 History Artificial Tears-Hypromellose 1 drops BOTH EYES TID PRN 08/02/23 08/02/23 History [Artificial Tear Drops] Cevimeline [Evoxac] 30 mg PO TID 08/02/23 08/02/23 History Chlorhexidine Gluconate [Peridex] 15 ml PO TID PRN 08/02/23 08/02/23 History Cyclobenzaprine [Flexeril] 10 mg PO TID PRN 08/02/23 08/02/23 History HYDROcodone/APAP 10-325MG [[place] 1 tab PO Q6HR PRN 08/02/23 08/02/23 History 10-325] Ibuprofen [Motrin] 800 mg PO Q8H PRN 08/02/23 08/02/23 History Levothyroxine Sodium [Synthroid] 125 mcg PO DAILY 08/02/23 08/02/23 History Mv-Mn/Om3/Dha/Epa/Fish/Lut/[place] 1 cap PO DAILY 08/02/23 08/02/23 History [Ocuvite Adult 50 Plus Softgel] Allergies Allergy/AdvReac Type Severity Reaction Status Date / Time ziprasidone HCl [[facility]] Allergy Severe Anaphylaxis Verified 08/02/23 12:21 ziprasidone mesylate Allergy Severe Anaphylaxis Verified 08/02/23 12:21 [From [facility]] Physical Exam Vitals: Vital Signs Temp Pulse Resp BP Pulse Ox 08/02/23 11:19 16 08/02/23 11:15 92 14 128/85 100 08/02/23 11:00 89 14 113/64 97 08/02/23 10:45 84 14 103/59 98 08/02/23 10:30 76 14 92/58 97 08/02/23 10:28 76 18 80/46 96 08/02/23 10:00 81 14 97/52 93 L 08/02/23 09:25 85 14 116/68 94 L 08/02/23 09:22 98.7 F 93 14 116/68 94 L 08/02/23 05:38 98.4 F 98 18 103/58 96 Intake and Output 08/02/23 08/02/23 08/02/23 06:59 14:59 22:59 Other: Weight 79.379 kg GENERAL EXAM: Alert, pleasant 63-year-old male, on 3 L nasal cannula, comfortable in no apparent distress. HEAD: Changes of reconstructed mandible and right ear reconstruction. EYES: Normal reaction of pupils, equal size. NOSE: Clear with pink turbinates. THROAT: No erythema or exudates. NECK: No masses, no JVD. CHEST: No chest wall deformity. LUNGS: Equal air entry with no crackles, wheeze, rhonchi or dullness. CVS: S1 and S2 normal with no audible murmur, regular rhythm. ABDOMEN: No hepatosplenomegaly, normal bowel sounds, no guarding or rigidity. SPINE: No scoliosis or deformity SKIN: No rashes CENTRAL NERVOUS SYSTEM: No focal deficits, tone is normal in all 4 extremities. EXTREMITIES: Long scar up the left leg from previous surgery. There is no peripheral edema. Peripheral pulses are intact. Results - Laboratory Findings CBC and BMP: 08/02/23 06:40 08/02/23 06:40 PT/INR, D-dimer PT 10.1 sec (10.0-12.5) 08/02/23 06:40 INR 0.9 (<1.2) 08/02/23 06:40 Abnormal lab findings: Abnormal Labs 08/02/23 08/02/23 08/02/23 06:40 06:40 06:40 RBC 3.15 L Hgb 9.3 L Hct 28.8 L Plt Count 114 L Lymphocytes # 0.3 L VBG pCO2 BUN 28 H Glucose 144 H Plasma Lactic Acid Abdias 2.1 H* Troponin I C-Reactive Protein Total Protein 6.2 L Procalcitonin 08/02/23 08/02/23 08/02/23 06:40 06:40 06:40 RBC Hgb Hct Plt Count Lymphocytes # VBG pCO2 BUN Glucose Plasma Lactic Acid Abdias Troponin I 0.146 H* C-Reactive Protein 6.0 H Total Protein Procalcitonin 0.49 H 08/02/23 08/02/23 09:29 14:21 RBC Hgb Hct Plt Count Lymphocytes # VBG pCO2 53 H BUN Glucose Plasma Lactic Acid Abdias Troponin I 0.108 H* C-Reactive Protein Total Protein Procalcitonin - Diagnostic Findings Chest x-ray: image reviewed CT scan - chest: image reviewed Assessment and Plan Assessment: Acute falls with trauma to the right ankle secondary to dizziness, lightheadedness. CT scan of the head revealed no acute intracranial process. 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 Doubt pneumonia Acute hypoxic respiratory failure secondary to above Acute right distal fibula fracture secondary to falls Hyperlipidemia Chronic obstructive pulmonary disease Plan: The patient was seen and evaluated Multiple x-rays, CT scans, labs and medications reviewed Doubt pneumonia Continue antibiotics for now Titrate down the FiO2 as tolerated Consult neurology regarding dizziness and falls We will continue to follow and make further recommendations based on his clinical status I have personally seen and examined the patient, performed the documentation and the assessment and plan as written. Number of minutes spent on the visit: 20.
[2023-08-02] MEDS: LEVOTHYROXINE 125 MCG TAB PO SCH (17:31)
[2023-08-02] MEDS: allopurinoL 100 MG TAB PO SCH (17:49)
[2023-08-02] MEDS: VENLAFAXINE HCL ER 150 MG CAP PO SCH (17:50)
[2023-08-02] MEDS: GABAPENTIN 300 MG CAP PO SCH (18:23)
[2023-08-02] MEDS: ACETAMINOPHEN TAB 325 MG TAB PO SCH (18:23)
[2023-08-02] MEDS: ATORVASTATIN 40 MG TAB PO SCH (21:42)
[2023-08-02] MEDS: MONTELUKAST 10 MG TAB PO SCH (21:43)
[2023-08-02] MEDS: MIRTAZAPINE 45 MG TABLET PO SCH (21:44)
[2023-08-03 08:09] LABS: HCT 28.8 % (39.0-53.0); HGB 9.4 gm/dL (13.0-17.5); Hypochromasia Slight; MCH 30.2 pg (25.0-35.0); MCHC 32.7 g/dL (31.0-37.0); MCV 92.3 fL (80.0-100.0); Mean Platelet Volume 9.6; Platelet Count 130 k/uL (150-450); RBC 3.12 m/uL (4.30-5.90); RDW 15.6 % (11.5-15.5); WBC 10.4 k/uL (3.8-10.6)
[2023-08-03] MEDS: AZITHROMYCIN 500 MG TAB PO SCH (08:18)
[2023-08-03] MEDS: TAMSULOSIN 0.4 MG CAP.ER.24H PO SCH (08:18)
[2023-08-03] MEDS: MORPHINE SULFATE 4 MG/ML SYRINGE IV PRN (08:19)
[2023-08-03] MEDS: ENOXAPARIN 40 MG/0.4 ML SYRINGE SQ SCH (08:19)
--- NOTE | 2023-08-03 08:56 | P.CONS ---
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 and recently did have a treatment to the right lower jaw in the right ear patient has been brought into the hospital with the patient having dizziness and frequent falls and did have a fall and apparently the patient was complaining of pain to the right ankle area did not hit his head or any loss of consciousness patient on presentation to the hospital was afebrile and no fever has been called subsequently patient was not tachycardic hypotensive mildly hypoxic currently on 2 L nasal cannula oxygen patient did have white count of 10.4 creatinine was 0.90 electrolytes are normal liver enzymes are normal urine was negative influenza RSV COVID testing was negative patient did have a chest x-ray patchy atelectasis versus airspace disease right lower lung CT angiogram of the chest scattered areas of pneumonitis changes in the bilateral bases right more than the left side concerning for pneumonia patient has been admitted to the hospital he was started on Rocephin and Zithromax infectious disease was consulted for further management of antibiotic therapy patient be complaining of mostly feeling weak and dizziness denies any headache or URI symptoms no chest pain shortness with occasional cough no sputum production no nausea vomiting no choking on food no abdominal pain or any diarrhea 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.RECEIVED RADAITION/CHEMO, hx ULCER, SHINGLES, HX OF FALLS due to dizziness, hx GYNOMASTIA-resolved, diet control diabetic History of Any Multi-Drug Resistant Organisms: None Reported Past Surgical History: Adenoidectomy, Heart Catheterization, Hernia Repair, Orthopedic Surgery, Tonsillectomy Additional Past Surgical History / Comment(s): lithotripsy 2020, bilateral shoulder fusions/later hardware removed from left shoulder, rt foot ORIF, NECK FUSION x 2( 2013,09/2020), cystoscopy, biopsy mouth 2022 JAW BONE REMOVAL WITH RECONSTRUCTION WITH LEFT OUTER LEG BONE - NOVEMBER 2022 Past Anesthesia/Blood Transfusion Reactions: No Reported Reaction Past Psychological History: Depression Smoking Status: Former smoker Past Alcohol Use History: Rare Past Drug Use History: None Reported - Past Family History Mother Family Medical History: Cancer Additional Family Medical History / Comment(s): lung Father Family Medical History: CVA/TIA Sister(s) Family Medical History: No Reported History Medications and Allergies Home Medications Medication Instructions Recorded Confirmed Type Mirtazapine [Remeron] 45 mg PO HS 01/13/14 08/02/23 History Montelukast [Singulair] 10 mg PO HS 01/13/14 08/02/23 History Venlafaxine HCl [Effexor XR] 300 mg PO DAILY 01/13/14 08/02/23 History Tamsulosin [Flomax] 0.4 mg PO DAILY #5 cap 04/17/15 08/02/23 Rx allopurinoL [Zyloprim] 100 mg PO DAILY 04/17/15 08/02/23 History Ergocalciferol [Vitamin D2 (1250 1,250 mcg PO MO 10/09/20 08/02/23 History Mcg = 46128 Iu)] Gabapentin [Neurontin] 600 mg PO TID 10/09/20 08/02/23 History Rosuvastatin [Crestor] 20 mg PO HS 12/24/20 08/02/23 History Albuterol Inhaler [Ventolin Hfa 1 puff INHALATION RT-QID PRN 01/08/21 08/02/23 History Inhaler] Potassium Citrate [Potassium 10 meq PO TID 09/24/22 08/02/23 History Citrate ER] oxyCODONE HCL [oxyCODONE HCL (IR)] 10 mg PO Q4H PRN 03/08/23 08/02/23 History Cephalexin [Keflex] 500 mg PO Q6HR 1 Days #4 cap 03/24/23 08/02/23 Rx Acetaminophen [Tylenol 8 Hour] 650 mg PO TID 08/02/23 08/02/23 History Artificial Tears-Hypromellose 1 drops BOTH EYES TID PRN 08/02/23 08/02/23 History [Artificial Tear Drops] Cevimeline [Evoxac] 30 mg PO TID 08/02/23 08/02/23 History Chlorhexidine Gluconate [Peridex] 15 ml PO TID PRN 08/02/23 08/02/23 History Cyclobenzaprine [Flexeril] 10 mg PO TID PRN 08/02/23 08/02/23 History HYDROcodone/APAP 10-325MG [[place] 1 tab PO Q6HR PRN 08/02/23 08/02/23 History 10-325] Ibuprofen [Motrin] 800 mg PO Q8H PRN 08/02/23 08/02/23 History Levothyroxine Sodium [Synthroid] 125 mcg PO DAILY 08/02/23 08/02/23 History Mv-Mn/Om3/Dha/Epa/Fish/Lut/[place] 1 cap PO DAILY 08/02/23 08/02/23 History [Ocuvite Adult 50 Plus Softgel] Allergies Allergy/AdvReac Type Severity Reaction Status Date / Time ziprasidone HCl [From [employer]] Allergy Severe Anaphylaxis Verified 08/02/23 12:21 ziprasidone mesylate Allergy Severe Anaphylaxis Verified 08/02/23 12:21 [[facility]] Physical Exam Vitals: Vital Signs Temp Pulse Resp BP Pulse Ox 08/02/23 11:19 16 08/02/23 11:15 92 14 128/85 100 08/02/23 11:00 89 14 113/64 97 08/02/23 10:45 84 14 103/59 98 08/02/23 10:30 76 14 92/58 97 08/02/23 10:28 76 18 80/46 96 08/02/23 10:00 81 14 97/52 93 L 08/02/23 09:25 85 14 116/68 94 L 08/02/23 09:22 98.7 F 93 14 116/68 94 L 08/02/23 05:38 98.4 F 98 18 103/58 96 Intake and Output 08/02/23 08/02/23 08/02/23 06:59 14:59 22:59 Other: Weight 79.379 kg Results CBC & Chem 7: 08/03/23 07:49 08/02/23 06:40 Labs: Abnormal Lab Results - Last 24 Hours (Table) 08/02/23 08/02/23 08/02/23 Range/Units 06:40 06:40 06:40 RBC 3.15 L (4.30-5.90) m/uL Hgb 9.3 L (13.0-17.5) gm/dL Hct 28.8 L (39.0-53.0) % Plt Count 114 L (150-450) k/uL Lymphocytes # 0.3 L (1.0-4.8) k/uL VBG pCO2 (37-51) mmHg BUN 28 H (9-20) mg/dL Glucose 144 H (74-99) mg/dL Plasma Lactic Acid Abdias 2.1 H* (0.7-2.0) mmol/L Troponin I (0.000-0.034) ng/mL C-Reactive Protein (<1.0) mg/dL Total Protein 6.2 L (6.3-8.2) g/dL Procalcitonin (0.02-0.09) ng/mL 08/02/23 08/02/23 08/02/23 Range/Units 06:40 06:40 06:40 RBC (4.30-5.90) m/uL Hgb (13.0-17.5) gm/dL Hct (39.0-53.0) % Plt Count (150-450) k/uL Lymphocytes # (1.0-4.8) k/uL VBG pCO2 (37-51) mmHg BUN (9-20) mg/dL Glucose (74-99) mg/dL Plasma Lactic Acid Abdias (0.7-2.0) mmol/L Troponin I 0.146 H* (0.000-0.034) ng/mL C-Reactive Protein 6.0 H (<1.0) mg/dL Total Protein (6.3-8.2) g/dL Procalcitonin 0.49 H (0.02-0.09) ng/mL 08/02/23 08/02/23 08/02/23 Range/Units 09:29 14:21 14:58 RBC (4.30-5.90) m/uL Hgb (13.0-17.5) gm/dL Hct (39.0-53.0) % Plt Count (150-450) k/uL Lymphocytes # (1.0-4.8) k/uL VBG pCO2 53 H (37-51) mmHg BUN (9-20) mg/dL Glucose (74-99) mg/dL Plasma Lactic Acid Abdias (0.7-2.0) mmol/L Troponin I 0.108 H* 0.066 H* (0.000-0.034) ng/mL C-Reactive Protein (<1.0) mg/dL Total Protein (6.3-8.2) g/dL Procalcitonin (0.02-0.09) ng/mL Assessment and Plan Plan: 1patient presented to hospital with dizziness weakness and did have a fall leading to the right ankle fracture patient also have some patient continued on the chest x-ray and confirmed on the CT angiogram of the chest concerning for pneumonia patient did have mild hypoxemia 2-we will wait for the CRP procalcitonin finalize try to obtain a sputum for Gram stain and culture 3-continue with the Rocephin and Zithromax We will follow on clinical condition and cultures to further adjust medication if needed Thank you for this consultation we will follow the patient along with you Dictation was produced using 20:20 Mobile dictation software. please excuse any gra mmatical, word or spelling errors. Time with Patient: Greater than 30
[2023-08-03 10:19] LABS: Potassium 4.3 mmol/L (3.5-5.1)
[2023-08-03 10:23] LABS: African American GFR (CKD) >90 (>60 ml/min/1.73 sqM); Anion Gap 6 mmol/L; Blood Urea Nitrogen 21 mg/dL (9-20); Calcium 8.8 mg/dL (8.4-10.2); Carbon Dioxide 27 mmol/L (22-30); Chloride 108 mmol/L (98-107); Glucose 145 mg/dL (74-99); Non-African American GFR(CKD) >90 (>60 ml/min/1.73 sqM); Sodium 141 mmol/L (137-145)
[2023-08-03 10:37] LABS: C Reactive Protein 23.1 mg/dL (<1.0)
--- NOTE | 2023-08-03 10:47 | P.CRDCN ---
History of Present Illness Consult date: 08/03/23 Reason for Consult (text): ELEVATED TROPONINS, DIZZINESS History of present illness: History of present illness: This is a 63-year-old male patient of Dr. 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 Patient states that he has an done in May that revealed no cancer in his neck scheduled scan is in December. We have been asked to evaluate the patient for elevated troponins and dizziness. Patient states that he had a fall at home and then experienced excruciating pain to the right ankle. He denies having any chest pain or short ness of breath. He states he had some dizziness but no loss of consciousness. Patient states that he has had a weight loss of 40 pounds over the past year from his cancer. He does have a PEG tube for feedings. Patient seen today in the emergency center waiting for a bed on the cardiac stepdown unit. He is status post 2 L of IV fluid and has been started on IV Solu-Medrol and IV antibiotics. EKG sinus rhythm at ventricular rate of 77 bpm, #2 sinus rhythm ventricular rate of 101. Chest x-ray: Limited by patient positioning. Borderline heart size. Patchy atelectasis versus airspace disease at the right lower lung. CTA of the chest revealed scattered mild areas of pneumonitis bilaterally greater on the right. Small spiculated nodule in the right upper lung field. Differentiate diagnosis would include infectious etiologies or neoplasm. Consider atypical pneumonia within the differential. WBC 10.4, hemoglobin 9.4, platelet count 130. Sodium 141, potassium 4.3, chloride 108, CO2 27, BUN 21 and creatinine 0.62. Blood sugar 145. Troponins 0.146, 0.108, 0.066. Procalcitonin 0.49. Urinalysis negative. Influenza A, influenza B, RSV, COVID-19 not detected. Home cardiac medications: Potassium citrate 10 mill equivalents 3 times daily, Crestor 20 mg at bedtime. Cardiac catheterization history 11/2018. Left dominant system. Elevated filling pressures initially responded to intraventricular nitroglycerin. No gradient across the aortic valve. No significant CAD. Echocardiogram 09/2020 performed in the office revealed EF of 55%, moderate left- ventricular hypertrophy. Mild mitral digitation, mild tricuspid regurgitation. Pulmonary artery systolic pressure of 27 mmHg. Review Of Systems: At the time of my exam: CONSTITUTIONAL: Denies fever or chills. HEENT: Denies blurred vision, vision changes, or eye pain. Denies hemoptysis CARDIOVASCULAR: Denies chest pain. Denies orthopnea. Denies PND. Denies palpitations RESPIRATORY: Denies shortness of breath. GASTROINTESTINAL: Denies abdominal pain. Denies nausea or vomiting. Reports weight loss. HEMATOLOGIC: Denies bleeding disorders. GENITOURINARY: Denies any blood in urine. SKIN: Denies pruitis. Denies rash. Physical examination: Gen: This is a cachectic appearing 63-year-old male resting flat in bed and appears to be in no acute respiratory distress VS: reviewed heart rate 87, blood pressure 145/91, pulse ox 100% on 2 L nasal cannula. HEENT: Head is atraumatic, normocephalic. Pupils equal, round. Sclerae is anicteric. NECK: Supple. No JVD. LUNGS: Clear to auscultation. No wheezes or rhonchi. No intercostal retractions. HEART: Regular rate and rhythm. No murmur. ABDOMEN: Soft No tenderness. EXTREMITIES: No pedal edema. No calf tenderness. NEUROLOGICAL: Patient is awake, alert and oriented x3. Assessment: Recurrent falls most likely due to orthostatic hypotension Elevated troponin of unclear significance, ACS ruled out Right ankle distal fibular fracture Possible pneumonia Recent right ear surgery Squamous cell carcinoma of the lung Hypertension Hyperlipidemia Hypothyroidism COPD Remote history of tobacco chewing Plan: Resume patient's home cardiac medications Obtain 2-D echocardiogram and Doppler study to assess cardiac structure and function Further recommendations to follow based upon clinical course Thank you kindly for this consultation. Nurse practitioner note has been reviewed, I agree with documented findings and plan of care. Patient was seen and examined. 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.RECEIVED RADAITION/CHEMO, hx ULCER, SHINGLES, HX OF FALLS due to dizziness, hx GYNOMASTIA-resolved, diet control diabetic History of Any Multi-Drug Resistant Organisms: None Reported Past Surgical History: Adenoidectomy, Heart Catheterization, Hernia Repair, Orthopedic Surgery, Tonsillectomy Additional Past Surgical History / Comment(s): lithotripsy 2020, bilateral shoulder fusions/later hardware removed from left shoulder, rt foot ORIF, NECK FUSION x 2( 2013,09/2020), cystoscopy, biopsy mouth 2022 JAW BONE REMOVAL WITH RECONSTRUCTION WITH LEFT OUTER LEG BONE - NOVEMBER 2022 Past Anesthesia/Blood Transfusion Reactions: No Reported Reaction Past Psychological History: Depression Smoking Status: Former smoker Past Alcohol Use History: Rare Past Drug Use History: None Reported - Past Family History Mother Family Medical History: Cancer Additional Family Medical History / Comment(s): lung Father Family Medical History: CVA/TIA Sister(s) Family Medical History: No Reported History Medications and Allergies Home Medications Medication Instructions Recorded Confirmed Type Mirtazapine [Remeron] 45 mg PO HS 01/13/14 08/02/23 History Montelukast [Singulair] 10 mg PO HS 01/13/14 08/02/23 History Venlafaxine HCl [Effexor XR] 300 mg PO DAILY 01/13/14 08/02/23 History Tamsulosin [Flomax] 0.4 mg PO DAILY #5 cap 04/17/15 08/02/23 Rx allopurinoL [Zyloprim] 100 mg PO DAILY 04/17/15 08/02/23 History Ergocalciferol [Vitamin D2 (1250 1,250 mcg PO MO 10/09/20 08/02/23 History Mcg = 56802 Iu)] Gabapentin [Neurontin] 600 mg PO TID 10/09/20 08/02/23 History Rosuvastatin [Crestor] 20 mg PO HS 12/24/20 08/02/23 History Albuterol Inhaler [Ventolin Hfa 1 puff INHALATION RT-QID PRN 01/08/21 08/02/23 History Inhaler] Potassium Citrate [Potassium 10 meq PO TID 09/24/22 08/02/23 History Citrate ER] oxyCODONE HCL [oxyCODONE HCL (IR)] 10 mg PO Q4H PRN 03/08/23 08/02/23 History Cephalexin [Keflex] 500 mg PO Q6HR 1 Days #4 cap 03/24/23 08/02/23 Rx Acetaminophen [Tylenol 8 Hour] 650 mg PO TID 08/02/23 08/02/23 History Artificial Tears-Hypromellose 1 drops BOTH EYES TID PRN 08/02/23 08/02/23 History [Artificial Tear Drops] Cevimeline [Evoxac] 30 mg PO TID 08/02/23 08/02/23 History Chlorhexidine Gluconate [Peridex] 15 ml PO TID PRN 08/02/23 08/02/23 History Cyclobenzaprine [Flexeril] 10 mg PO TID PRN 08/02/23 08/02/23 History HYDROcodone/APAP 10-325MG [[place] 1 tab PO Q6HR PRN 08/02/23 08/02/23 History 10-325] Ibuprofen [Motrin] 800 mg PO Q8H PRN 08/02/23 08/02/23 History Levothyroxine Sodium [Synthroid] 125 mcg PO DAILY 08/02/23 08/02/23 History Mv-Mn/Om3/Dha/Epa/Fish/Lut/[place] 1 cap PO DAILY 08/02/23 08/02/23 History [Ocuvite Adult 50 Plus Softgel] Allergies Allergy/AdvReac Type Severity Reaction Status Date / Time ziprasidone HCl [[facility]] Allergy Severe Anaphylaxis Verified 08/02/23 12:21 ziprasidone mesylate Allergy Severe Anaphylaxis Verified 08/02/23 12:21 [From [facility]] Physical Exam Vitals: Vital Signs Temp Pulse Resp BP Pulse Ox 08/03/23 06:31 87 18 145/91 100 08/03/23 04:44 81 17 112/74 08/03/23 03:31 76 17 130/75 100 08/03/23 01:23 80 17 106/74 95 08/02/23 23:55 81 17 92/52 08/02/23 22:04 82 17 134/71 98 08/02/23 20:08 98.6 F 92 16 120/73 100 08/02/23 18:00 83 16 117/75 98 08/02/23 17:00 76 16 117/63 98 08/02/23 16:00 82 16 113/75 97 08/02/23 15:00 83 16 109/56 98 08/02/23 14:00 80 16 108/63 97 08/02/23 12:00 105 H 16 124/73 97 08/02/23 11:19 16 08/02/23 11:15 92 14 128/85 100 08/02/23 11:00 89 14 113/64 97 08/02/23 10:45 84 14 103/59 98 08/02/23 10:30 76 14 92/58 97 08/02/23 10:28 76 18 80/46 96 08/02/23 10:00 81 14 97/52 93 L 08/02/23 09:25 85 14 116/68 94 L 08/02/23 09:22 98.7 F 93 14 116/68 94 L Results 08/03/23 07:49 08/02/23 06:40 Cardiac Enzymes 08/02/23 08/02/23 Range/Units 09:29 14:58 Troponin I 0.108 H* 0.066 H* (0.000-0.034) ng/mL Current Medications Generic Name Dose Route Start Last Admin Trade Name Freq PRN Reason Stop Dose Admin Acetaminophen 650 mg 08/02/23 16:00 08/02/23 21:44 Acetaminophen Tab 325 Mg Tab PO 650 mg TID LASHONDA Administration Acetaminophen 650 mg 08/02/23 12:42 Acetaminophen Tab 325 Mg Tab PO Q6HR PRN Mild Pain or Fever > 100.5 Albuterol Sulfate 2.5 mg 08/02/23 12:37 Albuterol Nebulized 2.5 Mg/3 Ml INHALATION RT-QID PRN Shortness Of Breath Albuterol/Ipratropium 3 ml 08/02/23 12:43 Ipratropium-Albuterol 3 Ml Neb INHALATION RT-Q2H PRN Shortness Of Breath Or Wheezing Allopurinol 100 mg 08/02/23 12:45 08/02/23 17:49 Allopurinol 100 Mg Tab PO Not Given DAILY [facility] Atorvastatin Calcium 40 mg 08/02/23 21:00 08/02/23 21:42 Atorvastatin 40 Mg Tab PO 40 mg HS LASHONDA Administration Azithromycin 500 mg 08/03/23 09:00 Azithromycin 500 Mg Tab PO 08/04/23 09:01 DAILY [facility] Protocol Benzonatate 100 mg 08/02/23 12:43 Benzonatate 100 Mg Cap PO TID PRN Cough Cyclobenzaprine HCl 10 mg 08/02/23 12:37 Cyclobenzaprine 10 Mg Tab PO TID PRN Muscle Spasm Enoxaparin Sodium 40 mg 08/03/23 09:00 Enoxaparin 40 Mg/0.4 Ml Syringe SQ DAILY LASHONDA Gabapentin 600 mg 08/02/23 16:00 08/02/23 21:40 Gabapentin 300 Mg Cap PO 600 mg TID LASHONDA Administration Guaifenesin/Codeine Phosphate 10 ml 08/02/23 12:43 Guaifenesin-Coden 100-10mg/5ml 10 Ml Cup PO Q6H PRN Cough Ceftriaxone Sodium 2 gm/ 50 mls @ 100 mls/hr 08/03/23 09:00 Sodium Chloride IVPB 08/06/23 09:29 Q24HR [facility] Protocol Ketorolac Tromethamine 15 mg 08/02/23 12:42 Ketorolac 15 Mg/Ml 1 Ml Vial IVP 08/05/23 12:43 Q6HR PRN Moderate Pain (Scale 4 to 6) Levothyroxine Sodium 125 mcg 08/02/23 12:45 08/03/23 06:31 Levothyroxine 125 Mcg Tab PO 125 mcg 0630 LASHONDA Administration Meclizine HCl 25 mg 08/02/23 12:45 Meclizine 25 Mg Tab PO TID PRN Vertigo Methylprednisolone Sodium Succinate 60 mg 08/02/23 12:45 08/03/23 06:28 Methylprednisolone Sod Succi 125 Mg/2 Ml Vial IV 60 mg Q6HR LASHONDA Administration Mirtazapine 45 mg 08/02/23 21:00 08/02/23 21:44 Mirtazapine 45 Mg Tablet PO 45 mg HS LASHONDA Administration Miscellaneous Information 1 each 08/02/23 12:28 Pneumonia Protocol Utilized 1 Each Misc PO ONCE PRN Per Protocol Montelukast Sodium 10 mg 08/02/23 21:00 08/02/23 21:43 Montelukast 10 Mg Tab PO 10 mg HS LASHONDA Administration Morphine Sulfate 4 mg 08/02/23 12:42 Morphine Sulfate 4 Mg/Ml Syringe IV Q4HR PRN Severe Pain (Scale 7 to 10) Naloxone HCl 0.2 mg 08/02/23 12:42 Naloxone 0.4 Mg/Ml 1 Ml Vial IV Q2M PRN Opioid Reversal Ondansetron HCl 4 mg 08/02/23 12:42 Ondansetron 4 Mg/2 Ml Vial IVP Q8HR PRN Nausea And Vomiting Oxycodone HCl 5 mg 08/02/23 13:12 08/02/23 21:41 Oxycodone Hcl 5 Mg Tab PO 5 mg Q6HR PRN Administration Pain Tamsulosin HCl 0.4 mg 08/03/23 09:00 Tamsulosin 0.4 Mg Cap.Er.24h PO DAILY [facility] Venlafaxine HCl 300 mg 08/02/23 14:00 08/02/23 17:50 Venlafaxine Hcl Er 150 Mg Cap PO Not Given DAILY [facility] 08/02/23 06:40 08/02/23 06:40
--- NOTE | 2023-08-03 11:57 | P.PN ---
Subjective Progress Note Date: 08/03/23 * 63-year-old patient with past medical history significant for hyperlipidemia, osteoarthritis, hypertension, history of Hodgkin lymphoma 1983 s/p chemo and radiation, history of dizziness and recurrent falls, history of asthma, thyroid disorder degenerative disease of spine, per patient hx of oral cancer presents to the emergency department after episode of dizziness and recurrent falls. Patient states he has been living by herself and for the last 4 weeks has been having multiple episodes of dizziness. * patient unable to differentiate between the room spinning around or dizziness once this changes exposure. Patient states that 1 day prior he fell about 4 times. Patient states he felt as if the right ankle popped. He has been complaining of pain as well he denies hitting his head. * At the time of presentation in ER patient was noted to be hypotensive with elevated lactate levels, serum chemistry obtained showed WBC 8.4 hemoglobin 9.8 platelet 240 * INR obtained within normal limits, serum chemistry sodium 137 potassium 4.1 BUN 28 creatinine 0.9 lactate of 2.1, patient given fluid bolus follow-up lactate 1.3 * Patient was noted to have troponin of 0.146, followed by 0.10 with, CRP of 6 * Workup in the ER included CT head, cervical spine CT face CT angio chest * CT head and cervical spine negative for acute intracranial process, CT cervical spine does show anterior cervical fusion C4-C7, disc space narrowing noted at C7-T1 * CT chest does show scattered pneumonitis changes more on the right as compared to left multiple small spiculated nodule noted atypical infection suspected * CT of the face negative for posttraumatic changes, no fracture noted * Urinalysis negative, patient tested negative for influenza RSV and COVID * 08/03/2023: Patient seen and evaluated at bedside, patient in emergency department room 24, patient blood work reviewed hemoglobin 9.4 platelet 130. Venous blood gas shows CO2 of 53. Serum chemistry showed creatinine of 0.62, CRP of 23. Nutrition to be started dietitian consulted REVIEW OF SYSTEMS: Dizziness, recurrent falls, right ankle pain improved CONSTITUTIONAL: No fever, no malaise, no fatigue. HEENT: No recent visual problems or hearing problems. Denied any sore throat. CARDIOVASCULAR: No chest pain, orthopnea, PND, no palpitations, no syncope. PULMONARY: No shortness of breath, no cough, no hemoptysis. GASTROINTESTINAL: No diarrhea, no nausea, no vomiting, no abdominal pain. NEUROLOGICAL: No headaches, no weakness, no numbness. HEMATOLOGICAL: Denies any bleeding or petechiae. GENITOURINARY: Denies any burning micturition, frequency, or urgency. MUSCULOSKELETAL/RHEUMATOLOGICAL: Denies any joint pain, swelling, or any muscle pain. ENDOCRINE: Denies any polyuria or polydipsia. PHYSICAL EXAMINATION: GENERAL: The patient is alert and oriented x3, nasal cannula in place HEENT: Pupils are round and equally reacting to light stitches noted right periauricular area, abrasion noted on chin CARDIOVASCULAR: S1 and S2 present. No murmurs, rubs, or gallops. PULMONARY: Decreased breath sounds bilaterally ABDOMEN: Soft, nontender, nondistended, normoactive bowel sounds. Tube in place MUSCULOSKELETAL: Point tenderness right lower extremity EXTREMITIES: No cyanosis, clubbing, or pedal edema. NEUROLOGICAL: Gross neurological examination did not reveal any focal deficits. Objective - Vital Signs Vital signs: Vital Signs Temp 98.6 F 08/02/23 20:08 Pulse 91 08/03/23 08:00 Resp 18 08/03/23 08:00 BP 138/91 08/03/23 08:00 Pulse Ox 100 08/03/23 08:38 FiO2 - Labs CBC & Chem 7: 08/03/23 07:49 08/03/23 07:49 Labs: Abnormal Lab Results - Last 24 Hours (Table) 08/02/23 08/02/23 08/02/23 Range/Units 06:40 14:21 14:58 RBC (4.30-5.90) m/uL Hgb (13.0-17.5) gm/dL Hct (39.0-53.0) % RDW (11.5-15.5) % Plt Count (150-450) k/uL VBG pCO2 53 H (37-51) mmHg Chloride (98-107) mmol/L BUN (9-20) mg/dL Creatinine (0.66-1.25) mg/dL Glucose (74-99) mg/dL Troponin I 0.066 H* (0.000-0.034) ng/mL C-Reactive Protein (<1.0) mg/dL Procalcitonin 0.49 H (0.02-0.09) ng/mL 08/03/23 08/03/23 Range/Units 07:49 07:49 RBC 3.12 L (4.30-5.90) m/uL Hgb 9.4 L (13.0-17.5) gm/dL Hct 28.8 L (39.0-53.0) % RDW 15.6 H (11.5-15.5) % Plt Count 130 L (150-450) k/uL VBG pCO2 (37-51) mmHg Chloride 108 H (98-107) mmol/L BUN 21 H (9-20) mg/dL Creatinine 0.62 L (0.66-1.25) mg/dL Glucose 145 H (74-99) mg/dL Troponin I (0.000-0.034) ng/mL C-Reactive Protein 23.1 H (<1.0) mg/dL Procalcitonin (0.02-0.09) ng/mL Assessment and Plan Assessment: Assessment and plan * Acute hypoxic respiratory failure with asthma exacerbation * Multifocal pneumonia * Sepsis secondary to underlying pneumonia * 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 In regards to asthma exacerbation continue patient on breathing treatment,pulmonary medicine consulted * In regards to elevated troponin, cardiology consulted, serial troponins elevated, cardiology recommendations appreciated * Regards to sepsis continue patient on fluid resuscitation lactate levels normalized, blood cultures no growth, continue Rocephin azithromycin * In regards to dizziness as needed meclizine ordered orthostatic vitals ordered neurology consulted * In regards to oblique fracture of the distal phalanx and fibula fracture Ortho consulted * In regards to oropharyngeal dysphagia continue nutrition to tube feeds * CODE STATUS is full code * Physical therapy Occupational Therapy consulted Time with Patient: Greater than 30
--- NOTE | 2023-08-03 12:26 | P.PN ---
Subjective Progress Note Date: 08/03/23 Principal diagnosis: Reason for follow-up is possible pneumonia Patient is a 63-year-old male with a past medical history significant for hypertension hyperlipidemia osteoarthritis asthma and this patient who did have a history of the right lower jaw cancer status post resection and recently did have a treatment to the right lower jaw in the right ear patient has been brought into the hospital with the patient having dizziness and frequent falls, patient did have a fracture to the right ankle area patient also have chest x- ray and CT angiogram of the chest concerning for possible pneumonitis and bilateral basal area. On today's evaluation that is 08/03/2023, Patient is afebrile , patient is currently on 2 L nasal cannula oxygen, the patient denies having any shortness of breath, the patient denies any chest pain or cough, the patient denies any nausea vomiting did not have any abdominal pain and no diarrhea complaining of pain to the right ankle area but no worsening. Patient did have white count of 10.4, CRP 23.1 procalcitonin 0.49 Objective - Vital Signs Vital signs: Vital Signs Temp 98.6 F 08/02/23 20:08 Pulse 87 08/03/23 06:31 Resp 18 08/03/23 06:31 BP 145/91 08/03/23 06:31 Pulse Ox 100 08/03/23 08:38 FiO2 - Exam GENERAL DESCRIPTION: An elderly male lying in bed in no distress RESPIRATORY SYSTEM: Unlabored breathing , decreased breath sounds at bases HEART: S1 S2 regular rate and rhythm , ABDOMEN: Soft , no tenderness EXTREMITIES: No edema feet - Labs CBC & Chem 7: 08/03/23 07:49 08/03/23 07:49 Labs: Abnormal Lab Results - Last 24 Hours (Table) 08/02/23 08/02/23 08/02/23 Range/Units 06:40 06:40 09:29 RBC (4.30-5.90) m/uL Hgb (13.0-17.5) gm/dL Hct (39.0-53.0) % RDW (11.5-15.5) % Plt Count (150-450) k/uL VBG pCO2 (37-51) mmHg Troponin I 0.108 H* (0.000-0.034) ng/mL C-Reactive Protein 6.0 H (<1.0) mg/dL Procalcitonin 0.49 H (0.02-0.09) ng/mL 08/02/23 08/02/23 08/03/23 Range/Units 14:21 14:58 07:49 RBC 3.12 L (4.30-5.90) m/uL Hgb 9.4 L (13.0-17.5) gm/dL Hct 28.8 L (39.0-53.0) % RDW 15.6 H (11.5-15.5) % Plt Count 130 L (150-450) k/uL VBG pCO2 53 H (37-51) mmHg Troponin I 0.066 H* (0.000-0.034) ng/mL C-Reactive Protein (<1.0) mg/dL Procalcitonin (0.02-0.09) ng/mL Assessment and Plan (1) Atypical pneumonia Current Visit: Yes Status: Acute Code(s): J18.9 - PNEUMONIA, UNSPECIFIED ORGANISM SNOMED Code(s): 152448500 Plan: 1patient presented to hospital with dizziness weakness and did have a fall leading to the right ankle fracture patient also have some patient did have infiltrate on the chest x-ray and confirmed on the CT angiogram of the chest concerning for pneumonia patient did have mild hypoxemia 2-patient did have elevated CRP procalcitonin, try to obtain a sputum for Gram stain and culture 3-patient to continue with the Rocephin and Zithromax and monitor clinical course closely Dictation was produced using [employer] dictation software. please excuse any grammatical, word or spelling errors. Time with Patient: Less than 30
[2023-08-03 12:36] VITALS: BMI 22.4
--- NOTE | 2023-08-03 13:17 | P.CNNES ---
History of Present Illness Consult date: 08/03/23 Requesting physician: Maria R Kirkpatrick Reason for Consult: dizziness and falls History of Present Illness: This is a 63-year-old gentleman presents emergency department because of dizziness and recurrent falls. Some of the history is obtained from the patient's [id number] was at bedside as well as medical record that. This seems the patient has history of Hodgkin's lymphoma is seems she was diagnosed in 1982 status post chemoradiation 71 as well as resection of the right jaw. According to patient he was diagnosed with cancer on the right jaw and neck and he thinks it's been a year but according to the medical record it seems in 1982 but he had resection of the right jaw and it appears according to the patient in the November 2022. He's been having recurrent falls he feels since at least 10 years with shaking and tremor. This happens usually when he stands up he'll have shaken tremor that he cannot stop but he does not look lose consciousness, urinary or bowel incontinence no drooling and as a result he falls. Prior to episode he feels lightheaded. Again he feels been going on for last 10 years but becoming more frequent. He had some episodes while resting he'll have uncontrollable tremor jerking. He states that he follows up with Dr. Joe a neurologist as an outpatient for neck and pain issues and he is pending to have a pain pump according to the patient's. Upon asking him if he had these a ddressed by his neurologist he stated no and never addressed them to him. He denies any diagnosis of seizures. He he lives by himself and he falls and he has bruises over the right side of face. Completed his chemoradiation therapy in 2022 refills was in February. Of note patient states he has history of cervical fusion. Some of the workup during his hospital visit consisted of: Sodium is 137, creatinine is 0.90, calcium is 9.1, magnesium is 1.9, troponin is 0.146. Plasma lactic acid venous 2.1 CT of the head is reported as mild atrophy, stable from comparison. No acute intracranial processes. Follow-up MRI can be performed as clinically indicated. I personally reviewed the CT head and I agree there is no acute or subacute ischemia. There is no bleed. CT cervical spine is reported as mild to moderate for maternal narrowing throughout the cervical spine. No acute osseous abnormality. Follow-up can be performed as clinically indicated. EKG is reported as sinus rhythm. TSH is 6.080 and free T4 is 1.24 in February 2023 Review of Systems Review of system: The positive and negative as per HPI. 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.RECEIVED RADAITION/CHEMO, hx ULCER, SHINGLES, HX OF FALLS due to dizziness, hx GYNOMASTIA-resolved, diet control diabetic History of Any Multi-Drug Resistant Organisms: None Reported Past Surgical History: Adenoidectomy, Heart Catheterization, Hernia Repair, Orthopedic Surgery, Tonsillectomy Additional Past Surgical History / Comment(s): lithotripsy 2020, bilateral shoulder fusions/later hardware removed from left shoulder, rt foot ORIF, NECK FUSION x 2( 2013,09/2020), cystoscopy, biopsy mouth 2022 JAW BONE REMOVAL WITH RECONSTRUCTION WITH LEFT OUTER LEG BONE - NOVEMBER 2022 Past Anesthesia/Blood Transfusion Reactions: No Reported Reaction Past Psychological History: Depression Smoking Status: Former smoker Past Alcohol Use History: Rare Past Drug Use History: None Reported - Past Family History Mother Family Medical History: Cancer Additional Family Medical History / Comment(s): lung Father Family Medical History: CVA/TIA Sister(s) Family Medical History: No Reported History Medications and Allergies Home Medications Medication Instructions Recorded Confirmed Type Mirtazapine [Remeron] 45 mg PO HS 01/13/14 08/02/23 History Montelukast [Singulair] 10 mg PO HS 01/13/14 08/02/23 History Venlafaxine HCl [Effexor XR] 300 mg PO DAILY 01/13/14 08/02/23 History Tamsulosin [Flomax] 0.4 mg PO DAILY #5 cap 04/17/15 08/02/23 Rx allopurinoL [Zyloprim] 100 mg PO DAILY 04/17/15 08/02/23 History Ergocalciferol [Vitamin D2 (1250 1,250 mcg PO MO 10/09/20 08/02/23 History Mcg = 82664 Iu)] Gabapentin [Neurontin] 600 mg PO TID 10/09/20 08/02/23 History Rosuvastatin [Crestor] 20 mg PO HS 12/24/20 08/02/23 History Albuterol Inhaler [Ventolin Hfa 1 puff INHALATION RT-QID PRN 01/08/21 08/02/23 History Inhaler] Potassium Citrate [Potassium 10 meq PO TID 09/24/22 08/02/23 History Citrate ER] oxyCODONE HCL [oxyCODONE HCL (IR)] 10 mg PO Q4H PRN 03/08/23 08/02/23 History Cephalexin [Keflex] 500 mg PO Q6HR 1 Days #4 cap 03/24/23 08/02/23 Rx Acetaminophen [Tylenol 8 Hour] 650 mg PO TID 08/02/23 08/02/23 History Artificial Tears-Hypromellose 1 drops BOTH EYES TID PRN 08/02/23 08/02/23 History [Artificial Tear Drops] Cevimeline [Evoxac] 30 mg PO TID 08/02/23 08/02/23 History Chlorhexidine Gluconate [Peridex] 15 ml PO TID PRN 08/02/23 08/02/23 History Cyclobenzaprine [Flexeril] 10 mg PO TID PRN 08/02/23 08/02/23 History HYDROcodone/APAP 10-325MG [[place] 1 tab PO Q6HR PRN 08/02/23 08/02/23 History 10-325] Ibuprofen [Motrin] 800 mg PO Q8H PRN 08/02/23 08/02/23 History Levothyroxine Sodium [Synthroid] 125 mcg PO DAILY 08/02/23 08/02/23 History Mv-Mn/Om3/Dha/Epa/Fish/Lut/[place] 1 cap PO DAILY 08/02/23 08/02/23 History [Ocuvite Adult 50 Plus Softgel] Allergies Allergy/AdvReac Type Severity Reaction Status Date / Time ziprasidone HCl [From Geodon] Allergy Severe Anaphylaxis Verified 08/02/23 12:21 ziprasidone mesylate Allergy Severe Anaphylaxis Verified 08/02/23 12:21 [From Geodon] Physical Examination - Vital Signs Vital Signs: Vital Signs Temp Pulse Pulse Resp BP BP Pulse Ox 08/03/23 08:38 100 08/03/23 08:00 91 18 138/91 99 08/03/23 06:31 87 18 145/91 100 08/03/23 04:44 81 17 112/74 08/03/23 03:31 76 17 130/75 100 08/03/23 01:23 80 17 106/74 95 08/02/23 23:55 81 17 92/52 08/02/23 22:04 82 17 134/71 98 08/02/23 20:08 98.6 F 92 16 120/73 100 08/02/23 18:00 83 16 117/75 98 08/02/23 17:00 76 16 117/63 98 08/02/23 16:00 82 16 113/75 97 08/02/23 15:00 83 16 109/56 98 08/02/23 14:00 80 16 108/63 97 Intake and Output 08/02/23 08/03/23 08/03/23 22:59 06:59 14:59 Other: Weight 79.379 kg GENERAL: The patient is lying in bed and is not in acute distress. HENT: Has bruise over the right side of face and has old scar over the right jaw/neck region. NEUROLOGICAL: Higher mental function: The patient is awake, alert, oriented to self, place and time. Patient is following commands. No aphasia and no neglect. Cranial nerves: The pupils are round, equal and reactive to light and accommodation. Visual rice are full to confrontation throughout. Extraocular movement is intact no nystagmus is noted. Facial sensation is normal to touch throughout. The facial strength: Has right lower and upper facial weakness (patient stated has his nerve affected from cancer/surgery). Hearing is normal bilaterally to hand rub. Tongue is midline and moved [id number] without any difficulty. No dysarthria is noted. Shoulder shrug is normal bilaterally. Motor: Gait: Got up very fast and walking and felt slight wide based. The strength is 5 over 5 throughout. Slight atrophy in hypothenar region bilaterally. Normal tone and bulk. Cerebellum: Normal finger to nose bilaterally. Sensation: Sensation is normal to touch throughout. Reflexes (right/left): 2+ uppers while lowers are 1+. Plantars are mute bilaterally. Results - Laboratory Findings CBC and BMP: 08/03/23 07:49 08/03/23 07:49 Abnormal Lab Findings: Abnormal Labs 08/02/23 08/02/23 08/02/23 06:40 06:40 06:40 RBC 3.15 L Hgb 9.3 L Hct 28.8 L RDW Plt Count 114 L Lymphocytes # 0.3 L VBG pCO2 Chloride BUN 28 H Creatinine Glucose 144 H Plasma Lactic Acid Abdias 2.1 H* Troponin I C-Reactive Protein Total Protein 6.2 L Procalcitonin 08/02/23 08/02/23 08/02/23 06:40 06:40 06:40 RBC Hgb Hct RDW Plt Count Lymphocytes # VBG pCO2 Chloride BUN Creatinine Glucose Plasma Lactic Acid Abdias Troponin I 0.146 H* C-Reactive Protein 6.0 H Total Protein Procalcitonin 0.49 H 08/02/23 08/02/23 08/02/23 09:29 14:21 14:58 RBC Hgb Hct RDW Plt Count Lymphocytes # VBG pCO2 53 H Chloride BUN Creatinine Glucose Plasma Lactic Acid Abdias Troponin I 0.108 H* 0.066 H* C-Reactive Protein Total Protein Procalcitonin 08/03/23 08/03/23 07:49 07:49 RBC 3.12 L Hgb 9.4 L Hct 28.8 L RDW 15.6 H Plt Count 130 L Lymphocytes # VBG pCO2 Chloride 108 H BUN 21 H Creatinine 0.62 L Glucose 145 H Plasma Lactic Acid Abdias Troponin I C-Reactive Protein 23.1 H Total Protein Procalcitonin Assessment and Plan Assessment: This is a 63-year-old gentleman with history of Hodgkin lymphoma status post resection with residual right facial palsy, chemotherapy and radiation therapy who was having recurrent dizziness with falls for the last 10 year progressively getting worse. He notes that happens predominantly when he tries to get up and walk around and he feels he is having abnormal shaking tremors but does not lose consciousness. At times when he is resting or have abnormal tremor or jerks. No official diagnosis of seizure in the past. Recurrent dizziness with falls with abnormal body tremor and jerks: One of the ventral as seizure. Also cannot rule outs the recurrent falls and dizziness is due to dysfunction of the carotids baroreceptor result from history of cancer status post resection with chemoradiation therapy History of Hodgkins lymphoma status post resection with residual right facial palsy she had history of chemotherapy and radiation therapy Plan: I ordered MRI of the brain with and without to rule out any brain metastases. I ordered a routine EEG I agree with orthostatic vitals. Started the patient prophylactically on Keppra 750 mg twice a day for concern of possible seizures. I notified the patient and his [id number] about the side effects of the Keppra about behavioral/mood. Cardiology is consulted I recommend the patient to continue follow-up with his oncologist as outpatient I notified the patient that I would recommend him not to reside by himself especially with recurrent episode of falls. He follows up with Dr. Joe for his pain/neck issues and the eye notified them that too also to dress these tremors body jerks as well as an outpatient. We'll defer the rest of the medical management to the primary and other specialists The plan discussed with the patient his [id number] was at bedside and his nurse Thank you consultation Time with Patient: Greater than 30
--- NOTE | 2023-08-03 14:20 | P.PN ---
Subjective Progress Note Date: 08/03/23 Principal diagnosis: Acute fall with trauma to right ankle secondary to dizziness and lightheadedness, possible pneumonia This is a pleasant 63-year-old male patient with a known history of Hodgkin's lymphoma treated back in 1982, hyperlipidemia, hypertension, hypothyroidism, fo rmer smoker and previous chewing tobacco. In November of last year he was diagnosed with oral cancer. He had gone on to have radical surgery requiring bone grafting from his left tibial/fibula, chemotherapy and radiation therapy completed in February 2023. He had some reconstruction last week around his right ear from the previous grafting. The past several days he has been having increased dizziness and lightheadedness and has been falling down. He is also finding himself with jerking motions prior to the falls. He denies any history of seizures. He does have a PEG tube in place for feedings. Denies any aspiration. Chest x-ray revealed patchy atelectasis versus airspace disease in the right lower lung. CT scanning of the chest revealed scattered mild areas of pneumonitis and infiltrates bilaterally greater on the right. There may be a small spiculated nodule in the right upper lung field. He was found to have an oblique fracture of the proximal portion of the distal flanks with intra articular extension of the right foot which he hurt during his fall. CT scan of the brain and C-spine revealed no acute intracranial process. No cervical spine fractures. Face CT revealed no acute posttraumatic changes. Evidence of prior mandibular surgery and repair. He is seen today in consultation in the emergency department. He is awake and alert in no acute distress. He has no pulmonary complaints. No shortness of breath, cough or congestion. No fever or chills. He is maintaining O2 saturations up to 100% on 3 L/min per nasal cannula. White count 8.4. Hemoglobin 9.3. Platelets 114. Sodium 137. Potassium 4.7. Bicarb 30. BUN 28. Creatinine 0.90. Glucose 144. Troponin 0.066. Procalcitonin 0.49. C-reactive protein 6.0. Urinalysis clean. Viral screen negative. Patient was evaluated today on 08/03/23, patient was admitted with mostly symptoms of falling, lightheadedness and dizziness, and his chest x-ray showed questionable pneumonia in the right lower lobe, procalcitonin level is elevated, patient was empirically placed on antibiotics, although his presentation was not a pulmonary presentation by any means, and he had no symptoms of pneumonia clinically upon his presentation. The findings on the CT of the chest and chest x-ray are nonspecific, but considering his procalcitonin level is elevated, I am recommending we continue antibiotics for now. The patient is basically about the same, again he has no active pulmonary symptoms but he has mostly symptoms of lightheadedness dizziness which are chronic symptoms. Patient had previous history of head and neck cancer, he had extensive radical surgery of the head and neck, chemotherapy and radiation completed in February 20, 2002 3. Labs today are basically unremarkable WBC count is normal hemoglobin is 9.4 basic metabolic profile is normal C-reactive protein is elevated at 23, procalcitonin is 0.49 Objective - Vital Signs Vital signs: Vital Signs Temp 98.6 F 08/02/23 20:08 Pulse 90 08/03/23 12:00 Resp 18 08/03/23 12:00 BP 113/67 08/03/23 12:00 Pulse Ox 100 08/03/23 08:38 FiO2 Intake & Output 08/02/23 08/03/23 08/03/23 18:59 06:59 18:59 Weight 79.379 kg - Exam GENERAL EXAM: Alert, pleasant 63-year-old male, on 3 L nasal cannula, comfort able in no apparent distress. HEAD: Changes of reconstructed mandible and right ear reconstruction. EYES: Normal reaction of pupils, equal size. NOSE: Clear with pink turbinates. THROAT: No erythema or exudates. NECK: No masses, no JVD. CHEST: No chest wall deformity. LUNGS: Equal air entry with no crackles, wheeze, rhonchi or dullness. CVS: S1 and S2 normal with no audible murmur, regular rhythm. ABDOMEN: No hepatosplenomegaly, normal bowel sounds, no guarding or rigidity. SPINE: No scoliosis or deformity SKIN: No rashes CENTRAL NERVOUS SYSTEM: No focal deficits, tone is normal in all 4 extremities. EXTREMITIES: Long scar up the left leg from previous surgery. There is no peripheral edema. Peripheral pulses are intact. - Labs CBC & Chem 7: 08/03/23 07:49 08/03/23 07:49 Labs: Abnormal Lab Results - Last 24 Hours (Table) 08/02/23 08/02/23 08/02/23 Range/Units 06:40 14:21 14:58 RBC (4.30-5.90) m/uL Hgb (13.0-17.5) gm/dL Hct (39.0-53.0) % RDW (11.5-15.5) % Plt Count (150-450) k/uL VBG pCO2 53 H (37-51) mmHg Chloride (98-107) mmol/L BUN (9-20) mg/dL Creatinine (0.66-1.25) mg/dL Glucose (74-99) mg/dL Troponin I 0.066 H* (0.000-0.034) ng/mL C-Reactive Protein (<1.0) mg/dL Procalcitonin 0.49 H (0.02-0.09) ng/mL 08/03/23 08/03/23 Range/Units 07:49 07:49 RBC 3.12 L (4.30-5.90) m/uL Hgb 9.4 L (13.0-17.5) gm/dL Hct 28.8 L (39.0-53.0) % RDW 15.6 H (11.5-15.5) % Plt Count 130 L (150-450) k/uL VBG pCO2 (37-51) mmHg Chloride 108 H (98-107) mmol/L BUN 21 H (9-20) mg/dL Creatinine 0.62 L (0.66-1.25) mg/dL Glucose 145 H (74-99) mg/dL Troponin I (0.000-0.034) ng/mL C-Reactive Protein 23.1 H (<1.0) mg/dL Procalcitonin (0.02-0.09) ng/mL Assessment and Plan Assessment: Impression: Atypical, possible aspiration pneumonia Acute falls with trauma to the right ankle secondary to dizziness, l ightheadedness. CT scan of the head revealed no acute intracranial process. Symptoms of lightheadedness and dizziness are chronic. 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 requiring extensive radical surgery of the head and neck, chemotherapy and radiation therapy completed in February 2023 History of chewing tobacco Former smoker Abnormal CT of the chest and chest x-ray, questioning pneumonitis in the right lung, patient is an excellent set up for aspiration however he does have a PEG tube in place Acute hypoxic respiratory failure secondary to above Acute right distal fibula fracture secondary to falls Hyperlipidemia Chronic obstructive pulmonary disease Recommendation: Continue present course of treatment Continue antibiotics Patient continues to have no active pulmonary symptoms Eventually consider transitioning to oral antibiotics for 1 week We will continue to Time with Patient: Less than 30
--- NOTE | 2023-08-03 16:35 | P.CNOR ---
History of Present Illness - HPI Consult date: 08/03/23 History of present illness: This is a 63-year-old male who is admitted after a fall secondary to dizziness. Patient is always being treated for possible pneumonia. Orthopedics is consulted due to right ankle injury. Patient is seen and evaluated at bedside today. Patient states that he has mild pain in the right ankle. Patient states that he sometimes uses a walker to ambulate. Patient's past medical history is significant for Hodgkin's lymphoma, hyperlipidemia, hypertension, hypothyroidism and oral cancer. Patient denies any fever/chills, chest pain, numbness, weakness or tingling. Review of Systems See HPI. 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.RECEIVED RADAITION/CHEMO, hx ULCER, SHINGLES, HX OF FALLS due to dizziness, hx GYNOMASTIA-resolved, diet control diabetic History of Any Multi-Drug Resistant Organisms: None Reported Past Surgical History: Adenoidectomy, Heart Catheterization, Hernia Repair, Orthopedic Surgery, Tonsillectomy Additional Past Surgical History / Comment(s): lithotripsy 2020, bilateral shoulder fusions/later hardware removed from left shoulder, rt foot ORIF, NECK FUSION x 2( 2013,09/2020), cystoscopy, biopsy mouth 2022 JAW BONE REMOVAL WITH RECONSTRUCTION WITH LEFT OUTER LEG BONE - NOVEMBER 2022 Past Anesthesia/Blood Transfusion Reactions: No Reported Reaction Past Psychological History: Depression Smoking Status: Former smoker Past Alcohol Use History: Rare Past Drug Use History: None Reported - Past Family History Mother Family Medical History: Cancer Additional Family Medical History / Comment(s): lung Father Family Medical History: CVA/TIA Sister(s) Family Medical History: No Reported History Medications and Allergies Home Medications Medication Instructions Recorded Confirmed Type Mirtazapine [Remeron] 45 mg PO HS 01/13/14 08/02/23 History Montelukast [Singulair] 10 mg PO HS 01/13/14 08/02/23 History Venlafaxine HCl [Effexor XR] 300 mg PO DAILY 01/13/14 08/02/23 History Tamsulosin [Flomax] 0.4 mg PO DAILY #5 cap 04/17/15 08/02/23 Rx allopurinoL [Zyloprim] 100 mg PO DAILY 04/17/15 08/02/23 History Ergocalciferol [Vitamin D2 (1250 1,250 mcg PO MO 10/09/20 08/02/23 History Mcg = 10928 Iu)] Gabapentin [Neurontin] 600 mg PO TID 10/09/20 08/02/23 History Rosuvastatin [Crestor] 20 mg PO HS 12/24/20 08/02/23 History Albuterol Inhaler [Ventolin Hfa 1 puff INHALATION RT-QID PRN 01/08/21 08/02/23 History Inhaler] Potassium Citrate [Potassium 10 meq PO TID 09/24/22 08/02/23 History Citrate ER] oxyCODONE HCL [oxyCODONE HCL (IR)] 10 mg PO Q4H PRN 03/08/23 08/02/23 History Cephalexin [Keflex] 500 mg PO Q6HR 1 Days #4 cap 03/24/23 08/02/23 Rx Acetaminophen [Tylenol 8 Hour] 650 mg PO TID 08/02/23 08/02/23 History Artificial Tears-Hypromellose 1 drops BOTH EYES TID PRN 08/02/23 08/02/23 History [Artificial Tear Drops] Cevimeline [Evoxac] 30 mg PO TID 08/02/23 08/02/23 History Chlorhexidine Gluconate [Peridex] 15 ml PO TID PRN 08/02/23 08/02/23 History Cyclobenzaprine [Flexeril] 10 mg PO TID PRN 08/02/23 08/02/23 History HYDROcodone/APAP 10-325MG [[place] 1 tab PO Q6HR PRN 08/02/23 08/02/23 History 10-325] Ibuprofen [Motrin] 800 mg PO Q8H PRN 08/02/23 08/02/23 History Levothyroxine Sodium [Synthroid] 125 mcg PO DAILY 08/02/23 08/02/23 History Mv-Mn/Om3/Dha/Epa/Fish/Lut/Etelvina 1 cap PO DAILY 08/02/23 08/02/23 History [Ocuvite Adult 50 Plus Softgel] Allergies Allergy/AdvReac Type Severity Reaction Status Date / Time ziprasidone HCl [From [employer]] Allergy Severe Anaphylaxis Verified 08/02/23 12:21 ziprasidone mesylate Allergy Severe Anaphylaxis Verified 08/02/23 12:21 [From Comutodon] Physical Examination Vital signs are stable. Patient is in no acute distress and is alert and oriented 3. There is mild tenderness to palpation over the lateral aspect of the right ankle and over the great toe. There is minimal swelling. Skin is intact. Patient has good range of motion of the right ankle with some disco mfort. Calf is soft and nontender to palpation. Sensation intact. Neurovascular status and circulatory status are intact. Results X-rays of the right ankle reveal nondisplaced distal fibula fracture. Mortise intact. X-rays of the right foot reveal nondisplaced distal phalanx fracture of the right great toe. - Labs Labs: Abnormal Lab Results - Last 24 Hours (Table) 08/03/23 08/03/23 Range/Units 07:49 07:49 RBC 3.12 L (4.30-5.90) m/uL Hgb 9.4 L (13.0-17.5) gm/dL Hct 28.8 L (39.0-53.0) % RDW 15.6 H (11.5-15.5) % Plt Count 130 L (150-450) k/uL Chloride 108 H (98-107) mmol/L BUN 21 H (9-20) mg/dL Creatinine 0.62 L (0.66-1.25) mg/dL Glucose 145 H (74-99) mg/dL C-Reactive Protein 23.1 H (<1.0) mg/dL H & H 08/02/23 08/03/23 Range/Units 06:40 07:49 Hgb 9.3 L 9.4 L (13.0-17.5) gm/dL Hct 28.8 L 28.8 L (39.0-53.0) % Coagulation 08/02/23 Range/Units 06:40 INR 0.9 (<1.2) Result Diagrams: 08/03/23 07:49 08/03/23 07:49 Assessment and Plan (1) Fracture of distal end of right fibula Current Visit: Yes Status: Acute Code(s): S82.831A - [facility] FRACTURE OF UPPER AND LOWER END OF RIGHT FIBULA, INIT SNOMED Code(s): 054228238 (2) Fracture of right great toe Current Visit: Yes Status: Acute Code(s): S92.401A - DISPLACED UNSP FRACTURE OF RIGHT GREAT TOE, INIT FOR CLOS FX SNOMED Code(s): 827819554 (3) Fall Current Visit: Yes Status: Acute Code(s): W19.XXXA - UNSPECIFIED FALL, INITIAL ENCOUNTER SNOMED Code(s): 0842815 (4) Dizziness Current Visit: Yes Status: Acute Code(s): R42 - DIZZINESS AND GIDDINESS SNOMED Code(s): 950696720 Plan: 1. Recommend premium equalizer boot to the right lower extremity. Patient is to protect his weightbearing with a walker. 2. There is no surgical intervention planned. Patient may follow-up on an outpatient basis.
[2023-08-03 19:35] LABS: Glucose,Whole Blood 197 mg/dL (70-110)
--- NOTE | 2023-08-04 00:28 | EEG ---
ELECTROENCEPHALOGRAM REPORT CLINICAL HISTORY: This is a 63-year-old gentleman with recurrent falls and abnormal body jerks. The video EEG is obtained to evaluate for seizure epileptiform activity. RELEVANT MEDICATION: Keppra. EEG TYPE: A routine 21-channel EEG with video EEG using the 10/20 electrode placement system. DESCRIPTION: Wakefulness is only obtained. During awake state, background consists of low-to- moderate voltage of 7 hertz activity. There is no physiological stage 2 sleep architecture. There is no focal slowing. Interictal and ictal is none. ACTIVATION PROCEDURE: Photic stimulation did not evoke a posterior driving response. There is no abnormality during photic stimulation. Hyperventilation is not performed. CLINICAL INTERPRETATION: This is an abnormal routine EEG. The background slowing is suggestive of mild encephalopathy. Otherwise, there is no focal slowing, epileptiform discharge, or seizure on the EEG. Clinical correlation is recommended. CLAUDIA / FERMIN: [id number] /
[2023-08-04 06:10] LABS: Glucose,Whole Blood 161 mg/dL (70-110)
[2023-08-04] MEDS: KETOROLAC 15 MG/ML 1 ML VIAL IVP PRN (08:15)
[2023-08-04 08:38] LABS: HCT 25.9 % (39.0-53.0); HGB 8.3 gm/dL (13.0-17.5); Hypochromasia Slight; MCH 29.5 pg (25.0-35.0); MCV 92.3 fL (80.0-100.0); Mean Platelet Volume 8.4; Platelet Count 134 k/uL (150-450); RDW 15.7 % (11.5-15.5); WBC 7.6 k/uL (3.8-10.6)
[2023-08-04 09:11] LABS: African American GFR (CKD) >90 (>60 ml/min/1.73 sqM); Anion Gap 6 mmol/L; Blood Urea Nitrogen 28 mg/dL (9-20); Calcium 8.7 mg/dL (8.4-10.2); Carbon Dioxide 29 mmol/L (22-30); Chloride 108 mmol/L (98-107); Glucose 126 mg/dL (74-99); Non-African American GFR(CKD) >90 (>60 ml/min/1.73 sqM); Potassium 3.6 mmol/L (3.5-5.1); Sodium 143 mmol/L (137-145)
[2023-08-04] MEDS: MIDODRINE 5 MG TAB PO SCH (11:04)
--- NOTE | 2023-08-04 11:17 | P.PN ---
Subjective Progress Note Date: 08/04/23 Principal diagnosis: Reason for follow-up is possible pneumonia Patient is a 63-year-old male with a past medical history significant for hypertension hyperlipidemia osteoarthritis asthma and this patient who did have a history of the right lower jaw cancer status post resection and recently did have a treatment to the right lower jaw in the right ear patient has been brought into the hospital with the patient having dizziness and frequent falls, patient did have a fracture to the right ankle area patient also have chest x- ray and CT angiogram of the chest concerning for possible pneumonitis and bilateral basal area. On today's evaluation that is 08/04/2023,the patient denies any fever or any chills, patient is breathing comfortably on room air, the patient denies chest pain shortness of breath and occasional cough, patient denies abdominal pain, no nausea vomiting or diarrhea. Patient white count is 7.6, creatinine 0.72 blood cultures are pending Objective - Vital Signs Vital signs: Vital Signs Temp 97.5 F L 08/04/23 08:00 Pulse 69 08/04/23 08:00 Resp 17 08/04/23 08:00 BP 103/58 08/04/23 08:00 Pulse Ox 98 08/04/23 08:00 FiO2 Intake & Output 08/03/23 08/04/23 08/04/23 18:59 06:59 18:59 Intake Total 120 240 Output Total 300 Balance 120 -60 Weight 79.379 kg Intake: Oral 120 240 Output: Urine 300 Other: Voiding Method Urinal Urinal - Exam GENERAL DESCRIPTION: An elderly male lying in bed in no distress RESPIRATORY SYSTEM: Unlabored breathing , decreased breath sounds at bases HEART: S1 S2 regular rate and rhythm , ABDOMEN: Soft , no tenderness EXTREMITIES: No edema feet - Labs CBC & Chem 7: 08/04/23 07:48 08/04/23 07:48 Labs: Abnormal Lab Results - Last 24 Hours (Table) 08/03/23 08/03/23 08/04/23 Range/Units 07:49 19:33 06:09 RBC (4.30-5.90) m/uL Hgb (13.0-17.5) gm/dL Hct (39.0-53.0) % RDW (11.5-15.5) % Plt Count (150-450) k/uL Chloride 108 H (98-107) mmol/L BUN 21 H (9-20) mg/dL Creatinine 0.62 L (0.66-1.25) mg/dL Glucose 145 H (74-99) mg/dL POC Glucose (mg/dL) 197 H 161 H (70-110) mg/dL C-Reactive Protein 23.1 H (<1.0) mg/dL 08/04/23 08/04/23 Range/Units 07:48 07:48 RBC 2.80 L (4.30-5.90) m/uL Hgb 8.3 L (13.0-17.5) gm/dL Hct 25.9 L (39.0-53.0) % RDW 15.7 H (11.5-15.5) % Plt Count 134 L (150-450) k/uL Chloride 108 H (98-107) mmol/L BUN 28 H (9-20) mg/dL Creatinine (0.66-1.25) mg/dL Glucose 126 H (74-99) mg/dL POC Glucose (mg/dL) (70-110) mg/dL C-Reactive Protein (<1.0) mg/dL Microbiology - Last 24 Hours (Table) 08/02/23 14:05 Blood Culture - Preliminary Blood 08/02/23 14:05 Blood Culture - Preliminary Blood Assessment and Plan (1) Atypical pneumonia Current Visit: Yes Status: Acute Code(s): J18.9 - PNEUMONIA, UNSPECIFIED ORGANISM SNOMED Code(s): 342637745 Plan: 1patient presented to hospital with dizziness weakness and did have a fall leading to the right ankle fracture patient also have some patient did have infiltrate on the chest x-ray and confirmed on the CT angiogram of the chest concerning for pneumonia patient did have mild hypoxemia 2-patient did have elevated CRP procalcitonin, try to obtain a sputum for Gram stain and culture 3-patient did have some clinical improvement and continue with the Rocephin and Zithromax and monitor clinical course closely Dictation was produced using [employer] software. please excuse any grammatical, word or spelling errors. Time with Patient: Less than 30
[2023-08-04 11:57] LABS: Glucose,Whole Blood 141 mg/dL (70-110)
--- NOTE | 2023-08-04 12:11 | P.PN ---
Subjective Progress Note Date: 08/04/23 * 63-year-old patient with past medical history significant for hyperlipidemia, osteoarthritis, hypertension, history of Hodgkin lymphoma 1983 s/p chemo and radiation, history of dizziness and recurrent falls, history of asthma, thyroid disorder degenerative disease of spine, per patient hx of oral cancer presents to the emergency department after episode of dizziness and recurrent falls. Patient states he has been living by herself and for the last 4 weeks has been having multiple episodes of dizziness. * patient unable to differentiate between the room spinning around or dizziness once this changes exposure. Patient states that 1 day prior he fell about 4 times. Patient states he felt as if the right ankle popped. He has been complaining of pain as well he denies hitting his head. * At the time of presentation in ER patient was noted to be hypotensive with elevated lactate levels, serum chemistry obtained showed WBC 8.4 hemoglobin 9.8 platelet 240 * INR obtained within normal limits, serum chemistry sodium 137 potassium 4.1 BUN 28 creatinine 0.9 lactate of 2.1, patient given fluid bolus follow-up lactate 1.3 * Patient was noted to have troponin of 0.146, followed by 0.10 with, CRP of 6 * Workup in the ER included CT head, cervical spine CT face CT angio chest * CT head and cervical spine negative for acute intracranial process, CT cervical spine does show anterior cervical fusion C4-C7, disc space narrowing noted at C7-T1 * CT chest does show scattered pneumonitis changes more on the right as compared to left multiple small spiculated nodule noted atypical infection suspected * CT of the face negative for posttraumatic changes, no fracture noted * Urinalysis negative, patient tested negative for influenza RSV and COVID * 08/03/2023: Patient seen and evaluated at bedside, patient in emergency department room 24, patient blood work reviewed hemoglobin 9.4 platelet 130. Venous blood gas shows CO2 of 53. Serum chemistry showed creatinine of 0.62, CRP of 23. Nutrition to be started dietitian consulted * 08/04/2023: Patient seen and evaluated bedside, patient states he is feeling better. Patient started on tube feeds. Blood work reviewed patient on room air, CBC WBC within normal limits hemoglobin 8.3 platelet 134. Serum chemistry sodium 143 potassium 3.6 glucose 141 CRP 23 will follow-up REVIEW OF SYSTEMS: Dizziness, recurrent falls, right ankle pain improved CONSTITUTIONAL: No fever, no malaise, no fatigue. HEENT: No recent visual problems or hearing problems. Denied any sore throat. CARDIOVASCULAR: No chest pain, orthopnea, PND, no palpitations, no syncope. PULMONARY: No shortness of breath, no cough, no hemoptysis. GASTROINTESTINAL: No diarrhea, no nausea, no vomiting, no abdominal pain. NEUROLOGICAL: No headaches, no weakness, no numbness. HEMATOLOGICAL: Denies any bleeding or petechiae. GENITOURINARY: Denies any burning micturition, frequency, or urgency. MUSCULOSKELETAL/RHEUMATOLOGICAL: Denies any joint pain, swelling, or any muscle pain. ENDOCRINE: Denies any polyuria or polydipsia. PHYSICAL EXAMINATION: GENERAL: The patient is alert and oriented x3, nasal cannula in place HEENT: Pupils are round and equally reacting to light stitches noted right periauricular area, abrasion noted on chin CARDIOVASCULAR: S1 and S2 present. No murmurs, rubs, or gallops. PULMONARY: Decreased breath sounds bilaterally ABDOMEN: Soft, nontender, nondistended, normoactive bowel sounds. Tube in place MUSCULOSKELETAL: Point tenderness right lower extremity EXTREMITIES: No cyanosis, clubbing, or pedal edema. NEUROLOGICAL: Gross neurological examination did not reveal any focal deficits. Objective - Vital Signs Vital signs: Vital Signs Temp 97.5 F L 08/04/23 08:00 Pulse 70 08/04/23 11:10 Resp 16 08/04/23 11:10 BP 109/65 08/04/23 11:10 Pulse Ox 94 L 08/04/23 11:10 FiO2 Intake & Output 08/03/23 08/04/23 08/04/23 18:59 06:59 18:59 Intake Total 120 240 120 Output Total 300 Balance 120 -60 120 Weight 79.379 kg Intake: Oral 120 240 120 Output: Urine 300 Other: Voiding Method Urinal Urinal Urinal - Labs CBC & Chem 7: 08/04/23 07:48 08/04/23 07:48 Labs: Abnormal Lab Results - Last 24 Hours (Table) 08/03/23 08/04/23 08/04/23 Range/Units 19:33 06:09 07:48 RBC 2.80 L (4.30-5.90) m/uL Hgb 8.3 L (13.0-17.5) gm/dL Hct 25.9 L (39.0-53.0) % RDW 15.7 H (11.5-15.5) % Plt Count 134 L (150-450) k/uL Chloride (98-107) mmol/L BUN (9-20) mg/dL Glucose (74-99) mg/dL POC Glucose (mg/dL) 197 H 161 H (70-110) mg/dL 08/04/23 08/04/23 Range/Units 07:48 11:56 RBC (4.30-5.90) m/uL Hgb (13.0-17.5) gm/dL Hct (39.0-53.0) % RDW (11.5-15.5) % Plt Count (150-450) k/uL Chloride 108 H (98-107) mmol/L BUN 28 H (9-20) mg/dL Glucose 126 H (74-99) mg/dL POC Glucose (mg/dL) 141 H (70-110) mg/dL Microbiology - Last 24 Hours (Table) 08/02/23 14:05 Blood Culture - Preliminary Blood 08/02/23 14:05 Blood Culture - Preliminary Blood Assessment and Plan Assessment: Assessment and plan * Acute hypoxic respiratory failure with asthma exacerbation * Multifocal pneumonia * Sepsis secondary to underlying pneumonia * 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 In regards to asthma exacerbation continue patient on breathing treatment,pulmonary medicine consulted * In regards to elevated troponin, cardiology consulted, serial troponins elevated, cardiology recommendations appreciated * Regards to sepsis continue patient on fluid resuscitation lactate levels normalized, blood cultures no growth, continue Rocephin, azithromycin pleated * In regards to dizziness as needed meclizine , neurology consulted, MRI brain ordered, EEG negative for seizure * In regards to oblique fracture of the distal phalanx and fibula fracture Ortho consulted, recommend conservative management brace ordered * In regards to oropharyngeal dysphagia continue nutrition to tube feeds * CODE STATUS is full code * Physical therapy Occupational Therapy consulted
--- NOTE | 2023-08-04 12:26 | CA ---
Transthoracic Echo Report Name: Daniel Velazquez Age: 63 Gender: M : 1960 Exam Date: 08/04/2023 10:58 Exam Location: [facility] Ht (in): 74 Wt (lb): 175 Ordering Physician: Aparna Epps Attending/Referring Phys: [id number], [place] [employer] Operator Dom Boss RDCS Procedure CPT: Indications: LVF Cardiac Hx: Technical Quality: Fair Contrast 1: Total Dose (mL): Contrast 2: Total Dose (mL): MEASUREMENTS (Male / Female) Normal Values 2D ECHO LV Diastolic Diameter PLAX 5.9 cm 4.2 - 5.9 / 3.9 - 5.3 cm LV Systolic Diameter PLAX 4.2 cm IVS Diastolic Thickness 0.7 cm 0.6 - 1.0 / 0.6 - 0.9 cm LVPW Diastolic Thickness 0.9 cm 0.6 - 1.0 / 0.6 - 0.9 cm LV Relative Wall Thickness 0.3 RV Internal Dim ED PLAX 3.3 cm LVOT Diameter 2.5 cm Aortic Root Diameter 3.4 cm LA Systolic Diameter LX 2.2 cm 3.0 - 4.0 / 2.7 - 3.8 cm LV Diastolic Volume MOD BP 53.3 cm??? 67 - 155 / 56 - 104 cm??? LV Systolic Volume MOD BP 23.8 cm??? 22 - 58 / 19 - 49 cm??? LV Ejection Fraction MOD BP 55.3 % >= 55 % LV Cardiac Index MOD BP 958.2 cm???/min???m??? LV Diastolic Volume MOD 4C 49.2 cm??? LV Systolic Volume MOD 4C 19.9 cm??? LV Ejection Fraction MOD 4C 59.6 % LV Cardiac Index MOD 4C 952.3 cm???/min???m??? LV Diastolic Length 4C 6.6 cm LV Systolic Length 4C 5.3 cm LV Diastolic Volume MOD 2C 50.5 cm??? LV Systolic Volume MOD 2C 28.8 cm??? LV Ejection Fraction MOD 2C 43.0 % LV Cardiac Index MOD 2C 705.4 cm???/min???m??? LV Diastolic Length 2C 5.7 cm LV Systolic Length 2C 5.2 cm LA Volume 44.2 cm??? 18 - 58 / 22 - 52 cm??? LA Volume Index 21.8 cm???/m??? 16 - 28 cm???/m??? DOPPLER AV Peak Velocity 114.2 cm/s AV Peak Gradient 5.2 mmHg AV Mean Velocity 83.5 cm/s AV Mean Gradient 3.2 mmHg AV Velocity Time Integral 26.2 cm LVOT Peak Velocity 98.0 cm/s LVOT Peak Gradient 3.8 mmHg LVOT Velocity Time Integral 22.5 cm LVOT Stroke Volume 111.9 cm??? LVOT Stroke Volume Index 54.5 ml/m??? LVOT Cardiac Index 3634.3 cm???/min???m??? AV Area Cont Eq vti 4.3 cm??? AV Area Cont Eq pk 4.3 cm??? MV Peak Velocity 128.5 cm/s MV Peak Gradient 6.6 mmHg MV Mean Velocity 52.6 cm/s MV Mean Gradient 1.5 mmHg MV Velocity Time Integral 41.5 cm MR Peak Velocity 416.1 cm/s MR Peak Gradient 69.3 mmHg Mitral E Point Velocity 114.5 cm/s Mitral A Point Velocity 46.5 cm/s Mitral E to A Ratio 2.5 MV Deceleration Time 181.6 ms TR Peak Velocity 272.6 cm/s TR Peak Gradient 29.7 mmHg Right Ventricular Systolic Press 34.7 mmHg FINDINGS Left Ventricle Mild LV dilitation. Normal wall thickness. Left ventricular ejection fraction is estimated at 55-60 %. Right Ventricle Normal right ventricular size. RVSP= 35mmHg Right Atrium Normal right atrial size. Left Atrium Normal left atrial size. Mitral Valve Structurally normal mitral valve. Mild to moderate MR. Aortic Valve Trileaflet aortic valve. No aortic valve stenosis or regurgitation. Tricuspid Valve Structurally normal tricuspid valve. Mild to moderate TR. Pulmonic Valve Pulmonic valve not well visualized. No pulmonic regurgitation. Pericardium Normal pericardium. Aorta Normal size aortic root. CONCLUSIONS Left ventricular ejection fraction 55-60% Mild left ventricular dilation RVSP 35 Mild to moderate mitral regurgitation Mild to moderate tricuspid regurgitation Previewed by: Dr. Mikel Christie DO (Electronically Signed) Final Date: 04 August 2023 12:26
--- NOTE | 2023-08-04 12:59 | P.PN ---
Subjective Progress Note Date: 08/04/23 Principal diagnosis: Acute fall with trauma to right ankle secondary to dizziness and lightheadedness, possible pneumonia This is a pleasant 63-year-old male patient with a known history of Hodgkin's lymphoma treated back in 1982, hyperlipidemia, hypertension, hypothyroidism, fo rmer smoker and previous chewing tobacco. In November of last year he was diagnosed with oral cancer. He had gone on to have radical surgery requiring bone grafting from his left tibial/fibula, chemotherapy and radiation therapy completed in February 2023. He had some reconstruction last week around his right ear from the previous grafting. The past several days he has been having increased dizziness and lightheadedness and has been falling down. He is also finding himself with jerking motions prior to the falls. He denies any history of seizures. He does have a PEG tube in place for feedings. Denies any aspiration. Chest x-ray revealed patchy atelectasis versus airspace disease in the right lower lung. CT scanning of the chest revealed scattered mild areas of pneumonitis and infiltrates bilaterally greater on the right. There may be a small spiculated nodule in the right upper lung field. He was found to have an oblique fracture of the proximal portion of the distal flanks with intra articular extension of the right foot which he hurt during his fall. CT scan of the brain and C-spine revealed no acute intracranial process. No cervical spine fractures. Face CT revealed no acute posttraumatic changes. Evidence of prior mandibular surgery and repair. He is seen today in consultation in the emergency department. He is awake and alert in no acute distress. He has no pulmonary complaints. No shortness of breath, cough or congestion. No fever or chills. He is maintaining O2 saturations up to 100% on 3 L/min per nasal cannula. White count 8.4. Hemoglobin 9.3. Platelets 114. Sodium 137. Potassium 4.7. Bicarb 30. BUN 28. Creatinine 0.90. Glucose 144. Troponin 0.066. Procalcitonin 0.49. C-reactive protein 6.0. Urinalysis clean. Viral screen negative. Patient was evaluated today on 08/03/23, patient was admitted with mostly symptoms of falling, lightheadedness and dizziness, and his chest x-ray showed questionable pneumonia in the right lower lobe, procalcitonin level is elevated, patient was empirically placed on antibiotics, although his presentation was not a pulmonary presentation by any means, and he had no symptoms of pneumonia clinically upon his presentation. The findings on the CT of the chest and chest x-ray are nonspecific, but considering his procalcitonin level is elevated, I am recommending we continue antibiotics for now. The patient is basically about the same, again he has no active pulmonary symptoms but he has mostly symptoms of lightheadedness dizziness which are chronic symptoms. Patient had previous history of head and neck cancer, he had extensive radical surgery of the head and neck, chemotherapy and radiation completed in February 20, 2002 3. Labs today are basically unremarkable WBC count is normal hemoglobin is 9.4 basic metabolic profile is normal C-reactive protein is elevated at 23, procalcitonin is 0.49 Patient was reevaluated today on 08/04/2023, patient is doing great, relatively asymptomatic, sitting at the bedside chair, in no distress he denies any active pulmonary symptoms. No cough no wheezing no shortness of breath no fever no chills no hemoptysis and no chest pain. Patient is on room air, O2 sats is 94%, he is hemodynamically stable. CBC showed WBC count of 7.6 hemoglobin 8.3 basic metabolic profile is normal renal profile is normal his CRP was elevated and his procalcitonin level on admission was a bit elevated. Patient remains on antibiotics in the form of Rocephin. Again the patient does not have any symptoms of pneumonia at this point Objective - Vital Signs Vital signs: Vital Signs Temp 97.5 F L 08/04/23 08:00 Pulse 70 08/04/23 11:10 Resp 16 08/04/23 11:10 BP 109/65 08/04/23 11:10 Pulse Ox 94 L 08/04/23 11:10 FiO2 Intake & Output 08/03/23 08/04/23 08/04/23 18:59 06:59 18:59 Intake Total 120 240 120 Output Total 300 Balance 120 -60 120 Weight 79.379 kg Intake: Oral 120 240 120 Output: Urine 300 Other: Voiding Method Urinal Urinal Urinal - Exam GENERAL EXAM: Alert, pleasant 63-year-old male, on room air, not in any distress. HEAD: Changes of reconstructed mandible and right ear reconstruction. EYES: Normal reaction of pupils, equal size. NOSE: Clear with pink turbinates. THROAT: No erythema or exudates. NECK: No masses, no JVD. CHEST: No chest wall deformity. LUNGS: Equal air entry with no crackles, wheeze, rhonchi or dullness. CVS: S1 and S2 normal with no audible murmur, regular rhythm. ABDOMEN: No hepatosplenomegaly, normal bowel sounds, no guarding or rigidity. SPINE: No scoliosis or deformity SKIN: No rashes CENTRAL NERVOUS SYSTEM: No focal deficits, tone is normal in all 4 extremities. EXTREMITIES: Long scar up the left leg from previous surgery. There is no peripheral edema. Peripheral pulses are intact. - Labs CBC & Chem 7: 08/04/23 07:48 08/04/23 07:48 Labs: Abnormal Lab Results - Last 24 Hours (Table) 08/03/23 08/04/23 08/04/23 Range/Units 19:33 06:09 07:48 RBC 2.80 L (4.30-5.90) m/uL Hgb 8.3 L (13.0-17.5) gm/dL Hct 25.9 L (39.0-53.0) % RDW 15.7 H (11.5-15.5) % Plt Count 134 L (150-450) k/uL Chloride (98-107) mmol/L BUN (9-20) mg/dL Glucose (74-99) mg/dL POC Glucose (mg/dL) 197 H 161 H (70-110) mg/dL 08/04/23 08/04/23 Range/Units 07:48 11:56 RBC (4.30-5.90) m/uL Hgb (13.0-17.5) gm/dL Hct (39.0-53.0) % RDW (11.5-15.5) % Plt Count (150-450) k/uL Chloride 108 H (98-107) mmol/L BUN 28 H (9-20) mg/dL Glucose 126 H (74-99) mg/dL POC Glucose (mg/dL) 141 H (70-110) mg/dL Microbiology - Last 24 Hours (Table) 08/02/23 14:05 Blood Culture - Preliminary Blood 08/02/23 14:05 Blood Culture - Preliminary Blood Assessment and Plan Assessment: Impression: Atypical, possible aspiration pneumonia Acute falls with trauma to the right ankle secondary to dizziness, lightheadedness. CT scan of the head revealed no acute intracranial process. Symptoms of lightheadedness and dizziness are chronic. 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 requiring extensive radical surgery of the head and neck, chemotherapy and radiation therapy completed in February 2023 History of chewing tobacco Former smoker Abnormal CT of the chest and chest x-ray, questioning pneumonitis in the right lung, patient is an excellent set up for aspiration however he does have a PEG tube in place Acute hypoxic respiratory failure secondary to above Acute right distal fibula fracture secondary to falls Hyperlipidemia Chronic obstructive pulmonary disease Recommendation: Continue present course of treatment Continue antibiotics, pulmonary rutledge the patient is doing great, he has no active pulmonary symptoms. Eventually consider transitioning to oral antibiotics for 5 days total We will continue to follow Consider discharge planning if cleared by other consultants Time with Patient: Less than 30
--- NOTE | 2023-08-04 13:29 | P.PN ---
Subjective Progress Note Date: 08/04/23 ELEVATED TROPONINS, DIZZINESS History of present illness: History of present illness: This is a 63-year-old male patient of Dr. 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 Patient states that he has an done in May that revealed no cancer in his neck scheduled scan is in December. We have been asked to evaluate the patient for elevated troponins and dizziness. Patient states that he had a fall at home and then experienced excruciating pain to the right ankle. He denies having any chest pain or shortness of breath. He states he had some dizziness but no loss of consciousness. Patient states that he has had a weight loss of 40 pounds over the past year from his cancer. He does have a PEG tube for feedings. Patient seen today in the emergency center waiting for a bed on the cardiac stepdown unit. He is status post 2 L of IV fluid and has been started on IV Solu-Medrol and IV antibiotics. EKG sinus rhythm at ventricular rate of 77 bpm, #2 sinus rhythm ventricular rate of 101. Chest x-ray: Limited by patient positioning. Borderline heart size. Patchy atelectasis versus airspace disease at the right lower lung. CTA of the chest revealed scattered mild areas of pneumonitis bilaterally greater on the right. Small spiculated nodule in the right upper lung field. Differentiate diagnosis would include infectious etiologies or neoplasm. Consider atypical pneumonia within the differential. WBC 10.4, hemoglobin 9.4, platelet count 130. Sodium 141, potassium 4.3, chloride 108, CO2 27, BUN 21 and creatinine 0.62. Blood sugar 145. Troponins 0.146, 0.108, 0.066. Procalcitonin 0.49. Urinalysis negative. Influenza A, influenza B, RSV, COVID-19 not detected. Home cardiac medications: Potassium citrate 10 mill equivalents 3 times daily, Crestor 20 mg at bedtime. Cardiac catheterization history 11/2018. Left dominant system. Elevated filling pressures initially responded to intraventricular nitroglycerin. No gradient across the aortic valve. No significant CAD. Echocardiogram 09/2020 performed in the office revealed EF of 55%, moderate left- ventricular hypertrophy. Mild mitral digitation, mild tricuspid regurgitation. Pulmonary artery systolic pressure of 27 mmHg. 08/04 Patient is seen in follow-up today on the cardiac stepdown unit. He is complaining of feeling dizzy when he gets up and also shaking of his arms. Patient has been instructed to use a walker when he gets up and move. He denies having any chest pain. Blood pressure 109/65, heart rate in the 70s, pulse ox 94% on room air. Repeat blood work reveals hemoglobin of 8.3. Sodium 143, potassium 3.6, BUN 20 creatinine 0.72. Echocardiogram reveals EF of 55 to 60%, mild left ventricular dilation, RVSP 35, mild to moderate mitral regurgitation and mild to moderate tricuspid regurgitation. Echocardiogram results have been reviewed with the patient. Physical examination: Gen: This is a cachectic appearing 63-year-old male resting flat in bed and appears to be in no acute respiratory distress VS: reviewed heart rate 87, blood pressure 145/91, pulse ox 100% on 2 L nasal cannula. HEENT: Head is atraumatic, normocephalic. Pupils equal, round. Sclerae is ani cteric. NECK: Supple. No JVD. LUNGS: Clear to auscultation. No wheezes or rhonchi. No intercostal retractions. HEART: Regular rate and rhythm. No murmur. ABDOMEN: Soft No tenderness. EXTREMITIES: No pedal edema. No calf tenderness. NEUROLOGICAL: Patient is awake, alert and oriented x3. Assessment: Recurrent falls most likely due to orthostatic hypotension Elevated troponin of unclear significance, ACS ruled out Right ankle distal fibular fracture Possible pneumonia Recent right ear surgery Squamous cell carcinoma of the head and neck Hypertension Hyperlipidemia Hypothyroidism COPD Remote history of tobacco chewing Plan: Resume patient's home cardiac medications Further recommendations to follow based upon clinical course Nurse practitioner note has been reviewed, I agree with documented findings and plan of care. Patient was seen and examined. Objective - Vital Signs Vital signs: Vital Signs Temp 97.5 F L 08/04/23 08:00 Pulse 69 08/04/23 08:00 Resp 17 08/04/23 08:00 BP 103/58 08/04/23 08:00 Pulse Ox 98 08/04/23 08:00 FiO2 Intake & Output 08/03/23 08/04/23 08/04/23 18:59 06:59 18:59 Intake Total 120 240 Output Total 300 Balance 120 -60 Weight 79.379 kg Intake: Oral 120 240 Output: Urine 300 Other: Voiding Method Urinal Urinal - Labs CBC & Chem 7: 08/04/23 07:48 08/04/23 07:48 Labs: Abnormal Lab Results - Last 24 Hours (Table) 08/03/23 08/03/23 08/04/23 Range/Units 07:49 19:33 06:09 RBC (4.30-5.90) m/uL Hgb (13.0-17.5) gm/dL Hct (39.0-53.0) % RDW (11.5-15.5) % Plt Count (150-450) k/uL Chloride 108 H (98-107) mmol/L BUN 21 H (9-20) mg/dL Creatinine 0.62 L (0.66-1.25) mg/dL Glucose 145 H (74-99) mg/dL POC Glucose (mg/dL) 197 H 161 H (70-110) mg/dL C-Reactive Protein 23.1 H (<1.0) mg/dL 08/04/23 Range/Units 07:48 RBC 2.80 L (4.30-5.90) m/uL Hgb 8.3 L (13.0-17.5) gm/dL Hct 25.9 L (39.0-53.0) % RDW 15.7 H (11.5-15.5) % Plt Count 134 L (150-450) k/uL Chloride (98-107) mmol/L BUN (9-20) mg/dL Creatinine (0.66-1.25) mg/dL Glucose (74-99) mg/dL POC Glucose (mg/dL) (70-110) mg/dL C-Reactive Protein (<1.0) mg/dL Microbiology - Last 24 Hours (Table) 08/02/23 14:05 Blood Culture - Preliminary Blood 08/02/23 14:05 Blood Culture - Preliminary Blood
--- NOTE | 2023-08-04 14:50 | P.PN ---
Subjective Progress Note Date: 08/04/23 I am following-up with patient and he feels about the same. Objective - Vital Signs Vital signs: Vital Signs Temp 97.5 F L 08/04/23 08:00 Pulse 70 08/04/23 11:10 Resp 16 08/04/23 11:10 BP 109/65 08/04/23 11:10 Pulse Ox 94 L 08/04/23 11:10 FiO2 Intake & Output 08/03/23 08/04/23 08/04/23 18:59 06:59 18:59 Intake Total 120 240 120 Output Total 300 Balance 120 -60 120 Weight 79.379 kg Intake: Oral 120 240 120 Output: Urine 300 Other: Voiding Method Urinal Urinal Urinal - Exam GENERAL: The patient is lying in bed and is not in acute distress. HENT: Has bruise over the right side of face and has old scar over the right jaw/neck region. NEUROLOGICAL: Higher mental function: The patient is awake, alert, oriented to self, place and time. Patient is following commands. No aphasia and no neglect. Cranial nerves: The pupils are round, equal and reactive to light and accommodation. Visual rice are full to confrontation throughout. Extraocular movement is intact no nystagmus is noted. Facial sensation is normal to touch throughout. The facial strength: Has right lower and upper facial weakness (patient stated has his nerve affected from cancer/surgery). Hearing is normal bilaterally to hand rub. Tongue is midline and moved [id number] without any difficulty. No dysarthria is noted. Shoulder shrug is normal bilaterally. Motor: The strength is 5 over 5 throughout. Slight atrophy in hypothenar region bilaterally. Normal tone and bulk. Cerebellum: Normal finger to nose bilaterally. Sensation: Sensation is normal to touch throughout. Reflexes (right/left): 2+ uppers while lowers are 1+. Plantars are mute bilaterally. Some of the workup during his hospital visit consisted of: Sodium is 137, creatinine is 0.90, calcium is 9.1, magnesium is 1.9, troponin is 0.146. Plasma lactic acid venous 2.1 CT of the head is reported as mild atrophy, stable from comparison. No acute intracranial processes. Follow-up MRI can be performed as clinically indicated. I personally reviewed the CT head and I agree there is no acute or subacute ischemia. There is no bleed. CT cervical spine is reported as mild to moderate for maternal narrowing throughout the cervical spine. No acute osseous abnormality. Follow-up can be performed as clinically indicated. EKG is reported as sinus rhythm. TSH is 6.080 and free T4 is 1.24 in February 2023 Routine EEG: The background slowing is suggestive of mild encephalopathy. Otherwise, there is no focal slowing, epileptiform discharge or seizure on the EEG. - Labs CBC & Chem 7: 08/04/23 07:48 08/04/23 07:48 Labs: Abnormal Lab Results - Last 24 Hours (Table) 08/03/23 08/04/23 08/04/23 Range/Units 19:33 06:09 07:48 RBC 2.80 L (4.30-5.90) m/uL Hgb 8.3 L (13.0-17.5) gm/dL Hct 25.9 L (39.0-53.0) % RDW 15.7 H (11.5-15.5) % Plt Count 134 L (150-450) k/uL Chloride (98-107) mmol/L BUN (9-20) mg/dL Glucose (74-99) mg/dL POC Glucose (mg/dL) 197 H 161 H (70-110) mg/dL 08/04/23 08/04/23 Range/Units 07:48 11:56 RBC (4.30-5.90) m/uL Hgb (13.0-17.5) gm/dL Hct (39.0-53.0) % RDW (11.5-15.5) % Plt Count (150-450) k/uL Chloride 108 H (98-107) mmol/L BUN 28 H (9-20) mg/dL Glucose 126 H (74-99) mg/dL POC Glucose (mg/dL) 141 H (70-110) mg/dL Microbiology - Last 24 Hours (Table) 08/02/23 14:05 Blood Culture - Preliminary Blood 08/02/23 14:05 Blood Culture - Preliminary Blood Assessment and Plan Assessment: This is a 63-year-old gentleman with history of Hodgkin lymphoma status post resection with residual right facial palsy, chemotherapy and radiation therapy who was having recurrent dizziness with falls for the last 10 year progressively getting worse. He notes that happens predominantly when he tries to get up and walk around and he feels he is having abnormal shaking tremors but does not lose consciousness. At times when he is resting or have abnormal tremor or jerks. No official diagnosis of seizure in the past. Recurrent dizziness with falls with abnormal body tremor and jerks: One of the ventral as seizure. Also cannot rule outs the recurrent falls and dizziness is due to dysfunction of the carotids baroreceptor result from history of cancer status post resection with chemoradiation therapy. EEG is no seizure or discharges. History of Hodgkins lymphoma status post resection with residual right facial palsy she had history of chemotherapy and radiation therapy Plan: pending MRI of the brain with and without to rule out any brain metastases. I agree with orthostatic vitals. Started the patient prophylactically on Keppra 750 mg twice a day for concern of possible seizures. I notified the patient and his [id number] about the side effects of the Keppra about behavioral/mood. Cardiology is consulted I recommend the patient to continue follow-up with his oncologist as outpatient I notified the patient that I would recommend him not to reside by himself especially with recurrent episode of falls. He follows up with Dr. Joe for his pain/neck issues and the eye notified them that too also to dress these tremors body jerks as well as an outpatient. We'll defer the rest of the medical management to the primary and other specialists The plan is discussed with patient and his nurse. Time with Patient: Less than 30
[2023-08-04 16:32] LABS: Glucose,Whole Blood 132 mg/dL (70-110)
[2023-08-04 20:26] LABS: Glucose,Whole Blood 107 mg/dL (70-110)
[2023-08-05 05:41] LABS: Glucose,Whole Blood 162 mg/dL (70-110)
--- NOTE | 2023-08-05 09:40 | CDI ---
Documentation Clarification Form Date: 08/05/2023 08:40:21 AM From: Leandra Chung RN CCDS Phone: [phone] Admit Date: 08/02/2023 01:20:00 PM Patient Name: Daniel Velazquez Visit Number: [id number] Discharge Date: ATTENTION: The Clinical Documentation Specialists (CDI) and [facility] Coding Staff appreciate your assistance in clarifying documentation. Please respond to the clarification below the line at the bottom and electronically sign. The CDI & [facility] Coding staff will review the response and follow-up if needed. Please note: Queries are made part of the Legal Health Record. If you have any questions, please contact the author of this message via ITS. Dr. Harini Hagen Sepsis is documented 08/02, H&P and 08/03 08/04 Medicine Notes which may lack sufficient clinical evidence/support in the medical record. Additional clarification is requested. History/Risk Factors: 63-year-old Male presents to the ED for dizziness and falls. Patient presented with hypotension and elevated lactate levels. Medical History: Asthma, HTN, OA, Pneumonia and Hodgkins Lymphoma. 08/02, H&P. Clinical Indicators: Admitting Diagnosis: Acute hypoxic respiratory failure with asthma exacerbation. Multifocal pneumonia, Sepsis seconday to underlying pneumonia. 08/02, H&P. VSS, 08/02: B/P 103/58, HR 98, Temp 98.4 F Axillary, RR 18, SpO2 96% room air Labs, 08/02: Wbc 8.4, Hgb 9.3, Plt Count 114, Lymphocyte 0.3, Lactic Acid 2.1, CRP 6.0, Procalcitonin 0.49. Blood Culture, 08/04: No growth after 48 hours CXR, 08/02: Borderline Heart size. Patchy atelectasis vs airspace disease at the right lower lung. CTA Chest, 08/02: Scattered mild areas of pneumonitis change in infiltrates bilaterally greater on the right. There maybe a small speculated nodule in the right upper lung filed. Pulmonary consult, 08/02: We are seeing him for questionable pneumonia, the procalcitonin level is 0.49, clinically however the patient does not have the classic symptoms of pneumonia continue antibiotics for the time being. ID consult, 08/02: Chest xray and confirmed on the CT angiogram of the chest concerning for pneumonia patient did have mild hypoxemia. Treatment: 08/02 0.9NS 1L IV Bolus, 08/02 Tylenol 650mg PO TID LASHONDA, 08/02 Azithromycin 500mg IVPB x 1, 08/03 Zithromax 500mg PO Daily x 2 doses, 08/02 Ceftriaxone IVP x 1, 08/03 Ceftriaxone 2gm IVPB Q24H LASHONDA x 4 bags, After work up and study, please clarify which diagnosis is most appropriate? [ ] Sepsis ruled out [ y ] Sepsis is a valid diagnosis as evidence by the following: (Please add rationale): [ ] Other, please specify [ ] Unable to determine SIRS Criteria: 2 or more of the following may indicate SIRS Temperature < 96.8F (36C) or > 101.0F (38.3C) Heart Rate > 90 bpm Respiratory Rate > 20 breaths/min or PaCO2 < 32 mmHg White Blood Cell Count > 12,000 or < 4,000 cells/mm3 or > 10% bands (Template Last Revised: August 2020) MTDD
--- NOTE | 2023-08-05 10:03 | CDI ---
Documentation Clarification Form Date: 08/05/2023 09:41:14 AM From: Leandra Chung RN CCDS Phone: [phone] Admit Date: 08/02/2023 01:20:00 PM Patient Name: Daniel Velazquez Visit Number: [id number] Discharge Date: ATTENTION: The Clinical Documentation Specialists (CDI) and [facility] Coding Staff appreciate your assistance in clarifying documentation. Please respond to the clarification below the line at the bottom and electronically sign. The CDI & [facility] Coding staff will review the response and follow-up if needed. Please note: Queries are made part of the Legal Health Record. If you have any questions, please contact the author of this message via ITS. Dr. Harini Hagen The Registered Dietitian assessment on 08/03 indicates this patient meets criteria for [insert malnutrition dx & severity]. Based on this information and the findings below, is there an additional diagnosis that is clinically appropriate for this patient? History/Risk Factors: 63-year-old Male presents to the ED for dizziness and falls. Patient presented with hypotension and elevated lactate levels. Medical History: Asthma, HTN, OA, Pneumonia, Tube feeding and Hodgkins Lymphoma. 08/02, H&P Clinical Indicators: RD Consult Assessment: Current BMI: 22.5kg Wgt 86.183kg Hgt 6ft 2inch Nutritional Assessment: Intake Poor, percent consumed 0-25%, Heart healthy diet. Concerns: Teeth extraction, no dentures. Poor appetite. Estimated Nutritional Needs: Estimated Energy in Kcal [id number], Energy Formula 30-35 Kcals/kg CHO: 490grams Estimated Protein Needs: Protein range 1.3 grams/kg. Protein needs 112 grams/day Estimated Fluid Needs: Fluid formula 1ml/kcal, Estimated fluid needs 2584 mls/day Less than optimal enteral nutrition composition or modality. Related to: Catabolic illness, likely impaired chewing and swallowing. EN on hold for hospitalization. Treatment: Monitoring PO Intake, Monitoring TPN and goal. Education on Nutrition TPN: Jevity 1.5 at 75mls/hr. Start at 40ml/hr and increase by 10-20ml/hr every 8 hours as tolerated. Is there an additional diagnosis that is clinically appropriate for this patient? [ ] Mild Protein-Calorie Malnutrition [ ] Moderate Protein-Calorie Malnutrition [y ] Severe Protein-Calorie Malnutrition [ ] No additional diagnosis/Not clinically significant [ ] Other condition, please specify [ ] Unable to Determine In responding to this query, please exercise your independent professional judgment. The [facility] Coding Staff and Clinical Documentation Specialists appreciate your assistance in clarifying documentation, maintaining compliance with coding guidelines, accurately documenting patients condition and capturing severity of illness. The fact that a question is asked does not imply that any particular answer is desired or expected. Communication forms are a method of clarifying documentation and are made part of the Legal Health Record. Thank you in advance for your clarification. Last Reviewed December 2022 Reference: Using the ASPEN Guidelines, Undernutrition (Malnutrition) is characterized by at least two of the following six findings. The severity can be determined based on the criteria listed below. Malnutrition Characteristics for Moderate and Severe Malnutrition Type of Malnutrition Acute Illness or Injury Chronic Illness Degree of Malnutrition Non-severe (moderate) Malnutrition Severe Malnutrition Non-severe (moderate) Malnutrition Severe Malnutrition Energy Intake <75% for >7 days = 50% for = 5 days <75% for = 1 month =75% for = 1 month Weight Loss 1-2% in one week, 5% in 1 month, 7.5% in 3 months 2% in one week, >5% in 1 month, >7.5% in 3 months 5% in one month, 7.5% in 3 months, 10% in 6 months, 20% in 1 year >5% in one month, >7.5% in 3 months, >10% in 6 months, >20% in 1 year Body Fat Wasting Mild Moderate Mild Severe Muscle Wasting Mild Moderate Mild Severe Presence of Edema Mild Moderate to Severe Mild 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 Consensus statement: Academy of Nutrition and Dietetics and [place] Society for Parenteral and Enteral Nutrition: characteristics recommended for the identification and documentation of adult malnutrition (undernutrition).JPEN J Parenter Enteral Nutr. 2012;36(3):275-283. (Template Last Revised: December 2022) MTDD
[2023-08-05 11:03] LABS: African American GFR (CKD) >90 (>60 ml/min/1.73 sqM); Anion Gap 4 mmol/L; Blood Urea Nitrogen 35 mg/dL (9-20); Calcium 8.6 mg/dL (8.4-10.2); Carbon Dioxide 29 mmol/L (22-30); Chloride 109 mmol/L (98-107); Glucose 89 mg/dL (74-99); Non-African American GFR(CKD) >90 (>60 ml/min/1.73 sqM); Sodium 142 mmol/L (137-145)
[2023-08-05 11:13] LABS: Potassium 5.2 mmol/L (3.5-5.1)
--- NOTE | 2023-08-05 11:20 | MR ---
EXAMINATION TYPE: MR brain wo/w con DATE OF EXAM: 08/05/2023 9:30 AM CLINICAL INDICATION:Male, 63 years old with history of seizure; COMPARISON: CT 08/02/2023, 07/08/2023. TECHNIQUE: Multi planar, multi sequence imaging was performed through the brain including: T1, T2, In version recovery, susceptibility weighted imaging and gradient echo imaging and Diffusion weighted im aging. The patient was then given intravenous contrast and multi planar, T1 fat-saturation images wer e obtained. IV Contrast: 8 cc Gadavist FINDINGS: The vale-white junctions, ventricular system, basal cisterns appear unremarkable. Diffusion-weighted imaging shows no evidence of restricted diffusion to suggest acute/subacute infarct. Intracranial ar terial flow voids are maintained. Midline structures show no abnormality. Scattered foci of high T2 s ignal intensity are seen within the periventricular white matter. The susceptibility weighted images do not reveal any evidence for micro-hemorrhage. After administration of gadolinium, no intra-axial/i ntracranial abnormal enhancement is seen. The bone marrow signal is within normal limits. Paranasal sinuses and mastoid air cells: High T2 signal within the right mastoid air cell and right m iddle ear as seen on prior CT. Postsurgical changes to the right mandible. Subcutaneous gas is presen t in the surgical bed of the right fixation hardware on the CT 08/02/2023. Streaky edema is high T2 si gnal is seen throughout the right contract lead space and around the right eye. Visualized orbits: Orbital contents are intact. IMPRESSION: 1. No evidence of intracranial mass, acute/subacute infarct, or abnormal enhancement. 2. Findings for infection around the right mandible with subcutaneous gas seen on 08/02/2023 CT. There is phlegmonous change present. Additionally there is right middle ear effusion and right mastoid air cell effusion concerning for otomastoiditis. 3. Nonspecific white matter changes, likely related to small vessel ischemic disease.
[2023-08-05 11:24] LABS: C Reactive Protein 5.1 mg/dL (<1.0)
[2023-08-05 11:44] LABS: Glucose,Whole Blood 135 mg/dL (70-110)
--- NOTE | 2023-08-05 11:58 | P.PN ---
Subjective Progress Note Date: 08/05/23 * 63-year-old patient with past medical history significant for hyperlipidemia, osteoarthritis, hypertension, history of Hodgkin lymphoma 1983 s/p chemo and radiation, history of dizziness and recurrent falls, history of asthma, thyroid disorder degenerative disease of spine, per patient hx of oral cancer presents to the emergency department after episode of dizziness and recurrent falls. Patient states he has been living by herself and for the last 4 weeks has been having multiple episodes of dizziness. * patient unable to differentiate between the room spinning around or dizziness once this changes exposure. Patient states that 1 day prior he fell about 4 times. Patient states he felt as if the right ankle popped. He has been complaining of pain as well he denies hitting his head. * At the time of presentation in ER patient was noted to be hypotensive with elevated lactate levels, serum chemistry obtained showed WBC 8.4 hemoglobin 9.8 platelet 240 * INR obtained within normal limits, serum chemistry sodium 137 potassium 4.1 BUN 28 creatinine 0.9 lactate of 2.1, patient given fluid bolus follow-up lactate 1.3 * Patient was noted to have troponin of 0.146, followed by 0.10 with, CRP of 6 * Workup in the ER included CT head, cervical spine CT face CT angio chest * CT head and cervical spine negative for acute intracranial process, CT cervical spine does show anterior cervical fusion C4-C7, disc space narrowing noted at C7-T1 * CT chest does show scattered pneumonitis changes more on the right as compared to left multiple small spiculated nodule noted atypical infection suspected * CT of the face negative for posttraumatic changes, no fracture noted * Urinalysis negative, patient tested negative for influenza RSV and COVID * 08/03/2023: Patient seen and evaluated at bedside, patient in emergency department room 24, patient blood work reviewed hemoglobin 9.4 platelet 130. Venous blood gas shows CO2 of 53. Serum chemistry showed creatinine of 0.62, CRP of 23. Nutrition to be started dietitian consulted * 08/04/2023: Patient seen and evaluated bedside, patient states he is feeling better. Patient started on tube feeds. Blood work reviewed patient on room air, CBC WBC within normal limits hemoglobin 8.3 platelet 134. Serum chemistry sodium 143 potassium 3.6 glucose 141 CRP 23 will follow-up * 08/05/2023: Patient seen and evaluated bedside, during my evaluation patient states her breathing has improved, dizziness has resolved, MRI brain completed negative for intracranial mass infarct, findings for infection around the right mandible with subcutaneous gas, right middle ear effusion noted as well concern for otomastoiditis. We will consult oral surgery while inpatient patient already has an appointment with his surgeon next week will discuss this with infectious disease. At this time clinically patient has improved REVIEW OF SYSTEMS: Dizziness, recurrent falls, right ankle pain improved CONSTITUTIONAL: No fever, no malaise, no fatigue. HEENT: No recent visual problems or hearing problems. Denied any sore throat. CARDIOVASCULAR: No chest pain, orthopnea, PND, no palpitations, no syncope. PULMONARY: No shortness of breath, no cough, no hemoptysis. GASTROINTESTINAL: No diarrhea, no nausea, no vomiting, no abdominal pain. NEUROLOGICAL: No headaches, no weakness, no numbness. HEMATOLOGICAL: Denies any bleeding or petechiae. GENITOURINARY: Denies any burning micturition, frequency, or urgency. MUSCULOSKELETAL/RHEUMATOLOGICAL: Denies any joint pain, swelling, or any muscle pain. ENDOCRINE: Denies any polyuria or polydipsia. PHYSICAL EXAMINATION: GENERAL: The patient is alert and oriented x3, nasal cannula in place HEENT: Pupils are round and equally reacting to light stitches noted right periauricular area, abrasion noted on chin, CARDIOVASCULAR: S1 and S2 present. No murmurs, rubs, or gallops. PULMONARY: Decreased breath sounds bilaterally ABDOMEN: Soft, nontender, nondistended, normoactive bowel sounds. Tube in place MUSCULOSKELETAL: Point tenderness right lower extremity EXTREMITIES: No cyanosis, clubbing, or pedal edema. NEUROLOGICAL: Appears at baseline, right-sided facial palsy chronically present noted Objective - Vital Signs Vital signs: Vital Signs Temp 97.9 F 08/05/23 07:30 Pulse 60 08/05/23 08:20 Resp 16 08/05/23 08:20 BP 100/44 08/05/23 07:30 Pulse Ox 96 08/05/23 07:30 FiO2 Intake & Output 08/04/23 08/05/23 08/05/23 18:59 06:59 18:59 Intake Total 120 240 Output Total 100 Balance 120 140 Intake: Oral 120 240 Output: Urine 100 Other: Voiding Method Urinal Urinal Urinal - Labs CBC & Chem 7: 08/04/23 07:48 08/05/23 10:12 Labs: Abnormal Lab Results - Last 24 Hours (Table) 08/04/23 08/04/23 08/05/23 Range/Units 11:56 16:30 05:40 Potassium (3.5-5.1) mmol/L Chloride (98-107) mmol/L BUN (9-20) mg/dL Creatinine (0.66-1.25) mg/dL POC Glucose (mg/dL) 141 H 132 H 162 H (70-110) mg/dL C-Reactive Protein (<1.0) mg/dL 08/05/23 08/05/23 Range/Units 10:12 11:43 Potassium 5.2 H (3.5-5.1) mmol/L Chloride 109 H (98-107) mmol/L BUN 35 H (9-20) mg/dL Creatinine 0.61 L (0.66-1.25) mg/dL POC Glucose (mg/dL) 135 H (70-110) mg/dL C-Reactive Protein 5.1 H (<1.0) mg/dL Microbiology - Last 24 Hours (Table) 08/02/23 14:05 Blood Culture - Preliminary Blood 08/02/23 14:05 Blood Culture - Preliminary Blood Assessment and Plan Assessment: Assessment and plan * Acute hypoxic respiratory failure with asthma exacerbation * Multifocal pneumonia * Sepsis secondary to underlying pneumonia * 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 In regards to asthma exacerbation continue patient on breathing treatment,pulmonary medicine consulted * In regards to elevated troponin, cardiology consulted, serial troponins elevated, cardiology recommendations appreciated * Regards to sepsis continue patient on fluid resuscitation lactate levels normalized, blood cultures no growth, continue Rocephin day 3, azithromycin completed * In regards to dizziness as needed meclizine , neurology consulted, MRI brain negative for stroke, right otomastoiditis noted, changes postoperatively noted, EEG negative for seizure * In regards to oblique fracture of the distal phalanx and fibula fracture Ortho consulted, recommend conservative management brace ordered * In regards to oropharyngeal dysphagia continue nutrition to tube feeds * CODE STATUS is full code * Physical therapy Occupational Therapy consulted Time with Patient: Greater than 30
[2023-08-05] MEDS: FLUDROCORTISONE 0.1 MG TAB PO SCH (12:17)
[2023-08-05] MEDS: SODIUM ZIRCONIUM CYCLOSILICATE 10 GM PACKET PO ONE (12:17)
--- NOTE | 2023-08-05 12:48 | P.PN ---
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 On today's evaluation that is 08/05/2023,the patient remains to be afebrile, patient is on room air not requiring supplemental oxygen and denies any shortness of breath no chest pain or cough.Patient denies having any nausea or vomiting, no abdominal pain and no diarrhea has been reported, feeling better no new symptoms. Patient did have a creatinine 0.61 blood culture has been negative Objective - Vital Signs Vital signs: Vital Signs Temp 97.4 F L 08/05/23 11:58 Pulse 63 08/05/23 11:58 Resp 16 08/05/23 11:58 BP 103/65 08/05/23 11:58 Pulse Ox 98 08/05/23 12:31 FiO2 Intake & Output 08/04/23 08/05/23 08/05/23 18:59 06:59 18:59 Intake Total 120 240 Output Total 100 Balance 120 140 Intake: Oral 120 240 Output: Urine 100 Other: Voiding Method Urinal Urinal Urinal - Exam GENERAL DESCRIPTION: An elderly male lying in bed in no distress RESPIRATORY SYSTEM: Unlabored breathing , decreased breath sounds at bases HEART: S1 S2 regular rate and rhythm , ABDOMEN: Soft , no tenderness EXTREMITIES: No edema feet - Labs CBC & Chem 7: 08/04/23 07:48 08/05/23 10:12 Labs: Abnormal Lab Results - Last 24 Hours (Table) 08/04/23 08/05/23 08/05/23 Range/Units 16:30 05:40 10:12 Potassium 5.2 H (3.5-5.1) mmol/L Chloride 109 H (98-107) mmol/L BUN 35 H (9-20) mg/dL Creatinine 0.61 L (0.66-1.25) mg/dL POC Glucose (mg/dL) 132 H 162 H (70-110) mg/dL C-Reactive Protein 5.1 H (<1.0) mg/dL 08/05/23 Range/Units 11:43 Potassium (3.5-5.1) mmol/L Chloride (98-107) mmol/L BUN (9-20) mg/dL Creatinine (0.66-1.25) mg/dL POC Glucose (mg/dL) 135 H (70-110) mg/dL C-Reactive Protein (<1.0) mg/dL Microbiology - Last 24 Hours (Table) 08/02/23 14:05 Blood Culture - Preliminary Blood 08/02/23 14:05 Blood Culture - Preliminary Blood Assessment and Plan (1) Atypical pneumonia Current Visit: Yes Status: Acute Code(s): J18.9 - PNEUMONIA, UNSPECIFIED ORGANISM SNOMED Code(s): 851933891 Plan: 1patient presented to hospital with dizziness weakness and did have a fall leading to the right ankle fracture patient also have some patient did have infiltrate on the chest x-ray and confirmed on the CT angiogram of the chest concerning for pneumonia patient did have mild hypoxemia 2-patient did have elevated CRP procalcitonin, blood cultures were negative 3-patient did have some clinical improvement patient to with the Rocephin and Zithromax and hopefully finish therapy with oral antibiotics Dictation was produced using [employer] dictation software. please excuse any grammatical, word or spelling errors. Time with Patient: Less than 30
[2023-08-05 13:20] LABS: HCT 25.9 % (39.0-53.0); HGB 8.5 gm/dL (13.0-17.5); Hypochromasia Slight; MCH 30.4 pg (25.0-35.0); MCHC 32.9 g/dL (31.0-37.0); MCV 92.3 fL (80.0-100.0); Mean Platelet Volume 8.5; Platelet Count 125 k/uL (150-450); RBC 2.81 m/uL (4.30-5.90); RDW 15.6 % (11.5-15.5); WBC 7.1 k/uL (3.8-10.6)
--- NOTE | 2023-08-05 13:28 | P.PN ---
Subjective Progress Note Date: 08/05/23 ELEVATED TROPONINS, DIZZINESS History of present illness: History of present illness: This is a 63-year-old male patient of Dr. 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 Patient states that he has an done in May that revealed no cancer in his neck scheduled scan is in December. We have been asked to evaluate the patient for elevated troponins and dizziness. Patient states that he had a fall at home and then experienced excruciating pain to the right ankle. He denies having any chest pain or shortness of breath. He states he had some dizziness but no loss of consciousness. Patient states that he has had a weight loss of 40 pounds over the past year from his cancer. He does have a PEG tube for feedings. Patient seen today in the emergency center waiting for a bed on the cardiac stepdown unit. He is status post 2 L of IV fluid and has been started on IV Solu-Medrol and IV antibiotics. EKG sinus rhythm at ventricular rate of 77 bpm, #2 sinus rhythm ventricular rate of 101. Chest x-ray: Limited by patient positioning. Borderline heart size. Patchy atelectasis versus airspace disease at the right lower lung. CTA of the chest revealed scattered mild areas of pneumonitis bilaterally greater on the right. Small spiculated nodule in the right upper lung field. Differentiate diagnosis would include infectious etiologies or neoplasm. Consider atypical pneumonia within the differential. WBC 10.4, hemoglobin 9.4, platelet count 130. Sodium 141, potassium 4.3, chloride 108, CO2 27, BUN 21 and creatinine 0.62. Blood sugar 145. Troponins 0.146, 0.108, 0.066. Procalcitonin 0.49. Urinalysis negative. Influenza A, influenza B, RSV, COVID-19 not detected. Home cardiac medications: Potassium citrate 10 mill equivalents 3 times daily, Crestor 20 mg at bedtime. Cardiac catheterization history 11/2018. Left dominant system. Elevated filling pressures initially responded to intraventricular nitroglycerin. No gradient across the aortic valve. No significant CAD. Echocardiogram 09/2020 performed in the office revealed EF of 55%, moderate left- ventricular hypertrophy. Mild mitral digitation, mild tricuspid regurgitation. Pulmonary artery systolic pressure of 27 mmHg. 08/04 Patient is seen in follow-up today on the cardiac stepdown unit. He is complaining of feeling dizzy when he gets up and also shaking of his arms. Patient has been instructed to use a walker when he gets up and move. He denies having any chest pain. Blood pressure 109/65, heart rate in the 70s, pulse ox 94% on room air. Repeat blood work reveals hemoglobin of 8.3. Sodium 143, potassium 3.6, BUN 20 creatinine 0.72. Echocardiogram reveals EF of 55 to 60%, mild left ventricular dilation, RVSP 35, mild to moderate mitral regurgitation and mild to moderate tricuspid regurgitation. Echocardiogram results have been reviewed with the patient. 08/05 Patient denies any new concerns. His blood pressure remains on the lower side 103/65, heart rate 60s, pulse ox 98 % on room air. Repeat blood work reveals WBC 7.1, hemoglobin 8.5, platelet count 125. Potassium 5.2, chloride 109, sodium 142. BUN 35 creatinine 0.61. Physical examination: Gen: This is a cachectic appearing 63-year-old male resting flat in bed and appears to be in no acute respiratory distress VS: reviewed HEENT: Head is atraumatic, normocephalic. Pupils equal, round. Sclerae is a nicteric. NECK: Supple. No JVD. LUNGS: Clear to auscultation. No wheezes or rhonchi. No intercostal retractions. HEART: Regular rate and rhythm. No murmur. ABDOMEN: Soft No tenderness. EXTREMITIES: No pedal edema. No calf tenderness. NEUROLOGICAL: Patient is awake, alert and oriented x3. Assessment: Recurrent falls most likely due to orthostatic hypotension Elevated troponin of unclear significance, ACS ruled out Right ankle distal fibular fracture Possible pneumonia Recent right ear surgery Squamous cell carcinoma of the head and neck Hypertension Hyperlipidemia Hypothyroidism COPD Remote history of tobacco chewing Plan: Continue current cardiac medications Add Florinef 0.1 mg daily Patient is cleared for discharge from cardiology and may follow-up with Dr. SHAYY Garcia in 1 to 2 weeks. Nurse practitioner note has been reviewed, I agree with documented findings and plan of care. Patient was seen and examined. Objective - Vital Signs Vital signs: Vital Signs Temp 97.9 F 08/05/23 07:30 Pulse 60 08/05/23 07:30 Resp 16 08/05/23 07:30 BP 100/44 08/05/23 07:30 Pulse Ox 96 08/05/23 07:30 FiO2 Intake & Output 08/04/23 08/05/23 08/05/23 18:59 06:59 18:59 Intake Total 120 240 Output Total 100 Balance 120 140 Intake: Oral 120 240 Output: Urine 100 Other: Voiding Method Urinal Urinal Urinal - Labs CBC & Chem 7: 08/05/23 12:52 08/05/23 10:12 Labs: Abnormal Lab Results - Last 24 Hours (Table) 08/04/23 08/04/23 08/05/23 Range/Units 11:56 16:30 05:40 POC Glucose (mg/dL) 141 H 132 H 162 H (70-110) mg/dL Microbiology - Last 24 Hours (Table) 08/02/23 14:05 Blood Culture - Preliminary Blood 08/02/23 14:05 Blood Culture - Preliminary Blood
--- NOTE | 2023-08-05 14:02 | P.PN ---
Subjective Progress Note Date: 08/05/23 Principal diagnosis: Acute fall with trauma to right ankle secondary to dizziness and lightheadedness, possible pneumonia This is a pleasant 63-year-old male patient with a known history of Hodgkin's lymphoma treated back in 1982, hyperlipidemia, hypertension, hypothyroidism, fo rmer smoker and previous chewing tobacco. In November of last year he was diagnosed with oral cancer. He had gone on to have radical surgery requiring bone grafting from his left tibial/fibula, chemotherapy and radiation therapy completed in February 2023. He had some reconstruction last week around his right ear from the previous grafting. The past several days he has been having increased dizziness and lightheadedness and has been falling down. He is also finding himself with jerking motions prior to the falls. He denies any history of seizures. He does have a PEG tube in place for feedings. Denies any aspiration. Chest x-ray revealed patchy atelectasis versus airspace disease in the right lower lung. CT scanning of the chest revealed scattered mild areas of pneumonitis and infiltrates bilaterally greater on the right. There may be a small spiculated nodule in the right upper lung field. He was found to have an oblique fracture of the proximal portion of the distal flanks with intra articular extension of the right foot which he hurt during his fall. CT scan of the brain and C-spine revealed no acute intracranial process. No cervical spine fractures. Face CT revealed no acute posttraumatic changes. Evidence of prior mandibular surgery and repair. He is seen today in consultation in the emergency department. He is awake and alert in no acute distress. He has no pulmonary complaints. No shortness of breath, cough or congestion. No fever or chills. He is maintaining O2 saturations up to 100% on 3 L/min per nasal cannula. White count 8.4. Hemoglobin 9.3. Platelets 114. Sodium 137. Potassium 4.7. Bicarb 30. BUN 28. Creatinine 0.90. Glucose 144. Troponin 0.066. Procalcitonin 0.49. C-reactive protein 6.0. Urinalysis clean. Viral screen negative. Patient was evaluated today on 08/03/23, patient was admitted with mostly symptoms of falling, lightheadedness and dizziness, and his chest x-ray showed questionable pneumonia in the right lower lobe, procalcitonin level is elevated, patient was empirically placed on antibiotics, although his presentation was not a pulmonary presentation by any means, and he had no symptoms of pneumonia clinically upon his presentation. The findings on the CT of the chest and chest x-ray are nonspecific, but considering his procalcitonin level is elevated, I am recommending we continue antibiotics for now. The patient is basically about the same, again he has no active pulmonary symptoms but he has mostly symptoms of lightheadedness dizziness which are chronic symptoms. Patient had previous history of head and neck cancer, he had extensive radical surgery of the head and neck, chemotherapy and radiation completed in February 20, 2002 3. Labs today are basically unremarkable WBC count is normal hemoglobin is 9.4 basic metabolic profile is normal C-reactive protein is elevated at 23, procalcitonin is 0.49 Patient was reevaluated today on 08/04/2023, patient is doing great, relatively asymptomatic, sitting at the bedside chair, in no distress he denies any active pulmonary symptoms. No cough no wheezing no shortness of breath no fever no chills no hemoptysis and no chest pain. Patient is on room air, O2 sats is 94%, he is hemodynamically stable. CBC showed WBC count of 7.6 hemoglobin 8.3 basic metabolic profile is normal renal profile is normal his CRP was elevated and his procalcitonin level on admission was a bit elevated. Patient remains on antibiotics in the form of Rocephin. Again the patient does not have any symptoms of pneumonia at this point Reevaluate today on 08/05/2023, patient continues to do well from the pulmonary perspective, remains on antibiotics, mostly because he had slightly elevated procalcitonin level, clinically does not have symptoms to suggest pneumonia but the CT of the chest is showing possible pneumonitis. Patient had a brain MRI today, results of which are pending. Objective - Vital Signs Vital signs: Vital Signs Temp 97.4 F L 08/05/23 11:58 Pulse 63 08/05/23 11:58 Resp 16 08/05/23 11:58 BP 103/65 08/05/23 11:58 Pulse Ox 98 08/05/23 12:31 FiO2 Intake & Output 08/04/23 08/05/23 08/05/23 18:59 06:59 18:59 Intake Total 120 240 Output Total 100 Balance 120 140 Intake: Oral 120 240 Output: Urine 100 Other: Voiding Method Urinal Urinal Urinal - Exam GENERAL EXAM: Alert, pleasant 63-year-old male, on room air, not in any distress. HEAD: Changes of reconstructed mandible and right ear reconstruction. EYES: Normal reaction of pupils, equal size. NOSE: Clear with pink turbinates. THROAT: No erythema or exudates. NECK: No masses, no JVD. CHEST: No chest wall deformity. LUNGS: Equal air entry with no crackles, wheeze, rhonchi or dullness. CVS: S1 and S2 normal with no audible murmur, regular rhythm. ABDOMEN: No hepatosplenomegaly, normal bowel sounds, no guarding or rigidity. SPINE: No scoliosis or deformity SKIN: No rashes CENTRAL NERVOUS SYSTEM: No focal deficits, tone is normal in all 4 extremities. EXTREMITIES: Long scar up the left leg from previous surgery. There is no peripheral edema. Peripheral pulses are intact. - Labs CBC & Chem 7: 08/05/23 12:52 08/05/23 10:12 Labs: Abnormal Lab Results - Last 24 Hours (Table) 08/04/23 08/05/23 08/05/23 Range/Units 16:30 05:40 10:12 RBC (4.30-5.90) m/uL Hgb (13.0-17.5) gm/dL Hct (39.0-53.0) % RDW (11.5-15.5) % Plt Count (150-450) k/uL Potassium 5.2 H (3.5-5.1) mmol/L Chloride 109 H (98-107) mmol/L BUN 35 H (9-20) mg/dL Creatinine 0.61 L (0.66-1.25) mg/dL POC Glucose (mg/dL) 132 H 162 H (70-110) mg/dL C-Reactive Protein 5.1 H (<1.0) mg/dL 08/05/23 08/05/23 Range/Units 11:43 12:52 RBC 2.81 L (4.30-5.90) m/uL Hgb 8.5 L (13.0-17.5) gm/dL Hct 25.9 L (39.0-53.0) % RDW 15.6 H (11.5-15.5) % Plt Count 125 L (150-450) k/uL Potassium (3.5-5.1) mmol/L Chloride (98-107) mmol/L BUN (9-20) mg/dL Creatinine (0.66-1.25) mg/dL POC Glucose (mg/dL) 135 H (70-110) mg/dL C-Reactive Protein (<1.0) mg/dL Microbiology - Last 24 Hours (Table) 08/02/23 14:05 Blood Culture - Preliminary Blood 08/02/23 14:05 Blood Culture - Preliminary Blood Assessment and Plan Assessment: Impression: Atypical, possible aspiration pneumonia Acute falls with trauma to the right ankle secondary to dizziness, l ightheadedness. CT scan of the head revealed no acute intracranial process. Symptoms of lightheadedness and dizziness are chronic. 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 requiring extensive radical surgery of the head and neck, chemotherapy and radiation therapy completed in February 2023 History of chewing tobacco Former smoker Abnormal CT of the chest and chest x-ray, questioning pneumonitis in the right lung, patient is an excellent set up for aspiration however he does have a PEG tube in place Acute hypoxic respiratory failure secondary to above Acute right distal fibula fracture secondary to falls Hyperlipidemia Chronic obstructive pulmonary disease Recommendation: Continue present course of treatment Continue antibiotics, If discharged, few days of antibiotics will be enough to We will continue to follow Time with Patient: Less than 30
--- NOTE | 2023-08-05 14:28 | P.PN ---
Subjective Progress Note Date: 08/05/23 I am following-up with patient and he feels about the same. Objective - Vital Signs Vital signs: Vital Signs Temp 97.4 F L 08/05/23 11:58 Pulse 63 08/05/23 11:58 Resp 16 08/05/23 11:58 BP 103/65 08/05/23 11:58 Pulse Ox 98 08/05/23 12:31 FiO2 Intake & Output 08/04/23 08/05/23 08/05/23 18:59 06:59 18:59 Intake Total 120 240 Output Total 100 Balance 120 140 Intake: Oral 120 240 Output: Urine 100 Other: Voiding Method Urinal Urinal Urinal - Exam GENERAL: The patient is lying in bed and is not in acute distress. HENT: Has bruise over the right side of face and has old scar over the right jaw/neck region. NEUROLOGICAL: Higher mental function: The patient is awake, alert, oriented to self, place and time. Patient is following commands. No aphasia and no neglect. Cranial nerves: The pupils are round, equal and reactive to light and accommodation. Visual rice are full to confrontation throughout. Extraocular movement is intact no nystagmus is noted. Facial sensation is normal to touch throughout. The facial strength: Has right lower and upper facial weakness (patient stated has his nerve affected from cancer/surgery). Hearing is normal bilaterally to hand rub. Tongue is midline and moved [id number] without any difficulty. No dysarthria is noted. Shoulder shrug is normal bilaterally. Motor: The strength is 5 over 5 throughout. Slight atrophy in hypothenar region bilaterally. Normal tone and bulk. Cerebellum: Normal finger to nose bilaterally. Sensation: Sensation is normal to touch throughout. Reflexes (right/left): 2+ uppers while lowers are 1+. Plantars are mute bilaterally. Some of the workup during his hospital visit consisted of: Sodium is 137, creatinine is 0.90, calcium is 9.1, magnesium is 1.9, troponin is 0.146. Plasma lactic acid venous 2.1 CT of the head is reported as mild atrophy, stable from comparison. No acute intracranial processes. Follow-up MRI can be performed as clinically indicated. I personally reviewed the CT head and I agree there is no acute or subacute ischemia. There is no bleed. CT cervical spine is reported as mild to moderate for maternal narrowing throughout the cervical spine. No acute osseous abnormality. Follow-up can be performed as clinically indicated. EKG is reported as sinus rhythm. TSH is 6.080 and free T4 is 1.24 in February 2023 Routine EEG: The background slowing is suggestive of mild encephalopathy. Otherwise, there is no focal slowing, epileptiform discharge or seizure on the EEG. MRI Brain: No evidence of intracranial mass, acute/subacute infarct, or abnormal enhancement. Findings for infection around the right mandible with subcutaneous gas seen on 08/02/2023 CT. There is phlegmonous change present. Additionally these is right middle ear effusion concerning for otomastoiditis. Nonspecific white matter changes, likely related to small vessel ischemic disease. 2D echo: left ventricular ejection fraction 55-60%. Mild left ventricular dilation. Mild to moderate tricuspid regurgitation. - Labs CBC & Chem 7: 08/05/23 12:52 08/05/23 10:12 Labs: Abnormal Lab Results - Last 24 Hours (Table) 08/04/23 08/05/23 08/05/23 Range/Units 16:30 05:40 10:12 RBC (4.30-5.90) m/uL Hgb (13.0-17.5) gm/dL Hct (39.0-53.0) % RDW (11.5-15.5) % Plt Count (150-450) k/uL Potassium 5.2 H (3.5-5.1) mmol/L Chloride 109 H (98-107) mmol/L BUN 35 H (9-20) mg/dL Creatinine 0.61 L (0.66-1.25) mg/dL POC Glucose (mg/dL) 132 H 162 H (70-110) mg/dL C-Reactive Protein 5.1 H (<1.0) mg/dL 08/05/23 08/05/23 Range/Units 11:43 12:52 RBC 2.81 L (4.30-5.90) m/uL Hgb 8.5 L (13.0-17.5) gm/dL Hct 25.9 L (39.0-53.0) % RDW 15.6 H (11.5-15.5) % Plt Count 125 L (150-450) k/uL Potassium (3.5-5.1) mmol/L Chloride (98-107) mmol/L BUN (9-20) mg/dL Creatinine (0.66-1.25) mg/dL POC Glucose (mg/dL) 135 H (70-110) mg/dL C-Reactive Protein (<1.0) mg/dL Microbiology - Last 24 Hours (Table) 08/02/23 14:05 Blood Culture - Preliminary Blood 08/02/23 14:05 Blood Culture - Preliminary Blood Assessment and Plan Assessment: This is a 63-year-old gentleman with history of Hodgkin lymphoma status post resection with residual right facial palsy, chemotherapy and radiation therapy who was having recurrent dizziness with falls for the last 10 year progressively getting worse. He notes that happens predominantly when he tries to get up and walk around and he feels he is having abnormal shaking tremors but does not lose consciousness. At times when he is resting or have abnormal tremor or jerks. No official diagnosis of seizure in the past. Recurrent dizziness with falls with abnormal body tremor and jerks: One of the ventral as seizure. Also cannot rule outs the recurrent falls and dizziness is due to dysfunction of the carotids baroreceptor result from history of cancer status post resection with chemoradiation therapy. EEG is no seizure or discharges. MRI Brain is negative for stroke or brain mets. Concerning for otomastoiditis on MRI. History of Hodgkins lymphoma status post resection with residual right facial palsy she had history of chemotherapy and radiation therapy Plan: Pending orthostatic vitals. Concerning for otomastoiditis on MRI. I.D. is on board. Started the patient prophylactically on Keppra 750 mg twice a day for concern of possible seizures. I notified the patient and his [id number] about the side effects of the Keppra about behavioral/mood. Cardiology is consulted I recommend the patient to continue follow-up with his oncologist as outpatient I notified the patient that I would recommend him not to reside by himself especially with recurrent episode of falls. He follows up with Dr. Joe for his pain/neck issues and the eye notified them that too also to dress these tremors body jerks as well as an outpatient. We'll defer the rest of the medical management to the primary and other specialists The plan is discussed with patient and his nurse. Time with Patient: Less than 30
[2023-08-05 16:58] LABS: Glucose,Whole Blood 105 mg/dL (70-110)
[2023-08-05 20:01] LABS: Glucose,Whole Blood 154 mg/dL (70-110)
[2023-08-06 06:04] LABS: Glucose,Whole Blood 132 mg/dL (70-110)
[2023-08-06 09:17] LABS: HCT 27.9 % (39.0-53.0); HGB 8.9 gm/dL (13.0-17.5); MCH 29.2 pg (25.0-35.0); MCHC 32.1 g/dL (31.0-37.0); MCV 90.9 fL (80.0-100.0); Platelet Count 121 k/uL (150-450); RBC 3.06 m/uL (4.30-5.90); RDW 15.7 % (11.5-15.5); WBC 6.6 k/uL (3.8-10.6)
[2023-08-06 09:48] LABS: African American GFR (CKD) >90 (>60 ml/min/1.73 sqM); Anion Gap 6 mmol/L; Blood Urea Nitrogen 23 mg/dL (9-20); Calcium 8.6 mg/dL (8.4-10.2); Carbon Dioxide 28 mmol/L (22-30); Chloride 106 mmol/L (98-107); Glucose 111 mg/dL (74-99); Non-African American GFR(CKD) >90 (>60 ml/min/1.73 sqM); Sodium 140 mmol/L (137-145)
--- NOTE | 2023-08-06 12:27 | P.PN ---
Subjective Progress Note Date: 08/06/23 I'll follow-up with the patient and he feels about the same. Denies any new neurological issues. He stated that he has known history of right jaw infection and that's not new. Objective - Vital Signs Vital signs: Vital Signs Temp 98.1 F 08/06/23 09:26 Pulse 63 08/06/23 09:26 Resp 16 08/06/23 09:26 BP 123/75 08/06/23 09:26 Pulse Ox 96 08/06/23 09:26 FiO2 Intake & Output 08/05/23 08/06/23 08/06/23 18:59 06:59 18:59 Intake Total 118 840 420 Output Total 1200 Balance 118 -360 420 Intake: Oral 118 Tube Feeding 600 300 Other 240 120 Output: Urine 1200 Other: Voiding Method Urinal Urinal Urinal # Voids 2 - Exam GENERAL: The patient is lying in bed and is not in acute distress. HENT: Has bruise over the right side of face and has old scar over the right jaw/neck region. NEUROLOGICAL: Higher mental function: The patient is awake, alert, oriented to self, place and time. Patient is following commands. No aphasia and no neglect. Cranial nerves: The pupils are round, equal and reactive to light and accommodation. Visual rice are full to confrontation throughout. Extraocular movement is intact no nystagmus is noted. Facial sensation is normal to touch throughout. The facial strength: Has right lower and upper facial weakness (patient stated has his nerve affected from cancer/surgery). Hearing is normal bilaterally to hand rub. Tongue is midline and moved [id number] without any difficulty. No dysarthria is noted. Shoulder shrug is normal bilaterally. Motor: The strength is 5 over 5 throughout. Slight atrophy in hypothenar region bilaterally. Normal tone and bulk. Cerebellum: Normal finger to nose bilaterally. Sensation: Sensation is normal to touch throughout. Reflexes (right/left): 2+ uppers while lowers are 1+. Plantars are mute bilaterally. Some of the workup during his hospital visit consisted of: Sodium is 137, creatinine is 0.90, calcium is 9.1, magnesium is 1.9, troponin is 0.146. Plasma lactic acid venous 2.1 CT of the head is reported as mild atrophy, stable from comparison. No acute intracranial processes. Follow-up MRI can be performed as clinically indicated. I personally reviewed the CT head and I agree there is no acute or subacute ischemia. There is no bleed. CT cervical spine is reported as mild to moderate for maternal narrowing throughout the cervical spine. No acute osseous abnormality. Follow-up can be performed as clinically indicated. EKG is reported as sinus rhythm. TSH is 6.080 and free T4 is 1.24 in February 2023 Routine EEG: The background slowing is suggestive of mild encephalopathy. Otherwise, there is no focal slowing, epileptiform discharge or seizure on the EEG. MRI Brain: No evidence of intracranial mass, acute/subacute infarct, or abnormal enhancement. Findings for infection around the right mandible with subcutaneous gas seen on 08/02/2023 CT. There is phlegmonous change present. Additionally these is right middle ear effusion concerning for otomastoiditis. Nonspecific white matter changes, likely related to small vessel ischemic disease. 2D echo: left ventricular ejection fraction 55-60%. Mild left ventricular dilation. Mild to moderate tricuspid regurgitation. - Labs CBC & Chem 7: 08/06/23 08:21 08/06/23 08:21 Labs: Abnormal Lab Results - Last 24 Hours (Table) 08/05/23 08/05/23 08/06/23 Range/Units 12:52 19:59 06:00 RBC 2.81 L (4.30-5.90) m/uL Hgb 8.5 L (13.0-17.5) gm/dL Hct 25.9 L (39.0-53.0) % RDW 15.6 H (11.5-15.5) % Plt Count 125 L (150-450) k/uL BUN (9-20) mg/dL Creatinine (0.66-1.25) mg/dL Glucose (74-99) mg/dL POC Glucose (mg/dL) 154 H 132 H (70-110) mg/dL 08/06/23 08/06/23 Range/Units 08:21 08:21 RBC 3.06 L (4.30-5.90) m/uL Hgb 8.9 L (13.0-17.5) gm/dL Hct 27.9 L (39.0-53.0) % RDW 15.7 H (11.5-15.5) % Plt Count 121 L (150-450) k/uL BUN 23 H (9-20) mg/dL Creatinine 0.60 L (0.66-1.25) mg/dL Glucose 111 H (74-99) mg/dL POC Glucose (mg/dL) (70-110) mg/dL Microbiology - Last 24 Hours (Table) 08/02/23 14:05 Blood Culture - Preliminary Blood 08/02/23 14:05 Blood Culture - Preliminary Blood Assessment and Plan Assessment: This is a 63-year-old gentleman with history of Hodgkin lymphoma status post resection with residual right facial palsy, chemotherapy and radiation therapy who was having recurrent dizziness with falls for the last 10 year progressively getting worse. He notes that happens predominantly when he tries to get up and walk around and he feels he is having abnormal shaking tremors but does not lose consciousness. At times when he is resting or have abnormal tremor or jerks. No official diagnosis of seizure in the past. Recurrent dizziness with falls with abnormal body tremor and jerks: One of the ventral as seizure. Also cannot rule outs the recurrent falls and dizziness is due to dysfunction of the carotids baroreceptor result from history of cancer status post resection with chemoradiation therapy. EEG is no seizure or discharges. MRI Brain is negative for stroke or brain mets. Concerning for otomastoiditis on MRI. History of Hodgkins lymphoma status post resection with residual right facial palsy she had history of chemotherapy and radiation therapy Plan: Pending orthostatic vitals. Concerning for otomastoiditis on MRI. I.D. is on board. It seems patient has known history of infection according to him. Started the patient prophylactically on Keppra 750 mg twice a day for concern of possible seizures. I notified the patient and his [id number] about the side effects of the Keppra about behavioral/mood. Cardiology is consulted I recommend the patient to continue follow-up with his oncologist as outpatient I notified the patient that I would recommend him not to reside by himself especially with recurrent episode of falls. He follows up with Dr. Joe for his pain/neck issues and the eye notified them that too also to dress these tremors body jerks as well as an outpatient. We'll defer the rest of the medical management to the primary and other specialists The plan is discussed with patient and his nurse. If Orthostatic are negative, then no further neurological work-up. Time with Patient: Less than 30
--- NOTE | 2023-08-06 12:48 | P.PN ---
Subjective Progress Note Date: 08/06/23 Principal diagnosis: Reason for follow-up is possible pneumonia Patient is a 63-year-old male with a past medical history significant for hypertension hyperlipidemia osteoarthritis asthma and this patient who did have a history of the right lower jaw cancer status post resection and recently did have a treatment to the right lower jaw in the right ear patient has been brought into the hospital with the patient having dizziness and frequent falls, patient did have a fracture to the right ankle area patient also have chest x- ray and CT angiogram of the chest concerning for possible pneumonitis and bilateral basal area. On today's evaluation that is 08/06/2023, the patient continues to be afebrile, the patient is on room air and breathing comfortably, the Pt denies having any chest pain or cough, the patient denies having any abdominal pain no vomiting or any diarrhea has been reported by the nursing staff Patient did have white count 6.6, creatinine 0.60 blood culture negative Objective - Vital Signs Vital signs: Vital Signs Temp 98.1 F 08/06/23 09:26 Pulse 63 08/06/23 09:26 Resp 16 08/06/23 09:26 BP 123/75 08/06/23 09:26 Pulse Ox 96 08/06/23 09:26 FiO2 Intake & Output 08/05/23 08/06/23 08/06/23 18:59 06:59 18:59 Intake Total 118 840 420 Output Total 1200 Balance 118 -360 420 Intake: Oral 118 Tube Feeding 600 300 Other 240 120 Output: Urine 1200 Other: Voiding Method Urinal Urinal Urinal # Voids 2 - Exam GENERAL DESCRIPTION: An elderly male lying in bed in no distress RESPIRATORY SYSTEM: Unlabored breathing , decreased breath sounds at bases HEART: S1 S2 regular rate and rhythm , ABDOMEN: Soft , no tenderness EXTREMITIES: No edema feet - Labs CBC & Chem 7: 08/06/23 08:21 08/06/23 08:21 Labs: Abnormal Lab Results - Last 24 Hours (Table) 08/05/23 08/05/23 08/06/23 Range/Units 12:52 19:59 06:00 RBC 2.81 L (4.30-5.90) m/uL Hgb 8.5 L (13.0-17.5) gm/dL Hct 25.9 L (39.0-53.0) % RDW 15.6 H (11.5-15.5) % Plt Count 125 L (150-450) k/uL BUN (9-20) mg/dL Creatinine (0.66-1.25) mg/dL Glucose (74-99) mg/dL POC Glucose (mg/dL) 154 H 132 H (70-110) mg/dL 08/06/23 08/06/23 Range/Units 08:21 08:21 RBC 3.06 L (4.30-5.90) m/uL Hgb 8.9 L (13.0-17.5) gm/dL Hct 27.9 L (39.0-53.0) % RDW 15.7 H (11.5-15.5) % Plt Count 121 L (150-450) k/uL BUN 23 H (9-20) mg/dL Creatinine 0.60 L (0.66-1.25) mg/dL Glucose 111 H (74-99) mg/dL POC Glucose (mg/dL) (70-110) mg/dL Microbiology - Last 24 Hours (Table) 08/02/23 14:05 Blood Culture - Preliminary Blood 08/02/23 14:05 Blood Culture - Preliminary Blood Assessment and Plan (1) Atypical pneumonia Current Visit: Yes Status: Acute Code(s): J18.9 - PNEUMONIA, UNSPECIFIED ORGANISM SNOMED Code(s): 452559931 Plan: 1patient presented to hospital with dizziness weakness and did have a fall leading to the right ankle fracture patient also have some patient did have infiltrate on the chest x-ray and confirmed on the CT angiogram of the chest concerning for pneumonia patient did have mild hypoxemia 2-patient did have elevated CRP procalcitonin, blood cultures were negative 3-patient did have some clinical improvement patient is afebrile culture has been negative for resistant pathogen on Rocephin short course of Ceftin on discharge Dictation was produced using [employer] software. please excuse any grammatical, word or spelling errors. Time with Patient: Less than 30
--- NOTE | 2023-08-06 12:59 | P.PN ---
Subjective Progress Note Date: 08/06/23 ELEVATED TROPONINS, DIZZINESS History of present illness: History of present illness: This is a 63-year-old male patient of Dr. 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 Patient states that he has an done in May that revealed no cancer in his neck scheduled scan is in December. We have been asked to evaluate the patient for elevated troponins and dizziness. Patient states that he had a fall at home and then experienced excruciating pain to the right ankle. He denies having any chest pain or shortness of breath. He states he had some dizziness but no loss of consciousness. Patient states that he has had a weight loss of 40 pounds over the past year from his cancer. He does have a PEG tube for feedings. Patient seen today in the emergency center waiting for a bed on the cardiac stepdown unit. He is status post 2 L of IV fluid and has been started on IV Solu-Medrol and IV antibiotics. EKG sinus rhythm at ventricular rate of 77 bpm, #2 sinus rhythm ventricular rate of 101. Chest x-ray: Limited by patient positioning. Borderline heart size. Patchy atelectasis versus airspace disease at the right lower lung. CTA of the chest revealed scattered mild areas of pneumonitis bilaterally greater on the right. Small spiculated nodule in the right upper lung field. Differentiate diagnosis would include infectious etiologies or neoplasm. Consider atypical pneumonia within the differential. WBC 10.4, hemoglobin 9.4, platelet count 130. Sodium 141, potassium 4.3, chloride 108, CO2 27, BUN 21 and creatinine 0.62. Blood sugar 145. Troponins 0.146, 0.108, 0.066. Procalcitonin 0.49. Urinalysis negative. Influenza A, influenza B, RSV, COVID-19 not detected. Home cardiac medications: Potassium citrate 10 mill equivalents 3 times daily, Crestor 20 mg at bedtime. Cardiac catheterization history 11/2018. Left dominant system. Elevated filling pressures initially responded to intraventricular nitroglycerin. No gradient across the aortic valve. No significant CAD. Echocardiogram 09/2020 performed in the office revealed EF of 55%, moderate left- ventricular hypertrophy. Mild mitral digitation, mild tricuspid regurgitation. Pulmonary artery systolic pressure of 27 mmHg. 08/04 Patient is seen in follow-up today on the cardiac stepdown unit. He is complaining of feeling dizzy when he gets up and also shaking of his arms. Patient has been instructed to use a walker when he gets up and move. He denies having any chest pain. Blood pressure 109/65, heart rate in the 70s, pulse ox 94% on room air. Repeat blood work reveals hemoglobin of 8.3. Sodium 143, potassium 3.6, BUN 20 creatinine 0.72. Echocardiogram reveals EF of 55 to 60%, mild left ventricular dilation, RVSP 35, mild to moderate mitral regurgitation and mild to moderate tricuspid regurgitation. Echocardiogram results have been reviewed with the patient. 08/05 Patient denies any new concerns. His blood pressure remains on the lower side 103/65, heart rate 60s, pulse ox 98 % on room air. Repeat blood work reveals WBC 7.1, hemoglobin 8.5, platelet count 125. Potassium 5.2, chloride 109, sodium 142. BUN 35 creatinine 0.61. 08/06 Patient denies any new concerns. He was started on Florinef yesterday and blood pressure is 123/75, heart rate 63, pulse ox 96% on room air. Repeat blood work reveals hemoglobin 8.9, BUN 23 creatinine 0.6. Physical examination: Gen: This is a cachectic appearing 63-year-old male resting flat in bed and appears to be in no acute respiratory distress VS: reviewed HEENT: Head is atraumatic, normocephalic. Pupils equal, round. Sclerae is anicteric. LUNGS: Clear to auscultation. No wheezes or rhonchi. No intercostal retrac tions. HEART: Regular rate and rhythm. No murmur. ABDOMEN: Soft No tenderness. EXTREMITIES: No pedal edema. No calf tenderness. NEUROLOGICAL: Patient is awake, alert and oriented x3. Assessment: Recurrent falls most likely due to orthostatic hypotension Elevated troponin of unclear significance, ACS ruled out Right ankle distal fibular fracture Possible pneumonia Recent right ear surgery Squamous cell carcinoma of the head and neck Hypertension Hyperlipidemia Hypothyroidism COPD Remote history of tobacco chewing Plan: Continue current cardiac medications Continue with the addition of midodrine and Florinef 0.1 mg daily Patient is cleared for discharge from cardiology and may follow-up with Dr. SHAYY Garcia in 1 to 2 weeks. Nurse practitioner note has been reviewed, I agree with documented findings and plan of care. Patient was seen and examined. Objective - Vital Signs Vital signs: Vital Signs Temp 98.1 F 08/06/23 09:26 Pulse 63 08/06/23 09:26 Resp 16 08/06/23 09:26 BP 123/75 08/06/23 09:26 Pulse Ox 96 08/06/23 09:26 FiO2 Intake & Output 08/05/23 08/06/23 08/06/23 18:59 06:59 18:59 Intake Total 118 840 420 Output Total 1200 Balance 118 -360 420 Intake: Oral 118 Tube Feeding 600 300 Other 240 120 Output: Urine 1200 Other: Voiding Method Urinal Urinal Urinal # Voids 2 - Labs CBC & Chem 7: 08/06/23 08:21 08/06/23 08:21 Labs: Abnormal Lab Results - Last 24 Hours (Table) 08/05/23 08/05/23 08/05/23 Range/Units 10:12 11:43 12:52 RBC 2.81 L (4.30-5.90) m/uL Hgb 8.5 L (13.0-17.5) gm/dL Hct 25.9 L (39.0-53.0) % RDW 15.6 H (11.5-15.5) % Plt Count 125 L (150-450) k/uL Potassium 5.2 H (3.5-5.1) mmol/L Chloride 109 H (98-107) mmol/L BUN 35 H (9-20) mg/dL Creatinine 0.61 L (0.66-1.25) mg/dL Glucose (74-99) mg/dL POC Glucose (mg/dL) 135 H (70-110) mg/dL C-Reactive Protein 5.1 H (<1.0) mg/dL 08/05/23 08/06/23 08/06/23 Range/Units 19:59 06:00 08:21 RBC 3.06 L (4.30-5.90) m/uL Hgb 8.9 L (13.0-17.5) gm/dL Hct 27.9 L (39.0-53.0) % RDW 15.7 H (11.5-15.5) % Plt Count 121 L (150-450) k/uL Potassium (3.5-5.1) mmol/L Chloride (98-107) mmol/L BUN (9-20) mg/dL Creatinine (0.66-1.25) mg/dL Glucose (74-99) mg/dL POC Glucose (mg/dL) 154 H 132 H (70-110) mg/dL C-Reactive Protein (<1.0) mg/dL 08/06/23 Range/Units 08:21 RBC (4.30-5.90) m/uL Hgb (13.0-17.5) gm/dL Hct (39.0-53.0) % RDW (11.5-15.5) % Plt Count (150-450) k/uL Potassium (3.5-5.1) mmol/L Chloride (98-107) mmol/L BUN 23 H (9-20) mg/dL Creatinine 0.60 L (0.66-1.25) mg/dL Glucose 111 H (74-99) mg/dL POC Glucose (mg/dL) (70-110) mg/dL C-Reactive Protein (<1.0) mg/dL Microbiology - Last 24 Hours (Table) 08/02/23 14:05 Blood Culture - Preliminary Blood 08/02/23 14:05 Blood Culture - Preliminary Blood
--- NOTE | 2023-08-06 14:39 | P.PN ---
Subjective Progress Note Date: 08/06/23 Principal diagnosis: Acute fall with trauma to right ankle secondary to dizziness and lightheadedness, possible pneumonia This is a pleasant 63-year-old male patient with a known history of Hodgkin's lymphoma treated back in 1982, hyperlipidemia, hypertension, hypothyroidism, fo rmer smoker and previous chewing tobacco. In November of last year he was diagnosed with oral cancer. He had gone on to have radical surgery requiring bone grafting from his left tibial/fibula, chemotherapy and radiation therapy completed in February 2023. He had some reconstruction last week around his right ear from the previous grafting. The past several days he has been having increased dizziness and lightheadedness and has been falling down. He is also finding himself with jerking motions prior to the falls. He denies any history of seizures. He does have a PEG tube in place for feedings. Denies any aspiration. Chest x-ray revealed patchy atelectasis versus airspace disease in the right lower lung. CT scanning of the chest revealed scattered mild areas of pneumonitis and infiltrates bilaterally greater on the right. There may be a small spiculated nodule in the right upper lung field. He was found to have an oblique fracture of the proximal portion of the distal flanks with intra articular extension of the right foot which he hurt during his fall. CT scan of the brain and C-spine revealed no acute intracranial process. No cervical spine fractures. Face CT revealed no acute posttraumatic changes. Evidence of prior mandibular surgery and repair. He is seen today in consultation in the emergency department. He is awake and alert in no acute distress. He has no pulmonary complaints. No shortness of breath, cough or congestion. No fever or chills. He is maintaining O2 saturations up to 100% on 3 L/min per nasal cannula. White count 8.4. Hemoglobin 9.3. Platelets 114. Sodium 137. Potassium 4.7. Bicarb 30. BUN 28. Creatinine 0.90. Glucose 144. Troponin 0.066. Procalcitonin 0.49. C-reactive protein 6.0. Urinalysis clean. Viral screen negative. Patient was evaluated today on 08/03/23, patient was admitted with mostly symptoms of falling, lightheadedness and dizziness, and his chest x-ray showed questionable pneumonia in the right lower lobe, procalcitonin level is elevated, patient was empirically placed on antibiotics, although his presentation was not a pulmonary presentation by any means, and he had no symptoms of pneumonia clinically upon his presentation. The findings on the CT of the chest and chest x-ray are nonspecific, but considering his procalcitonin level is elevated, I am recommending we continue antibiotics for now. The patient is basically about the same, again he has no active pulmonary symptoms but he has mostly symptoms of lightheadedness dizziness which are chronic symptoms. Patient had previous history of head and neck cancer, he had extensive radical surgery of the head and neck, chemotherapy and radiation completed in February 20, 2002 3. Labs today are basically unremarkable WBC count is normal hemoglobin is 9.4 basic metabolic profile is normal C-reactive protein is elevated at 23, procalcitonin is 0.49 Patient was reevaluated today on 08/04/2023, patient is doing great, relatively asymptomatic, sitting at the bedside chair, in no distress he denies any active pulmonary symptoms. No cough no wheezing no shortness of breath no fever no chills no hemoptysis and no chest pain. Patient is on room air, O2 sats is 94%, he is hemodynamically stable. CBC showed WBC count of 7.6 hemoglobin 8.3 basic metabolic profile is normal renal profile is normal his CRP was elevated and his procalcitonin level on admission was a bit elevated. Patient remains on antibiotics in the form of Rocephin. Again the patient does not have any symptoms of pneumonia at this point Reevaluate today on 08/05/2023, patient continues to do well from the pulmonary perspective, remains on antibiotics, mostly because he had slightly elevated procalcitonin level, clinically does not have symptoms to suggest pneumonia but the CT of the chest is showing possible pneumonitis. Patient had a brain MRI today, results of which are pending. Reevaluate today on 08/06/2023, continues to do great from the pulmonary p erspective, no active pulmonary issues whatsoever. No cough no wheezing no shortness of breath. Patient is on Rocephin, and could be transition to Ceftin upon discharge. His MRI showed some findings related to his recent surgery and some fluid in the middle ear, it also showed some questionable infection at the site of his recent surgery. Nonetheless patient is being followed by infectious disease, and he will continue to follow-up with ENT physician. Again from the pulmonary perspective the patient is doing well, and I agree with transitioning the patient to Ceftin upon discharge patient should have follow-up with his ENT physician who performed the surgery on his ear and his mandible Objective - Vital Signs Vital signs: Vital Signs Temp 98.5 F 08/06/23 11:50 Pulse 64 08/06/23 11:50 Resp 16 08/06/23 11:50 BP 107/54 08/06/23 11:50 Pulse Ox 96 08/06/23 11:50 FiO2 Intake & Output 08/05/23 08/06/23 08/06/23 18:59 06:59 18:59 Intake Total 118 840 420 Output Total 1200 Balance 118 -360 420 Weight 79.379 kg Intake: Oral 118 Tube Feeding 600 300 Other 240 120 Output: Urine 1200 Other: Voiding Method Urinal Urinal Urinal # Voids 2 1 # Bowel Movements 1 - Exam GENERAL EXAM: Alert, pleasant 63-year-old male, on room air, in no distress HEAD: Changes of reconstructed mandible and right ear reconstruction. EYES: Normal reaction of pupils, equal size. NOSE: Clear with pink turbinates. THROAT: No erythema or exudates. NECK: No masses, no JVD. CHEST: No chest wall deformity. LUNGS: Equal air entry with no crackles, wheeze, rhonchi or dullness. CVS: S1 and S2 normal with no audible murmur, regular rhythm. ABDOMEN: No hepatosplenomegaly, normal bowel sounds, no guarding or rigidity. SPINE: No scoliosis or deformity SKIN: No rashes CENTRAL NERVOUS SYSTEM: No focal deficits, tone is normal in all 4 extremities. EXTREMITIES: Long scar up the left leg from previous surgery. There is no peripheral edema. Peripheral pulses are intact. - Labs CBC & Chem 7: 08/06/23 08:21 08/06/23 08:21 Labs: Abnormal Lab Results - Last 24 Hours (Table) 08/05/23 08/06/23 08/06/23 Range/Units 19:59 06:00 08:21 RBC 3.06 L (4.30-5.90) m/uL Hgb 8.9 L (13.0-17.5) gm/dL Hct 27.9 L (39.0-53.0) % RDW 15.7 H (11.5-15.5) % Plt Count 121 L (150-450) k/uL BUN (9-20) mg/dL Creatinine (0.66-1.25) mg/dL Glucose (74-99) mg/dL POC Glucose (mg/dL) 154 H 132 H (70-110) mg/dL 08/06/23 Range/Units 08:21 RBC (4.30-5.90) m/uL Hgb (13.0-17.5) gm/dL Hct (39.0-53.0) % RDW (11.5-15.5) % Plt Count (150-450) k/uL BUN 23 H (9-20) mg/dL Creatinine 0.60 L (0.66-1.25) mg/dL Glucose 111 H (74-99) mg/dL POC Glucose (mg/dL) (70-110) mg/dL Microbiology - Last 24 Hours (Table) 08/02/23 14:05 Blood Culture - Preliminary Blood 08/02/23 14:05 Blood Culture - Preliminary Blood Assessment and Plan Assessment: Impression: Atypical, pneumonia Acute falls with trauma to the right ankle secondary to dizziness, lightheadedness. CT scan of the head revealed no acute intracranial process. Symptoms of lightheadedness and dizziness are chronic. 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 requiring extensive radical surgery of the head and neck, chemotherapy and radiation t herapy completed in February 2023 History of chewing tobacco Former smoker Abnormal CT of the chest and chest x-ray, questioning pneumonitis in the right lung, patient is an excellent set up for aspiration however he does have a PEG tube in place Acute hypoxic respiratory failure secondary to above Acute right distal fibula fracture secondary to falls Hyperlipidemia Chronic obstructive pulmonary disease Recommendation: Continue present course of treatment Continue antibiotics, could transition to Ceftin to replace ceftriaxone upon discharge. I am clearing the patient for discharge if cleared by other consultants Time with Patient: Less than 30
[2023-08-06 16:54] LABS: Glucose,Whole Blood 116 mg/dL (70-110)
--- NOTE | 2023-08-06 18:44 | P.PN ---
Subjective Progress Note Date: 08/06/23 63-year-old patient with past medical history significant for hyperlipidemia, osteoarthritis, hypertension, history of Hodgkin lymphoma 1983 s/p chemo and radiation, history of dizziness and recurrent falls, history of asthma, thyroid disorder degenerative disease of spine, per patient hx of oral cancer presents to the emergency department after episode of dizziness and recurrent falls. Patient states he has been living by herself and for the last 4 weeks has been having multiple episodes of dizziness. patient unable to differentiate between the room spinning around or dizziness once this changes exposure. Patient states that 1 day prior he fell about 4 times. Patient states he felt as if the right ankle popped. He has been complaining of pain as well he denies hitting his head. At the time of presentation in ER patient was noted to be hypotensive with elevated lactate levels, serum chemistry obtained showed WBC 8.4 hemoglobin 9.8 platelet 240 INR obtained within normal limits, serum chemistry sodium 137 potassium 4.1 BUN 28 creatinine 0.9 lactate of 2.1, patient given fluid bolus follow-up lactate 1.3 Patient was noted to have troponin of 0.146, followed by 0.10 with, CRP of 6 Workup in the ER included CT head, cervical spine CT face CT angio chest CT head and cervical spine negative for acute intracranial process, CT cervical spine does show anterior cervical fusion C4-C7, disc space narrowing noted at C7-T1 CT chest does show scattered pneumonitis changes more on the right as compared to left multiple small spiculated nodule noted atypical infection suspected CT of the face negative for posttraumatic changes, no fracture noted Urinalysis negative, patient tested negative for influenza RSV and COVID Objective - Vital Signs Vital signs: Vital Signs Temp 98.1 F 08/06/23 09:26 Pulse 63 08/06/23 09:26 Resp 16 08/06/23 09:26 BP 123/75 08/06/23 09:26 Pulse Ox 96 08/06/23 09:26 FiO2 Intake & Output 08/05/23 08/06/23 08/06/23 18:59 06:59 18:59 Intake Total 118 840 420 Output Total 1200 Balance 118 -360 420 Intake: Oral 118 Tube Feeding 600 300 Other 240 120 Output: Urine 1200 Other: Voiding Method Urinal Urinal Urinal # Voids 2 - Exam GENERAL: The patient is alert and oriented x3, nasal cannula in place HEENT: Pupils are round and equally reacting to light stitches noted right periauricular area, abrasion noted on chin, CARDIOVASCULAR: S1 and S2 present. No murmurs, rubs, or gallops. PULMONARY: Decreased breath sounds bilaterally ABDOMEN: Soft, nontender, nondistended, normoactive bowel sounds. Tube in place MUSCULOSKELETAL: Point tenderness right lower extremity EXTREMITIES: No cyanosis, clubbing, or pedal edema. NEUROLOGICAL: Appears at baseline, right-sided facial palsy chronically present noted - Labs CBC & Chem 7: 08/06/23 08:21 08/06/23 08:21 Labs: Abnormal Lab Results - Last 24 Hours (Table) 08/05/23 08/05/23 08/06/23 Range/Units 12:52 19:59 06:00 RBC 2.81 L (4.30-5.90) m/uL Hgb 8.5 L (13.0-17.5) gm/dL Hct 25.9 L (39.0-53.0) % RDW 15.6 H (11.5-15.5) % Plt Count 125 L (150-450) k/uL BUN (9-20) mg/dL Creatinine (0.66-1.25) mg/dL Glucose (74-99) mg/dL POC Glucose (mg/dL) 154 H 132 H (70-110) mg/dL 08/06/23 08/06/23 Range/Units 08:21 08:21 RBC 3.06 L (4.30-5.90) m/uL Hgb 8.9 L (13.0-17.5) gm/dL Hct 27.9 L (39.0-53.0) % RDW 15.7 H (11.5-15.5) % Plt Count 121 L (150-450) k/uL BUN 23 H (9-20) mg/dL Creatinine 0.60 L (0.66-1.25) mg/dL Glucose 111 H (74-99) mg/dL POC Glucose (mg/dL) (70-110) mg/dL Microbiology - Last 24 Hours (Table) 08/02/23 14:05 Blood Culture - Preliminary Blood 08/02/23 14:05 Blood Culture - Preliminary Blood Assessment and Plan Assessment: * Acute hypoxic respiratory failure with asthma exacerbation * Multifocal pneumonia * Sepsis secondary to underlying pneumonia * 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 In regards to asthma exacer bation continue patient on breathing treatment,pulmonary medicine consulted * In regards to elevated troponin, cardiology consulted, serial troponins elevated, cardiology recommendations appreciated * Regards to sepsis continue patient on fluid resuscitation lactate levels normalized, blood cultures no growth, continue Rocephin day 3, azithromycin completed * In regards to dizziness as needed meclizine , neurology consulted, MRI brain negative for stroke, right otomastoiditis noted, changes postoperatively noted, EEG negative for seizure * In regards to oblique fracture of the distal phalanx and fibula fracture Ortho consulted, recommend conservative management brace ordered * In regards to oropharyngeal dysphagia continue nutrition to tube feeds * CODE STATUS is full code * Physical therapy Occupational Therapy consulted
[2023-08-06 20:12] LABS: Glucose,Whole Blood 127 mg/dL (70-110)
[2023-08-07 05:26] LABS: Glucose,Whole Blood 163 mg/dL (70-110)
--- NOTE | 2023-08-07 09:14 | P.PN ---
Subjective Progress Note Date: 08/07/23 ELEVATED TROPONINS, DIZZINESS History of present illness: History of present illness: This is a 63-year-old male patient of Dr. 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 Patient states that he has an done in May that revealed no cancer in his neck scheduled scan is in December. We have been asked to evaluate the patient for elevated troponins and dizziness. Patient states that he had a fall at home and then experienced excruciating pain to the right ankle. He denies having any chest pain or shortness of breath. He states he had some dizziness but no loss of consciousness. Patient states that he has had a weight loss of 40 pounds over the past year from his cancer. He does have a PEG tube for feedings. Patient seen today in the emergency center waiting for a bed on the cardiac stepdown unit. He is status post 2 L of IV fluid and has been started on IV Solu-Medrol and IV antibiotics. EKG sinus rhythm at ventricular rate of 77 bpm, #2 sinus rhythm ventricular rate of 101. Chest x-ray: Limited by patient positioning. Borderline heart size. Patchy atelectasis versus airspace disease at the right lower lung. CTA of the chest revealed scattered mild areas of pneumonitis bilaterally greater on the right. Small spiculated nodule in the right upper lung field. Differentiate diagnosis would include infectious etiologies or neoplasm. Consider atypical pneumonia within the differential. WBC 10.4, hemoglobin 9.4, platelet count 130. Sodium 141, potassium 4.3, chloride 108, CO2 27, BUN 21 and creatinine 0.62. Blood sugar 145. Troponins 0.146, 0.108, 0.066. Procalcitonin 0.49. Urinalysis negative. Influenza A, influenza B, RSV, COVID-19 not detected. Home cardiac medications: Potassium citrate 10 mill equivalents 3 times daily, Crestor 20 mg at bedtime. Cardiac catheterization history 11/2018. Left dominant system. Elevated filling pressures initially responded to intraventricular nitroglycerin. No gradient across the aortic valve. No significant CAD. Echocardiogram 09/2020 performed in the office revealed EF of 55%, moderate left- ventricular hypertrophy. Mild mitral digitation, mild tricuspid regurgitation. Pulmonary artery systolic pressure of 27 mmHg. 08/04 Patient is seen in follow-up today on the cardiac stepdown unit. He is complaining of feeling dizzy when he gets up and also shaking of his arms. Patient has been instructed to use a walker when he gets up and move. He denies having any chest pain. Blood pressure 109/65, heart rate in the 70s, pulse ox 94% on room air. Repeat blood work reveals hemoglobin of 8.3. Sodium 143, potassium 3.6, BUN 20 creatinine 0.72. Echocardiogram reveals EF of 55 to 60%, mild left ventricular dilation, RVSP 35, mild to moderate mitral regurgitation and mild to moderate tricuspid regurgitation. Echocardiogram results have been reviewed with the patient. 08/05 Patient denies any new concerns. His blood pressure remains on the lower side 103/65, heart rate 60s, pulse ox 98 % on room air. Repeat blood work reveals WBC 7.1, hemoglobin 8.5, platelet count 125. Potassium 5.2, chloride 109, sodium 142. BUN 35 creatinine 0.61. 08/06 Patient denies any new concerns. He was started on Florinef yesterday and blood pressure is 123/75, heart rate 63, pulse ox 96% on room air. Repeat blood work reveals hemoglobin 8.9, BUN 23 creatinine 0.6. 08/07 Patient states that he has been up and walking in the hallway and doing well with this. On no weakness lightheadedness or dizziness. Patient denies having any chest pain. Blood pressures are improved with the addition of midodrine and Florinef. This morning blood pressure 112/69, heart rate 69, pulse ox 92% on room air. Physical examination: Gen: This is a cachectic appearing 63-year-old male in no acute respiratory distress VS: reviewed HEENT: Head is atraumatic, normocephalic. Pupils equal, round. Sclerae is anicteric. LUNGS: Clear to auscultation. No wheezes or rhonchi. No intercostal retractions. HEART: Regular rate and rhythm. No murmur. ABDOMEN: Soft No tenderness. EXTREMITIES: No pedal edema. No calf tenderness. NEUROLOGICAL: Patient is awake, alert and oriented x3. Assessment: Recurrent falls most likely due to orthostatic hypotension Elevated troponin of unclear significance, ACS ruled out Right ankle distal fibular fracture Possible pneumonia Recent right ear surgery Squamous cell carcinoma of the head and neck Hypertension Hyperlipidemia Hypothyroidism COPD Remote history of tobacco chewing Plan: Continue current cardiac medications Continue with the addition of midodrine and Florinef 0.1 mg daily Patient is cleared for discharge from cardiology and may follow-up with Dr. SHAYY Garcia in 1 to 2 weeks. Nurse practitioner note has been reviewed, I agree with documented findings and plan of care. Patient was seen and examined. Objective - Vital Signs Vital signs: Vital Signs Temp 98.2 F 08/07/23 00:00 Pulse 69 08/07/23 04:00 Resp 18 08/07/23 04:00 BP 112/69 08/07/23 04:00 Pulse Ox 92 L 08/07/23 04:00 FiO2 Intake & Output 08/06/23 08/07/23 08/07/23 18:59 06:59 18:59 Intake Total 420 Output Total 400 Balance 420 -400 Weight 79.379 kg 79.4 kg Intake: Tube Feeding 300 Other 120 Output: Urine 400 Other: Voiding Method Urinal Urinal # Voids 1 # Bowel Movements 1 - Labs CBC & Chem 7: 08/06/23 08:21 08/06/23 08:21 Labs: Abnormal Lab Results - Last 24 Hours (Table) 08/06/23 08/06/23 08/06/23 Range/Units 08:21 08:21 16:50 RBC 3.06 L (4.30-5.90) m/uL Hgb 8.9 L (13.0-17.5) gm/dL Hct 27.9 L (39.0-53.0) % RDW 15.7 H (11.5-15.5) % Plt Count 121 L (150-450) k/uL BUN 23 H (9-20) mg/dL Creatinine 0.60 L (0.66-1.25) mg/dL Glucose 111 H (74-99) mg/dL POC Glucose (mg/dL) 116 H (70-110) mg/dL 08/06/23 08/07/23 Range/Units 20:10 05:25 RBC (4.30-5.90) m/uL Hgb (13.0-17.5) gm/dL Hct (39.0-53.0) % RDW (11.5-15.5) % Plt Count (150-450) k/uL BUN (9-20) mg/dL Creatinine (0.66-1.25) mg/dL Glucose (74-99) mg/dL POC Glucose (mg/dL) 127 H 163 H (70-110) mg/dL
[2023-08-07 11:19] LABS: Glucose,Whole Blood 153 mg/dL (70-110)
--- NOTE | 2023-08-07 11:45 | P.PN ---
Subjective Progress Note Date: 08/07/23 Principal diagnosis: Reason for follow-up is possible pneumonia Patient is a 63-year-old male with a past medical history significant for hypertension hyperlipidemia osteoarthritis asthma and this patient who did have a history of the right lower jaw cancer status post resection and recently did have a treatment to the right lower jaw in the right ear patient has been brought into the hospital with the patient having dizziness and frequent falls, patient did have a fracture to the right ankle area patient also have chest x- ray and CT angiogram of the chest concerning for possible pneumonitis and bilateral basal area. On today's evaluation that is 08/07/2023, Patient is afebrile patient is currently on room air and denies having any shortness of breath, the patient denies any chest pain or cough, the patient denies any nausea vomiting did not have any abdominal pain and no diarrhea, the patient did have minimal discomfort to the right lower jaw area and did have minimal drainage no new labs in the system today blood cultures so far negative Objective - Vital Signs Vital signs: Vital Signs Temp 98.3 F 08/07/23 09:47 Pulse 65 08/07/23 09:47 Resp 15 08/07/23 09:47 BP 118/64 08/07/23 09:47 Pulse Ox 97 08/07/23 09:47 FiO2 Intake & Output 08/06/23 08/07/23 08/07/23 18:59 06:59 18:59 Intake Total 420 Output Total 400 500 Balance 420 -400 -500 Weight 79.379 kg 79.4 kg Intake: Tube Feeding 300 Other 120 Output: Urine 400 500 Other: Voiding Method Urinal Urinal Urinal # Voids 1 # Bowel Movements 1 - Exam GENERAL DESCRIPTION: An elderly male lying in bed in no distress RESPIRATORY SYSTEM: Unlabored breathing , decreased breath sounds at bases HEART: S1 S2 regular rate and rhythm , ABDOMEN: Soft , no tenderness EXTREMITIES: No edema feet - Labs CBC & Chem 7: 08/06/23 08:21 08/06/23 08:21 Labs: Abnormal Lab Results - Last 24 Hours (Table) 08/06/23 08/06/23 08/07/23 Range/Units 16:50 20:10 05:25 POC Glucose (mg/dL) 116 H 127 H 163 H (70-110) mg/dL 08/07/23 Range/Units 11:18 POC Glucose (mg/dL) 153 H (70-110) mg/dL Assessment and Plan (1) Atypical pneumonia Current Visit: Yes Status: Acute Code(s): J18.9 - PNEUMONIA, UNSPECIFIED O RGANISM SNOMED Code(s): 147166645 (2) Cellulitis of jaw, right Current Visit: Yes Status: Acute Code(s): L03.211 - CELLULITIS OF FACE SNOMED Code(s): 986130374 Plan: 1patient presented to hospital with dizziness weakness and did have a fall leading to the right ankle fracture patient also have some patient did have infiltrate on the chest x-ray and confirmed on the CT angiogram of the chest concerning for pneumonia patient did have mild hypoxemia 2-patient did have elevated CRP procalcitonin, blood cultures were negative 3-patient did have some clinical improvement patient is afebrile culture has been negative for resistant pathogen 4patient also noticed to have some drainage from the right lower jaw concerning for possible wound infection and cellulitis keeping in mind patient responding to Rocephin to continue and will finish therapy with oral Ceftin Dictation was produced using [employer] dictation software. please excuse any grammatical, word or spelling errors. Time with Patient: Less than 30
--- NOTE | 2023-08-07 15:03 | P.PN ---
Subjective Progress Note Date: 08/07/23 Principal diagnosis: Acute fall with trauma to right ankle secondary to dizziness and lightheadedness, possible pneumonia This is a pleasant 63-year-old male patient with a known history of Hodgkin's lymphoma treated back in 1982, hyperlipidemia, hypertension, hypothyroidism, fo rmer smoker and previous chewing tobacco. In November of last year he was diagnosed with oral cancer. He had gone on to have radical surgery requiring bone grafting from his left tibial/fibula, chemotherapy and radiation therapy completed in February 2023. He had some reconstruction last week around his right ear from the previous grafting. The past several days he has been having increased dizziness and lightheadedness and has been falling down. He is also finding himself with jerking motions prior to the falls. He denies any history of seizures. He does have a PEG tube in place for feedings. Denies any aspiration. Chest x-ray revealed patchy atelectasis versus airspace disease in the right lower lung. CT scanning of the chest revealed scattered mild areas of pneumonitis and infiltrates bilaterally greater on the right. There may be a small spiculated nodule in the right upper lung field. He was found to have an oblique fracture of the proximal portion of the distal flanks with intra articular extension of the right foot which he hurt during his fall. CT scan of the brain and C-spine revealed no acute intracranial process. No cervical spine fractures. Face CT revealed no acute posttraumatic changes. Evidence of prior mandibular surgery and repair. He is seen today in consultation in the emergency department. He is awake and alert in no acute distress. He has no pulmonary complaints. No shortness of breath, cough or congestion. No fever or chills. He is maintaining O2 saturations up to 100% on 3 L/min per nasal cannula. White count 8.4. Hemoglobin 9.3. Platelets 114. Sodium 137. Potassium 4.7. Bicarb 30. BUN 28. Creatinine 0.90. Glucose 144. Troponin 0.066. Procalcitonin 0.49. C-reactive protein 6.0. Urinalysis clean. Viral screen negative. Patient was evaluated today on 08/03/23, patient was admitted with mostly symptoms of falling, lightheadedness and dizziness, and his chest x-ray showed questionable pneumonia in the right lower lobe, procalcitonin level is elevated, patient was empirically placed on antibiotics, although his presentation was not a pulmonary presentation by any means, and he had no symptoms of pneumonia clinically upon his presentation. The findings on the CT of the chest and chest x-ray are nonspecific, but considering his procalcitonin level is elevated, I am recommending we continue antibiotics for now. The patient is basically about the same, again he has no active pulmonary symptoms but he has mostly symptoms of lightheadedness dizziness which are chronic symptoms. Patient had previous history of head and neck cancer, he had extensive radical surgery of the head and neck, chemotherapy and radiation completed in February 20, 2002 3. Labs today are basically unremarkable WBC count is normal hemoglobin is 9.4 basic metabolic profile is normal C-reactive protein is elevated at 23, procalcitonin is 0.49 Patient was reevaluated today on 08/04/2023, patient is doing great, relatively asymptomatic, sitting at the bedside chair, in no distress he denies any active pulmonary symptoms. No cough no wheezing no shortness of breath no fever no chills no hemoptysis and no chest pain. Patient is on room air, O2 sats is 94%, he is hemodynamically stable. CBC showed WBC count of 7.6 hemoglobin 8.3 basic metabolic profile is normal renal profile is normal his CRP was elevated and his procalcitonin level on admission was a bit elevated. Patient remains on antibiotics in the form of Rocephin. Again the patient does not have any symptoms of pneumonia at this point Reevaluate today on 08/05/2023, patient continues to do well from the pulmonary perspective, remains on antibiotics, mostly because he had slightly elevated procalcitonin level, clinically does not have symptoms to suggest pneumonia but the CT of the chest is showing possible pneumonitis. Patient had a brain MRI today, results of which are pending. Reevaluate today on 08/06/2023, continues to do great from the pulmonary p erspective, no active pulmonary issues whatsoever. No cough no wheezing no shortness of breath. Patient is on Rocephin, and could be transition to Ceftin upon discharge. His MRI showed some findings related to his recent surgery and some fluid in the middle ear, it also showed some questionable infection at the site of his recent surgery. Nonetheless patient is being followed by infectious disease, and he will continue to follow-up with ENT physician. Again from the pulmonary perspective the patient is doing well, and I agree with transitioning the patient to Ceftin upon discharge patient should have follow-up with his ENT physician who performed the surgery on his ear and his mandible Reevaluate today on 08/07/2023, patient continues to do relatively well from the pulmonary perspective and he has no specific pulmonary symptoms. No shortness of breath, no cough no fever no chills no hemoptysis no chest pain. I have actually cleared the patient for discharge if cleared by other consultants. Blood cultures remain negative. Patient had minimal drainage from the right lower jaw area, and that being addressed by infectious disease on the case. Objective - Vital Signs Vital signs: Vital Signs Temp 98.3 F 08/07/23 09:47 Pulse 67 08/07/23 12:32 Resp 14 08/07/23 12:32 BP 102/51 08/07/23 12:32 Pulse Ox 97 08/07/23 12:32 FiO2 Intake & Output 08/06/23 08/07/23 08/07/23 18:59 06:59 18:59 Intake Total 420 Output Total 400 500 Balance 420 -400 -500 Weight 79.379 kg 79.4 kg Intake: Tube Feeding 300 Other 120 Output: Urine 400 500 Other: Voiding Method Urinal Urinal Urinal # Voids 1 # Bowel Movements 1 - Exam GENERAL EXAM: Alert, pleasant 63-year-old male, on room air, in no distress O2 sat is 97% on room air HEAD: Changes of reconstructed mandible and right ear reconstruction. EYES: Normal reaction of pupils, equal size. NOSE: Clear with pink turbinates. THROAT: No erythema or exudates. NECK: No masses, no JVD. CHEST: No chest wall deformity. LUNGS: Equal air entry with no crackles, wheeze, rhonchi or dullness. CVS: S1 and S2 normal with no audible murmur, regular rhythm. ABDOMEN: No hepatosplenomegaly, normal bowel sounds, no guarding or rigidity. SPINE: No scoliosis or deformity SKIN: No rashes CENTRAL NERVOUS SYSTEM: No focal deficits, tone is normal in all 4 extremities. EXTREMITIES: Long scar up the left leg from previous surgery. There is no peripheral edema. Peripheral pulses are intact. - Labs CBC & Chem 7: 08/06/23 08:21 08/06/23 08:21 Labs: Abnormal Lab Results - Last 24 Hours (Table) 08/06/23 08/06/23 08/07/23 Range/Units 16:50 20:10 05:25 POC Glucose (mg/dL) 116 H 127 H 163 H (70-110) mg/dL 08/07/23 Range/Units 11:18 POC Glucose (mg/dL) 153 H (70-110) mg/dL Assessment and Plan Assessment: Impression: Atypical, pneumonia Acute falls with trauma to the right ankle secondary to dizziness, lightheade dness. CT scan of the head revealed no acute intracranial process. Symptoms of lightheadedness and dizziness are chronic. 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 requiring extensive radical surgery of the head and neck, chemotherapy and radiation therapy completed in February 2023 History of chewing tobacco Former smoker Abnormal CT of the chest and chest x-ray, questioning pneumonitis in the right lung, patient is an excellent set up for aspiration however he does have a PEG tube in place Acute hypoxic respiratory failure secondary to above Acute right distal fibula fracture secondary to falls Hyperlipidemia Chronic obstructive pulmonary disease Recommendation: Continue present course of treatment Continue antibiotics, could transition to Ceftin to replace ceftriaxone upon discharge. I am clearing the patient for discharge if cleared by other consultants Time with Patient: Less than 30
[2023-08-07 17:15] LABS: Glucose,Whole Blood 145 mg/dL (70-110)
--- NOTE | 2023-08-07 19:32 | P.PN ---
Subjective Progress Note Date: 08/07/23 63-year-old patient with past medical history significant for hyperlipidemia, osteoarthritis, hypertension, history of Hodgkin lymphoma 1983 s/p chemo and radiation, history of dizziness and recurrent falls, history of asthma, thyroid disorder degenerative disease of spine, per patient hx of oral cancer presents to the emergency department after episode of dizziness and recurrent falls. Patient states he has been living by herself and for the last 4 weeks has been having multiple episodes of dizziness. patient unable to differentiate between the room spinning around or dizziness once this changes exposure. Patient states that 1 day prior he fell about 4 times. Patient states he felt as if the right ankle popped. He has been complaining of pain as well he denies hitting his head. At the time of presentation in ER patient was noted to be hypotensive with elevated lactate levels, serum chemistry obtained showed WBC 8.4 hemoglobin 9.8 platelet 240 INR obtained within normal limits, serum chemistry sodium 137 potassium 4.1 BUN 28 creatinine 0.9 lactate of 2.1, patient given fluid bolus follow-up lactate 1.3 Patient was noted to have troponin of 0.146, followed by 0.10 with, CRP of 6 Workup in the ER included CT head, cervical spine CT face CT angio chest CT head and cervical spine negative for acute intracranial process, CT cervical spine does show anterior cervical fusion C4-C7, disc space narrowing noted at C7-T1 CT chest does show scattered pneumonitis changes more on the right as compared to left multiple small spiculated nodule noted atypical infection suspected CT of the face negative for posttraumatic changes, no fracture noted Urinalysis negative, patient tested negative for influenza RSV and COVID 08/07/2023 --patient is seen and evaluated in room at bedside; continues to do relatively well from the pulmonary perspective and he has no specific pulmonary symptoms. No shortness of breath, no cough no fever no chills no hemoptysis no chest pain. Patient has been cleared for discharge by pulmonary service. Blood cultures remain negative. Patient had minimal drainage from the right lower jaw area, and that being addressed by infectious disease on the case. patient presented to hospital with dizziness weakness and did have a fall jayson ding to the right ankle fracture patient also have some patient did have infiltrate on the chest x-ray and confirmed on the CT angiogram of the chest concerning for pneumonia patient did have mild hypoxemia -patient did have elevated CRP procalcitonin, blood cultures were negative -patient did have some clinical improvement patient is afebrile culture has been negative for resistant pathogen patient also noticed to have some drainage from the right lower jaw concerning for possible wound infection and cellulitis keeping in mind patient responding to Rocephin to continue and will finish therapy with oral Ceftin Objective - Vital Signs Vital signs: Vital Signs Temp 98.3 F 08/07/23 09:47 Pulse 67 08/07/23 12:32 Resp 14 08/07/23 12:32 BP 102/51 08/07/23 12:32 Pulse Ox 97 08/07/23 12:32 FiO2 Intake & Output 08/06/23 08/07/23 08/07/23 18:59 06:59 18:59 Intake Total 420 Output Total 400 500 Balance 420 -400 -500 Weight 79.379 kg 79.4 kg Intake: Tube Feeding 300 Other 120 Output: Urine 400 500 Other: Voiding Method Urinal Urinal Urinal # Voids 1 # Bowel Movements 1 - Exam GENERAL: The patient is alert and oriented x3, nasal cannula in place HEENT: Pupils are round and equally reacting to light stitches noted right periauricular area, abrasion noted on chin, CARDIOVASCULAR: S1 and S2 present. No murmurs, rubs, or gallops. PULMONARY: Decreased breath sounds bilaterally ABDOMEN: Soft, nontender, nondistended, normoactive bowel sounds. Tube in place MUSCULOSKELETAL: Point tenderness right lower extremity EXTREMITIES: No cyanosis, clubbing, or pedal edema. 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 In regards to asthma exacerbation continue patient on breathing treatment,pulmonary medicine consulted * In regards to elevated troponin, cardiology consulted, serial troponins elevated, cardiology recommendations appreciated * Regards to sepsis continue patient on fluid resuscitation lactate levels normalized, blood cultures no growth, continue Rocephin day 3, azithromycin completed * In regards to dizziness as needed meclizine , neurology consulted, MRI brain negative for stroke, right otomastoiditis noted, changes postoperatively noted, EEG negative for seizure * In regards to oblique fracture of the distal phalanx and fibula fracture Ortho consulted, recommend conservative management brace ordered * In regards to oropharyngeal dysphagia continue nutrition to tube feeds * CODE STATUS is full code * Physical therapy Occupational Therapy consulted
[2023-08-07 20:22] LABS: Glucose,Whole Blood 142 mg/dL (70-110)
[2023-08-08 06:13] LABS: Glucose,Whole Blood 150 mg/dL (70-110)
[2023-08-08 08:43] LABS: Basophils # (A) 0.1 k/uL (0-0.2); Basophils % (A) 1 %; Eosinophils # (A) 0.4 k/uL (0-0.7); Eosinophils % (A) 6 %; HCT 31.7 % (39.0-53.0); Hypochromasia Slight; Lymphocytes # (A) 0.7 k/uL (1.0-4.8); Lymphocytes % (A) 12 %; MCH 29.1 pg (25.0-35.0); MCHC 31.7 g/dL (31.0-37.0); MCV 91.8 fL (80.0-100.0); Mean Platelet Volume 8.8; Monocytes # (A) 0.4 k/uL (0-1.0); Monocytes % (A) 6 %; Neutrophils # (A) 4.4 k/uL (1.3-7.7); Neutrophils % (A) 72 %; Platelet Count 143 k/uL (150-450); RBC 3.45 m/uL (4.30-5.90); RDW 15.7 % (11.5-15.5); WBC 6.1 k/uL (3.8-10.6)
[2023-08-08 08:59] LABS: African American GFR (CKD) >90 (>60 ml/min/1.73 sqM); Anion Gap 7 mmol/L; Blood Urea Nitrogen 28 mg/dL (9-20); Calcium 9.1 mg/dL (8.4-10.2); Carbon Dioxide 25 mmol/L (22-30); Chloride 107 mmol/L (98-107); Glucose 130 mg/dL (74-99); Non-African American GFR(CKD) >90 (>60 ml/min/1.73 sqM); Potassium 4.3 mmol/L (3.5-5.1); Sodium 139 mmol/L (137-145)
[2023-08-08 10:04] VITALS: TEMP 97.7
--- NOTE | 2023-08-08 10:24 | P.PN ---
Subjective Progress Note Date: 08/08/23 ELEVATED TROPONINS, DIZZINESS History of present illness: History of present illness: This is a 63-year-old male patient of Dr. 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 Patient states that he has an done in May that revealed no cancer in his neck scheduled scan is in December. We have been asked to evaluate the patient for elevated troponins and dizziness. Patient states that he had a fall at home and then experienced excruciating pain to the right ankle. He denies having any chest pain or shortness of breath. He states he had some dizziness but no loss of consciousness. Patient states that he has had a weight loss of 40 pounds over the past year from his cancer. He does have a PEG tube for feedings. Patient seen today in the emergency center waiting for a bed on the cardiac stepdown unit. He is status post 2 L of IV fluid and has been started on IV Solu-Medrol and IV antibiotics. EKG sinus rhythm at ventricular rate of 77 bpm, #2 sinus rhythm ventricular rate of 101. Chest x-ray: Limited by patient positioning. Borderline heart size. Patchy atelectasis versus airspace disease at the right lower lung. CTA of the chest revealed scattered mild areas of pneumonitis bilaterally greater on the right. Small spiculated nodule in the right upper lung field. Differentiate diagnosis would include infectious etiologies or neoplasm. Consider atypical pneumonia within the differential. WBC 10.4, hemoglobin 9.4, platelet count 130. Sodium 141, potassium 4.3, chloride 108, CO2 27, BUN 21 and creatinine 0.62. Blood sugar 145. Troponins 0.146, 0.108, 0.066. Procalcitonin 0.49. Urinalysis negative. Influenza A, influenza B, RSV, COVID-19 not detected. Home cardiac medications: Potassium citrate 10 mill equivalents 3 times daily, Crestor 20 mg at bedtime. Cardiac catheterization history 11/2018. Left dominant system. Elevated filling pressures initially responded to intraventricular nitroglycerin. No gradient across the aortic valve. No significant CAD. Echocardiogram 09/2020 performed in the office revealed EF of 55%, moderate left- ventricular hypertrophy. Mild mitral digitation, mild tricuspid regurgitation. Pulmonary artery systolic pressure of 27 mmHg. 08/04 Patient is seen in follow-up today on the cardiac stepdown unit. He is complaining of feeling dizzy when he gets up and also shaking of his arms. Patient has been instructed to use a walker when he gets up and move. He denies having any chest pain. Blood pressure 109/65, heart rate in the 70s, pulse ox 94% on room air. Repeat blood work reveals hemoglobin of 8.3. Sodium 143, potassium 3.6, BUN 20 creatinine 0.72. Echocardiogram reveals EF of 55 to 60%, mild left ventricular dilation, RVSP 35, mild to moderate mitral regurgitation and mild to moderate tricuspid regurgitation. Echocardiogram results have been reviewed with the patient. 08/05 Patient denies any new concerns. His blood pressure remains on the lower side 103/65, heart rate 60s, pulse ox 98 % on room air. Repeat blood work reveals WBC 7.1, hemoglobin 8.5, platelet count 125. Potassium 5.2, chloride 109, sodium 142. BUN 35 creatinine 0.61. 08/06 Patient denies any new concerns. He was started on Florinef yesterday and blood pressure is 123/75, heart rate 63, pulse ox 96% on room air. Repeat blood work reveals hemoglobin 8.9, BUN 23 creatinine 0.6. 08/07 Patient states that he has been up and walking in the hallway and doing well with this. On no weakness lightheadedness or dizziness. Patient denies having any chest pain. Blood pressures are improved with the addition of midodrine and Florinef. This morning blood pressure 112/69, heart rate 69, pulse ox 92% on room air. 08/08 Patient denies any new concerns. Blood pressure stable at 106/55, heart rate is in the 60s. Repeat blood work reveals hemoglobin of 10, platelet count 143, potassium 4.3, BUN 28 creatinine 0.59. Patient denies having any chest pain, no lightheadedness or dizziness, no palpitations. Patient is followed by pulmonary medicine and infectious disease. Patient does have a small area of drainage on the right jaw area. Apparently patient is waiting for oral surgeon and ENT evaluations. Physical examination: Gen: This is a cachectic appearing 63-year-old male in no acute respiratory distress VS: reviewed HEENT: Head is atraumatic, normocephalic. Pupils equal, round. Sclerae is anicteric. LUNGS: Clear to auscultation. No wheezes or rhonchi. No intercostal retractions. HEART: Regular rate and rhythm. No murmur. ABDOMEN: Soft No tenderness. EXTREMITIES: No pedal edema. No calf tenderness. NEUROLOGICAL: Patient is awake, alert and oriented x3. Assessment: Recurrent falls most likely due to orthostatic hypotension Elevated troponin of unclear significance, ACS ruled out Right ankle distal fibular fracture Possible pneumonia Recent right ear surgery Squamous cell carcinoma of the head and neck with drainage from the right jaw Hypertension Hyperlipidemia Hypothyroidism COPD Remote history of tobacco chewing Plan: Continue current cardiac medications Continue with the addition of midodrine and Florinef 0.1 mg daily Patient is cleared for discharge from cardiology and may follow-up with Dr. SHAYY Garcia in 1 to 2 weeks. Nurse practitioner note has been reviewed, I agree with documented findings and plan of care. Patient was seen and examined. Objective - Vital Signs Vital signs: Vital Signs Temp 97.7 F 08/08/23 09:45 Pulse 64 08/08/23 09:45 Resp 16 08/08/23 09:45 BP 106/55 08/08/23 09:45 Pulse Ox 97 08/08/23 09:45 FiO2 Intake & Output 08/07/23 08/08/23 08/08/23 18:59 06:59 18:59 Intake Total 600 Output Total 500 300 300 Balance -500 300 -300 Intake: Tube Feeding 600 Output: Urine 500 300 300 Other: Voiding Method Urinal Urinal Urinal # Voids 1 - Labs CBC & Chem 7: 08/08/23 07:23 08/08/23 07:23 Labs: Abnormal Lab Results - Last 24 Hours (Table) 08/07/23 08/07/23 08/07/23 Range/Units 11:18 16:33 20:20 RBC (4.30-5.90) m/uL Hgb (13.0-17.5) gm/dL Hct (39.0-53.0) % RDW (11.5-15.5) % Plt Count (150-450) k/uL Lymphocytes # (1.0-4.8) k/uL BUN (9-20) mg/dL Creatinine (0.66-1.25) mg/dL Glucose (74-99) mg/dL POC Glucose (mg/dL) 153 H 145 H 142 H (70-110) mg/dL 08/08/23 08/08/23 08/08/23 Range/Units 06:12 07:23 07:23 RBC 3.45 L (4.30-5.90) m/uL Hgb 10.0 L (13.0-17.5) gm/dL Hct 31.7 L (39.0-53.0) % RDW 15.7 H (11.5-15.5) % Plt Count 143 L (150-450) k/uL Lymphocytes # 0.7 L (1.0-4.8) k/uL BUN 28 H (9-20) mg/dL Creatinine 0.59 L (0.66-1.25) mg/dL Glucose 130 H (74-99) mg/dL POC Glucose (mg/dL) 150 H (70-110) mg/dL Microbiology - Last 24 Hours (Table) 08/02/23 14:05 Blood Culture - Final Blood 08/02/23 14:05 Blood Culture - Final Blood
[2023-08-08 12:00] LABS: Glucose,Whole Blood 139 mg/dL (70-110)
[2023-08-08 12:01] VITALS: BP 103/64; PULSE 63; RESP 17
--- NOTE | 2023-08-08 12:49 | P.PN ---
Subjective Progress Note Date: 08/08/23 I am following-up with patient and he feels he is doing better. No further drastic tremors with standing up. Objective - Vital Signs Vital signs: Vital Signs Temp 97.7 F 08/08/23 09:45 Pulse 63 08/08/23 11:46 Resp 17 08/08/23 11:46 BP 103/64 08/08/23 11:46 Pulse Ox 96 08/08/23 11:46 FiO2 Intake & Output 08/07/23 08/08/23 08/08/23 18:59 06:59 18:59 Intake Total 600 Output Total 500 300 300 Balance -500 300 -300 Intake: Tube Feeding 600 Output: Urine 500 300 300 Other: Voiding Method Urinal Urinal Urinal # Voids 1 - Exam GENERAL: The patient is lying in bed and is not in acute distress. HENT: Has bruise over the right side of face and has old scar over the right jaw/neck region. NEUROLOGICAL: Orthostatic vitals BP: Supine 120/72, sitting is 102/62 and standing is 96/57 Higher mental function: The patient is awake, alert, oriented to self, place and time. Patient is following commands. No aphasia and no neglect. Cranial nerves: The pupils are round, equal and reactive to light and accommodation. Visual rice are full to confrontation throughout. Extraocular movement is intact no nystagmus is noted. Facial sensation is normal to touch throughout. The facial strength: Has right lower and upper facial weakness (patient stated has his nerve affected from cancer/surgery). Hearing is normal bilaterally to hand rub. Tongue is midline and moved [id number] without any difficulty. No dysarthria is noted. Shoulder shrug is normal bilaterally. Motor: The strength is 5 over 5 throughout. Slight atrophy in hypothenar region bilaterally. Normal tone and bulk. Cerebellum: Normal finger to nose bilaterally. Sensation: Sensation is normal to touch throughout. Some of the workup during his hospital visit consisted of: Sodium is 137, creatinine is 0.90, calcium is 9.1, magnesium is 1.9, troponin is 0.146. Plasma lactic acid venous 2.1 CT of the head is reported as mild atrophy, stable from comparison. No acute intracranial processes. Follow-up MRI can be performed as clinically indicated. I personally reviewed the CT head and I agree there is no acute or subacute i schemia. There is no bleed. CT cervical spine is reported as mild to moderate for maternal narrowing throughout the cervical spine. No acute osseous abnormality. Follow-up can be performed as clinically indicated. EKG is reported as sinus rhythm. TSH is 6.080 and free T4 is 1.24 in February 2023 Routine EEG: The background slowing is suggestive of mild encephalopathy. Otherwise, there is no focal slowing, epileptiform discharge or seizure on the EEG. MRI Brain: No evidence of intracranial mass, acute/subacute infarct, or abnormal enhancement. Findings for infection around the right mandible with subcutaneous gas seen on 08/02/2023 CT. There is phlegmonous change present. Additionally these is right middle ear effusion concerning for otomastoiditis. Nonspecific white matter changes, likely related to small vessel ischemic disease. 2D echo: left ventricular ejection fraction 55-60%. Mild left ventricular dilation. Mild to moderate tricuspid regurgitation. - Labs CBC & Chem 7: 08/08/23 07:23 08/08/23 07:23 Labs: Abnormal Lab Results - Last 24 Hours (Table) 08/07/23 08/07/23 08/08/23 Range/Units 16:33 20:20 06:12 RBC (4.30-5.90) m/uL Hgb (13.0-17.5) gm/dL Hct (39.0-53.0) % RDW (11.5-15.5) % Plt Count (150-450) k/uL Lymphocytes # (1.0-4.8) k/uL BUN (9-20) mg/dL Creatinine (0.66-1.25) mg/dL Glucose (74-99) mg/dL POC Glucose (mg/dL) 145 H 142 H 150 H (70-110) mg/dL 08/08/23 08/08/23 08/08/23 Range/Units 07:23 07:23 11:58 RBC 3.45 L (4.30-5.90) m/uL Hgb 10.0 L (13.0-17.5) gm/dL Hct 31.7 L (39.0-53.0) % RDW 15.7 H (11.5-15.5) % Plt Count 143 L (150-450) k/uL Lymphocytes # 0.7 L (1.0-4.8) k/uL BUN 28 H (9-20) mg/dL Creatinine 0.59 L (0.66-1.25) mg/dL Glucose 130 H (74-99) mg/dL POC Glucose (mg/dL) 139 H (70-110) mg/dL Microbiology - Last 24 Hours (Table) 08/02/23 14:05 Blood Culture - Final Blood 08/02/23 14:05 Blood Culture - Final Blood Assessment and Plan Assessment: This is a 63-year-old gentleman with history of Hodgkin lymphoma status post resection with residual right facial palsy, chemotherapy and radiation therapy who was having recurrent dizziness with falls for the last 10 year progressively getting worse. He notes that happens predominantly when he tries to get up and walk around and he feels he is having abnormal shaking tremors but does not lose consciousness. At times when he is resting or have abnormal tremor or jerks. No official diagnosis of seizure in the past. Recurrent dizziness with falls with abnormal body tremor and jerk: Due to positive orthostatic Also cannot rule out the recurrent falls and dizziness is due to dysfunction of the carotids baroreceptor result from history of cancer status post resection with chemoradiation therapy. EEG is no seizure or discharges. MRI Brain is negative for stroke or brain mets. Positive Orthostatic hypotension Concerning for otomastoiditis on MRI. History of Hodgkins lymphoma status post resection with residual right facial palsy she had history of chemotherapy and radiation therapy Plan: Orthostatic vitals are positive: Recommend adjusting his medications. If does not help, recommend compression stocking and if still effective recommend midod rine vs salt tab vs florinef. Recommend repeat Orthostatic after making some modification to make sure improved. Concerning for otomastoiditis on MRI. I.D. is on board. It seems patient has known history of infection according to him. Started the patient prophylactically on Keppra 750 mg twice a day for concern of possible seizures. I notified the patient and his [id number] about the side effects of the Keppra about behavioral/mood. Cardiology is consulted I recommend the patient to continue follow-up with his oncologist as outpatient I notified the patient that I would recommend him not to reside by himself especially with recurrent episode of falls. He follows up with Dr. Joe for his pain/neck issues and the eye notified them that too also to dress these tremors body jerks as well as an outpatient. We'll defer the rest of the medical management to the primary and other specialists The plan is discussed with patient. Will follow-up sporadically. Dr. Cooper will resume neurology service tomorrow A.M. Time with Patient: Less than 30
--- NOTE | 2023-08-11 13:32 | P.DS ---
Providers Date of admission: 08/02/23 13:20 Expected date of discharge: 08/08/23 Attending physician: Harini Hagen MD Consults: 08/02/23 12:40 Consult Physician Urgent Consulting Provider: Mikel Christie Consult Reason/Comments: Elevated troponin, dizziness Do you want consulting provider notified?: Yes 08/02/23 12:41 Consult Physician Urgent Consulting Provider: Janessa Dean Consult Reason/Comments: Pneumonitis vs atypical pneumonia, hypoxia Do you want consulting provider notified?: Yes 08/02/23 12:58 Consult Physician Routine Consulting Provider: Naun Franklin Consult Reason/Comments: Sepsis with pneumonia Do you want consulting provider notified?: Yes 08/02/23 16:29 Consult Physician Routine Consulting Provider: Jovanni Rendon Consult Reason/Comments: Dizziness and falls Do you want consulting provider notified?: Yes 08/05/23 12:47 Consult Physician Routine Consulting Provider: Keyur Rizvi Consult Reason/Comments: otomastoiditis, abnormal MRI Do you want consulting provider notified?: Yes 08/05/23 13:41 Consult Physician Routine Consulting Provider: Radhames Fernando Consult Reason/Comments: Otomastoiditis right ear Do you want consulting provider notified?: Yes Primary care physician: [facility] Course: 63-year-old patient with past medical history significant for hyperlipidemia, osteoarthritis, hypertension, history of Hodgkin lymphoma 1983 s/p chemo and radiation, history of dizziness and recurrent falls, history of asthma, thyroid disorder degenerative disease of spine, per patient hx of oral cancer presents to the emergency department after episode of dizziness and recurrent falls. Patient states he has been living by herself and for the last 4 weeks has been having multiple episodes of dizziness. patient unable to differentiate between the room spinning around or dizziness once this changes exposure. Patient states that 1 day prior he fell about 4 times. Patient states he felt as if the right ankle popped. He has been complaining of pain as well he denies hitting his head. At the time of presentation in ER patient was noted to be hypotensive with elevated lactate levels, serum chemistry obtained showed WBC 8.4 hemoglobin 9.8 platelet 240 INR obtained within normal limits, serum chemistry sodium 137 potassium 4.1 BUN 28 creatinine 0.9 lactate of 2.1, patient given fluid bolus follow-up lactate 1.3 Patient was noted to have troponin of 0.146, followed by 0.10 with, CRP of 6 Workup in the ER included CT head, cervical spine CT face CT angio chest CT head and cervical spine negative for acute intracranial process, CT cervical spine does show anterior cervical fusion C4-C7, disc space narrowing noted at C7-T1 CT chest does show scattered pneumonitis changes more on the right as compared to left multiple small spiculated nodule noted atypical infection suspected CT of the face negative for posttraumatic changes, no fracture noted Urinalysis negative, patient tested negative for influenza RSV and COVID 08/07/2023 --patient is seen and evaluated in room at bedside; continues to do relatively well from the pulmonary perspective and he has no specific pulmonary symptoms. No shortness of breath, no cough no fever no chills no hemoptysis no chest pain. Patient has been cleared for discharge by pulmonary service. Blood cultures remain negative. Patient had minimal drainage from the right lower jaw area, and that being addressed by infectious disease on the case. patient presented to hospital with dizziness weakness and did have a fall leading to the right ankle fracture patient also have some patient did have infiltrate on the chest x-ray and confirmed on the CT angiogram of the chest concerning for pneumonia patient did have mild hypoxemia -patient did have elevated CRP procalcitonin, blood cultures were negative -patient did have some clinical improvement patient is afebrile culture has been negative for resistant pathogen patient also noticed to have some drainage from the right lower jaw concerning for possible wound infection and cellulitis keeping in mind patient responding to Rocephin to continue and will finish therapy with oral Ceftin 08/08/2023 Clinically stable for dc on oral antibiotics Plan - Discharge Summary New Discharge Prescriptions: New Fludrocortisone [Florinef] 0.1 mg PO DAILY 30 Days #30 tab cefUROXime axetiL [Ceftin] 500 mg PO BID 10 Days #20 tab levETIRAcetam [Keppra] 750 mg PO Q12HR 30 Days #60 tab Midodrine [ProAmatine] 5 mg PO AC-TID 30 Days #90 tab Benzonatate [Tessalon Perles] 100 mg PO TID PRN 10 Days #30 cap PRN Reason: Cough Continue Venlafaxine HCl [Effexor XR] 300 mg PO DAILY Montelukast [Singulair] 10 mg PO HS Mirtazapine [Remeron] 45 mg PO HS allopurinoL [Zyloprim] 100 mg PO DAILY Tamsulosin [Flomax] 0.4 mg PO DAILY #5 cap Gabapentin [Neurontin] 600 mg PO TID Ergocalciferol [Vitamin D2 (1250 Mcg = 87266 Iu)] 1,250 mcg PO MO Rosuvastatin [Crestor] 20 mg PO HS Albuterol Inhaler [Ventolin Hfa Inhaler] 1 puff INHALATION RT-QID PRN PRN Reason: Shortness Of Breath oxyCODONE HCL [oxyCODONE HCL (IR)] 10 mg PO Q4H PRN PRN Reason: Moderate To Severe Pain (4-10) Cephalexin [Keflex] 500 mg PO Q6HR 1 Days #4 cap HYDROcodone/APAP 10-325MG [[place] 10-325] 1 tab PO Q6HR PRN PRN Reason: Pain Levothyroxine Sodium [Synthroid] 125 mcg PO DAILY Potassium Citrate [Potassium Citrate ER] 10 meq PO TID Cevimeline [Evoxac] 30 mg PO TID Ibuprofen [Motrin] 800 mg PO Q8H PRN PRN Reason: Fever And/ Or Pain Acetaminophen [Tylenol 8 Hour] 650 mg PO TID Mv-Mn/Om3/Dha/Epa/Fish/Lut/[place] [Ocuvite Adult 50 Plus Softgel] 1 cap PO DAILY Artificial Tears-Hypromellose [Artificial Tear Drops] 1 drops BOTH EYES TID PRN PRN Reason: Dry Eye(S) Cyclobenzaprine [Flexeril] 10 mg PO TID PRN PRN Reason: Muscle Spasm Chlorhexidine Gluconate [Peridex] 15 ml PO TID PRN PRN Reason: MOUTH ISSUES Discharge Medication List Mirtazapine [Remeron] 45 mg PO HS 01/13/14 [History] Montelukast [Singulair] 10 mg PO HS 01/13/14 [History] Venlafaxine HCl [Effexor XR] 300 mg PO DAILY 01/13/14 [History] Tamsulosin [Flomax] 0.4 mg PO DAILY #5 cap 04/17/15 [Rx] allopurinoL [Zyloprim] 100 mg PO DAILY 04/17/15 [History] Ergocalciferol [Vitamin D2 (1250 Mcg = 98409 Iu)] 1,250 mcg PO MO 10/09/20 [History] Gabapentin [Neurontin] 600 mg PO TID 10/09/20 [History] Rosuvastatin [Crestor] 20 mg PO HS 12/24/20 [History] Albuterol Inhaler [Ventolin Hfa Inhaler] 1 puff INHALATION RT-QID PRN 01/08/21 [History] Potassium Citrate [Potassium Citrate ER] 10 meq PO TID 09/24/22 [History] oxyCODONE HCL [oxyCODONE HCL (IR)] 10 mg PO Q4H PRN 03/08/23 [History] Cephalexin [Keflex] 500 mg PO Q6HR 1 Days #4 cap 03/24/23 [Rx] Acetaminophen [Tylenol 8 Hour] 650 mg PO TID 08/02/23 [History] Artificial Tears-Hypromellose [Artificial Tear Drops] 1 drops BOTH EYES TID PRN 08/02/23 [History] Cevimeline [Evoxac] 30 mg PO TID 08/02/23 [History] Chlorhexidine Gluconate [Peridex] 15 ml PO TID PRN 08/02/23 [History] Cyclobenzaprine [Flexeril] 10 mg PO TID PRN 08/02/23 [History] HYDROcodone/APAP 10-325MG [[place] 10-325] 1 tab PO Q6HR PRN 08/02/23 [History] Ibuprofen [Motrin] 800 mg PO Q8H PRN 08/02/23 [History] Levothyroxine Sodium [Synthroid] 125 mcg PO DAILY 08/02/23 [History] Mv-Mn/Om3/Dha/Epa/Fish/Lut/[place] [Ocuvite Adult 50 Plus Softgel] 1 cap PO DAILY 08/02/23 [History] Benzonatate [Tessalon Perles] 100 mg PO TID PRN 10 Days #30 cap 08/07/23 [Rx] Fludrocortisone [Florinef] 0.1 mg PO DAILY 30 Days #30 tab 08/07/23 [Rx] Midodrine [ProAmatine] 5 mg PO AC-TID 30 Days #90 tab 08/07/23 [Rx] cefUROXime axetiL [Ceftin] 500 mg PO BID 10 Days #20 tab 08/07/23 [Rx] levETIRAcetam [Keppra] 750 mg PO Q12HR 30 Days #60 tab 08/07/23 [Rx] Follow up Appointment(s)/Referral(s): Jacqueline Garcia MD [STAFF PHYSICIAN] - 1 Week (Please call to schedule hospital follow up. ) Radhames Fernando MD [STAFF PHYSICIAN] - 1 Week (Please call to schedule hospital follow up regarding otomastoiditis. ) Armani Rendon DO [Primary Care Provider] - 1-2 days (Please call to schedule hoptal follow up. ) Patient Instructions/Handouts: Hypotension (DC), Pneumonia (DC), Mastoiditis (DC) Discharge Disposition: HOME SELF-CARE
== END 2023-08-08 13:26 | disposition home or self-care (01) | DRG 871 ==
LOC: EC 05:33 → 3SCARD 13:20
PROVIDERS: ADMIT Internal Medicine; ATTEND Internal Medicine
PROC: 4A10X4Z Monitoring of Central Nervous Electrical Activity, External Approach (ICD-10-PCS; principal; 2023-08-03)
DX: A41.89 Other specified sepsis (principal); E43 Unspecified severe protein-calorie malnutrition; J96.01 Acute respiratory failure with hypoxia; J69.0 Pneumonitis due to inhalation of food and vomit; J44.0 Chronic obstructive pulmonary disease with (acute) lower respiratory infection; J45.901 Unspecified asthma with (acute) exacerbation; C34.90 Malignant neoplasm of unspecified part of unspecified bronchus or lung; L03.211 Cellulitis of face; G93.40 Encephalopathy, unspecified; Z68.22 Body mass index [BMI] 22.0-22.9, adult; Z11.52 Encounter for screening for COVID-19; W19.XXXA Unspecified fall, initial encounter; R42 Dizziness and giddiness; E03.9 Hypothyroidism, unspecified; Z87.01 Personal history of pneumonia (recurrent); I95.1 Orthostatic hypotension; R13.12 Dysphagia, oropharyngeal phase; S92.401A Displaced unspecified fracture of right great toe, initial encounter for closed fracture; S82.831A Other fracture of upper and lower end of right fibula, initial encounter for closed fracture; R79.89 Other specified abnormal findings of blood chemistry; R29.6 Repeated falls; Z91.81 History of falling; Z87.891 Personal history of nicotine dependence; E11.9 Type 2 diabetes mellitus without complications; E78.5 Hyperlipidemia, unspecified; G51.0 Bell's palsy; Z85.71 Personal history of Hodgkin lymphoma; Z85.819 Personal history of malignant neoplasm of unspecified site of lip, oral cavity, and pharynx; E86.1 Hypovolemia; F32.9 Major depressive disorder, single episode, unspecified; I08.1 Rheumatic disorders of both mitral and tricuspid valves; I10 Essential (primary) hypertension; Y92.009 Unspecified place in unspecified non-institutional (private) residence as the place of occurrence of the external cause; Z79.890 Hormone replacement therapy; Z79.899 Other long term (current) drug therapy; Z85.830 Personal history of malignant neoplasm of bone; Z85.89 Personal history of malignant neoplasm of other organs and systems; Z86.72 Personal history of thrombophlebitis; Z87.442 Personal history of urinary calculi; Z92.21 Personal history of antineoplastic chemotherapy; Z59.6 Low income; Z92.3 Personal history of irradiation; Z93.1 Gastrostomy status; Z98.1 Arthrodesis status; Z87.19 Personal history of other diseases of the digestive system
CPT/HCPCS: 36415; 70450; 70486; 70553; 71046; 71275; 72125; 80048; 80053; 81003; 82803; 83605; 83735; 84145; 84484; 85025; 85027; 85610; 86140; 87040; 87449; 87636; 93005; 93306; 94760; 95816; 96365; 96366; 96367; 96372; 96375; 96376; 99285

== ENCOUNTER → 2023-12-20 | Outpatient (CLI) | payer MEDICARE, OTHER ==
[2023-12-20 13:40] LABS: African American GFR (CKD) >90 (>60 ml/min/1.73 sqM); Blood Urea Nitrogen 29 mg/dL (9-20); Non-African American GFR(CKD) >90 (>60 ml/min/1.73 sqM)
--- NOTE | 2023-12-20 15:13 | CT ---
EXAMINATION TYPE: CT facial bones w con, CT soft tissue neck w con CT DLP: 984 mGycm, Automated exposure control for dose reduction was used. DATE OF EXAM: 12/20/2023 2:51 PM COMPARISON: 08/02/2023. 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 Hx facial reconstruction w/fibula. TECHNIQUE: Multiple unenhanced axial CT images were obtained of the facial bones soft tissue and bone windows as well as the neck with sagittal coronal reformats. Coronal, axial and sagittal reformatte d images were also provided in soft tissue and bone windows and submitted for interpretation. Additi onal 3-D reformatted images were obtained on a separate workstation. . Contrast used:100 mL of Isovue 300 with IV Contrast, (none if empty) Oral contrast used: (none if empty) FINDINGS: Posttreatment changes to the maxilla facial structures. Hardware along the jem mandible kateryna ears intact. There remains incomplete osseous fusion. Of the jem mandible. No enlarging lymph nodes a re similarly visualized. There remains diffuse edema noted. Multiples surgical clips are present. Vis ualized vascular structures appear intact. The spine and other osseous structures appear intact. Ther e is no evidence for osseous erosion. Posttreatment changes to the right globe. Visualized intracrani al structures are intact. There remains small is greater cell effusion. Mild paranasal sinus disease. Post surgical changes to the cervical spine. The upper lungs appears without acute process. No signi ficant spinal canal stenosis. Fixation hardware at C4 C5 C6 and C7. IMPRESSION: 1. Post surgical changes noted with incomplete osseous fusion of the jem mandible. Hardware appears intact. There remains post surgical clips with subcutaneous changes and edema. 2. No new Enlarging mass or lymphadenopathy definitively visualized. Continued surveillance recommen ded.
== END | disposition home or self-care (01) ==
LOC: RADCTMAIN 13:01
PROVIDERS: ATTEND Radiology Radiation Oncology
DX: C41.1 Malignant neoplasm of mandible (principal); C03.9 Malignant neoplasm of gum, unspecified; R60.9 Edema, unspecified; F17.220 Nicotine dependence, chewing tobacco, uncomplicated
CPT/HCPCS: 82565; 84520; 70487; 70491; 36415; Q9967

== ENCOUNTER 2024-03-06 19:40 | Emergency (ER) | payer MEDICARE, OTHER ==
[2024-03-06] MEDS: MORPHINE SULFATE 4 MG/ML SYRINGE IM STA (20:17)
--- NOTE | 2024-03-06 20:40 | XR ---
EXAMINATION TYPE: XR shoulder complete RT, XR clavicle RT DATE OF EXAM: 03/06/2024 8:32 PM CLINICAL INDICATION: Male, 63 years old with history of fall injury; [facility] COMPARISON: None TECHNIQUE: XR shoulder complete RT, XR clavicle RT; examined in AP, internally rotated and scapular Y projections. XR clavicle RT examined in AP and cephalic tilt views . FINDINGS/IMPRESSION: 1. Fusion of the glenohumeral joint with hardware intact. 2. Acute fracture of the mid clavicle with displacement up to 2.9 cm. 3. Fixation hardware in the lower cervical spine appears intact. [facility], , 03/06/2024 8:38 PM
--- NOTE | 2024-03-06 21:04 | ED ---
Fall HPI - General Chief Complaint: Fall Stated Complaint: Fall, shoulder dislocation Time Seen by Provider: 03/06/24 19:49 Source: EMS Mode of arrival: EMS - History of Present Illness Initial Comments: This patient is a 63-year-old man with history of frequent falls. He states that he lost balance and fell backward. He struck his right shoulder and has pain. He indicates the area over the clavicle. The patient denies weakness or numbness distal to the injury. Patient states he had previous surgery he had fusion of both shoulders performed. Patient denies other injury. No head, neck, back, chest abdomen or other extremity pains MD Complaint: fall -: hour(s) Fall From: standing Place Fall Occurred: home Loss of Consciousness: none Prolonged Down Time?: no Location - Extremities: Right: Shoulder Severity: moderate Quality: sharp Context: tripped/slipped Associated Symptoms: denies - Related Data Home Medications Medication Instructions Recorded Confirmed Montelukast [Singulair] 10 mg PO HS 01/13/14 01/21/24 Venlafaxine HCl [Effexor XR] 300 mg PO DAILY 01/13/14 01/21/24 allopurinoL [Zyloprim] 100 mg PO DAILY 04/17/15 01/21/24 Ergocalciferol [Vitamin D2 (1250 1,250 mcg PO MO 10/09/20 01/21/24 Mcg = 33278 Iu)] Gabapentin [Neurontin] 600 mg PO TID 10/09/20 01/21/24 Rosuvastatin [Crestor] 20 mg PO HS 12/24/20 01/21/24 Albuterol Inhaler [Ventolin Hfa 1 puff INHALATION RT-QID PRN 01/08/21 01/21/24 Inhaler] Potassium Citrate [Potassium 10 meq PO TID 09/24/22 01/21/24 Citrate ER] oxyCODONE HCL [oxyCODONE HCL (IR)] 10 mg PO Q4H PRN 03/08/23 01/21/24 Acetaminophen [Tylenol 8 Hour] 650 mg PO TID 08/02/23 01/21/24 Artificial Tears-Hypromellose 1 drops BOTH EYES TID PRN 08/02/23 01/21/24 [Artificial Tear Drops] Cyclobenzaprine [Flexeril] 10 mg PO TID PRN 08/02/23 01/21/24 HYDROcodone/APAP 10-325MG [Wales 1 tab PO Q6HR PRN 08/02/23 01/21/24 10-325] Ibuprofen [Motrin] 800 mg PO Q8H PRN 08/02/23 01/21/24 Levothyroxine Sodium [Synthroid] 125 mcg PO DAILY 08/02/23 01/21/24 Mv-Mn/Om3/Dha/Epa/Fish/Lut/Etelvina 1 cap PO DAILY 08/02/23 01/21/24 [Ocuvite Adult 50 Plus Softgel] traZODone HCL 100 mg PO HS 01/21/24 01/21/24 Previous Rx's Medication Instructions Recorded Tamsulosin [Flomax] 0.4 mg PO DAILY #5 cap 04/17/15 Fludrocortisone [Florinef] 0.1 mg PO DAILY 30 Days #30 tab 08/07/23 Midodrine [ProAmatine] 5 mg PO AC-TID 30 Days #90 tab 08/07/23 HYDROcodone/APAP 5-325MG [Wales 1 tab PO Q4HR PRN 3 Days #18 tab 03/06/24 5-325] Allergies Allergy/AdvReac Type Severity Reaction Status Date / Time ziprasidone HCl [From [facility]] Allergy Severe Anaphylaxis Verified 03/06/24 19:52 ziprasidone mesylate Allergy Severe Anaphylaxis Verified 03/06/24 19:52 [From Geodon] Review of Systems ROS Statement: Those systems with pertinent positive or pertinent negative responses have been documented in the HPI. ROS Other: All systems not noted in ROS Statement are negative. Constitutional: Denies: fever, chills, weakness Respiratory: Denies: cough, dyspnea Cardiovascular: Denies: chest pain, palpitations, syncope Gastrointestinal: Denies: abdominal pain, vomiting Musculoskeletal: Reports: as per HPI, arthralgia Skin: Denies: rash Neurological: Reports: headache. 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.RECEIVED RADAITION/CHEMO, hx ULCER, SHINGLES, HX OF FALLS due to dizziness, hx GYNOMASTIA-resolved, diet control diabetic, jaw cancer [address] Sepulveda's h & p History of Any Multi-Drug Resistant Organisms: None Reported Past Surgical History: Adenoidectomy, Heart Catheterization, Hernia Repair, Orthopedic Surgery, Tonsillectomy Additional Past Surgical History / Comment(s): lithotripsy 2020, bilateral shoulder fusions/later hardware removed from left shoulder, rt foot ORIF, NECK FUSION x 2( 2013,09/2020), cystoscopy, biopsy mouth 2022 JAW BONE REMOVAL WITH RECONSTRUCTION WITH LEFT OUTER LEG BONE - NOVEMBER 2022, incison drainage face, wt in eyelid since eye would not close,. fat transfer to face r/t jaw surgery, Past Anesthesia/Blood Transfusion Reactions: No Reported Reaction Additional Past Anesthesia/Blood Transfusion Reaction / Comment(s): no bloood tx hx Past Psychological History: Depression Smoking Status: Former smoker - Past Family History Mother Family Medical History: Cancer Additional Family Medical History / Comment(s): lung Father Family Medical History: CVA/TIA Sister(s) Family Medical History: No Reported History General Exam General appearance: alert, in no apparent distress Head exam: Present: atraumatic, normocephalic Eye exam: Present: normal appearance. Absent: scleral icterus, conjunctival injection Neck exam: Present: normal inspection, full ROM. Absent: tenderness Respiratory exam: Present: normal lung sounds bilaterally. Absent: respiratory distress, wheezes, rales, rhonchi, stridor, accessory muscle use Cardiovascular Exam: Present: regular rate, normal rhythm, normal heart sounds. Absent: systolic murmur, diastolic murmur, rubs, gallop GI/Abdominal exam: Present: soft. Absent: tenderness, guarding, rebound Extremities exam: Present: tenderness, normal capillary refill, other (Does have swelling and tenderness over the mid right clavicle.) Back exam: Present: normal inspection. Absent: CVA tenderness (R), CVA tender ness (L), vertebral tenderness Neurological exam: Present: alert. Absent: motor sensory deficit Skin exam: Present: warm, dry, intact, normal color. Absent: rash Course Vital Signs 03/06/24 03/06/24 03/06/24 19:41 21:37 22:13 Temperature 97.9 F 97.3 F L Pulse Rate 59 L 79 77 Respiratory 16 18 18 Rate Blood Pressure 111/93 120/57 129/77 O2 Sat by Pulse 98 98 100 Oximetry 03/06/24 23:33 Temperature Pulse Rate 85 Respiratory 18 Rate Blood Pressure 131/67 O2 Sat by Pulse 99 Oximetry Medical Decision Making - Medical Decision Making The patient had right shoulder and clavicle x-rays that I interpreted to show acute displaced right clavicle fracture in the midshaft. Was pt. sent in by a medical professional or institution (, [facility], [employer], urgent care, hospital, or long term...) When possible be specific @ -[No] Did you speak to anyone other than the patient for history (EMS, parent, family, police, friend...)? What history was obtained from this source @ -[No] Did you review nursing and triage notes (agree or disagree)? Why? @ -[I reviewed and agree with nursing and triage notes] Were old charts reviewed (outside hosp., previous admission, EMS record, old EKG, old radiological studies, urgent care reports/EKG's, long term records)? Report findings @ -[No old charts were reviewed] Differential Diagnosis (chest pain, altered mental status, abdominal pain women, abdominal pain men, vaginal bleeding, weakness, fever, dyspnea, syncope, headache, dizziness, GI bleed, back pain, seizure, CVA, palpatations, mental health, musculoskeletal)? @ -[Differential Musculoskeletal Muscular strain, contusion, ligament sprain, fracture, arthritis, septic arthritis, bursitis, cellulitis, muscle spasm, nerve compression, DVT, arterial occlusion, herpes zoster, electrolyte abnormality, tumor.... This is not meant to be in all inclusive list EKG interpreted by me (3pts min.). @ -[As above] X-rays interpreted by me (1pt min.). @ -[I interpreted as above CT interpreted by me (1pt min.). @ -[None done] U/S interpreted by me (1pt. min.). @ -[None done] What testing was considered but not performed or refused? (CT, X-rays, U/S, labs)? Why? @ -[None] What meds were considered but not given or refused? Why? @ -[None] Did you discuss the management of the patient with other professionals (professionals i.e. , PA, [employer], lab, RT, psych nurse, social services specialist, rubber press tender, teacher, commanding officer garage, special education case manager)? Give summary @ -[No] Was smoking cessation discussed for >3mins.? @ -[No] Was critical care preformed (if so, how long)? @ -[No] Were there social determinants of health that impacted care today? How? (Homelessness, low income, unemployed, alcoholism, drug addiction, transportation, low edu. Level, literacy, decrease access to med. care, retirement, rehab)? @ -[No] Was there de-escalation of care discussed even if they declined (Discuss DNR or withdrawal of care, Hospice)? DNR status @ -[No] What co-morbidities impacted this encounter? (DM, HTN, Smoking, COPD, CAD, Cancer, CVA, ARF, Chemo, Hep., AIDS, mental health diagnosis, sleep apnea, morbid obesity)? @ -[None] Was patient admitted / discharged? Hospital course, mention meds given and route, prescriptions, significant lab abnormalities, going to OR and other pertinent info. @ -[Patient is 63-year-old man with ground-level fall found to have right clavicle fracture. The patient did receive analgesia and was placed in sling. He was feeling better and did want to go home. He is stable to have further orthopedic care as an outpatient. Discussed appropriate further care and follow-up as well as return parameters. Undiagnosed new problem with uncertain prognosis? @ -[No] Drug Therapy requiring intensive monitoring for toxicity (Heparin, Nitro, Insulin, Cardizem)? @ -[No] Were any procedures done? @ -[No] Diagnosis/symptom? @ -[Acute right clavicle fracture Acute, or Chronic, or Acute on Chronic? @ -[Acute Uncomplicated (without systemic symptoms) or Complicated (systemic symptoms)? @ -[Uncomplicated Side effects of treatment? @ -[No] Exacerbation, Progression, or Severe Exacerbation? @ -[No] Poses a threat to life or bodily function? How? (Chest pain, [place], MA, pneumonia, PE, COPD, DKA, ARF, appy, cholecystitis, CVA, Diverticulitis, Homicidal, Suicidal, threat to staff... and all critical care pts) @ -[No] Disposition Clinical Impression: Fall, Clavicle fracture, shaft Disposition: HOME SELF-CARE Condition: Good Instructions (If sedation given, give patient instructions): Clavicle Fracture (DC), Fall Prevention for Older Adults (ED) Prescriptions: HYDROcodone/APAP 5-325MG [Wales 5-325] 1 tab PO Q4HR PRN 3 Days #18 tab PRN Reason: Pain Is patient prescribed a controlled substance at d/c from ED?: Yes Referrals: Armani Rendon DO [Primary Care Provider] - 1-2 days Robert Nance MD [Medical Doctor] - 1-2 days
[2024-03-06 21:42] VITALS: RESP 18; TEMP 97.3
[2024-03-06] MEDS: HYDROmorphone 1 MG/ML 1 ML SYRINGE IVP STA (22:14)
[2024-03-06 23:59] VITALS: BP 131/67; PULSE 85
== END 2024-03-06 23:40 | disposition home or self-care (01) ==
LOC: EC 19:40
CPT/HCPCS: 99283